=== PATIENT | male | born 1970 | race African-American/Black ===

== ENCOUNTER 2017-04-01 01:19 | Inpatient (IN) | payer OTHER ==
[2017-04-01 01:31] VITALS: BMI 23.0
--- NOTE | 2017-04-01 01:48 | PDOC ---
History of Present Illness - General Chief Complaint: Syncope/Near Syncope Stated Complaint: DIZZNESS Time Seen by Provider: 04/01/17 01:47 History Source: Patient - History of Present Illness Initial Comments: 04/01/17 03:31 46 year old male with nausea/ vomiting and dizziness. Patient report drinking 1 beer today. Patient alert slurred speech. breath smelling of alcohol. pmhx HIV, Hypertension, asthma Past History - Past Medical History Allergies/Adverse Reactions: Allergies Allergy/AdvReac Type Severity Reaction Status Date / Time ibuprofen Allergy Verified 04/01/17 06:14 Sulfa (Sulfonamide Allergy Verified 04/01/17 01:28 Antibiotics) [Sulfa(Sulfonamide Antibiotics)] Home Medications: Ambulatory Orders Ritonavir [Norvir] 100 mg PO DAILY 03/25/16 Darunavir Ethanolate [Prezista -] 800 mg PO DAILY #30 tablet 01/17/17 Dolutegravir Sodium [Tivicay] 50 mg PO DAILY #30 mg 01/17/17 Rilpivirine HCl [Edurant] 25 mg PO DAILY #30 mg 01/17/17 Mirtazapine [Remeron -] 15 mg PO DAILY #30 tablet 02/16/17 Zolpidem Tartrate [Ambien] 10 mg PO PRN #20 tablet MDD 1 02/16/17 Losartan Potassium 50 mg PO DAILY 04/01/17 Metoprolol Succinate [Toprol Xl -] 25 mg PO DAILY 04/01/17 Asthma: Yes Diabetes: No HTN: Yes HIV: Yes Suicide Attempt (Hx): No - Surgical History Abdominal Surgery: Yes Cholecystectomy: Yes - Immunization History Immunization Up to Date: Yes - Psycho/Social/Smoking Cessation Hx Anxiety: No Suicidal Ideation: No Smoking Status: No Smoking History: Never smoked Have you smoked in the past 12 months: No Number of Cigarettes Smoked Daily: 0 Cigars Per Day: 0 Information on smoking cessation initiated: No Hx Alcohol Use: No Drug/Substance Use Hx: No Substance Use Type: None, Alcohol Hx Substance Use Treatment: No Review of Systems - Review of Systems Able to Perform ROS?: Yes Is the patient limited Greek proficient: No Constitutional: No: Symptoms Reported, See HPI, Chills, Diaphoresis, Fever, Loss of Appetite, Malaise, Night Sweats, Weakness, Weight Stable, Unintentional Wgt. Loss, Unexplained wgt Loss, Other ABD/GI: Yes: Nausea, Vomiting Neurological: Yes: Dizziness *Physical Exam - Vital Signs Last Vital Signs Temp Pulse Resp BP Pulse Ox 99 H 16 147/110 98 04/01/17 01:28 04/01/17 01:28 04/01/17 01:28 04/01/17 01:28 - Physical Exam General Appearance: Yes: Appropriately Dressed Respiratory/Chest: positive: Lungs Clear, Normal Breath Sounds Cardiovascular: positive: Regular Rhythm, Regular Rate Extremity: positive: Normal Capillary Refill, Normal Inspection, Normal Range of Motion Integumentary: positive: Normal Color, Dry, Warm Neurologic: positive: Fully Oriented, Alert, Normal Mood/Affect Heart Score/ECG Review - ECG Intrepretation Rhythm: Regular Rhythm Comment:: 04/01/17 03:33 NSR 97, prolonged QT ED Treatment Course - LABORATORY CBC & Chemistry Diagram: 04/01/17 03:25 04/01/17 03:25 Medical Decision Making - Medical Decision Making 04/01/17 07:15 patient signed out Alessio CUEVAS pending ct scan result and disposition *DC/Admit/Observation/Transfer Diagnosis at time of Disposition: Elevated lipase, Alcohol abuse Vomiting Qualifiers: Vomiting type: unspecified Vomiting Intractability: non-intractable Nausea presence: with nausea Qualified Code(s): R11.2 - Nausea with vomiting, unspecified - Referrals Referrals: Shikha Tran [Primary Care Provider] -
[2017-04-01] MEDS ORDERED: SODIUM CHLORIDE 1,000 ML IV STA (01:55)
[2017-04-01] MEDS ORDERED: ONDANSETRON 4 MG/2 ML VIAL IVPB ONE (01:55)
[2017-04-01] MEDS ORDERED: ONDANSETRON 4 MG/2 ML VIAL ONE (03:06)
[2017-04-01 03:39] LABS: BASOPHIL 0.6 % (0-2.0); EOSINOPHIL 2.8 % (0-4.5); MCH 33.6 pg (25.7-33.7); MCHC 33.7 g/dl (32.0-35.9); MEAN CELL VOLUME 99.6 fl (80-96); MEAN PLT VOLUME 7.9 fl (7.5-11.1); NEUTROPHILS 55.7 % (42.8-82.8); PLATELET COUNT 120 K/MM3 (134-434); RDW 13.6 % (11.9-15.9); WHITE BLOOD COUNT 4.3 K/mm3 (4.0-10.0)
[2017-04-01 03:40] LABS: URINE APPEARANCE CLEAR; URINE BILIRUBIN NEGATIVE (NEGATIVE); URINE COLOR COLORLESS; URINE GLUCOSE (UA) NEGATIVE (NEGATIVE); URINE KETONE NEGATIVE (NEGATIVE); URINE LEUK ESTERASE NEGATIVE (NEGATIVE); URINE NITRITE NEGATIVE (NEGATIVE); URINE PROTEIN NEGATIVE (NEGATIVE); URINE UROBILINOGEN NEGATIVE E.U./dl (0.2-1.0)
[2017-04-01 03:46] LABS: URINE BLOOD 2+ (NEGATIVE)
[2017-04-01 04:16] LABS: ALBUMIN 3.6 g/dl (3.4-5.0); ALK PHOS 60 U/L (45-117); ANION GAP 18 (8-16); BILIRUBIN,TOTAL 1.1 mg/dL (0.2-1.0); CALCIUM 8.2 mg/dL (8.5-10.1); CO2 21 mmol/L (21-32); COCKROFT - GAULT 71.77; CREATININE 1.2 mg/dL (0.7-1.3); GLUCOSE,RANDOM 109 mg/dL (74-106); SGOT/AST 69 U/L (15-37); SGPT/ALT 50 U/L (12-78)
[2017-04-01 04:24] LABS: URINE BACTERIA RARE /hpf (NONE SEEN); URINE RBC <1 /hpf (0-3)
[2017-04-01] MEDS ORDERED: SODIUM CHLORIDE 1,000 ML IV SCH ×2 (05:30→12:30)
--- NOTE | 2017-04-01 07:35 | PDOC ---
*Physical Exam - Vital Signs Last Vital Signs Temp Pulse Resp BP Pulse Ox 97.5 F L 94 H 17 134/95 98 04/01/17 07:00 04/01/17 07:00 04/01/17 07:00 04/01/17 07:00 04/01/17 07:00 - Physical Exam General Appearance: Yes: Appropriately Dressed. No: Apparent Distress HEENT: positive: Normal Voice Neck: positive: Supple Respiratory/Chest: positive: Lungs Clear, Normal Breath Sounds. negative: Respiratory Distress Cardiovascular: positive: Regular Rate, S1, S2 Gastrointestinal/Abdominal: positive: Soft. negative: Tender, Distended, Guarding, Rebound Musculoskeletal: negative: CVA Tenderness Extremity: positive: Normal Inspection Integumentary: positive: Dry, Warm Neurologic: positive: Fully Oriented, Alert, Normal Mood/Affect ED Treatment Course - LABORATORY CBC & Chemistry Diagram: 04/01/17 03:25 04/01/17 03:25 - ADDITIONAL ORDERS Additional order review: Laboratory Results 04/01/17 04/01/17 04/01/17 03:50 03:25 03:25 Sodium 134 L Potassium 3.3 L D Chloride 95 L Carbon Dioxide 21 Anion Gap 18 H BUN 11 Creatinine 1.2 Creat Clearance w eGFR > 60 Random Glucose 109 H Calcium 8.2 L Total Bilirubin 1.1 H D AST 69 H D ALT 50 D Alkaline Phosphatase 60 Total Protein 8.0 Albumin 3.6 Lipase 903 H Urine Color Colorless Urine Appearance Clear Urine pH 6.0 Urine Protein Negative Urine Glucose (UA) Negative Urine Ketones Negative Urine Blood 2+ H Urine Nitrite Negative Urine Bilirubin Negative Urine Urobilinogen Negative Ur Leukocyte Esterase Negative Urine RBC <1 Urine WBC None Urine Bacteria Rare Alcohol, Quantitative 241.9 H* 04/01/17 03:25 RBC 4.05 MCV 99.6 H MCHC 33.7 RDW 13.6 MPV 7.9 D Neutrophils % 55.7 D Lymphocytes % 22.6 D Monocytes % 18.3 H Eosinophils % 2.8 Basophils % 0.6 - Medications Given in the ED: ED Medications Discontinued Medications Generic Name Dose Route Start Last Admin Trade Name Freq PRN Reason Stop Dose Admin Sodium Chloride 1,000 mls @ 1,000 mls/hr 04/01/17 01:55 04/01/17 02:45 Normal Saline - IV 04/01/17 02:54 1,000 mls/hr ASDIR STA Administration Ondansetron HCl 4 mg 04/01/17 01:55 04/01/17 02:45 Zofran Injection IVPB 04/01/17 01:56 4 mg ONCE ONE Administration Medical Decision Making - Medical Decision Making 04/01/17 07:33 Received S.O at 7am 46 yo M, h/o HIV on meds, does not know numbers, ETOH abuse, her w/ abd pain w/ n/v. Lipase of >900 on labs. Pt NPO w/ IVF going. Feels better. F/u with Dr Jimenes of ID. Will call MD and admit to OBs 04/01/17 09:19 Case d/w hospitalist who wants pt admitted to in-pt for work up *DC/Admit/Observation/Transfer Diagnosis at time of Disposition: Elevated lipase, Alcohol abuse Vomiting Qualifiers: Vomiting type: unspecified Vomiting Intractability: non-intractable Nausea presence: with nausea Qualified Code(s): R11.2 - Nausea with vomiting, unspecified - Discharge Dispostion Condition at time of disposition: Stable Admit: Yes - Referrals Referrals: Shikha Tran [Primary Care Provider] - - Patient Instructions - Post Discharge Activity
--- NOTE | 2017-04-01 09:18 | EKG ---
Test Reason : Blood Pressure : / mmHG Vent. Rate : 097 BPM Atrial Rate : 097 BPM P-R Int : 166 ms QRS Dur : 088 ms QT Int : 398 ms P-R-T Axes : 058 058 070 degrees QTc Int : 505 ms NORMAL SINUS RHYTHM MINIMAL VOLTAGE CRITERIA FOR LVH, MAY BE NORMAL VARIANT NONSPECIFIC ST ABNORMALITY PROLONGED QT ABNORMAL ECG WHEN COMPARED WITH ECG OF 18-FEB-2016 04:51, NONSPECIFIC T WAVE ABNORMALITY NO LONGER EVIDENT IN LATERAL LEADS QT HAS LENGTHENED Confirmed by SHALONDA VENTURA MD ([id number]) on 04/01/2017 9:17:57 AM Referred By: Confirmed By:SHALONDA VENTURA MD
[2017-04-01] MEDS ORDERED: FOLIC ACID INJECTION - 1 MG, THIAMINE HCL 100 MG, MULTIVIT INJECTION ADULT 10 ML in SOD... IVPB ONE (09:19)
[2017-04-01] MEDS ORDERED: ONDANSETRON 4 MG/2 ML VIAL IVPUSH PRN (09:19)
--- NOTE | 2017-04-01 10:47 | CONSULT ---
Consultation: REQUESTING PROVIDER: CONSULT REQUEST: We have been asked to medically evaluate this patient for (ID). HISTORY OF PRESENT ILLNESS: 46 y/o male with past medical h/o HIV, alcoholism, HTN, CKD, pancreatitis came to hospital with a cc of pain abdomen. States that he has pain since 2 days, on and off, 7/ 10 in intensity, present around umblicus and hypogasrtrium, non radiating, didnt try an pain meds in home, goes itself, gets better when stands straight. Also reports nausea and vomiting from 2 days, states that he was retching but has no actual vomit. Patient denies heart burn, regurgitaion. States that when he drinks some thing hot it dixon in epigastric area. Patient states that he has two beer yesterday and than he passed out, his mom found him and called ems and brought him to hospital , in hospital he complained of pain abdomen. Denies hitting his head, abnormal body movements, urine and fecal incontinence, tongue bite. Denies fever, chills, abdominal distension Denies sob, chest pain, palpitations , diarrhoea, constipation, blood in stool. Denies burning micturation, increase frequency. In hospital Lipase is elevated, CT shows dilated PD, afebrile, wbc normal. got 1 L of IV fluid bolus on 125 ml/hr dont remember his counts PSH : cholecystectomy social: drinks alcohol on weekend, states not a binge drinker. states he is compliant to his meds. nonischemic cardiomyopathy- followed by Dr Carpenter HIV- followed by Dr Jimenes cd4 is 185, viral load undetectable 12/10/16 REVIEW OF SYSTEMS: CONSTITUTIONAL: Absent: fever, chills, diaphoresis, Absent: rhinorrhea, nasal congestion, CARDIOVASCULAR: Absent: chest pain, syncope, palpitations, lightheadedness, RESPIRATORY: Absent: cough, shortness of breath, GASTROINTESTINAL: Absent: abdominal pain, abdominal distension, nausea, vomiting, diarrhea, constipation, hematochezia GENITOURINARY: Absent: dysuria, frequency, urgency, SKIN: Absent: rash, itching, pallor PHYSICAL EXAMINATION GENERAL: Awake, alert, and fully oriented, in no acute distress. alcohol smell in breath HEAD: Normal with no signs of trauma. EYES: Pupils equal, round and reactive to light, EARS, NOSE, THROAT: , oropharynx clear without exudates. dry mucous membranes. LUNGS: Breath sounds equal, clear to auscultation bilaterally. No wheezes, and no crackles. No accessory muscle use. HEART:s1s2 normal ABDOMEN: Soft, nontender, not distended, normoactive bowel sounds, no guarding, no rebound, no masses. UPPER EXTREMITIES: 2+ pulses, warm, well-perfused. LOWER EXTREMITIES:warm, well-perfused. No calf tenderness. No peripheral edema. Active Medications Generic Name Dose Route Start Last Admin Trade Name Freq PRN Reason Stop Dose Admin Sodium Chloride 1,000 mls @ 125 mls/hr 04/01/17 05:30 04/01/17 05:42 Normal Saline - IV 125 mls/hr ASDIR ANJALI Administration Folic Acid 1 mg/ Thiamine HCl 1,000 mls @ 125 mls/hr 04/01/17 09:19 100 mg/ Multivitamins/Minerals IVPB 04/01/17 17:18 10 ml/ Sodium Chloride ONCE ONE Insulin Aspart 1 vial 04/01/17 11:00 Novolog Vial Sliding Scale - SQ ACHS [facility] Protocol Ondansetron HCl 4 mg 04/01/17 09:19 Zofran Injection IVPUSH Q6H PRN NAUSEA AND/OR VOMITING ASSESSMENT/PLAN: Pain abdomen: could be from pancreatits ( although lipase is not three time elevated, pain is intermittent, non tender, duct was dilated in last admission also, calcification present, patient could have chronic pancreatits). HIV dilated cardiomyopathy Plan patient is afebrile, wbc is normal, will monitor him off antibiotics continue with HIV meds. consider cardiology consult Dispo: We will continue to follow the patient. Thank you for this consultative opportunity. Visit type - Emergency Visit Emergency Visit: Yes ED Registration Date: 04/01/17 Care time: The patient presented to the Emergency Department on the above date and was hospitalized for further evaluation of their emergent condition. - New Patient This patient is new to me today: Yes Date on this admission: 04/01/17 - Critical Care Critical Care patient: No
[2017-04-01] MEDS ORDERED: PATIENT'S OWN MEDICATION (NON-FORMULARY) (Dolutegravir Sodium 50 MG) PO SCH (11:30)
[2017-04-01] MEDS: INSULIN SLIDING SCALE (NOVOLOG) 1 VIAL SQ SCH ×3 (12:00→21:40)
--- NOTE | 2017-04-01 12:10 | HP ---
CHIEF COMPLAINT: abdominal pain and n/v PCP: Dr. Jimenes, primarily HISTORY OF PRESENT ILLNESS: This 46 year old male with a significant hx of HIV, ETOH abuse, HTN, CKD, pancreatitis now presents with c/o abd pain, n, v, for the past 2 days. He has had beer but denies daily use. He states last use is yesterday. He states he is compliant with his meds. He follows Dr. Jimenes's service for HIV/ID and does not know his CD4 count. Denies fever, chest pain, shortness of breath, signs of infection, or dehydration. While in the ER, pt is noted to have an EKG with a prolonged QTc at 505 which is longer then prior EKG He also underwent a CT of abd and pelvic with findings of pancreatitc head dilation of 5mm and elevated lipase Recent Travel: denies PAST MEDICAL HISTORY: HIV, ETOH abuse, HTN, CKD, pancreatitis PAST SURGICAL HISTORY: Social History: Smoking:none Alcohol:abuse Drugs: none Family History: Allergies ibuprofen Allergy (Verified 04/01/17 06:14) Sulfa (Sulfonamide Antibiotics) [Sulfa(Sulfonamide Antibiotics)] Allergy ( Verified 04/01/17 01:28) HOME MEDICATIONS: Home Medications Medication Instructions Recorded Ritonavir [Norvir] 100 mg PO DAILY 03/25/16 Darunavir Ethanolate [Prezista -] 800 mg PO DAILY #30 tablet 01/17/17 Dolutegravir Sodium [Tivicay] 50 mg PO DAILY #30 mg 01/17/17 Rilpivirine HCl [Edurant] 25 mg PO DAILY #30 mg 01/17/17 Mirtazapine [Remeron -] 15 mg PO DAILY #30 tablet 02/16/17 Zolpidem Tartrate [Ambien] 10 mg PO PRN #20 tablet MDD 1 02/16/17 Losartan Potassium 50 mg PO DAILY 04/01/17 Metoprolol Succinate [Toprol Xl -] 25 mg PO DAILY 04/01/17 REVIEW OF SYSTEMS CONSTITUTIONAL: Absent: fever, chills, diaphoresis, generalized weakness, malaise, loss of appetite, weight change HEENT: Absent: rhinorrhea, nasal congestion, throat pain, throat swelling, difficulty swallowing, mouth swelling, ear pain, eye pain, visual changes CARDIOVASCULAR: Absent: chest pain, syncope, palpitations, irregular heart rate, lightheadedness , peripheral edema RESPIRATORY: Absent: cough, shortness of breath, dyspnea with exertion, orthopnea, wheezing, stridor, hemoptysis GASTROINTESTINAL: Absent: (+)abdominal pain, abdominal distension,(+) nausea, (+)vomiting, diarrhea, constipation, melena, hematochezia GENITOURINARY: Absent: dysuria, frequency, urgency, hesitancy, hematuria, flank pain, genital pain MUSCULOSKELETAL: Absent: myalgia, arthralgia, joint swelling, back pain, neck pain SKIN: Absent: rash, itching, pallor HEMATOLOGIC/IMMUNOLOGIC: Absent: easy bleeding, easy bruising, lymphadenopathy, frequent infections ENDOCRINE: Absent: unexplained weight gain, unexplained weight loss, heat intolerance, cold intolerance NEUROLOGIC: Absent: headache, focal weakness or paresthesias, dizziness, unsteady gait, seizure, mental status changes, bladder or bowel incontinence PSYCHIATRIC: Absent: anxiety, depression, suicidal or homicidal ideation, hallucinations. PHYSICAL EXAMINATION GENERAL: Awake, alert, and fully oriented, in no acute distress. HEAD: Normal with no signs of trauma. EYES: Pupils equal, round and reactive to light, extraocular movements intact, sclera anicteric, conjunctiva clear. No lid lag. EARS, NOSE, THROAT: Ears normal, nares patent, oropharynx clear without exudates. Moist mucous membranes. NECK: Normal range of motion, supple without lymphadenopathy, JVD, or masses. LUNGS: Breath sounds equal, clear to auscultation bilaterally. No wheezes, and no crackles. No accessory muscle use. HEART: Regular rate and rhythm, normal S1 and S2 without murmur, rub or gallop. ABDOMEN: Soft, (+) generalized abd tender, not distended, normoactive bowel sounds, no guarding, no rebound, no masses. No hepatomegaly or splenomegaly. MUSCULOSKELETAL: Normal range of motion at all joints. No bony deformities or tenderness. No CVA tenderness. UPPER EXTREMITIES: 2+ pulses, warm, well-perfused. No cyanosis. No clubbing. No peripheral edema. LOWER EXTREMITIES: 2+ pulses, warm, well-perfused. No calf tenderness. No peripheral edema. NEUROLOGICAL: Cranial nerves II-XII intact. Normal speech. Normal gait. PSYCHIATRIC: Cooperative. Good eye contact. Appropriate mood and affect. SKIN: Warm, dry, normal turgor, no rashes or lesions noted, normal capillary refill. ASSESSMENT/PLAN: This 46 yr old male with c/o abd pain and n, v with findings of pancreatitis with elevated lipase 1. Pancreatitis chronic vs acute -NPO with IVF -repeat labs and monitor -appreciate ROCK Jimenes consult, will restart meds po -GI consult with Dr. Jia fiore 2. Prolonged QTc -cardiology consult with Dr. Castaneda 3. Admission med surg inpatient for pancreatitis and EKG changes. Visit type - Emergency Visit Emergency Visit: Yes ED Registration Date: 04/01/17 Care time: The patient presented to the Emergency Department on the above date and was hospitalized for further evaluation of their emergent condition. - New Patient This patient is new to me today: Yes Date on this admission: 04/01/17 - Critical Care Critical Care patient: No
--- NOTE | 2017-04-01 12:27 | PN ---
Teaching Attending Note Name of Resident: Raudelleena Sosa ATTENDING PHYSICIAN STATEMENT I saw and evaluated the patient. I reviewed the resident's note and discussed the case with the resident. I agree with the resident's findings and plan as documented. SUBJECTIVE: syncope etoh use abdominal pain with nausea and vomiting nonischemic cardiomyopathy- followed by Dr Carpenter HIV- followed by Dr Jimenes cd4 is 185, viral load undetectable 12/10/16 abd pain improved no diarrhea OBJECTIVE: Vital Signs Period Temp Pulse Resp BP Sys/Goodson Pulse Ox Last 24 Hr 97.5 F 73-99 16-18 131-147/95-110 98-100 no thrush cor-rrr 'lungs clear abd soft,nt ext no edema CBC, BMP 04/01/17 03:25 04/01/17 03:25 ct scan noted ASSESSMENT AND PLAN: syncope- ?etoh, ?cardiac, d/w hospitalist pancreatitis- probably chronic- gi to see, ?esophagitis- consider endoscopoy, no evidence of thrush dilated cardiomyopathy HIV - continue ART - f/u Dr Jimenes [facility] d/w hospitalist Problem List - Problems (1) Syncope Code(s): R55 - SYNCOPE AND COLLAPSE (2) Pancreatitis Code(s): K85.90 - ACUTE PANCREATITIS WITHOUT NECROSIS OR INFECTION, UNSP (3) Alcohol abuse Code(s): F10.10 - ALCOHOL ABUSE, UNCOMPLICATED (4) HIV disease Code(s): B20 - HUMAN IMMUNODEFICIENCY VIRUS [HIV] DISEASE
--- NOTE | 2017-04-01 12:38 | PN ---
Progress Note (short form) - Note Progress Note: Received a phone call from Dr. Alexander who was seeing pt for consult. Pt and mother present and both states now that pt fell and hit head this morning prior to coming in to ER. His initial complaint is abdominal pain and n/v however he just stated his fall. This has arose concern for cardiac vs ETOH use -ordered head CT -now changing order to telemetry -also noted that Dr. 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 Alexander, consult for cards changed as well. -will monitor for AMS Visit type - Emergency Visit Emergency Visit: Yes ED Registration Date: 04/01/17 Care time: The patient presented to the Emergency Department on the above date and was hospitalized for further evaluation of their emergent condition. - New Patient This patient is new to me today: Yes Date on this admission: 04/01/17 - Critical Care Critical Care patient: No - Discharge Referral Referred to [facility] Med P.C.: No
--- NOTE | 2017-04-01 13:50 | CON.CARD ---
Cardiology Consult (text) - Consultation Consultation Note: IMP: Acute pancreatitis, likely ETOH induced HIV with non-ischemic CM Prolonged QT Fall REC: GI evaluation for pancreatitis. CT pending. Tele as QT prolonged, likely du to low K+ Replete lytes. Fall likely due to intoxication, will observe on tele to rachel out arrhythmia Full consult dictated
--- NOTE | 2017-04-01 16:12 | CON.GI ---
Consult - History of Present Illness Chief Complaint: abdominal pain and syncope History of Present Illness: 46 year old alcohol abuser who is HIV positive, viral load neg on Norvir drinking yesterday (he says 2 beers but alcohol level is over 200) admitted after he got up from bed (no abdominal pain , no vomiting) and passed out. He is now on telemetry. He is pain free. He states that this is his second bout of pancreatitis. He takes his HIV meds everyday. He had some nausea and vomiting yesterdy but feels better today. Lipase about [address] scan with enlarged head of pancreas. - History Source History Provided By: Patient Limitations to Obtaining History: No Limitations - Past Medical History Cardio/Vascular: Yes: HTN Gastrointestinal: Yes: Other (alcohol abuse/ hx of pancreatitis) Renal/: Yes: Renal Inusuff (see HPI, last epiosode of [place] 03/2014 with creatinine up to 8.1, recovered) Infectious Disease: Yes: HIV, AIDS - Past Surgical History Past Surgical History: Yes: Cholecystectomy - Alcohol/Substance Use Hx Alcohol Use: No History of Substance Use: reports: None - Smoking History Smoking history: Never smoked Have you smoked in the past 12 months: No Aproximately how many cigarettes per day: 0 - Social History Usual Living Arrangement: Alone ADL: Independent History of Recent Travel: No Home Medications - Allergies Allergies/Adverse Reactions: Allergies Allergy/AdvReac Type Severity Reaction Status Date / Time ibuprofen Allergy Verified 04/01/17 06:14 Sulfa (Sulfonamide Allergy Verified 04/01/17 01:28 Antibiotics) [Sulfa(Sulfonamide Antibiotics)] - Home Medications Home Medications: Ambulatory Orders Ritonavir [Norvir] 100 mg PO DAILY 03/25/16 Darunavir Ethanolate [Prezista -] 800 mg PO DAILY #30 tablet 01/17/17 Dolutegravir Sodium [Tivicay] 50 mg PO DAILY #30 mg 01/17/17 Rilpivirine HCl [Edurant] 25 mg PO DAILY #30 mg 01/17/17 Mirtazapine [Remeron -] 15 mg PO DAILY #30 tablet 02/16/17 Zolpidem Tartrate [Ambien] 10 mg PO PRN #20 tablet MDD 1 02/16/17 Losartan Potassium 50 mg PO DAILY 04/01/17 Metoprolol Succinate [Toprol Xl -] 25 mg PO DAILY 04/01/17 Family Disease History - Family Disease History Family Disease History: Other: Mother (HTN) Review of Systems - Review of Systems Constitutional: reports: Loss of Appetite, Malaise Eyes: reports: No Symptoms HENT: reports: No Symptoms Neck: reports: No Symptoms Cardiovascular: reports: No Symptoms Respiratory: reports: No Symptoms Gastrointestinal: reports: Abdominal Pain, Nausea, Vomiting, Other (no rectal bleeding, no melena, no hematemesis) Musculoskeletal: reports: No Symptoms Integumentary: reports: No Symptoms Neurological: reports: Change in LOC Psychiatric: reports: No Symptoms Physical Exam-GI Vital Signs: Vital Signs Temperature 97.7 F 04/01/17 14:00 Pulse Rate 72 04/01/17 14:00 Respiratory Rate 20 04/01/17 14:00 Blood Pressure 139/103 04/01/17 14:00 O2 Sat by Pulse Oximetry (%) 99 04/01/17 13:53 Constitutional: Yes: Well Nourished Eyes: Yes: Conjunctiva Clear HENT: Yes: Atraumatic Neck: Yes: Supple Cardiovascular: Yes: Regular Rate and Rhythm Respiratory: Yes: Regular Gastrointestinal Inspection: Yes: WNL, Distention ...Auscultate: Yes: Normoactive Bowel Sounds ...Palpate: Yes: Soft Extremities: Yes: WNL Neurological: Yes: Alert, Oriented Psychiatric: Yes: WNL Labs: Laboratory Tests 04/01/17 04/01/17 04/01/17 03:25 03:25 03:25 WBC 4.3 RBC 4.05 Hgb 13.6 Hct 40.4 MCV 99.6 H MCHC 33.7 RDW 13.6 Plt Count 120 L D MPV 7.9 D Neutrophils % 55.7 D Lymphocytes % 22.6 D Monocytes % 18.3 H Eosinophils % 2.8 Basophils % 0.6 Sodium 134 L Potassium 3.3 L D Chloride 95 L Carbon Dioxide 21 Anion Gap 18 H BUN 11 Creatinine 1.2 Creat Clearance w eGFR > 60 Random Glucose 109 H Calcium 8.2 L Total Bilirubin 1.1 H D AST 69 H D ALT 50 D Alkaline Phosphatase 60 Total Protein 8.0 Albumin 3.6 Lipase 903 H Urine Color Colorless Urine Appearance Clear Urine pH 6.0 Ur Specific Sparkman <= 1.005 Urine Protein Negative Urine Glucose (UA) Negative Urine Ketones Negative Urine Blood 2+ H Urine Nitrite Negative Urine Bilirubin Negative Urine Urobilinogen Negative Ur Leukocyte Esterase Negative Urine RBC <1 Urine WBC None Urine Bacteria Rare Alcohol, Quantitative 04/01/17 03:50 WBC RBC Hgb Hct MCV MCHC RDW Plt Count MPV Neutrophils % Lymphocytes % Monocytes % Eosinophils % Basophils % Sodium Potassium Chloride Carbon Dioxide Anion Gap BUN Creatinine Creat Clearance w eGFR Random Glucose Calcium Total Bilirubin AST ALT Alkaline Phosphatase Total Protein Albumin Lipase Urine Color Urine Appearance Urine pH Ur Specific Sparkman Urine Protein Urine Glucose (UA) Urine Ketones Urine Blood Urine Nitrite Urine Bilirubin Urine Urobilinogen Ur Leukocyte Esterase Urine RBC Urine WBC Urine Bacteria Alcohol, Quantitative 241.9 H* Imaging - Results Cat Scan: Image Reviewed Problem List - Problems (1) Pancreatitis Assessment/Plan: The combination of alcohol abuse and norvir is not a good combintion. He has recurrent pancreatitis and I am sure the norvir at what ever dose contributes to his pancreatitis. Patient has not been given adequate hydration since in hospital. I have started lr at 200 cc/hour for 10 hours the decrease to 150 cc/hr. He states he is hungry and pain free. Start clear liquids and follow labs. Speak with ID about the Norvir. Code(s): K85.90 - ACUTE PANCREATITIS WITHOUT NECROSIS OR INFECTION, UNSP (2) Alcohol abuse Code(s): F10.10 - ALCOHOL ABUSE, UNCOMPLICATED (3) Elevated lipase Code(s): R74.8 - ABNORMAL LEVELS OF OTHER SERUM ENZYMES (4) Syncope Code(s): R55 - SYNCOPE AND COLLAPSE
[2017-04-01] MEDS: LOSARTAN POTASSIUM 50 MG TABLET (FP) PO SCH (16:22)
[2017-04-01] MEDS: METOPROLOL SUCCINATE 25 MG TAB.SR.24H (FP) PO SCH (16:22)
[2017-04-01] MEDS: RITONAVIR 100 MG TABLET PO SCH ×2 (16:25→18:24)
[2017-04-01] MEDS: RILPIVIRINE HCL 25 MG TABLET PO SCH ×2 (16:25→18:24)
[2017-04-01] MEDS: DARUNAVIR ETHANOLATE 800 MG TAB PO SCH ×2 (16:26→18:24)
[2017-04-01] MEDS ORDERED: POTASSIUM CHLORIDE TABS 20 MEQ TABLET.ER (FP) PO ONE (16:35)
--- NOTE | 2017-04-01 18:04 | CONS ---
DATE OF CONSULTATION: 04/01/2017 CARDIOLOGY CONSULTATION REQUESTING PHYSICIAN: for abnormal EKG. HISTORY OF PRESENT ILLNESS: The patient is a 46-year-old male with HIV, nonischemic cardiomyopathy with moderate LV dysfunction who I have seen in the office for optimization of LV dysfunction. Over the last 6 months, he has been tapered off Norvasc and started on Toprol XL and losartan. Nuclear stress test showed no ischemia. He is now admitted with abdominal pain, elevated lipase at 903, intoxication with alcohol all consistent with acute pancreatitis. I was consulted because his QT was found to be mildly prolonged on EKG and he also suffered a fall last evening in the setting of being intoxicated. He denies chest pain, palpitations, shortness of breath. PAST MEDICAL HISTORY: As above and also includes Vuong's palsy, prior pancreatitis. ALLERGIES: IBUPROFEN and SULFA. HOME MEDICATIONS: Include Prezista, Edurant, Tivicay, Norvir, losartan 50 mg daily, Remeron 50 mg daily, Toprol XL 25 mg daily, and Ambien. FAMILY HISTORY: Noncontributory. SOCIAL HISTORY: Patient drinks alcohol occasionally very heavily. Denies smoking or other illegal drugs. PHYSICAL EXAMINATION: Vital signs: Temperature 97.5, pulse 73, blood pressure 137/95, and O2 100 on room air. HEENT: Anicteric. Neck: No bruits. Heart: S1, 2. Regular. No murmurs. Chest: Clear. Abdomen: Soft. Nontender. Mild epigastric tenderness. Extremities: No edema. LABORATORY: White count 4.3, hematocrit 40, platelets 120, sodium 134, potassium 3.3, creatinine 1.2. AST 69, ALT 50, lipase 903, urinalysis showed 2+ blood, toxicology showed alcohol level of 250. EKG showed normal sinus rhythm at 97 beats per minute with LVH, prolonged QT, QTC 505 ms. IMPRESSION: 1. Acute pancreatitis, probably alcohol induced, although human immunodeficiency virus medications may be responsible as well, cannot rule out possible cholelithiasis. 2. Nonischemic cardiomyopathy, presumed due to hypertension and human immunodeficiency virus. 3. Alcohol intoxication. 4. Fall in the setting of intoxication. PLAN: 1. GI consultation for management of pancreatitis. CT scan is pending. 2. Telemetry monitoring, as patient has mildly prolonged QT in the setting of hypokalemia. Replete potassium and electrolytes. Monitor on telemetry for 24 hours to rule out arrhythmias. However, do not suspect fall is due to arrhythmia but rather due to intoxication with alcohol. Thank you for the consultation. SHALONDA VENTURA M.D. [id number]
[2017-04-01] MEDS: LACTATED RINGERS SOLUTION 1,000 ML IV SCH ×2 (18:16→18:24)
[2017-04-01] MEDS: MIRTAZAPINE 15 MG TABLET (FP) PO SCH (21:44)
[2017-04-01 21:50] LABS: ALBUMIN 3.7 g/dl (3.4-5.0); BILIRUBIN,TOTAL 1.3 mg/dL (0.2-1.0); CALCIUM 8.2 mg/dL (8.5-10.1); COCKROFT - GAULT 66.25; CREATININE 1.3 mg/dL (0.7-1.3); TOT PROT 7.9 g/dl (6.4-8.2)
[2017-04-02] MEDS: ZOLPIDEM TARTRATE 5 MG TABLET PO PRN (00:37)
[2017-04-02] MEDS: LACTATED RINGERS SOLUTION 1,000 ML IV SCH ×2 (01:38→17:20)
[2017-04-02] MEDS: INSULIN SLIDING SCALE (NOVOLOG) 1 VIAL SQ SCH ×4 (06:15→22:27)
[2017-04-02 08:17] LABS: BASOPHIL 0.7 % (0-2.0); EOSINOPHIL 3.8 % (0-4.5); MCH 34.1 pg (25.7-33.7); MCHC 33.8 g/dl (32.0-35.9); MEAN CELL VOLUME 100.9 fl (80-96); MEAN PLT VOLUME 8.5 fl (7.5-11.1); PLATELET COUNT 110 K/MM3 (134-434)
[2017-04-02 08:29] LABS: INR 1.01 (0.82-1.09); PROTHROMBIN TIME (PATIENT) 11.1 SEC (9.98-11.88)
[2017-04-02 08:32] LABS: ACTIVATED PTT 28.8 SECONDS (26.9-34.4)
[2017-04-02 08:56] LABS: ALBUMIN 3.2 g/dl (3.4-5.0); ALK PHOS 45 U/L (45-117); AMYLASE 162 U/L (25-115); ANION GAP 8 (8-16); BILIRUBIN,TOTAL 1.2 mg/dL (0.2-1.0); CALCIUM 8.4 mg/dL (8.5-10.1); CO2 28 mmol/L (21-32); COCKROFT - GAULT 78.29; CREATININE 1.1 mg/dL (0.7-1.3); GLUCOSE,RANDOM 85 mg/dL (74-106); MAGNESIUM 1.6 mg/dL (1.8-2.4); PHOSPHOROUS 3.1 mg/dL (2.5-4.9); SGOT/AST 52 U/L (15-37); SGPT/ALT 37 U/L (12-78)
--- NOTE | 2017-04-02 09:21 | PN ---
Progress Note, Physician - Current Medication List Current Medications: Active Medications Darunavir (Prezista -) 800 mg PO DAILY [facility] Last Admin: 04/01/17 18:24 Dose: 800 mg Lactated Ringer's (Lactated Ringers Solution) 1,000 mls @ 200 mls/hr IV ASDIR [facility] Last Admin: 04/02/17 01:38 Dose: 200 mls/hr Insulin Aspart (Novolog Vial Sliding Scale -) 1 vial SQ ACHS [facility] PRN Reason: Protocol Last Admin: 04/02/17 06:15 Dose: Not Given Losartan Potassium (Cozaar -) 50 mg PO DAILY [facility] Last Admin: 04/01/17 16:22 Dose: 50 mg Metoprolol Succinate (Toprol Xl -) 25 mg PO DAILY [facility] Last Admin: 04/01/17 16:22 Dose: 25 mg Mirtazapine (Remeron -) 15 mg PO HS [facility] Last Admin: 04/01/17 21:44 Dose: 15 mg Non-Formulary Medication (Dolutegravir Sodium) 50 mg PO DAILY [facility] Ondansetron HCl (Zofran Injection) 4 mg IVPUSH Q6H PRN PRN Reason: NAUSEA AND/OR VOMITING Ritonavir (Norvir -) 100 mg PO DAILY [facility] Last Admin: 04/01/17 18:24 Dose: 100 mg Zolpidem Tartrate (Ambien -) 10 mg PO HS PRN PRN Reason: INSOMNIA Last Admin: 04/02/17 00:37 Dose: 10 mg - Objective Vital Signs: Vital Signs Temperature 97.8 F 04/02/17 06:00 Pulse Rate 76 04/02/17 06:00 Respiratory Rate 20 04/02/17 06:00 Blood Pressure 143/96 04/02/17 06:00 O2 Sat by Pulse Oximetry (%) 99 04/01/17 21:00 Eyes: Yes: WNL, Conjunctiva Clear, EOM Intact HENT: Yes: WNL, Atraumatic, Normocephalic Neck: Yes: WNL, Supple, Trachea Midline Cardiovascular: Yes: WNL, Regular Rate and Rhythm Respiratory: Yes: WNL, Regular, CTA Bilaterally Gastrointestinal: Yes: WNL, Normal Bowel Sounds Genitourinary: Yes: WNL Musculoskeletal: Yes: WNL Extremities: Yes: WNL Edema: No Integumentary: Yes: WNL Neurological: Yes: WNL, Alert, Oriented ...Motor Strength: WNL Psychiatric: Yes: WNL Labs: CBC, BMP 04/02/17 05:43 04/02/17 05:43 INR, PTT INR 1.01 (0.82-1.09) 04/02/17 05:43 Assessment/Plan IMP: Acute pancreatitis, likely ETOH induced HIV with non-ischemic CM Prolonged QT Fall REC: GI evaluation for pancreatitis. CT pending. Tele as QT prolonged, likely du to low K+ Replete lytes. Fall likely due to intoxication, will observe on tele to rachel out arrhythmia Full consult dictated
[2017-04-02] MEDS: RILPIVIRINE HCL 25 MG TABLET PO SCH (09:46)
[2017-04-02] MEDS: METOPROLOL SUCCINATE 25 MG TAB.SR.24H (FP) PO SCH (10:46)
[2017-04-02] MEDS: LOSARTAN POTASSIUM 50 MG TABLET (FP) PO SCH (10:46)
--- NOTE | 2017-04-02 10:48 | PN ---
Progress Note, Physician Chief Complaint: ID Feeling much better now Admits to excessive drinking of alcohol - Current Medication List Current Medications: Active Medications Darunavir (Prezista -) 800 mg PO DAILY [facility] Last Admin: 04/01/17 18:24 Dose: 800 mg Lactated Ringer's (Lactated Ringers Solution) 1,000 mls @ 200 mls/hr IV ASDIR [facility] Last Admin: 04/02/17 01:38 Dose: 200 mls/hr Insulin Aspart (Novolog Vial Sliding Scale -) 1 vial SQ ACHS [facility] PRN Reason: Protocol Last Admin: 04/02/17 06:15 Dose: Not Given Losartan Potassium (Cozaar -) 50 mg PO DAILY [facility] Last Admin: 04/01/17 16:22 Dose: 50 mg Metoprolol Succinate (Toprol Xl -) 25 mg PO DAILY [facility] Last Admin: 04/01/17 16:22 Dose: 25 mg Mirtazapine (Remeron -) 15 mg PO HS [facility] Last Admin: 04/01/17 21:44 Dose: 15 mg Non-Formulary Medication (Dolutegravir Sodium) 50 mg PO DAILY [facility] Ondansetron HCl (Zofran Injection) 4 mg IVPUSH Q6H PRN PRN Reason: NAUSEA AND/OR VOMITING Ritonavir (Norvir -) 100 mg PO DAILY [facility] Last Admin: 04/01/17 18:24 Dose: 100 mg Zolpidem Tartrate (Ambien -) 10 mg PO HS PRN PRN Reason: INSOMNIA Last Admin: 04/02/17 00:37 Dose: 10 mg - Objective Vital Signs: Vital Signs Temperature 97.8 F 04/02/17 06:00 Pulse Rate 76 04/02/17 06:00 Respiratory Rate 20 04/02/17 06:00 Blood Pressure 143/96 04/02/17 06:00 O2 Sat by Pulse Oximetry (%) 99 04/01/17 21:00 Constitutional: Yes: Well Nourished, No Distress HENT: Yes: WNL, Atraumatic Neck: Yes: WNL, Supple Cardiovascular: Yes: Regular Rate and Rhythm, S1, S2 Respiratory: Yes: WNL, Regular, CTA Bilaterally Gastrointestinal: Yes: WNL, Normal Bowel Sounds, Soft. No: Tenderness Edema: No Labs: CBC, BMP 04/02/17 05:43 04/02/17 05:43 INR, PTT INR 1.01 (0.82-1.09) 04/02/17 05:43 Assessment/Plan Laboratory Tests 04/02/17 04/02/17 05:43 05:43 WBC 4.0 Hgb 13.4 Plt Count 110 L AST 52 H D ALT 37 Alkaline Phosphatase 45 Total Amylase 162 H Lipase 948 H Assessment Alcoholic pancreatitis improving Plan Discharge planning Resume HIV meds as before as this doubtful as a contributing factor Jalil DARDEN
[2017-04-02] MEDS ORDERED: MAGNESIUM SULF 50% (8.12 MEQ/2 ML-1 GM VIAL) IVPB ONE (10:51)
[2017-04-02] MEDS ORDERED: PT OWN MED DRAWER 7, Y5N ONE (10:59)
[2017-04-02] MEDS: DARUNAVIR ETHANOLATE 800 MG TAB PO SCH (11:09)
[2017-04-02] MEDS: RITONAVIR 100 MG TABLET PO SCH (11:09)
--- NOTE | 2017-04-02 11:14 | PN ---
Physical Exam: SUBJECTIVE: Patient seen and examined. He denies abdominal pain, nausea, vomiting, hematochezia. He is tolerating clears well. Tele: NSR, pacs OBJECTIVE: Vital Signs Period Temp Pulse Resp BP Sys/Goodson Pulse Ox Last 24 Hr 97 F-98.7 F 72-90 18-20 134-151/70-108 99-100 PE Neuro: alert, awake, cn 2-12intact HEENT: L eye mild ptosis, slight droop to L smile (hx of bells palsy) Pulm: L base mild wheeze, right clear CV: s1 s2 rrr no mrg Abd: s nt nd +bs Ext: warm, no le edema Laboratory Results - last 24 hr 04/01/17 04/01/17 04/01/17 11:43 20:45 21:17 WBC RBC Hgb Hct MCV MCHC RDW Plt Count MPV Neutrophils % Lymphocytes % Monocytes % Eosinophils % Basophils % INR PTT (Actin FS) Sodium 141 Potassium 4.0 D Chloride 105 D Carbon Dioxide 23 Anion Gap 13 BUN 9 Creatinine 1.3 Creat Clearance w eGFR 59.17 POC Glucometer 103.84265 107 Random Glucose 116 H Calcium 8.2 L Phosphorus Magnesium Total Bilirubin 1.3 H AST 73 H ALT 45 Alkaline Phosphatase 51 B-Natriuretic Peptide Total Protein 7.9 Albumin 3.7 Total Amylase Lipase 04/02/17 04/02/17 04/02/17 05:43 05:43 05:43 WBC 4.0 RBC 3.92 L Hgb 13.4 Hct 39.5 MCV 100.9 H MCHC 33.8 RDW 14.0 Plt Count 110 L MPV 8.5 Neutrophils % 56.0 Lymphocytes % 25.2 Monocytes % 14.3 H Eosinophils % 3.8 Basophils % 0.7 INR 1.01 PTT (Actin FS) 28.8 Sodium 139 Potassium 4.2 Chloride 103 Carbon Dioxide 28 D Anion Gap 8 BUN 8 Creatinine 1.1 Creat Clearance w eGFR > 60 POC Glucometer Random Glucose 85 D Calcium 8.4 L Phosphorus 3.1 Magnesium 1.6 L Total Bilirubin 1.2 H AST 52 H D ALT 37 Alkaline Phosphatase 45 B-Natriuretic Peptide 198.62 H Total Protein 7.0 Albumin 3.2 L Total Amylase 162 H Lipase 948 H Active Medications Generic Name Dose Route Start Last Admin Trade Name Freq PRN Reason Stop Dose Admin Darunavir 800 mg 04/01/17 15:00 04/01/17 18:24 Prezista - PO 800 mg DAILY ANJALI Administration Lactated Ringer's 1,000 mls @ 200 mls/hr 04/01/17 16:00 04/02/17 01:38 Lactated Ringers Solution IV 200 mls/hr ASDIR ANJALI Administration Insulin Aspart 1 vial 04/01/17 11:00 04/02/17 06:15 Novolog Vial Sliding Scale - SQ Not Given ACHS [facility] Protocol Losartan Potassium 50 mg 04/01/17 13:00 04/01/17 16:22 Cozaar - PO 50 mg DAILY ANJALI Administration Magnesium Sulfate 2 gm 04/02/17 10:51 Magnesium Sulfate IVPB 04/02/17 10:52 ONCE ONE Metoprolol Succinate 25 mg 04/01/17 12:45 04/01/17 16:22 Toprol Xl - PO 25 mg DAILY ANJALI Administration Mirtazapine 15 mg 04/01/17 22:00 04/01/17 21:44 Remeron - PO 15 mg HS ANJALI Administration Non-Formulary Medication 50 mg 04/01/17 11:30 Dolutegravir Sodium PO DAILY [facility] Ondansetron HCl 4 mg 04/01/17 09:19 Zofran Injection IVPUSH Q6H PRN NAUSEA AND/OR VOMITING Ritonavir 100 mg 04/01/17 15:00 04/01/17 18:24 Norvir - PO 100 mg DAILY ANJ[facility] Administration Zolpidem Tartrate 10 mg 04/02/17 00:14 04/02/17 00:37 Ambien - PO 10 mg HS PRN Administration INSOMNIA Assessment: 46 year old male with HIV (on HAART), bells palsy, ETOH abuse, HTN, CKD, pancreatitis admitted with abd pain, nausea, vomiting, for 2 days and fall Plan: 1. Alcoholic pancreatitis - Continue LR - Clear liquids - Trend lipase - To maintain current HIV meds, no change, d/w ID 2. HIV - Continue Norvir, Prezista 3. HTN - Elevated, however receiving aggressive fluids, will trend - Toprol xl 25mg daily - Cozaar 50mg daily 4. Hypomagnesemia - Replete 2gm mg IV 5. Alcohol abuse 6. Fall d/t ETOH intoxication - Head CT negative 7. Prolonged QT - Potassium wnl - Mg repletion - Tele monitoring r/o arrhythmia, NSR so far Visit type - Emergency Visit Emergency Visit: Yes ED Registration Date: 04/01/17 Care time: The patient presented to the Emergency Department on the above date and was hospitalized for further evaluation of their emergent condition. - New Patient This patient is new to me today: Yes Date on this admission: 04/02/17 - Critical Care Critical Care patient: No
[2017-04-02] MEDS ORDERED: LABETALOL HCL 5 MG/1 ML (100MG/20 ML VIAL) IVPUSH ONE (14:27)
[2017-04-02] MEDS ORDERED: hydrALAZINE HCL 20 MG/ML VIAL IVPUSH ONE (17:12)
[2017-04-02] MEDS: MIRTAZAPINE 15 MG TABLET (FP) PO SCH (22:13)
[2017-04-03] MEDS: LACTATED RINGERS SOLUTION 1,000 ML IV SCH ×2 (01:00→07:02)
[2017-04-03] MEDS: ZOLPIDEM TARTRATE 5 MG TABLET PO PRN (01:04)
[2017-04-03] MEDS: INSULIN SLIDING SCALE (NOVOLOG) 1 VIAL SQ SCH ×2 (06:26→11:29)
[2017-04-03 08:08] VITALS: TEMP 98.2
[2017-04-03 08:23] LABS: CALCIUM 8.9 mg/dL (8.5-10.1); COCKROFT - GAULT 71.77; CREATININE 1.2 mg/dL (0.7-1.3)
[2017-04-03 08:50] VITALS: BP 124/82; PULSE 82
--- NOTE | 2017-04-03 09:16 | PN ---
Progress Note, Physician - Current Medication List Current Medications: Active Medications Darunavir (Prezista -) 800 mg PO DAILY [facility] Last Admin: 04/02/17 11:09 Dose: 800 mg Lactated Ringer's (Lactated Ringers Solution) 1,000 mls @ 200 mls/hr IV ASDIR [facility] Last Admin: 04/03/17 07:02 Dose: 200 mls/hr Insulin Aspart (Novolog Vial Sliding Scale -) 1 vial SQ ACHS [facility] PRN Reason: Protocol Last Admin: 04/03/17 06:26 Dose: Not Given Losartan Potassium (Cozaar -) 50 mg PO DAILY [facility] Last Admin: 04/02/17 10:46 Dose: 50 mg Metoprolol Succinate (Toprol Xl -) 25 mg PO DAILY [facility] Last Admin: 04/02/17 10:46 Dose: 25 mg Mirtazapine (Remeron -) 15 mg PO HS [facility] Last Admin: 04/02/17 22:13 Dose: 15 mg Non-Formulary Medication (Dolutegravir Sodium) 50 mg PO DAILY [facility] Ondansetron HCl (Zofran Injection) 4 mg IVPUSH Q6H PRN PRN Reason: NAUSEA AND/OR VOMITING Ritonavir (Norvir -) 100 mg PO DAILY [facility] Last Admin: 04/02/17 11:09 Dose: 100 mg Zolpidem Tartrate (Ambien -) 10 mg PO HS PRN PRN Reason: INSOMNIA Last Admin: 04/03/17 01:04 Dose: 10 mg - Objective Vital Signs: Vital Signs Temperature 98.2 F 04/03/17 08:48 Pulse Rate 82 04/03/17 08:48 Respiratory Rate 18 04/03/17 08:50 Blood Pressure 124/82 04/03/17 08:48 O2 Sat by Pulse Oximetry (%) 99 04/03/17 08:50 Eyes: Yes: WNL, Conjunctiva Clear, EOM Intact HENT: Yes: WNL, Atraumatic, Normocephalic Neck: Yes: WNL, Supple, Trachea Midline Cardiovascular: Yes: WNL, Regular Rate and Rhythm Respiratory: Yes: WNL, Regular, CTA Bilaterally Gastrointestinal: Yes: WNL, Normal Bowel Sounds Genitourinary: Yes: WNL Musculoskeletal: Yes: WNL Extremities: Yes: WNL Edema: No Integumentary: Yes: WNL Neurological: Yes: WNL, Alert, Oriented ...Motor Strength: WNL Psychiatric: Yes: WNL Labs: CBC, BMP 04/02/17 05:43 04/03/17 05:40 INR, PTT INR 1.01 (0.82-1.09) 04/02/17 05:43 Assessment/Plan IMP: Acute pancreatitis, likely ETOH induced HIV with non-ischemic CM Prolonged QT Fall REC: GI evaluation for pancreatitis. CT pending. QTC improving f/u electrolytes etoh abuse counseling can be f/u as outp.
[2017-04-03] MEDS: RILPIVIRINE HCL 25 MG TABLET PO SCH (09:39)
[2017-04-03] MEDS: RITONAVIR 100 MG TABLET PO SCH (09:39)
[2017-04-03] MEDS: LOSARTAN POTASSIUM 50 MG TABLET (FP) PO SCH (09:39)
[2017-04-03] MEDS: METOPROLOL SUCCINATE 25 MG TAB.SR.24H (FP) PO SCH (09:39)
[2017-04-03] MEDS: DARUNAVIR ETHANOLATE 800 MG TAB PO SCH (09:40)
--- NOTE | 2017-04-03 16:03 | DS ---
Physical Exam: SUBJECTIVE: Patient seen and examined. He feels well. He denies abd pain, no vomiting. Tolerating PO diet. OBJECTIVE: Vital Signs Period Temp Pulse Resp BP Sys/Goodson Pulse Ox Last 24 Hr 98.0 F-98.6 F 73-99 18-18 120-138/82-101 99-99 PE Neuro: alert, awake, cn 2-12intact HEENT: L eye mild ptosis, slight droop to L smile (hx of bells palsy) Pulm: clear anteriorly CV: s1 s2 rrr no mrg Abd: s nt nd +bs Ext: warm, no le edema Laboratory Results - last 24 hr 04/03/17 04/03/17 04/03/17 05:40 11:06 11:26 Sodium 138 Potassium 3.9 Chloride 100 Carbon Dioxide 31 Anion Gap 7 L BUN 5 L D Creatinine 1.2 POC Glucometer 54 64 Random Glucose 91 Calcium 8.9 Magnesium 2.0 D Lipase 911 H Carcinoembryonic Ag CA 19-9 Antigen 04/02/17 05:43 Carcinoembryonic Ag 3.9 CA 19-9 Antigen 15 HOSPITAL COURSE: Date of Admission:04/01/17 Date of Discharge: 04/03/17 Minutes to complete discharge: 35 Discharge Summary Reason For Visit: ALCOHOL ABUSE,PANCREATITIS,SYNCOPE Hospital Course: Initial Hospital Course: Briefly, this 46 year old male with a significant hx of HIV, ETOH abuse, HTN, CKD, pancreatitis presented with c/o abd pain, nausea, vomiting for the past 2 days. He states he is compliant with his meds. He follows Dr. Jimenes's service for HIV/ID and does not know his CD4 count. He drinks beer daily While in the ER, pt is noted to have an EKG with a prolonged QTc at 505 which is longer then prior EKG He also underwent a CT of abd and pelvic with findings of pancreatitc head dilation of 5mm and elevated lipase Subsequent Hospital Course/Progress Note/Discharge Summary by a/p: Assessment: 46 year old male with HIV (on HAART), bells palsy, ETOH abuse, HTN, CKD, pancreatitis admitted with abd pain, nausea, vomiting, for 2 days and fall Plan: 1. Alcoholic pancreatitis - Improved, tolerating PO w/ no pain on discharge - To maintain current HIV meds, no change, d/w ID - Will refer to Dr. Benjie Christian with [facility] for EUS to eval pancreatic head dilation 2. HIV - Continue Norvir, Prezista - Follow up with Dr. Jimenes as outpt 3. HTN - Episode of elevated BP, given labetalol 10mg IVP, hydralazine 10mg IV x1 - BP improved this AM - Toprol xl 25mg daily - Cozaar 50mg daily 4. Electrolytes - Hypomagnesemia/hypokalemia; resolved post repletion 5. Alcohol abuse - Counselled on abstaining 6. Fall d/t ETOH intoxication - Head CT negative 7. Prolonged QT - Electrolytes repleted - EKG with decreased QTc - Follow up in office w/ Dr. Pal Dispo: - Home with above meds and follow up - I called David and gave information regarding follow up with Dr. Christian for EUS he understands and will follow up Dr. Benjie Christian [address] [facility] [phone] Condition: Stable - Instructions Diet, Activity, Other Instructions: Please return to the ED for any new, persistent, or worsening symptoms. Follow up with your PCP in 1 week. Resume home medications as directed You will need to follow up with Dr. Benjie Christian at [facility] for EUS to evaluate pancreatic head dilation [address] [place], [place] [phone] Referrals: Carlos Jimenes MD [Staff Physician] - Roberto Pal MD [Staff Physician] - 1 Week (follow up repeat EKG for QTC times) Shikha Tran [Primary Care Provider] - Disposition: HOME - Home Medications Comprehensive Discharge Medication List: Ambulatory Orders Ritonavir [Norvir] 100 mg PO DAILY 03/25/16 Darunavir Ethanolate [Prezista -] 800 mg PO DAILY #30 tablet 01/17/17 Dolutegravir Sodium [Tivicay] 50 mg PO DAILY #30 mg 01/17/17 Rilpivirine HCl [Edurant] 25 mg PO DAILY #30 mg 01/17/17 Mirtazapine [Remeron -] 15 mg PO DAILY #30 tablet 02/16/17 Zolpidem Tartrate [Ambien] 10 mg PO PRN #20 tablet MDD 1 02/16/17 Losartan Potassium 50 mg PO DAILY 04/01/17 Metoprolol Succinate [Toprol XL -] 25 mg PO DAILY 04/01/17 This patient is new to me today: No Emergency Visit: Yes ED Registration Date: 04/01/17 Care time: The patient presented to the Emergency Department on the above date and was hospitalized for further evaluation of their emergent condition. Critical Care patient: No - Discharge Referral Referred to [facility] No
--- NOTE | 2017-04-03 21:20 | EKG ---
Test Reason : Blood Pressure : / mmHG Vent. Rate : 073 BPM Atrial Rate : 073 BPM P-R Int : 142 ms QRS Dur : 090 ms QT Int : 442 ms P-R-T Axes : 035 048 066 degrees QTc Int : 486 ms NORMAL SINUS RHYTHM PROLONGED QT ABNORMAL ECG WHEN COMPARED WITH ECG OF 01-APR-2017 02:26, NO SIGNIFICANT CHANGE WAS FOUND Confirmed by NIXON GEORGE MD ([id number]) on 04/03/2017 9:19:31 PM Referred By: Confirmed By:NIXON GEORGE MD
--- NOTE | 2017-04-04 09:22 | EKG ---
Test Reason : Blood Pressure : / mmHG Vent. Rate : 072 BPM Atrial Rate : 072 BPM P-R Int : 166 ms QRS Dur : 094 ms QT Int : 408 ms P-R-T Axes : 044 031 074 degrees QTc Int : 446 ms NORMAL SINUS RHYTHM MINIMAL VOLTAGE CRITERIA FOR LVH, MAY BE NORMAL VARIANT BORDERLINE ECG WHEN COMPARED WITH ECG OF 01-APR-2017 10:16, NO SIGNIFICANT CHANGE WAS FOUND Confirmed by DORIS DARDEN, NIXON ([id number]) on 04/04/2017 9:21:36 AM Referred By: Adrián CEJA Confirmed By:NIXON GEORGE MD
--- NOTE | 2017-04-12 10:23 | PN ---
Progress Note, Physician Chief Complaint: ROCK Hernandez recently admitted to [facility] for diagnosis of pancreatitis after blacking out at home while drinking alcohol. Diagnosis was recurrent pancreatitis. Seen by Dr Hill Ct showed enlarged panceatic head/duct calcified 9x6mm density dilated pancreatic duct. Surgical evaluation with Larry Christian suggested. Currently feels fine no alcohol drugs now. Nonsmoker - Objective Vital Signs: Vital Signs Temperature 98.2 F 04/03/17 08:48 Pulse Rate 82 04/03/17 08:48 Respiratory Rate 18 04/03/17 08:50 Blood Pressure 124/82 04/03/17 08:48 O2 Sat by Pulse Oximetry (%) 99 04/03/17 08:50 Constitutional: Yes: Well Nourished, No Distress HENT: Yes: WNL, Atraumatic Neck: Yes: WNL, Supple Cardiovascular: Yes: Regular Rate and Rhythm, S1, S2. No: Murmur Respiratory: Yes: WNL, Regular, CTA Bilaterally Gastrointestinal: Yes: WNL, Normal Bowel Sounds, Soft. No: Tenderness, Tenderness, Epigastrium Edema: No Labs: CBC, BMP 04/02/17 05:43 04/03/17 05:40 INR, PTT INR 1.01 (0.82-1.09) 04/02/17 05:43 Problem List - Problems (1) AIDS Code(s): B20 - HUMAN IMMUNODEFICIENCY VIRUS [HIV] DISEASE (2) Alcohol abuse Code(s): F10.10 - ALCOHOL ABUSE, UNCOMPLICATED (3) Alcoholic pancreatitis Code(s): K85.20 - ALCOHOL INDUCED ACUTE PANCREATITIS WITHOUT NECROSIS OR INFCT (4) Hypertension goal BP (blood pressure) < 130/80 Code(s): I10 - ESSENTIAL (PRIMARY) HYPERTENSION Assessment/Plan Laboratory Tests 04/02/17 04/03/17 05:43 05:40 WBC 4.0 Hgb 13.4 Plt Count 110 L BUN 5 L D Creatinine 1.2 Lipase 911 H Assessment AIDS Alcoholic pancreatitis Hypertension off his med BP 156/108 Alcohol abuse Smoking screening Enlarged pancreas head dilated duct with density calcified Chronic kidney disease Plan Resume same HIV meds Lisinopril Labs MRI MRCP F/U Dr Gino Juarez for evaluation of dilated duct and density Alcohol counseling Jalil DARDEN
== END 2017-04-03 13:42 | disposition home or self-care (01) | DRG 282 ==
LOC: JER 01:19 → JERBED 09:26 → J4W 14:40
PROVIDERS: ADMIT Internal Medicine; ATTEND Nurse Practitioner Acute Care
DX: K85.20 Alcohol induced acute pancreatitis without necrosis or infection (principal); I42.8 Other cardiomyopathies; R55 Syncope and collapse; E83.42 Hypomagnesemia; E87.6 Hypokalemia; F10.220 Alcohol dependence with intoxication, uncomplicated; Z21 Asymptomatic human immunodeficiency virus [HIV] infection status; I12.9 Hypertensive chronic kidney disease with stage 1 through stage 4 chronic kidney disease, or unspecified chronic kidney disease; N18.9 Chronic kidney disease, unspecified; I45.81 Long QT syndrome
CPT/HCPCS: 36415; 70450-TC; 71010-TC; 74177-TC; 80048; 80053; 80307; 81003; 81015; 82150; 82378; 83690; 83735; 83880; 84100; 85025; 85610; 85730; 86301; 93005; 93010; 93306-TC; 93880-TC; 99284-25

== ENCOUNTER 2017-06-17 11:40 | Emergency (ER) | payer OTHER ==
[2017-06-17 12:04] VITALS: BP 140/94; TEMP 98.1; BMI 23.0
--- NOTE | 2017-06-17 12:38 | PDOC ---
History of Present Illness - General Chief Complaint: Back Pain Stated Complaint: BACK PAIN Time Seen by Provider: 06/17/17 12:34 History Source: Patient Exam Limitations: No Limitations - History of Present Illness Initial Comments: CHIEF COMPLAINT: 46 y/o afebrile male with PMH HIV c/o low back pain x 3 days. HISTORY OF PRESENT ILLNESS: The patient states he was helping a friend move some music equipment and afterwards starting having the low back pain, which is worse on the left side. He denies fall onto back, trauma to back, ELWIS, neck pain , middle low back pain, numbness/tingling in extremities, saddle anesthesia, bowel/bladder incontinence, dysuria, hematuria. Vital signs on arrival are notable for pulse of 110. REVIEW OF SYSTEMS: GENERAL/CONSTITUTIONAL: No fever/chills. No weakness. No weight change. HEAD, EYES, EARS, NOSE AND THROAT: No change in vision. No ear pain or discharge. No sore throat. CARDIOVASCULAR: No chest pain or shortness of breath. RESPIRATORY: No cough, wheezing, or hemoptysis. GASTROINTESTINAL: No abd pain, nausea, vomiting, diarrhea. GENITOURINARY: No dysuria, frequency, or change in urination. MUSCULOSKELETAL: No joint or muscle swelling or pain. No neck pain. +low back pain. SKIN: No rash or easy bruising. NEUROLOGIC: No headache, vertigo, loss of consciousness, or loss of sensation. PHYSICAL EXAM: GENERAL: The patient is awake, alert, and fully oriented, in no acute distress. He is well appearing and ambulatory. HEAD: Normal with no signs of trauma. ENT: Pupils equal, round and reactive to light, extraocular movements intact, sclera anicteric, conjunctiva clear. LUNGS: Clear to auscultation bilaterally. Normal excursion. No respiratory distress or use of accessory muscles. CV: RRR, S1/S2, no MRG. Cap refill < 2 sec. ABDOMEN: Soft, non-distended, non-tender even to deep palpation, no hepatomegaly or splenomegaly, no masses. BACK: Pain reproduced with palpation of lumbar paravertebral muscles from L1- L4 b/l, worse on left side. Full flexion and extension of lumbar spine. No midline lumbar spine TTP or step offs. EXTREMITIES: Normal range of motion, no edema. NEUROLOGICAL: Normal speech, normal gait. CN II-XII grossly intact. No saddle anesthesia. Motor and sensory intact in all extremities. SKIN: Warm, dry, normal turgor, no rashes or lesions noted. Past History - Past Medical History Allergies/Adverse Reactions: Allergies Allergy/AdvReac Type Severity Reaction Status Date / Time ibuprofen Allergy Verified 06/17/17 12:01 Sulfa (Sulfonamide Allergy Verified 06/17/17 12:01 Antibiotics) [Sulfa(Sulfonamide Antibiotics)] Home Medications: Ambulatory Orders Ritonavir [Norvir] 100 mg PO DAILY 03/25/16 Losartan Potassium 50 mg PO DAILY #30 tablet 04/12/17 Metoprolol Succinate [Toprol XL -] 25 mg PO DAILY #30 tablet 04/12/17 Darunavir Ethanolate [Prezista -] 800 mg PO DAILY #30 tablet 04/15/17 Dolutegravir Sodium [Tivicay] 50 mg PO DAILY #30 mg 04/15/17 Rilpivirine HCl [Edurant] 25 mg PO DAILY #30 mg 04/15/17 Mirtazapine [Remeron -] 15 mg PO DAILY #30 tablet 06/01/17 Zolpidem Tartrate [Ambien] 10 mg PO PRN #20 tablet MDD 1 06/01/17 Asthma: Yes Diabetes: No GI Disorders: Yes (CHRONIC PANCREATITIS) HTN: Yes HIV: Yes Kidney Stones: Yes Suicide Attempt (Hx): No - Surgical History Abdominal Surgery: Yes (RENAL STONES) Cholecystectomy: Yes - Immunization History Immunization Up to Date: Yes - Psycho/Social/Smoking Cessation Hx Anxiety: No Suicidal Ideation: No Smoking Status: No Smoking History: Never smoked Have you smoked in the past 12 months: No Number of Cigarettes Smoked Daily: 0 Cigars Per Day: 0 Hx Alcohol Use: No Drug/Substance Use Hx: No Substance Use Type: None, Alcohol Hx Substance Use Treatment: No *Physical Exam - Vital Signs Last Vital Signs Temp Pulse Resp BP Pulse Ox 98.1 F 110 H 19 140/94 97 06/17/17 12:01 06/17/17 12:01 06/17/17 12:01 06/17/17 12:01 06/17/17 12:01 Medical Decision Making - Medical Decision Making A/P: 46 y/o afebrile male with musculoskeletal low back pain. Plan is to give motrin in the ER and discharge to home. Instructed him to take 600mg of Motrin every 6 hours with food for pain, apply heating pad and massage to affected area and f/u with his doctor within 1 week. Pt instructed to return to the ER with any worsening or concerning symptoms. The patient verbalizes understanding of all instructions, has no further questions and is awaiting discharge. *DC/Admit/Observation/Transfer Diagnosis at time of Disposition: Musculoskeletal back pain - Discharge Dispostion Disposition: HOME Condition at time of disposition: Good - Referrals Referrals: Carlos Jimenes MD [Primary Care Provider] - - Patient Instructions Printed Discharge Instructions: DI for Musculoskeletal Pain Additional Instructions: Discharge Instructions: -Take 600mg of MOtrin every 6 hours with food for pain -Use heating pad and massage to affected area as often as needed -Follow up with your doctor in 1 week -Return to the ER with any worsening or concerning symptoms.
[2017-06-17] MEDS ORDERED: IBUPROFEN 600 MG TABLET (FP) PO ONE ×2 (12:45→12:54)
[2017-06-17 13:02] VITALS: PULSE 92
== END 2017-06-17 13:00 | disposition home or self-care (01) ==
LOC: JERFT 11:40
DX: M79.1 Myalgia (principal); I10 Essential (primary) hypertension; J45.909 Unspecified asthma, uncomplicated; K86.1 Other chronic pancreatitis; Z87.442 Personal history of urinary calculi; B20 Human immunodeficiency virus [HIV] disease; X58.XXXA Exposure to other specified factors, initial encounter; Y93.89 Activity, other specified; Y92.9 Unspecified place or not applicable
CPT/HCPCS: 99281-25

== ENCOUNTER 2018-03-01 13:54 | Emergency (ER) | payer OTHER ==
[2018-03-01 14:13] VITALS: BP 144/88; PULSE 17; TEMP 98.1; BMI 22.8
[2018-03-01] MEDS ORDERED: SODIUM CHLORIDE 1,000 ML IV STA (15:24)
--- NOTE | 2018-03-01 15:24 | PDOC ---
History of Present Illness - General History Source: Patient Exam Limitations: No Limitations - History of Present Illness Initial Comments: 03/01/18 16:08 The patient is a 47 year old male, with a significant past medical history of kidney stones (surgery in early ) and HIV, who presents to the emergency department with left flank pain for 5 days. He reports the pain comes and goes and fluctuates in intensity. He states the pain stays localized to his left lateral flank. He reports his pain is 5/10 at rest and increases with activity. He He denies chest pain, shortness of breath, headache and dizziness. He denies fever, chills, nausea, vomit, diarrhea and constipation. He denies dysuria, frequency, urgency and hematuria. Allergies: ibuprofen and sulfa Past surgical history: cholecystectomy, renal procedure () Social history: former ETOH abuse. Denies toxic habits now. PCP: Dr. Jimenes <Lay Farias - Last Filed: 03/01/18 16:08> - General History Source: Patient Exam Limitations: No Limitations <Claire Bustillo - Last Filed: 03/03/18 08:10> - General Chief Complaint: Pain, Acute Stated Complaint: BACK PAIN Time Seen by Provider: 03/01/18 14:48 Past History <Lay Farias - Last Filed: 03/01/18 16:08> - Past Medical History Asthma: Yes CVA: No COPD: No Diabetes: No GI Disorders: Yes (CHRONIC PANCREATITIS) HTN: Yes Kidney Stones: Yes - Surgical History Abdominal Surgery: Yes (RENAL STONES) Cholecystectomy: Yes - Immunization History Immunization Up to Date: Yes - Suicide/Smoking/Psychosocial Hx Smoking Status: No Smoking History: Unknown if ever smoked Have you smoked in the past 12 months: No Number of Cigarettes Smoked Daily: 0 Cigars Per Day: 0 Information on smoking cessation initiated: No Hx Alcohol Use: No Drug/Substance Use Hx: No Substance Use Type: None Hx Substance Use Treatment: No <Claire Bustillo - Last Filed: 03/03/18 08:10> - Past Medical History Allergies/Adverse Reactions: Allergies Allergy/AdvReac Type Severity Reaction Status Date / Time ibuprofen Allergy Verified 03/01/18 14:09 Sulfa (Sulfonamide Allergy Verified 03/01/18 14:09 Antibiotics) [Sulfa(Sulfonamide Antibiotics)] Home Medications: Ambulatory Orders Clotrimazole/Betamet Diprop [Lotrisone Cream (Small Tube)] 1 applic TP BID #1 tube 08/23/17 Atorvastatin Ca [Lipitor] 10 mg PO HS #30 tablet 10/21/17 Darunavir Ethanolate [Prezista] 800 mg PO DAILY #30 tablet 10/21/17 Dolutegravir Sodium [Tivicay] 50 mg PO DAILY #30 tablet 10/21/17 Losartan Potassium 50 mg PO DAILY #30 tablet 10/21/17 Metoprolol Succinate [Toprol XL -] 50 mg PO DAILY #30 tablet 10/21/17 Multivitamin [One Daily] 1 each PO DAILY #30 tablet 10/21/17 Rilpivirine HCl [Edurant] 25 mg PO DAILY #30 tablet 10/21/17 Ritonavir [Norvir] 100 mg NR DAILY #30 cap 10/21/17 Mirtazapine [Remeron -] 1 tablet PO HS #30 tablet 02/16/18 Trazodone HCl 100 mg PO HS #60 tablet 02/16/18 Review of Systems - Review of Systems Able to Perform ROS?: Yes Comments:: 03/01/18 16:08 CONSTITUTIONAL: Absent: fever, no chills, no fatigue EYES: Absent: visual changes ENT: Absent: ear pain, no sore throat CARDIOVASCULAR: Absent: chest pain, no palpitations RESPIRATORY: Absent: cough, no SOB GASTROINTESTINAL: Absent: abdominal pain, no nausea, no vomiting, no constipation, no diarrhea GENITOURINARY: Absent: dysuria, no frequency, no hematuria MUSCULOSKELETAL: (+) Left flank pain. Absent: no arthralgia, SKIN: Absent: rash NEURO: Absent: headache <Lay Farias - Last Filed: 03/01/18 16:08> *Physical Exam - Vital Signs Last Vital Signs Temp Pulse Resp BP Pulse Ox 98.1 F 17 L 16 144/88 100 03/01/18 14:10 03/01/18 14:10 03/01/18 14:10 03/01/18 14:10 03/01/18 14:10 - Physical Exam Comments: 03/01/18 16:09 GENERAL: The patient is in no acute distress. HEAD: Normal with no signs of trauma. EYES: PERRLA, EOMI, sclera anicteric, conjunctiva clear. ENT: Ears normal, nares patent, oropharynx clear without exudates. Moist mucous membranes. NECK: Normal range of motion, supple without lymphadenopathy, JVD, or masses. LUNGS: Breath sounds equal, clear to auscultation bilaterally. No wheezes, and no crackles. HEART:Regular rate and rhythm, normal S1 and S2 without murmur, rub or gallop. ABDOMEN: Soft, nontender, normoactive bowel sounds. No guarding, no rebound. No masses palpable. EXTREMITIES: Normal range of motion, no edema. No clubbing or cyanosis. No erythema, or tenderness. NEUROLOGICAL: Cranial nerves II through XII grossly intact. Normal speech. No focal neurological deficits. MUSCULOSKELETAL:(+) Left CVA tenderness. Back non-tender to palpation, SKIN: Warm, Dry, normal turgor, no rashes or lesions noted. <Lay Farias - Last Filed: 03/01/18 16:08> - Vital Signs Last Vital Signs Temp Pulse Resp BP Pulse Ox 98.1 F 17 L 16 144/88 100 03/01/18 14:10 03/01/18 14:10 03/01/18 14:10 03/01/18 14:10 03/01/18 14:10 <Claire Bustillo - Last Filed: 03/03/18 08:10> ED Treatment Course - Medications Given in the ED: ED Medications Discontinued Medications Generic Name Dose Route Start Last Admin Trade Name Freq PRN Reason Stop Dose Admin Morphine Sulfate 4 mg 03/01/18 15:25 03/01/18 15:59 Morphine Injection - IVPUSH 03/01/18 15:26 4 mg ONCE ONE Administration <Lay Farias - Last Filed: 03/01/18 16:08> - LABORATORY CBC & Chemistry Diagram: 03/01/18 16:35 03/01/18 16:35 <Claire Bustillo - Last Filed: 03/03/18 08:10> Medical Decision Making - Medical Decision Making 03/01/18 15:44 Mr Smith is a 47 yo M with a history of HIV, prior h/o ETOH abuse, HTN, CKD, pancreatitis who presents to the ER with a complaint of left flank pain Symptoms began 4 days ago Pain is sharp, worse with movement, at its worse rate 7/10 Currently pain is 4/10 No radiation (+) nausea, no vomiting No diarrhea No fevers or chills No dysuria, no hematuria No direct trauma DD: Ureterolithiasis, pyelonephrisis, musculoskeletal pain Unlikely pancreatitis given location of the pain Will do: Labs IVF Pain medications Zofran CT Re assess 03/03/18 08:05 Laboratory Tests 03/01/18 03/01/18 16:35 16:35 WBC 5.1 Hgb 14.6 Hct 42.5 Plt Count 220 BUN 10 Creatinine 1.5 H Total Amylase 134 H Lipase [address] pending Pt signed out to Dr Pruitt Clinical Impression: flank pain, initial presentation Chronic pancreatitis, initial presentation <Claire Bustillo - Last Filed: 03/03/18 08:10> *DC/Admit/Observation/Transfer - Attestations Scribe Attestion: 03/01/18 16:10 Documentation prepared by Lay Farias, acting as chief medical physicist for Claire Bustillo MD <Lay Farias - Last Filed: 03/01/18 16:08> <Claire Bustillo - Last Filed: 03/03/18 08:10> Diagnosis at time of Disposition: Abdominal pain - Discharge Dispostion Disposition: HOME Condition at time of disposition: Good - Referrals Referrals: Guicho Mulligan MD [Primary Care Provider] - - Patient Instructions Printed Discharge Instructions: DI for Abdominal Pain-Adult Additional Instructions: You were seen in the ER for abdominal pain. Your blood work shows that you have some inflammation of your pancreas, which has happened in the past. You had a CT which showed some chronic changes in your pancreas but nothing new. Please follow up with your primary care doctor within the next 2 days and return to the ER if your symptoms worsen - more vomiting, abdominal pain or fever. - Post Discharge Activity
[2018-03-01] MEDS ORDERED: morphine CARPU-JECT 4 MG/1 ML DISP.SYRIN IVPUSH ONE (15:25)
[2018-03-01] MEDS ORDERED: ONDANSETRON 4 MG/2 ML VIAL ONE (15:34)
[2018-03-01] MEDS ORDERED: morphine SULFATE 4 MG/ML VIAL ONE (15:34)
[2018-03-01] MEDS ORDERED: ONDANSETRON 4 MG/2 ML VIAL IVPUSH ONE (16:08)
[2018-03-01 16:44] LABS: URINE APPEARANCE CLEAR; URINE BILIRUBIN NEGATIVE (<2.0 mg/dL); URINE BLOOD NEGATIVE (NEGATIVE); URINE COLOR DKYELLOW; URINE GLUCOSE (UA) NEGATIVE (NEGATIVE); URINE KETONE TRACE (NEGATIVE); URINE LEUK ESTERASE NEGATIVE (NEGATIVE); URINE NITRITE NEGATIVE (NEGATIVE)
[2018-03-01 16:45] LABS: BASO % 0.6 % (0-2.0); EOS % 2.5 % (0-4.5); HEMATOCRIT 42.5 % (35.4-49); HEMOGLOBIN 14.6 GM/dL (11.7-16.9); LYMPH % 28.1 % (8-40); MCH 35.7 pg (25.7-33.7); MCHC 34.2 g/dl (32.0-35.9); MEAN CELL VOLUME 104.1 fl (80-96); MEAN PLT VOLUME 7.1 fl (7.5-11.1); MONO % 10.7 % (3.8-10.2); NEUT % 58.1 % (42.8-82.8); PLATELET COUNT 220 K/MM3 (134-434); RBC 4.08 M/mm3 (4.00-5.60); RDW 13.7 % (11.9-15.9); WHITE BLOOD COUNT 5.1 K/mm3 (4.0-10.0)
[2018-03-01 16:50] LABS: URINE PROTEIN 2+ (NEGATIVE)
[2018-03-01 16:52] LABS: EPI CELLS RARE /HPF (FEW); GRANULAR CASTS 1 /lpf; URINE HYALINE CAST 1 /lpf; URINE MUCUS RARE
[2018-03-01 17:32] LABS: AMYLASE 134 U/L (25-115); ANION GAP 7 (8-16); BILIRUBIN,TOTAL 0.6 mg/dL (0.2-1.0); BLOOD UREA NITROGEN 10 mg/dL (7-18); CALCIUM 8.8 mg/dL (8.5-10.1); CHLORIDE 106 mmol/L (98-107); CO2 25 mmol/L (21-32); CREATININE 1.5 mg/dL (0.7-1.3); GLUCOSE,RANDOM 105 mg/dL (74-106); POTASSIUM 3.8 mmol/L (3.5-5.1); SGOT/AST 20 U/L (15-37); SGPT/ALT 20 U/L (12-78); SODIUM 138 mmol/L (136-145); TOT PROT 8.5 g/dl (6.4-8.2)
[2018-03-01 17:33] LABS: ALK PHOS 50 U/L (45-117); LIPASE 946 U/L (73-393)
--- NOTE | 2018-03-01 19:42 | PDOC ---
*Physical Exam - Vital Signs Last Vital Signs Temp Pulse Resp BP Pulse Ox 98.1 F 17 L 16 144/88 100 03/01/18 14:10 03/01/18 14:10 03/01/18 14:10 03/01/18 14:10 03/01/18 14:10 - Physical Exam Comments: 03/01/18 21:18 Abd nontender/nondistended. Well appearing, no vomiting. Tolerating PO. General Appearance: Yes: Nourished. No: Apparent Distress ED Treatment Course - LABORATORY CBC & Chemistry Diagram: 03/01/18 16:35 03/01/18 16:35 - ADDITIONAL ORDERS Additional order review: Laboratory Results 03/01/18 03/01/18 16:35 16:00 Sodium 138 Potassium 3.8 Chloride 106 Carbon Dioxide 25 Anion Gap 7 L BUN 10 Creatinine 1.5 H Creat Clearance w eGFR 49.95 Random Glucose 105 Calcium 8.8 Total Bilirubin 0.6 AST 20 ALT 20 D Alkaline Phosphatase 50 D Total Protein 8.5 H Albumin 4.0 Total Amylase 134 H Lipase 946 H Urine Color Dkyellow Urine Appearance Clear Urine pH 5.0 Ur Specific [place] 1.023 Urine Protein 2+ H Urine Glucose (UA) Negative Urine Ketones Trace H Urine Blood Negative Urine Nitrite Negative Urine Bilirubin Negative Urine Urobilinogen 2.0 Ur Leukocyte Esterase Negative Urine WBC (Auto) 1 Urine RBC (Auto) <1 Ur Epithelial Cells Rare Hyaline Casts 1 Granular Casts 1 Urine Mucus Rare 03/01/18 16:35 RBC 4.08 MCV 104.1 H MCHC 34.2 RDW 13.7 MPV 7.1 L D Neutrophils % 58.1 D Lymphocytes % 28.1 Monocytes % 10.7 H Eosinophils % 2.5 Basophils % 0.6 - Medications Given in the ED: ED Medications Discontinued Medications Generic Name Dose Route Start Last Admin Trade Name Freq PRN Reason Stop Dose Admin Morphine Sulfate 4 mg 03/01/18 15:25 03/01/18 15:59 Morphine Injection - IVPUSH 03/01/18 15:26 4 mg ONCE ONE Administration Ondansetron HCl 4 mg 03/01/18 16:08 03/01/18 15:57 Zofran Injection IVPUSH 03/01/18 16:09 4 mg ONCE ONE Administration Medical Decision Making - Medical Decision Making 03/01/18 21:18 CT reviewed, no acute processes which explain pain. Lipase elevated, pt does have hx of chronic pancreatitis and lipase has been elevated in past. Currently feeling much improved, no longer with pain/tenderness. Pt requesting to go home and follow up with his PMD within the next 2 days. No other complaints, well appearing. Will dc home with PMD f/u. Advised to return to the ER if worsening pain, fever, vomiting. *DC/Admit/Observation/Transfer Diagnosis at time of Disposition: Abdominal pain - Discharge Dispostion Disposition: HOME Condition at time of disposition: Good Admit: No - Referrals Referrals: Guicho Mulligan MD [Primary Care Provider] - - Patient Instructions Printed Discharge Instructions: DI for Abdominal Pain-Adult Additional Instructions: You were seen in the ER for abdominal pain. Your blood work shows that you have some inflammation of your pancreas, which has happened in the past. You had a CT which showed some chronic changes in your pancreas but nothing new. Please follow up with your primary care doctor within the next 2 days and return to the ER if your symptoms worsen - more vomiting, abdominal pain or fever. - Post Discharge Activity
== END 2018-03-01 21:49 | disposition home or self-care (01) ==
LOC: JER 13:54
PROC: 3E033GC Introduction of Other Therapeutic Substance into Peripheral Vein, Percutaneous Approach (ICD-10-PCS; principal; 2018-03-01)
PROC: 3E033NZ Introduction of Analgesics, Hypnotics, Sedatives into Peripheral Vein, Percutaneous Approach (ICD-10-PCS; 2018-03-01)
DX: K86.1 Other chronic pancreatitis (principal); I10 Essential (primary) hypertension; Z87.442 Personal history of urinary calculi; Z21 Asymptomatic human immunodeficiency virus [HIV] infection status
CPT/HCPCS: 36415; 74176-TC; 80053; 81003; 81015; 82150; 83690; 85025; 87086; 99283-25; J7030

== ENCOUNTER 2018-05-30 07:30 | Observation (INO) | payer OTHER ==
[2018-05-30 07:38] VITALS: BMI 23.5
--- NOTE | 2018-05-30 07:42 | PDOC ---
History of Present Illness - General Chief Complaint: Chest Pain Stated Complaint: CHEST PAIN Time Seen by Provider: 05/30/18 07:41 History Source: Patient - History of Present Illness Initial Comments: 05/30/18 08:12 47 year old male with PMH of HIV (unknown CD4 count), HTN, asthma, pancreatitis presents today complaining of intermittent chest pain x2 weeks, last episode yesterday. Pt states he had 5 episodes of chest pain in one day x2 weeks ago, 1 episode last week and 1 episode yesterday, he states he came to the ED today because this pain is not resolving. He is unable to describe the way this pain feels, states it is non-radiating, last 1-2 minutes, has occurred at rest and during exertion, self-relieving, no aggravating factors. He states his chest pain is associated with sweating and shortness of breath. He currently has no complaints. He is currently seeing a broadcast news producer, Dr. Pal, and states he had an echo x1 month ago, does not know the results. Per Kae's consultation note 04/01/17 and ECHO x1 year ago, pt has moderate LV wall dysfunction, non-ischemic cardiomyopathy and prolonged QT on last admission for pancreatitis. Pt states that he also has had increasing exertional dyspnea for the last month not associated with chest pain, occurring after his last appointment with his broadcast news producer and after his last ECHO. Telecommunication Lines Repairer - Dr. Roberto Pal PCP - currently between providers Past History - Travel Traveled outside of the country in the last 30 days: No - Past Medical History Allergies/Adverse Reactions: Allergies Allergy/AdvReac Type Severity Reaction Status Date / Time ibuprofen Allergy Verified 05/30/18 07:33 Sulfa (Sulfonamide Allergy Verified 05/30/18 07:33 Antibiotics) [Sulfa(Sulfonamide Antibiotics)] Home Medications: Ambulatory Orders Mirtazapine [Remeron -] 1 tablet PO HS #30 tablet 03/16/18 Trazodone HCl 100 mg PO HS #60 tablet 03/16/18 Darunavir/Cobicistat [Prezcobix 800 mg-150 mg Tablet] 1 each PO DAILY #30 tablet 05/06/18 Dolutegravir Sodium [Tivicay] 50 mg PO DAILY #30 tablet 05/06/18 Losartan Potassium 50 mg PO DAILY #30 tablet 05/06/18 Metoprolol Succinate [Toprol XL -] 50 mg PO DAILY #30 tablet 05/06/18 Atorvastatin Ca [Lipitor] 20 mg PO HS 05/30/18 Asthma: Yes CVA: No COPD: No Diabetes: No GI Disorders: Yes (CHRONIC PANCREATITIS) HTN: Yes Hypercholesterolemia: No Kidney Stones: Yes Seizures: No - Surgical History Abdominal Surgery: Yes (RENAL STONES) Cholecystectomy: Yes - Immunization History Immunization Up to Date: Yes - Suicide/Smoking/Psychosocial Hx Smoking Status: No Smoking History: Former smoker Have you smoked in the past 12 months: No Number of Cigarettes Smoked Daily: 0 Cigars Per Day: 0 Information on smoking cessation initiated: No Hx Alcohol Use: Yes Drug/Substance Use Hx: No (denies) Substance Use Type: None Hx Substance Use Treatment: No Review of Systems - Review of Systems Able to Perform ROS?: Yes Comments:: 05/30/18 08:16 General: admits to sweats. denies fever, chills, generalized weakness. HEENT: denies sore throat, rhinorrhea, ear pain. Heart: admits to chest pain. denies palpitations, syncope, lower extremity swelling. Respiratory: admits to shortness of breath. denies cough, sputum production, hematemesis. Abdomen: denies abdominal pain, nausea, vomiting, diarrhea, constipation, blood in stool. : denies dysuria, urinary frequency, hematuria. Musculoskeletal: denies joint pain, muscle pain, joint swelling. Neurological: denies headache, dizziness, numbness, tingling. Skin: denies rash, laceration, abrasion. *Physical Exam - Vital Signs Last Vital Signs Temp Pulse Resp BP Pulse Ox 98.9 F 89 16 128/91 100 05/30/18 07:33 05/30/18 07:33 05/30/18 07:33 05/30/18 07:33 05/30/18 07:33 - Physical Exam Comments: 05/30/18 08:17 Appearance: comfortable. HEENT: head is normocephalic, atraumatic. EOMI. PERRLA. Neck: supple without lymphadenopathy Heart: no tachycardia or bradycardia. regular rhythm. no murmurs, rubs or gallops. no muffled heart sounds. no pain to palpation of anterior chest. Lungs: clear to auscultation bilaterally. no crackles, rhonchi or wheezing. no stridor. Abdomen: soft, flat, nontender. normal bowel sounds. no rebound, guarding, masses. Extremities: Peripheral pulses intact and equal. No lower extremity edema. Neurological: Alert. Oriented x3. CN 2-12 grossly intact. Moves all four extremities. Skin: no rash to the anterior chest, abdomen, flank or back. Heart Score/ECG Review - ECG Impressions Comment:: 05/30/18 08:23 Rate 84, regular rhythm, normal axis, nonspecific ST changes, LVH, QTc 470. ED Treatment Course - LABORATORY CBC & Chemistry Diagram: 05/30/18 08:04 05/30/18 08:04 Medical Decision Making - Medical Decision Making 05/30/18 08:18 47 year old male with PMH HIV, HTN, asthma with unknown CD4 count, compliant with medication, who is complaining of intermittent chest pain x2 weeks. Pain is associated with sweating and shortness of breath. Pt is currently not in any pain and has no complaints. Initial Vital Signs Temp Pulse Resp BP Pulse Ox 98.9 F 89 16 128/91 100 05/30/18 07:33 05/30/18 07:33 05/30/18 07:33 05/30/18 07:33 05/30/18 07:33 Pt is afebrile, satting well, stable vitals. EKG performed - nonspecific ST changes in V1 and V2. LVH. Pending labs, CXR. Holding aspirin until labs return due to reported baseline kidney disease. 05/30/18 08:51 Cr 1.4 - baseline kidney disease. CXR - reported as no acute cardiopulmonary disease. Pt given 324 mg PO chew ASA. 05/30/18 08:[address] Pal, who states that after medical therapy his recent ECHO revealed improved LV function, almost to baseline, with some pulmonary hypertension. He states he would like the patient to be admitted observation tele, and to order a d-dimer and an echo. Patient will be admitted for chest pain, increasing exertional dyspnea. 05/30/18 09:04 Cardiac enzymes normal. 05/30/18 09:18 I discussed the case with Kaila Lo, who states that Dr. Duran, who will accept the patient. Cardiology consult submitted. Dr. Pal came down an saw the patient in the ED. *DC/Admit/Observation/Transfer Diagnosis at time of Disposition: Chest pain, Exertional dyspnea - Discharge Dispostion Condition at time of disposition: Stable Decision to Admit order: Yes - Referrals Referrals: Guicho Mulligan MD [Primary Care Provider] - - Patient Instructions - Post Discharge Activity
[2018-05-30 08:11] LABS: BASO % 1.1 % (0-2.0); EOS % 3.5 % (0-4.5); HEMATOCRIT 40.8 % (35.4-49); HEMOGLOBIN 13.9 GM/dL (11.7-16.9); LYMPH % 30.6 % (8-40); MCH 34.6 pg (25.7-33.7); MEAN CELL VOLUME 101.8 fl (80-96); MEAN PLT VOLUME 7.7 fl (7.5-11.1); MONO % 15.1 % (3.8-10.2); NEUT % 49.7 % (42.8-82.8); PLATELET COUNT 229 K/MM3 (134-434); RBC 4.01 M/mm3 (4.00-5.60); RDW 12.8 % (11.9-15.9); WHITE BLOOD COUNT 5.4 K/mm3 (4.0-10.0)
[2018-05-30 08:33] LABS: ALBUMIN 4.2 g/dl (3.4-5.0); ANION GAP 12 (8-16); BILIRUBIN,TOTAL 1.5 mg/dL (0.2-1.0); BLOOD UREA NITROGEN 7 mg/dL (7-18); CALCIUM 9.3 mg/dL (8.5-10.1); CHLORIDE 95 mmol/L (98-107); CO2 26 mmol/L (21-32); CREATININE 1.4 mg/dL (0.7-1.3); GLUCOSE,RANDOM 115 mg/dL (74-106); MAGNESIUM 1.8 mg/dL (1.8-2.4); POTASSIUM 3.8 mmol/L (3.5-5.1); SGOT/AST 70 U/L (15-37); SGPT/ALT 69 U/L (12-78); SODIUM 133 mmol/L (136-145); TOT PROT 8.3 g/dl (6.4-8.2)
[2018-05-30 08:36] LABS: ALK PHOS 63 U/L (45-117)
[2018-05-30] MEDS ORDERED: ASPIRIN 81 MG CHEWABLE TABLETS PO ONE (08:47)
[2018-05-30] MEDS ORDERED: ASPIRIN 81 MG CHEWABLE TABLETS ONE (08:52)
--- NOTE | 2018-05-30 09:15 | CON.CARD ---
Cardiology Consult (text) - Consultation Consultation Note: Cardiology Consult Dictated IMP: Mild non-ischemic CM, with normalized EF on medical Rx Suspected Hypertensive CM vs HIV Atypical CP x 2 weeks Elevated CK: ? statin REC: 1. Hold statin 2. Serial cardiac enzymes 3. Echo today to r/o pericardial disease, PHTN and assess EF 4. Plan for stress MPI once cardiac enzymes trended 5. Telemetry for 24 hours
--- NOTE | 2018-05-30 09:32 | HP ---
CHIEF COMPLAINT: chest pain PCP: none HISTORY OF PRESENT ILLNESS: This is a 47 year old with PMHx of HIV, HTN, asthma who presented to the ED with 2 weeks of intermittent chest pain. The patient reports that two weeks ago he had 5 episodes of left sided intermittent, non-radiating chest pain lasting about 2 minutes each time. He states last week he had one episode of the chest pain and then yesterday he had it again once, only lasting 2 minutes. He reports it feels like a "knot" in his chest. He denies any other associating symptoms including arm pain, numbness, tingling, palpitations, headache, dizziness, syncope, nausea, vomiting. ER course was notable for: (1) Temp 98.9, pulse 89, BP 128/91, resp 16, O2 100% on RA (2) Cr 1.4, Trop 0.03 (3) Chest X-ray with no evidence of active pulmonary disease Recent Travel: denies PAST MEDICAL HISTORY: as above PAST SURGICAL HISTORY: kidney obstruction 1980s Social History: Smoking: denies Alcohol: 2 beers on weekends only Drugs: denies Family History: Allergies ibuprofen Allergy (Verified 05/30/18 07:33) Sulfa (Sulfonamide Antibiotics) [Sulfa(Sulfonamide Antibiotics)] Allergy ( Verified 05/30/18 07:33) HOME MEDICATIONS: Home Medications Medication Instructions Recorded Mirtazapine [Remeron -] 1 tablet PO HS #30 tablet 03/16/18 Trazodone HCl 100 mg PO HS #60 tablet 03/16/18 Darunavir/Cobicistat [Prezcobix 1 each PO DAILY #30 tablet 05/06/18 800 mg-150 mg Tablet] Dolutegravir Sodium [Tivicay] 50 mg PO DAILY #30 tablet 05/06/18 Losartan Potassium 50 mg PO DAILY #30 tablet 05/06/18 Metoprolol Succinate [Toprol XL -] 50 mg PO DAILY #30 tablet 05/06/18 Atorvastatin Ca [Lipitor] 20 mg PO HS 05/30/18 REVIEW OF SYSTEMS CONSTITUTIONAL: Absent: fever, chills, diaphoresis, generalized weakness, malaise, loss of appetite, weight change HEENT: Absent: rhinorrhea, nasal congestion, throat pain, throat swelling, difficulty swallowing, mouth swelling, ear pain, eye pain, visual changes CARDIOVASCULAR: Left sided intermittent chest pain x2 weeks Absent: syncope, palpitations, irregular heart rate, lightheadedness, peripheral edema RESPIRATORY: Absent: cough, shortness of breath, dyspnea with exertion, orthopnea, wheezing, stridor, hemoptysis GASTROINTESTINAL: Absent: abdominal pain, abdominal distension, nausea, vomiting, diarrhea, constipation, melena, hematochezia GENITOURINARY: Absent: dysuria, frequency, urgency, hesitancy, hematuria, flank pain, genital pain MUSCULOSKELETAL: Absent: myalgia, arthralgia, joint swelling, back pain, neck pain SKIN: Absent: rash, itching, pallor HEMATOLOGIC/IMMUNOLOGIC: Absent: easy bleeding, easy bruising, lymphadenopathy, frequent infections ENDOCRINE: Absent: unexplained weight gain, unexplained weight loss, heat intolerance, cold intolerance NEUROLOGIC: Absent: headache, focal weakness or paresthesias, dizziness, unsteady gait, seizure, mental status changes, bladder or bowel incontinence PSYCHIATRIC: Absent: anxiety, depression, suicidal or homicidal ideation, hallucinations. PHYSICAL EXAMINATION Vital Signs - 24 hr 05/30/ 07:33 Temperature 98.9 F Pulse Rate 89 Respiratory 16 Rate Blood Pressure 128/91 O2 Sat by Pulse 100 Oximetry (%) GENERAL: Awake, alert, and fully oriented, in no acute distress. HEAD: Normal with no signs of trauma. EYES: Pupils equal, round and reactive to light, extraocular movements intact, sclera anicteric, conjunctiva clear. No lid lag. EARS, NOSE, THROAT: Ears normal, nares patent, oropharynx clear without exudates. Moist mucous membranes. NECK: Normal range of motion, supple without lymphadenopathy, JVD, or masses. LUNGS: Breath sounds equal, clear to auscultation bilaterally. No wheezes, and no crackles. No accessory muscle use. HEART: Regular rate and rhythm, normal S1 and S2 without murmur, rub or gallop. ABDOMEN: Soft, nontender, not distended, normoactive bowel sounds, no guarding, no rebound, no masses. No hepatomegaly or splenomegaly. MUSCULOSKELETAL: Normal range of motion at all joints. No bony deformities or tenderness. No CVA tenderness. UPPER EXTREMITIES: 2+ pulses, warm, well-perfused. No cyanosis. No clubbing. No peripheral edema. LOWER EXTREMITIES: 2+ pulses, warm, well-perfused. No calf tenderness. No peripheral edema. NEUROLOGICAL: Cranial nerves II-XII intact. Normal speech. Normal gait. PSYCHIATRIC: Cooperative. Good eye contact. Appropriate mood and affect. SKIN: Warm, dry, normal turgor, no rashes or lesions noted, normal capillary refill. Laboratory Results - last 24 hr 05/30/18 05/30/18 08:04 08:04 WBC 5.4 RBC 4.01 Hgb 13.9 Hct 40.8 MCV 101.8 H MCH 34.6 H MCHC 34.0 RDW 12.8 Plt Count 229 MPV 7.7 D Absolute Neuts (auto) 2.7 Neutrophils % 49.7 Lymphocytes % 30.6 D Monocytes % 15.1 H Eosinophils % 3.5 D Basophils % 1.1 Nucleated RBC % 0 Sodium 133 L Potassium 3.8 Chloride 95 L Carbon Dioxide 26 Anion Gap 12 BUN 7 Creatinine 1.4 H Creat Clearance w eGFR 54.09 Random Glucose 115 H Calcium 9.3 Magnesium 1.8 Total Bilirubin 1.5 H AST 70 H ALT 69 D Alkaline Phosphatase 63 Creatine Kinase 441 H Creatine Kinase Index 0.3 CK-MB (CK-2) 1.55 Troponin I 0.03 Total Protein 8.3 H Albumin 4.2 Assessment: This is a 47 year old with PMHx of HIV, HTN, asthma who presented to the ED with 2 weeks of intermittent chest pain. Plan: 1) Chest pain - D-dimer negative - R/o ACS, trop x1 negative - ECHO with mildly reduced LV systolic function. Moderate anteroseptal hypokinesis. Trace MR, mild TR - Plan for stress test once cardiac enzymes trend - Cardiac monitoring - ASA 81mg po daily - Appreciate cardiology consult 2) Mild systolic heart failure - Likely chronic - No evidence of acute exacerbation at this time 3) Hyperlipidemia - Hold statin as total bilirubin is elevated 4) HTN - Continue Toprol XL - Continue Losartan, caution with Cr 5) CKD - Continue to monitor Cr, currently around baseline 6) HIV - Continue home medications - Follow-up with [facility] upon discharge 7) F/E/N: - Sodium controlled diet - Monitor electrolytes 8) Prophylaxis: - OOB ambulating 9) Dispo: - Once condition improves CODE STATUS: FULL CODE Visit type - Emergency Visit Emergency Visit: Yes ED Registration Date: 05/30/18 Care time: The patient presented to the Emergency Department on the above date and was hospitalized for further evaluation of their emergent condition. - New Patient This patient is new to md today: Yes Date on this admission: 05/30/18 - Critical Care Critical Care patient: No Hospitalist Screening - Colonoscopy Questionnaire Colonoscopy Questionnaire: Colonoscopy Questionnaire - Patient: 50 - 75 years old and never had a screening colonoscopy: No History of colon or rectal polyps, or CA: Unknown History of IBD, Crohn's disease or UC: Unknown History of abdominal radiation therapy as a child: Unknown - Relative: 1 with colon or rectal CA, or polyps at age 60 or younger: Unknown Colon or rectal CA diagnosed at age 45 or younger: Unknown Multiple relatives with colon or rectal CA: Unknown - Outcome: Screening Result: Negative Screen
--- NOTE | 2018-05-30 09:38 | PDOC ---
Attending Attestation - Resident Resident Name: Bella Medrano - ED Attending Attestation I have performed the following: I have examined & evaluated the patient, The case was reviewed & discussed with the resident, I agree w/resident's findings & plan - HPI HPI: 05/30/18 08:55 47-year-old male with history of well-controlled HIV, cardiac hypokinesis on echo 1y ago of unclear etiology but improved with medical management now presents with 1month of progressive dyspnea on exertion and 1 week of intermittent, very localized, sharp and positional pain under L breast. no f/c/ cough. - Physicial Exam PE: 05/30/18 09:38 Vital signs normal Lungs are clear, heart is regular No calf tenderness or edema - Medical Decision Making 05/30/18 09:39 47-year-old male with well-controlled HIV, ? cardiomyopathy in the past now with 1month of progressive MELÉNDEZ concerning for recurrence v. ACS, less consistent with infectious etiology. The chest pain itslef is atypical, occurring randomly and positional, possibly musculoskeletal. labs wnl ekg, cxr are wnl discussed with Dr. Pal, agrees with tele obs for further cardiac workup. Will add ddimer. Heart Score/ECG Review #1 General ECG Interpretation: Sinus Rhythm, Normal Rate, Normal Intervals, No acute ischemic changes
--- NOTE | 2018-05-30 10:47 | CONS ---
DATE OF CONSULTATION: 05/30/2018 REQUESTING PHYSICIAN: Dr. Medrano in the emergency department. REASON FOR CONSULTATION: Chest pain. HISTORY OF PRESENT ILLNESS: The patient is a 47-year-old male with past medical history of HIV, prior alcohol abuse, and mild nonischemic cardiomyopathy thought to be due to chronic hypertension versus HIV, now presents to the emergency department for evaluation of 2 weeks of left pectoral chest discomfort. He describes his chest pain as a knot. It occurs randomly, not associated with exertion. No associated palpitations. It is not related to eating. He does not experience the sensation when walking upstairs or hills or when exercising. He denies any trauma or recent unusual movements. He does have some very mild chronic dyspnea on exertion, which is unchanged. He denies fevers, chills, or new cough. PAST MEDICAL HISTORY: Is as outlined above. ALLERGIES: IBUPROFIN and SULFA. HOME MEDICATIONS: Include Toprol XL 50 mg daily, losartan 50 mg daily, Tivicay 50 mg daily, Prezcobix 800 mg/150 daily, Lipitor 20 mg bedtime, trazadone 100 at bedtime, and Remeron 1 tablet at bedtime. FAMILY HISTORY: Noncontributory. SOCIAL HISTORY: He is a former smoker. He currently drinks one beer per day, but has had a history of alcohol abuse in the past. He denies illegal substance abuse. PHYSICAL EXAMINATION: General: Alert and oriented, in no acute distress. Mother at the bedside. Vital signs: Temperature 98.9, pulse 89, blood pressure 128/91, O2 saturation 100 on room air. She is anicteric. Neck: No bruits. 2+ carotid pulses. Heart: S1, S2, regular. No murmurs, rubs, or gallops. Chest: Clear. No wheezing. Abdomen: Soft, nontender.. Extremities: No edema. EKG: Showed normal sinus rhythm with borderline LVH and no acute ST-T changes. LABORATORIES: White count 5.4, hemoglobin 13.9, platelets 229. Sodium 133, potassium 3.8, BUN 7, creatinine 1.4, total bilirubin 1.5, 70, ALT 69, CK 441, index 0.3, CK MB 1.55. Troponin 0.03. Total protein 8.3, albumin 4.2. CHEST X-RAY: No active disease. IMPRESSION: 1. Mild nonischemic cardiomyopathy with normalized ejection fraction on medical therapy. 2. Suspected hypertensive cardiomyopathy versus human immunodeficiency virus cardiomyopathy. 3. Atypical chest pain x2 weeks. 4. Elevated creatine phosphokinase test ? due to statin. RECOMMENDATIONS: 1. Hold statin. 2. Serial cardiac enzymes. 3. Echocardiogram today to rule out pericardial disease, pulmonary hypertension, and reassess EF. 4. Plan for nuclear stress test once cardiac enzymes have trended. 5. Telemetry x24 hours. Thank you for the consultation. SHALONDA VENTURA M.D. [id number]
--- NOTE | 2018-05-30 12:36 | ECHO ---
Name: ELSI KIM Exam:Adult Echocardiogram Study Date: 05/30/2018 09:24 AM Age: 47 yrs Reason For Study: Chest pain Height: 67 in Weight: 150 lb BSA: 1.8 m2 MMode/2D Measurements & Calculations IVSd: 1.1 cm Ao root diam: 2.9 cm LVIDd: 4.5 cm LA dimension: 2.7 cm LVIDs: 3.8 cm LVPWd: 1.0 cm EDV(Teich): 94.4 ml ESV(Teich): 63.0 ml Doppler Measurements & Calculations MV E max joe: 62.1 cm/sec TR max joe: 175.1 cm/sec MV A max joe: 77.1 cm/sec TR max P.4 mmHg MV E/A: 0.81 MV dec time: 0.32 sec Med Peak E' Joe: 7.1 cm/sec Med E/e': 8.8 Lat Peak E' Joe: 8.7 cm/sec Lat E/e': 7.1 Procedure A two-dimensional transthoracic echocardiogram with color flow and Doppler was performed. The patient was in normal sinus rhythm during the exam. Left Ventricle Left ventricular systolic function is mildly reduced. E/A reversal consistent with but not diagnostic of poor LV compliance. Moderate anteroseptal hypokinesis. Right Ventricle The right ventricle is grossly normal size. The right ventricular systolic function is grossly normal . Atria The left atrial size is normal. Right atrial size is normal. Mitral Valve The mitral valve is normal. There is trace mitral regurgitation. Tricuspid Valve The tricuspid valve is normal. There is mild tricuspid regurgitation. Right ventricular systolic pres sure is normal. Aortic Valve The aortic valve is normal in structure and function. The aortic valve is trileaflet. No aortic regur gitation is present. Pulmonic Valve The pulmonic valve is not well seen, but is grossly normal. There is no pulmonic valvular regurgitati on. Great Vessels The aortic root is normal size. Pericardium/Pleura There is no pericardial effusion. Interpretation Summary Left ventricular systolic function is mildly reduced. Moderate anteroseptal hypokinesis. E/A reversal consistent with but not diagnostic of poor LV compliance The right ventricular systolic function is grossly normal. There is trace mitral regurgitation. There is mild tricuspid regurgitation. There is no pericardial effusion. MD Adeel Miguel 05/30/2018 12:35 PM
[2018-05-31] MEDS ORDERED: traZODone HCL 50 MG TABLET (FP) PO ONE (00:18)
[2018-05-31 06:33] LABS: BASO % 0.7 % (0-2.0); EOS % 3.4 % (0-4.5); HEMATOCRIT 40.3 % (35.4-49); HEMOGLOBIN 13.9 GM/dL (11.7-16.9); LYMPH % 29.2 % (8-40); MCH 35.5 pg (25.7-33.7); MCHC 34.5 g/dl (32.0-35.9); MEAN CELL VOLUME 102.9 fl (80-96); MEAN PLT VOLUME 8.1 fl (7.5-11.1); MONO % 14.9 % (3.8-10.2); NEUT % 51.8 % (42.8-82.8); PLATELET COUNT 171 K/MM3 (134-434); RBC 3.91 M/mm3 (4.00-5.60); RDW 13.2 % (11.9-15.9); WHITE BLOOD COUNT 4.3 K/mm3 (4.0-10.0)
[2018-05-31 07:04] LABS: ALBUMIN 3.6 g/dl (3.4-5.0); ANION GAP 9 (8-16); BILIRUBIN,TOTAL 1.4 mg/dL (0.2-1.0); BLOOD UREA NITROGEN 11 mg/dL (7-18); CHLORIDE 100 mmol/L (98-107); CO2 28 mmol/L (21-32); CREATININE 1.4 mg/dL (0.7-1.3); GLUCOSE,RANDOM 100 mg/dL (74-106); SGOT/AST 44 U/L (15-37); SGPT/ALT 54 U/L (12-78); SODIUM 137 mmol/L (136-145)
[2018-05-31 07:05] LABS: ALK PHOS 45 U/L (45-117); TOT PROT 7.5 g/dl (6.4-8.2)
--- NOTE | 2018-05-31 08:06 | PN ---
Progress Note, Physician Chief Complaint: NSR on tele No CP TnI flat Echo personally reviewed, as noted yest. I do not see any discrete WMA. - Current Medication List Current Medications: Active Medications Aspirin (Asa -) 81 mg PO DAILY ANJALI Losartan Potassium (Cozaar -) 50 mg PO DAILY ANJALI Metoprolol Succinate (Toprol Xl -) 25 mg PO DAILY ANJALI - Objective Vital Signs: Vital Signs Temperature 98.1 F 05/31/18 06:00 Pulse Rate 88 05/31/18 06:00 Respiratory Rate 20 05/31/18 06:00 Blood Pressure 125/92 05/31/18 06:00 O2 Sat by Pulse Oximetry (%) 97 05/30/18 20:29 Constitutional: Yes: No Distress Cardiovascular: Yes: Regular Rate and Rhythm Respiratory: Yes: CTA Bilaterally Gastrointestinal: Yes: Soft Edema: No Neurological: Yes: Alert, Oriented ...Motor Strength: WNL Labs: CBC, BMP 05/31/18 05:30 05/31/18 05:30 Laboratory Tests 04/01/17 05/30/18 05/30/18 03:25 08:04 09:10 WBC 4.3 Hgb Plt Count D-Dimer < 200 Potassium Creatinine Troponin I 0.03 05/30/18 05/30/18 05/31/18 14:04 20:45 05:30 WBC Hgb Plt Count D-Dimer Potassium 4.0 Creatinine 1.4 H Troponin I 0.03 0.02 D 05/31/18 05:30 WBC 4.3 Hgb 13.9 Plt Count 171 D D-Dimer Potassium Creatinine Troponin I - ....Imaging EKG: Image Reviewed Assessment/Plan IMP: Mild non-ischemic CM, with normalized EF on medical Rx Suspected Hypertensive CM vs HIV Atypical CP x 2 weeks Elevated CK: ? statin REC: 1. Hold statin. Follow CK 2. Serial cardiac enzymes flat. 3. Echo noted, as per previous notes 4. Stress MPI today
--- NOTE | 2018-05-31 11:40 | EKG ---
Test Reason : Blood Pressure : / mmHG Vent. Rate : 084 BPM Atrial Rate : 084 BPM P-R Int : 154 ms QRS Dur : 084 ms QT Int : 398 ms P-R-T Axes : 065 058 066 degrees QTc Int : 470 ms NORMAL SINUS RHYTHM MINIMAL VOLTAGE CRITERIA FOR LVH, MAY BE NORMAL VARIANT BORDERLINE ECG WHEN COMPARED WITH ECG OF 06-MAY-2018 09:55, NO SIGNIFICANT CHANGE WAS FOUND Confirmed by JUAN DARDEN, RODRIGUEZ ([id number]) on 05/31/2018 11:39:54 AM Referred By: Confirmed By:RODRIGUEZ MARTINEZ MD
--- NOTE | 2018-05-31 16:02 | PN ---
Physical Exam: SUBJECTIVE: Patient seen and examined. Discussed stress test findings. Denies cp , sob, palpitations. Notes during stress test had sob. OBJECTIVE: Vital Signs Period Temp Pulse Resp BP Sys/Goodson Pulse Ox Last 24 Hr 98.0 F-98.4 F 60-89 17-20 125-133/83-93 97 PE Neuro: alert, awake, cn 2-12intact Pulm: CTAB CV: s1 s2 rrr Abd: s nd nd + bs Ext: warm no le edema Laboratory Results - last 24 hr 05/30/18 05/31/18 05/31/18 20:45 05:30 05:30 WBC 4.3 RBC 3.91 L Hgb 13.9 Hct 40.3 MCV 102.9 H MCH 35.5 H MCHC 34.5 RDW 13.2 Plt Count 171 D MPV 8.1 Absolute Neuts (auto) 2.3 Neutrophils % 51.8 Lymphocytes % 29.2 Monocytes % 14.9 H Eosinophils % 3.4 Basophils % 0.7 Nucleated RBC % 0 Sodium 137 Potassium 4.0 Chloride 100 Carbon Dioxide 28 Anion Gap 9 BUN 11 Creatinine 1.4 H Creat Clearance w eGFR 54.09 Random Glucose 100 Calcium 9.0 Total Bilirubin 1.4 H AST 44 H D ALT 54 D Alkaline Phosphatase 45 D Creatine Kinase 345 H Creatine Kinase Index 0.2 CK-MB (CK-2) 0.89 Troponin I 0.02 D Total Protein 7.5 Albumin 3.6 Active Medications Generic Name Dose Route Start Last Admin Trade Name Freq PRN Reason Stop Dose Admin Aspirin 81 mg 05/31/18 10:00 Asa - PO DAILY ANJALI Losartan Potassium 50 mg 05/31/18 10:00 Cozaar - PO DAILY ANJALI Metoprolol Succinate 25 mg 05/31/18 10:00 Toprol Xl - PO DAILY ANJALI Assessment: 47 year old male with PMHx of HIV, HTN, asthma who presented to the ED with 2 weeks of intermittent chest pain. Plan: 1. Chest pain - Positive stress showing mod sized inferior wall reversible perfusion c/w ischemia. EF 46% - ECHO with mildly reduced LV systolic function. Moderate anteroseptal hypokinesis. Trace MR, mild TR - Cardiac monitoring - ASA 81mg po daily - Cardiology aware, will need cardiac cath, can hold off on hydration, encourage po intake 2. Mild systolic heart failure, cardiomyopathy - Likely chronic - No evidence of acute exacerbation at this time - Cont BB, ARB 3. Hyperlipidemia - Improving - Hold statin as total bilirubin is elevated 4. HTN - Continue Toprol XL - Continue Losartan, caution with Cr 5. CKD - Continue to monitor Cr, currently around baseline - Cont ARB 6. HIV - Continue home medications - Follow-up with [facility] upon discharge 7. DVT ppx - Heparin sq tid Visit type - Emergency Visit Emergency Visit: Yes ED Registration Date: 05/30/18 Care time: The patient presented to the Emergency Department on the above date and was hospitalized for further evaluation of their emergent condition. - New Patient This patient is new to me today: Yes Date on this admission: 05/31/18 - Critical Care Critical Care patient: No
[2018-05-31] MEDS ORDERED: CLOPIDOGREL BISULFATE 300 MG TABLET PO ONE ×2 (16:30→17:30)
[2018-05-31] MEDS ORDERED: ASPIRIN 81 MG CHEWABLE TABLETS PO ONE (17:30)
[2018-05-31] MEDS: LOSARTAN POTASSIUM 50 MG TABLET (FP) PO SCH (18:19)
[2018-05-31] MEDS: metoPROLOL SUCCINATE 25 MG TAB.SR.24H (FP) PO SCH (18:20)
[2018-05-31] MEDS: ASPIRIN 81 MG CHEWABLE TABLETS PO SCH (18:20)
[2018-05-31] MEDS ORDERED: DARUNAVIR ETHANOLATE 800 MG TAB PO SCH (21:30)
[2018-05-31] MEDS ORDERED: traZODone HCL 50 MG TABLET (FP) PO SCH (22:00)
[2018-05-31] MEDS ORDERED: PATIENT'S OWN MEDICATION (NON-FORMULARY) (Darunavir/Cobicistat [Prezcobix 800 Mg-150 Mg Ta PO SCH (23:03)
[2018-05-31] MEDS: HEPARIN NA (PORCINE) 5,000 UNITS/ML 1ML VIAL SQ SCH (23:26)
[2018-05-31] MEDS: DOLUTEGRAVIR SODIUM 50 MG TABLET PO SCH (23:26)
[2018-06-01 03:45] VITALS: TEMP 98.4
[2018-06-01] MEDS: HEPARIN NA (PORCINE) 5,000 UNITS/ML 1ML VIAL SQ SCH (06:20)
[2018-06-01 06:58] LABS: ALBUMIN 3.5 g/dl (3.4-5.0); ANION GAP 4 (8-16); BLOOD UREA NITROGEN 16 mg/dL (7-18); CALCIUM 9.4 mg/dL (8.5-10.1); CHLORIDE 101 mmol/L (98-107); CO2 31 mmol/L (21-32); GLUCOSE,RANDOM 105 mg/dL (74-106); POTASSIUM 4.3 mmol/L (3.5-5.1); SGPT/ALT 44 U/L (12-78); SODIUM 136 mmol/L (136-145)
[2018-06-01 07:01] LABS: ALK PHOS 51 U/L (45-117); CREATININE 1.4 mg/dL (0.7-1.3); SGOT/AST 27 U/L (15-37); TOT PROT 7.2 g/dl (6.4-8.2)
--- NOTE | 2018-06-01 08:03 | PN ---
Progress Note, Physician Chief Complaint: Nuclear stress with moderate sized zone of mild inferior ischemia with depressed LVEF TELE: NSR, sinus tach D- dimer negative - Current Medication List Current Medications: Active Medications Aspirin (Asa -) 81 mg PO DAILY [facility] Last Admin: 05/31/18 18:20 Dose: 81 mg Heparin Sodium (Porcine) (Heparin -) 5,000 unit SQ TID [facility] Last Admin: 06/01/18 06:20 Dose: 5,000 unit Losartan Potassium (Cozaar -) 50 mg PO DAILY [facility] Last Admin: 05/31/18 18:19 Dose: 50 mg Metoprolol Succinate (Toprol Xl -) 25 mg PO DAILY [facility] Last Admin: 05/31/18 18:20 Dose: 25 mg Non-Formulary Medication (Darunavir/Cobicistat [Prezcobix 800 Mg-150 Mg Tablet] ) 1 each PO DAILY [facility] Last Admin: 05/31/18 23:04 Dose: Not Given Trazodone HCl (Desyrel -) 100 mg PO HS [facility] Last Admin: 05/31/18 23:26 Dose: 100 mg - Objective Vital Signs: Vital Signs Temperature 98.4 F 06/01/18 02:00 Pulse Rate 79 06/01/18 06:00 Respiratory Rate 20 06/01/18 06:00 Blood Pressure 112/76 06/01/18 06:00 O2 Sat by Pulse Oximetry (%) 97 05/31/18 20:00 Constitutional: Yes: No Distress, Calm Cardiovascular: Yes: Regular Rate and Rhythm Respiratory: Yes: CTA Bilaterally Gastrointestinal: Yes: Soft Edema: No Neurological: Yes: Alert, Oriented ...Motor Strength: WNL Labs: CBC, BMP 05/31/18 05:30 06/01/18 05:30 - ....Imaging EKG: Image Reviewed Assessment/Plan IMP: HIV+ Chronic HTN Chronic mild cardiomyopathy, previously thought to be non-ischemic (HTN/HIV) Now presented with 1 week of MELÉNDEZ and atypical CP found to have inferior ischemia (new) on stress MPI with decreased LVEF REC: In light of risk factors (HTN/ HIV), new symptoms (MELÉNDEZ), cardiomyopathy and new ischemia on MPI have recommended [facility] for definitive assessment of coronary anatomy. Risks/benefits/alternatives discussed with patient. He agrees to cath. Will make arrangements for tx to tertiary center.
[2018-06-01 09:10] VITALS: BP 124/87; PULSE 85
[2018-06-01] MEDS: LOSARTAN POTASSIUM 50 MG TABLET (FP) PO SCH (11:18)
[2018-06-01] MEDS: ASPIRIN 81 MG CHEWABLE TABLETS PO SCH (11:18)
[2018-06-01] MEDS: metoPROLOL SUCCINATE 25 MG TAB.SR.24H (FP) PO SCH (11:19)
[2018-06-01] MEDS: DOLUTEGRAVIR SODIUM 50 MG TABLET PO SCH (11:19)
--- NOTE | 2018-06-02 16:06 | DS ---
Physical Exam: SUBJECTIVE: Patient seen and examined. Feels well, no cp, sob, chest tightness. aware of transfer and cardiac cath OBJECTIVE: PE Neuro: alert, awake, cn 2-12intact Pulm: CTAB CV: s1 s2 rrr Abd: s nd nd + bs Ext: warm no le edema HOSPITAL COURSE: Date of Admission:05/30/18 Date of Discharge: 06/02/18 Minutes to complete discharge: 37 Discharge Summary Reason For Visit: DYSPNEA ON EXERTION,CHEST PAIN,HIV Hospital Course: Initial Hospital Course: Briefly, this 47 year old with PMHx of HIV, HTN, asthma presented to the ED with 2 weeks of intermittent chest pain. The patient reported two weeks ago he had 5 episodes of left sided intermittent, non-radiating chest pain lasting about 2 minutes each time. Last week he had one episode of the chest pain and then yesterday he had it again once, only lasting 2 minutes. He reported it felt like a "knot" in his chest. Subsequent Hospital Course/Transfer Summary: Assessment: 47 year old male with PMHx of HIV, HTN, asthma who presented to the ED with 2 weeks of intermittent chest pain. Plan: 1. Chest pain - For cardiac cath transfer - Positive stress showing mod sized inferior wall reversible perfusion c/w ischemia. EF 46% - ECHO with mildly reduced LV systolic function. Moderate anteroseptal hypokinesis. Trace MR, mild TR - Cardiac monitoring - ASA 81mg po daily 2. Mild systolic heart failure, cardiomyopathy - Likely chronic - No evidence of acute exacerbation at this time - Cont BB, ARB 3. Hyperlipidemia - Improving - Hold statin as total bilirubin is elevated 4. HTN - Continue Toprol XL - Continue Losartan, caution with Cr 5. CKD - Continue to monitor Cr, currently around baseline - Cont ARB 6. HIV - Continue home medications - Follow-up with [facility] upon discharge Dispo: - Transfer to [facility] for cardiac cath Condition: Stable - Instructions Referrals: Guicho Mulligan MD [Primary Care Provider] - Disposition: TRANSFER ACUTE CARE/OTHER HOSP - Home Medications Comprehensive Discharge Medication List: Ambulatory Orders Mirtazapine [Remeron -] 1 tablet PO HS #30 tablet 03/16/18 Trazodone HCl 100 mg PO HS #60 tablet 03/16/18 Darunavir/Cobicistat [Prezcobix 800 mg-150 mg Tablet] 1 each PO DAILY #30 tablet 05/06/18 Dolutegravir Sodium [Tivicay] 50 mg PO DAILY #30 tablet 05/06/18 Losartan Potassium 50 mg PO DAILY #30 tablet 05/06/18 Metoprolol Succinate [Toprol XL -] 50 mg PO DAILY #30 tablet 05/06/18 Atorvastatin Ca [Lipitor] 20 mg PO HS 05/30/18 This patient is new to me today: No Emergency Visit: Yes ED Registration Date: 05/30/18 Care time: The patient presented to the Emergency Department on the above date and was hospitalized for further evaluation of their emergent condition. Critical Care patient: No - Discharge Referral Referred to [facility] Med P.C.: No
== END 2018-06-01 13:14 | disposition short-term general hospital (02) ==
LOC: JER 07:30 → JERBED 09:13 → J4W 12:09
PROVIDERS: ADMIT Internal Medicine; ATTEND Nurse Practitioner Acute Care
PROC: 3E013GC Introduction of Other Therapeutic Substance into Subcutaneous Tissue, Percutaneous Approach (ICD-10-PCS; principal; 2018-05-30)
DX: R07.9 Chest pain, unspecified (principal); R06.00 Dyspnea, unspecified; I50.20 Unspecified systolic (congestive) heart failure; I11.0 Hypertensive heart disease with heart failure; E78.5 Hyperlipidemia, unspecified; I12.9 Hypertensive chronic kidney disease with stage 1 through stage 4 chronic kidney disease, or unspecified chronic kidney disease; N18.9 Chronic kidney disease, unspecified; Z21 Asymptomatic human immunodeficiency virus [HIV] infection status; J45.909 Unspecified asthma, uncomplicated; K86.1 Other chronic pancreatitis; Z87.891 Personal history of nicotine dependence; Z88.2 Allergy status to sulfonamides; I42.8 Other cardiomyopathies; R74.8 Abnormal levels of other serum enzymes
CPT/HCPCS: 36415; 71046-TC-FY; 78452-TC; 80053; 82550; 82553; 83735; 84484; 85025; 85379; 93005; 93010; 93017; 93306-TC; 96372; 99283-25; A9502; G0378; J1644

== ENCOUNTER 2018-09-26 07:56 | Day surgery (SDC) | payer OTHER ==
[2018-09-25 15:25] VITALS: BMI 25.3
[2018-09-26 09:41] VITALS: TEMP 97.8
[2018-09-26 10:04] VITALS: PULSE 71
[2018-09-26 10:27] VITALS: BP 134/81
== END 2018-09-26 10:28 | disposition home or self-care (01) ==
LOC: JASU-SURG 07:56 → JASU-ENDO 07:56 → JASU-SURG 10:28
PROVIDERS: ATTEND Internal Medicine Gastroenterology
PROC: 0DJD8ZZ Inspection of Lower Intestinal Tract, Via Natural or Artificial Opening Endoscopic (ICD-10-PCS; principal; 2018-09-26 09:00)
DX: Z12.11 Encounter for screening for malignant neoplasm of colon (principal); R63.4 Abnormal weight loss; K64.8 Other hemorrhoids; Z21 Asymptomatic human immunodeficiency virus [HIV] infection status; I10 Essential (primary) hypertension; J44.9 Chronic obstructive pulmonary disease, unspecified

== ENCOUNTER 2018-12-04 11:33 | Inpatient (IN) | payer OTHER ==
[2018-12-04 11:43] VITALS: BMI 21.4
[2018-12-04] MEDS ORDERED: FAMOTIDINE 20 MG/50 ML IVPB 20 MG/50 ML MG IVPB ONE ×2 (12:08→12:26)
[2018-12-04] MEDS ORDERED: SODIUM CHLORIDE 0.9% 1000 ML INFUS.BAG IV ONE (12:08)
[2018-12-04] MEDS ORDERED: ONDANSETRON 4 MG/2 ML VIAL IVPUSH ONE (12:08)
[2018-12-04] MEDS ORDERED: ONDANSETRON 4 MG/2 ML VIAL ONE (12:25)
--- NOTE | 2018-12-04 12:31 | PDOC ---
History of Present Illness - General Chief Complaint: Pain, Acute Stated Complaint: SENT BY PCP Time Seen by Provider: 12/04/18 11:57 History Source: Patient Exam Limitations: No Limitations - History of Present Illness Initial Comments: 12/04/18 12:31 The patient is a 48M with a PMH of HIV (unknown CD4 count), HTN, asthma, pancreatitis who presents to the ER with 3 days of flank pain w/ nausea and vomiting. The patient describes "uncomfortable" L flank pain without radiation, that is constant, and not associated with hematuria, dysuria, or penile discharge. He does describe nausea and vomiting "anytime he tries to eat or drink anything". He denies abdominal pain, bloody or bilious vomiting, and diarrea/constipation. He denies ever having pain like this in the past. Past History - Past Medical History Allergies/Adverse Reactions: Allergies Allergy/AdvReac Type Severity Reaction Status Date / Time ibuprofen Allergy Verified 05/30/18 07:33 Sulfa (Sulfonamide Allergy Verified 05/30/18 07:33 Antibiotics) [Sulfa(Sulfonamide Antibiotics)] Home Medications: Ambulatory Orders Cholecalciferol (Vitamin D3) [Vitamin D3] 1,000 unit PO DAILY 10/02/18 Triamcinolone 0.1% Cream [Aristocort] 1 applic TP BID #1 tube 10/26/18 Albuterol Sulfate Inhaler - [Ventolin HFA Inhaler -] 2 inh PO Q6H PRN #1 inhaler 11/08/18 Aspirin [Aspirin EC] 81 mg PO DAILY #30 tablet. 11/08/18 Atorvastatin Ca [Lipitor] 20 mg PO HS #30 tablet 11/08/18 Darunavir/Cobicistat [Prezcobix 800 mg-150 mg Tablet] 1 each PO DAILY #30 tablet 11/08/18 Dolutegravir Sodium [Tivicay] 50 mg PO DAILY #30 tablet 11/08/18 Losartan Potassium [Cozaar -] 25 mg PO DAILY #30 tablet 11/08/18 Metoprolol Succinate [Toprol XL -] 50 mg PO DAILY #30 tablet 11/08/18 Multivitamin,Therapeutic [Thera] 1 each PO DAILY #30 tablet 11/08/18 Tiotropium [place] [Spiriva] 1 inh PO DAILY #30 cap.w.dev 11/08/18 Clonazepam [Klonopin] 1 mg PO HS PRN #15 tablet MDD 1mg 11/22/18 Mirtazapine [Remeron -] 1 tablet PO HS #30 tablet 11/22/18 traZODone HCL [Trazodone HCl] 100 mg PO HS 30 Days #60 tablet MDD 2 11/22/18 Dapsone - mg PO DAILY 12/04/18 Asthma: Yes CVA: No COPD: Yes Diabetes: No GI Disorders: Yes (CHRONIC PANCREATITIS) HTN: Yes Hypercholesterolemia: No Kidney Stones: Yes Seizures: No - Surgical History Abdominal Surgery: Yes (RENAL STONES (LITHOTRIPSY)) Cholecystectomy: Yes (LAPAROSCOPIC) - Immunization History Immunization Up to Date: Yes - Suicide/Smoking/Psychosocial Hx Smoking Status: No Smoking History: Never smoked Have you smoked in the past 12 months: No Number of Cigarettes Smoked Daily: 0 Cigars Per Day: 0 Hx Alcohol Use: Yes (BEER OCCASIONAL-PREVIOUS HX.ALCOHOL ABUSE) Drug/Substance Use Hx: No (denies) Substance Use Type: None Hx Substance Use Treatment: No Review of Systems - Review of Systems Able to Perform ROS?: Yes Comments:: 12/04/18 12:31 GENERAL/CONSTITUTIONAL: No fever or chills. No weakness. HEAD, EYES, EARS, NOSE AND THROAT: No change in vision. No ear pain or discharge. No sore throat. CARDIOVASCULAR: No chest pain, palpitations, or lightheadedness. RESPIRATORY: No cough, wheezing, shortness of breath, or hemoptysis. GASTROINTESTINAL: Positive for nausea and vomiting. No diarrhea, constipation, or abdominal pain. GENITOURINARY: Positive for L flank pain. No dysuria, frequency, hematuria, or change in urination. MUSCULOSKELETAL: No joint or muscle swelling or pain. No neck or back pain. SKIN: No rash or lesions. NEUROLOGIC: No headache, numbness, tingling, focal weakness, loss of consciousness, or change in strength/sensation. Is the patient limited Spanish proficient: No *Physical Exam - Vital Signs Last Vital Signs Temp Pulse Resp BP Pulse Ox 98.1 F 70 16 148/105 H 98 12/04/18 11:42 12/04/18 11:42 12/04/18 11:42 12/04/18 11:42 12/04/18 11:42 - Physical Exam Comments: 12/04/18 13:21 GENERAL: Well developed, well nourished. Awake and alert. No acute distress. HEENT: Normocephalic, atraumatic. Hearing grossly normal. Moist mucous membranes. PERRLA, EOMI. No conjunctival pallor. Sclera are non-icteric. NECK: Supple. Full ROM. No JVD. CARDIOVASCULAR: Regular rate and rhythm. No murmurs, rubs, or gallops. PULMONARY: No evidence of respiratory distress. Lungs clear to auscultation bilaterally. No wheezing, rales or rhonchi. ABDOMINAL: Soft. Non-tender. Non-distended. No rebound or guarding. GENITOURINARY: L CVA tenderness. MUSCULOSKELETAL: Normal range of motion at all joints. No bony deformities or tenderness. EXTREMITIES: No cyanosis. No clubbing. No edema. No calf tenderness or swelling. SKIN: Warm and dry. Normal capillary refill. No rashes. No jaundice. NEUROLOGICAL: Alert, awake, appropriate. Cranial nerves 2-12 grossly intact. Normal speech. Gait is normal without ataxia. PSYCHIATRIC: Cooperative. Good eye contact. Appropriate mood and affect. Moderate Sedation - Procedure Monitoring Vital Signs: Procedure Monitoring Vital Signs Temperature 98.1 F 12/04/18 11:42 Pulse Rate 70 12/04/18 11:42 Respiratory Rate 16 12/04/18 11:42 Blood Pressure 148/105 H 12/04/18 11:42 O2 Sat by Pulse Oximetry (%) 98 12/04/18 11:42 ED Treatment Course - LABORATORY CBC & Chemistry Diagram: 12/04/18 12:40 12/04/18 12:40 Medical Decision Making - Medical Decision Making 12/04/18 13:21 The patient is a 48M with a PMH of HIV, HTN, pancreatitis, who presents to the ER with complaints of L flank pain, nausea, and vomiting, concerning for UTI, pyelo, septic stone, and recurrent pancreatitis. Pending labs and will CT flank to evaluate for stone. Giving fluids and zofran for symptomatic treatment. 12/04/18 16:04 UA negative. Lipase 690 concerning for mild pancreatitis. CT negative for acute pathology but did not fullness in L urinary tract. Will give tylenol for pain. Paging for admission. 12/04/18 18:16 I have endorsed the patient to [facility] for admission under Dr. Rosario. *DC/Admit/Observation/Transfer Diagnosis at time of Disposition: Pancreatitis Qualifiers: Chronicity: acute Pancreatitis type: unspecified pancreatitis type Acute pancreatitis complication: unspecified Qualified Code(s): K85.90 - Acute pancreatitis without necrosis or infection, unspecified - Discharge Dispostion Condition at time of disposition: Guarded Decision to Admit order: Yes - Referrals Referrals: Shikha Tran [Non Staff, Medical] - - Patient Instructions - Post Discharge Activity
[2018-12-04 13:11] LABS: URINE APPEARANCE CLEAR; URINE BILIRUBIN NEGATIVE (<2.0 mg/dL); URINE GLUCOSE (UA) NEGATIVE (NEGATIVE); URINE KETONE TRACE (NEGATIVE); URINE LEUK ESTERASE NEGATIVE (NEGATIVE); URINE NITRITE NEGATIVE (NEGATIVE); URINE PROTEIN 2+ (NEGATIVE); URINE UROBILINOGEN 4.0 E.U/dl mg/dL (0.2-1.0)
--- NOTE | 2018-12-04 13:13 | PDOC ---
Attending Attestation - HPI HPI: 12/04/18 13:13 The patient is a 48 year old male with a past medical history of HIV, HTN, asthma, kidney stones, and pancreatitis here today for evaluation of flank pain. The patient reports his flank pain began 3 days ago, is localized to the left flank, and is constant. He notes associated nausea and pancreatitis but only when he tries to eat. Patient denies headache, lightheadedness. Denies fever, chills. Denies chest pain, shortness of breath. Denies diarrhea, abdominal pain. Allergies: ibuprofen, sulfonamide antibiotics PCP: Shikha Tran - Medical Decision Making 12/04/18 13:13 Documentation prepared by DWIGHT Zepeda, acting as registered medical assistant for Ana Herrera MD. <Fareed Rodríguez - Last Filed: 12/04/18 13:13> - Resident Resident Name: Haroon Westbrook - ED Attending Attestation I have performed the following: I have examined & evaluated the patient, The case was reviewed & discussed with the resident, I agree w/resident's findings & plan, Exceptions are as noted - Physicial Exam PE: GENERAL: Awake, alert, and fully oriented. Appears ill but nontoxic. HEAD: No signs of trauma EYES: PERRLA, EOMI, sclera anicteric, conjunctiva clear ENT: Auricles normal inspection, hearing grossly normal, nares patent, oropharynx clear without exudates. Dry mucosa NECK: Normal ROM, supple, no lymphadenopathy, JVD, or masses LUNGS: Breath sounds equal, clear to auscultation bilaterally. No wheezes, and no crackles HEART: Regular rate and rhythm, normal S1 and S2, no murmurs, rubs or gallops ABDOMEN: Soft, nontender, normoactive bowel sounds. No guarding, no rebound. No masses. +L flank tenderness. EXTREMITIES: Normal range of motion, no edema. No clubbing or cyanosis. No cords, erythema, or tenderness NEUROLOGICAL: Cranial nerves II through XII grossly intact. Normal speech, normal gait. Motor and sensation intact SKIN: Warm, Dry, normal turgor, no rashes or lesions noted. - Medical Decision Making Pt with elevated lipase, vomiting, dehydration. Will place on obs in light of prior history pancreatitis and dehydration with vomiting at present. <Ana Herrera - Last Filed: 12/04/18 16:39>
[2018-12-04 13:21] LABS: BASO % 1.4 % (0-2.0); EOS % 1.1 % (0-4.5); HEMATOCRIT 44.6 % (35.4-49); HEMOGLOBIN 15.4 GM/dL (11.7-16.9); LYMPH % 23.3 % (8-40); MCH 36.8 pg (25.7-33.7); MCHC 34.5 g/dl (32.0-35.9); MEAN CELL VOLUME 106.8 fl (80-96); MEAN PLT VOLUME 7.5 fl (7.5-11.1); MONO % 10.3 % (3.8-10.2); NEUT % 63.9 % (42.8-82.8); PLATELET COUNT 233 K/MM3 (134-434); RBC 4.17 M/mm3 (4.00-5.60); RDW 13.3 % (11.9-15.9); WHITE BLOOD COUNT 6.2 K/mm3 (4.0-10.0)
[2018-12-04 13:26] LABS: URINE COLOR DK YELLOW
[2018-12-04 13:28] LABS: URINE HYALINE CAST 1 /lpf; URINE MUCUS MODERATE
--- NOTE | 2018-12-04 13:41 | EKG ---
Test Reason : Blood Pressure : / mmHG Vent. Rate : 064 BPM Atrial Rate : 064 BPM P-R Int : 158 ms QRS Dur : 088 ms QT Int : 434 ms P-R-T Axes : 063 050 062 degrees QTc Int : 447 ms NORMAL SINUS RHYTHM VOLTAGE CRITERIA FOR LEFT VENTRICULAR HYPERTROPHY ABNORMAL ECG WHEN COMPARED WITH ECG OF 30-MAY-2018 07:41, NO SIGNIFICANT CHANGE WAS FOUND Confirmed by JOHS ELLIOTT MD ([id number]) on 12/04/2018 1:40:49 PM Referred By: Confirmed By:JOSH ELLIOTT MD
[2018-12-04 13:44] LABS: ALBUMIN 4.4 g/dl (3.4-5.0); ALK PHOS 65 U/L (45-117); ANION GAP 7 MMOL/L (8-16); BILIRUBIN,TOTAL 1.4 mg/dL (0.2-1); BLOOD UREA NITROGEN 14 mg/dL (7-18); CALCIUM 9.4 mg/dL (8.5-10.1); CHLORIDE 101 mmol/L (98-107); CO2 29 mmol/L (21-32); CREATININE 1.6 mg/dL (0.55-1.3); GLUCOSE,RANDOM 102 mg/dL (74-106); LIPASE 690 U/L (73-393); SGOT/AST 27 U/L (15-37); SGPT/ALT 28 U/L (13-61); SODIUM 137 mmol/L (136-145); TOT PROT 9.3 g/dl (6.4-8.2)
[2018-12-04 15:46] LABS: ANISOCYTOSIS 1+; MACROCYTOSIS 1+; PLATELET ESTIMATE NORMAL
[2018-12-04] MEDS ORDERED: ACETAMINOPHEN 1000 MG/100 ML VIAL (NON FORMULARY) IVPB ONE (16:04)
[2018-12-04] MEDS ORDERED: ACETAMINOPHEN INJECTION 100 ML IVPB ONE (17:13)
[2018-12-04] MEDS: SODIUM CHLORIDE 1,000 ML IV SCH (17:15)
[2018-12-04] MEDS ORDERED: clonazePAM 0.5 MG TABLET PO PRN (19:37)
[2018-12-04] MEDS ORDERED: ALBUTEROL SO4 8 GM HFA INHALER IH PRN (19:37)
--- NOTE | 2018-12-04 19:55 | HP ---
CHIEF COMPLAINT: left flank pain for three days with nausea and vomiting PCP: Infectious Diseases- Dr. Sanchez at [place] [facility] HISTORY OF PRESENT ILLNESS: This is a 48 year old male with history of HIV (CD4 count unknown,viral load undetected, follows with ID- Dr. Sanchez at [place] [facility]), hypertension, asthma, kidney stones and pancreatitis who presents with symptoms of left flank pain for 3 days with nausea and vomiting with eating. He denied abdominal pain, chest pain, dizziness, shortness of breath, cough, chills, diarrhea or fever. He reports he has not been taking his medications for the past one day and a half day due to his symptoms as above. Upon evaluation in the ER CT scan of abdomen demonstrated no acute pathology or obstruction, no renal calculi and stable pancreatic head calcification since 2017.Urinalysis is negative. Labs notable for normal WBC and liver enzymes, total bilirubin 1.4,creatinine 1.6, and lipase 690. He is hemodynamically stable and afebrile. Recent Travel:Denies PAST MEDICAL HISTORY: HIV Hypertension Asthma Kidney Stone Removal Pancreatitis PAST SURGICAL HISTORY: Laparscopic kidney stone removal for obstruction in the Social History: Smoking:denies Alcohol:reports drinking beer occasionally, reports drank 1 beer yesterday Drugs: denies Family History:noncontributory Allergies ibuprofen Allergy (Verified 05/30/18 07:33) Sulfa (Sulfonamide Antibiotics) [Sulfa(Sulfonamide Antibiotics)] Allergy ( Verified 05/30/18 07:33) HOME MEDICATIONS: Home Medications Medication Instructions Recorded Cholecalciferol (Vitamin D3) 1,000 unit PO DAILY 10/02/18 [Vitamin D3] Triamcinolone 0.1% Cream 1 applic TP BID #1 tube 10/26/18 [Aristocort] Albuterol Sulfate Inhaler - 2 inh PO Q6H PRN #1 inhaler 11/08/18 [Ventolin HFA Inhaler -] Aspirin [Aspirin EC] 81 mg PO DAILY #30 tablet. 11/08/18 Atorvastatin Ca [Lipitor] 20 mg PO HS #30 tablet 11/08/18 Darunavir/Cobicistat [Prezcobix 1 each PO DAILY #30 tablet 11/08/18 800 mg-150 mg Tablet] Dolutegravir Sodium [Tivicay] 50 mg PO DAILY #30 tablet 11/08/18 Losartan Potassium [Cozaar -] 25 mg PO DAILY #30 tablet 11/08/18 Metoprolol Succinate [Toprol XL -] 50 mg PO DAILY #30 tablet 11/08/18 Multivitamin,Therapeutic [Thera] 1 each PO DAILY #30 tablet 11/08/18 Tiotropium [place] [Spiriva] 1 inh PO DAILY #30 cap.w.dev 11/08/18 Clonazepam [Klonopin] 1 mg PO HS PRN #15 tablet MDD 1mg 11/22/18 Mirtazapine [Remeron -] 1 tablet PO HS #30 tablet 11/22/18 traZODone HCL [Trazodone HCl] 100 mg PO HS 30 Days #60 tablet 11/22/18 MDD 2 Dapsone - mg PO DAILY 12/04/18 REVIEW OF SYSTEMS CONSTITUTIONAL: Absent: fever, chills, diaphoresis, generalized weakness, malaise, loss of appetite, weight change HEENT: Absent: rhinorrhea, nasal congestion, throat pain, throat swelling, difficulty swallowing, mouth swelling, ear pain, eye pain, visual changes CARDIOVASCULAR: Absent: chest pain, syncope, palpitations, irregular heart rate, lightheadedness , peripheral edema RESPIRATORY: Absent: cough, shortness of breath, dyspnea with exertion, orthopnea, wheezing, stridor, hemoptysis GASTROINTESTINAL: Absent: abdominal pain, abdominal distension, nausea, vomiting, diarrhea, constipation, melena, hematochezia GENITOURINARY: Absent: dysuria, frequency, urgency, hesitancy, hematuria, + left flank pain, genital pain MUSCULOSKELETAL: Absent: myalgia, arthralgia, joint swelling, back pain, neck pain SKIN: Absent: rash, itching, pallor HEMATOLOGIC/IMMUNOLOGIC: Absent: easy bleeding, easy bruising, lymphadenopathy, frequent infections ENDOCRINE: Absent: unexplained weight gain, unexplained weight loss, heat intolerance, cold intolerance NEUROLOGIC: Absent: headache, focal weakness or paresthesias, dizziness, unsteady gait, seizure, mental status changes, bladder or bowel incontinence PSYCHIATRIC: Absent: anxiety, depression, suicidal or homicidal ideation, hallucinations. PHYSICAL EXAMINATION Vital Signs - 24 hr 12/04/18 11:42 Temperature 98.1 F Pulse Rate 70 Respiratory 16 Rate Blood Pressure 148/105 H O2 Sat by Pulse 98 Oximetry (%) GENERAL: awake, alert, and fully oriented, in no acute distress HEAD: normal with no signs of trauma EYES: pupils equal, round and reactive to light, sclera anicteric, conjunctiva clear EARS, NOSE, THROAT: ears normal, nares patent, oropharynx clear without exudates. Moist mucous membranes. NECK: normal range of motion, supple without lymphadenopathy, JVD, or masses. LUNGS: breath sounds equal, clear to auscultation bilaterally. No wheezes, and no crackles. No accessory muscle use. HEART: regular rate and rhythm, normal S1 and S2 without murmur, rub or gallop. ABDOMEN: soft, tender on palpation to left flank region, no hepatomegaly or splenomegaly. MUSCULOSKELETAL: normal range of motion at all joints. no bony deformities or tenderness. no CVA tenderness. UPPER EXTREMITIES: 2+ pulses, warm, well-perfused. No cyanosis. No clubbing. No peripheral edema. LOWER EXTREMITIES: 2+ pulses, warm, well-perfused. No calf tenderness. No peripheral edema. NEUROLOGICAL: normal speech PSYCHIATRIC: cooperative appropriate mood and affect. SKIN: warm, dry, normal turgor, no rashes or lesions noted, normal capillary refill. Laboratory Results - last 24 hr 12/04/18 12/04/18 12/04/18 12:40 12:40 12:40 WBC 6.2 RBC 4.17 Hgb 15.4 Hct 44.6 D MCV 106.8 H MCH 36.8 H MCHC 34.5 RDW 13.3 Plt Count 233 MPV 7.5 Absolute Neuts (auto) 4.0 Neutrophils % 63.9 D Lymphocytes % 23.3 D Monocytes % 10.3 H Eosinophils % 1.1 Basophils % 1.4 Nucleated RBC % 0 Hypochromia 0 Platelet Estimate Normal Polychromasia 0 Poikilocytosis 0 Anisocytosis 1+ Microcytosis 0 Macrocytosis 1+ Sodium 137 Potassium 4.0 Chloride 101 Carbon Dioxide 29 Anion Gap 7 L BUN 14 Creatinine 1.6 H Creat Clearance w eGFR 46.17 Random Glucose 102 Calcium 9.4 Total Bilirubin 1.4 H AST 27 ALT 28 Alkaline Phosphatase 65 Total Protein 9.3 H Albumin 4.4 Lipase 690 H Urine Color Dk yellow Urine Appearance Clear Urine pH 5.0 Ur Specific [place] 1.027 Urine Protein 2+ H Urine Glucose (UA) Negative Urine Ketones Trace H Urine Blood Negative Urine Nitrite Negative Urine Bilirubin Negative Urine Urobilinogen 4.0 e.u/dl Ur Leukocyte Esterase Negative Urine WBC (Auto) 1 Urine RBC (Auto) 1 Hyaline Casts 1 Urine Mucus Moderate ASSESSMENT/PLAN: 48 year old male with history of HIV (last CD4 count unknown, VL undetected, follows with ID- Dr. Sanchez at [place]), hypertension, asthma, kidney stones and pancreatitis who presents with symptoms of left flank pain for 3 days associated with nausea and vomiting. Upon evaluation in the ER CT scan of abdomen with no acute pathology, no renal calculi and stable pancreatic head calcification since 02/2018, no obstruction noted. He has a normal Urinalysis . Lab findings nwith a normal WBC and LFT's. Total bilirubin is 1.4 and lipase is 690. He is not tachycardic, afebrile and with a mildly elevated blood pressure. Possible Mild Pancreatitis He has no leukocytosis and remains afebrile. CT scan of abdomen with no acute pathology. No indication for IV antibiotocs. - Continue with fluids-NS at 150 cc/hr - NPO - Continue to monitor and repeat lipase/check amylase level ordered in the am. - Continue with pain control as needed. - Consider consulting GI in am. Hypertension Mildly elevated blood pressure due to not taking antihypertensive medications for the past 1-1 1/2 day. UA with 2+ proteinuria. Continue with metoprolol succinate and losartan. Acute Renal Insufficiency Creatinine 1.6. (last creatinine on 11/22/2018 was 1.2). Continue with IV fluids. Continue to monitor closely with repeat BMP ordered for the am. Hyperlipidemia Continue with statin therapy. LFT's are normal. Asthma No acute exacerbation. Continue with albuterol and spireva inhaler. HIV Asymptomatic Continue with antiviral medications. Visit type - Emergency Visit Emergency Visit: Yes ED Registration Date: 12/04/18 Care time: The patient presented to the Emergency Department on the above date and was hospitalized for further evaluation of their emergent condition. - New Patient This patient is new to me today: Yes Date on this admission: 12/04/18 - Critical Care Critical Care patient: No
[2018-12-04] MEDS ORDERED: MIRTAZAPINE 30 MG TABLET (FP) PO SCH (22:00)
[2018-12-04] MEDS: TRIAMCINOLONE ACET 0.1% CREAM 15 GM TUBE TP SCH (23:21)
[2018-12-04] MEDS: MIRTAZAPINE 15 MG TABLET (FP) PO SCH (23:21)
[2018-12-04] MEDS: ATORVASTATIN CA 20 MG TABLET (FP) PO SCH (23:21)
[2018-12-04] MEDS ORDERED: MORPHINE SULFATE 2 MG/ML VIAL IVPUSH ONE (23:45)
[2018-12-05] MEDS: ATORVASTATIN CA 20 MG TABLET (FP) PO SCH (00:08)
[2018-12-05] MEDS: MIRTAZAPINE 15 MG TABLET (FP) PO SCH ×2 (00:08→22:22)
[2018-12-05] MEDS ORDERED: MORPHINE SULFATE 2 MG/ML VIAL IM ONE (02:46)
[2018-12-05] MEDS ORDERED: MORPHINE SULFATE 2 MG/ML VIAL IVPUSH ONE (03:10)
[2018-12-05] MEDS ORDERED: hydrALAZINE HCL 20 MG/ML VIAL IVPUSH ONE (05:19)
--- NOTE | 2018-12-05 08:34 | PN ---
Physical Exam: SUBJECTIVE: Patient seen and examined. He complains of back pain and stomach pain when he vomits. No vomiting overnight. denies alcohol/drug use. OBJECTIVE: Vital Signs Period Temp Pulse Resp BP Sys/[place] Pulse Ox Last 24 Hr 98.0 F-98.5 F 66-86 16-22 126-181/96-114 98-99 PE Neuro: alert,awake, cn 2-12intact Pulm: diminished, clear CV: s1 s2 rrr no mrg Abd: s nt nd +bs Msk: L back tenderness to palpation Ext: no le edema AM labs pending Active Medications Generic Name Dose Route Start Last Admin Trade Name Freq PRN Reason Stop Dose Admin Albuterol Sulfate 2 puff 12/04/18 19:37 Ventolin Hfa Inhaler - IH Q6H PRN ASTHMA Atorvastatin Calcium 20 mg 12/04/18 22:00 12/05/18 00:08 Lipitor - PO Not Given HS ANJALI Cholecalciferol 1,000 unit 12/05/18 10:00 Vitamin D3 - PO DAILY [facility] Clonazepam 1 mg 12/04/18 19:37 Klonopin - PO HS PRN ANXIETY Dapsone 25 mg 12/05/18 10:00 Dapsone - PO DAILY ANJALI Sodium Chloride 1,000 mls @ 150 mls/hr 12/04/18 16:15 12/04/18 17:15 Normal Saline - IV 150 mls/hr ASDIR ANJALI Administration Losartan Potassium 25 mg 12/05/18 10:00 Cozaar - PO DAILY ANJALI Metoprolol Succinate 50 mg 12/05/18 10:00 Toprol Xl - PO DAILY ANJALI Mirtazapine 30 mg 12/04/18 23:00 12/05/18 00:08 Remeron - PO Not Given HS ANJALI Multivitamins/Minerals/Vitamin C 1 tab 12/05/18 10:00 Tab-A-Vit - PO DAILY ANJALI Tiotropium [place] 2 puff 12/05/18 10:00 Spiriva Respimat IH DAILY ANJALI Triamcinolone Acetonide 1 applic 12/04/18 22:00 12/04/18 23:21 Aristocort 0.1% Cream - TP 1 applic BID ANJALI Administration Imaging CTAP: no acute pathology, no renal calculi and stable pancreatic head calcification since 02/2018, no obstruction noted. He has a normal Urinalysis 48 year old male with pmhx of HIV (last CD4 count unknown, VL undetected, follows with ID- Dr. Sanchez at [place]), HTN, asthma, kidney stones and pancreatitis presented with left flank pain for 3 days associated with nausea and vomiting. Plan: 1. Mild Pancreatitis - Possibly Gastroenteritis initially? - Continue IVF 150cc/hr - NPO - AM labs pending - Trial clear liquids for lunch - Pain control 2. HTN urgency - Stable this AM - Elevated d/t not taking meds 2/2 vomiting - Resume home toprol 50mg daily and losartan 25mg daily 3. MILDRED - Likely pre renal d/t volume loss - AM BMP pending - Cont IVF 4. Hyperlipidemia - Hold statin d/t pancreatitis 5. Asthma - Not in exacerbation - Cont home meds 6. HIV Continue with antiviral medications 7. Back pain - UA pending Visit type - Emergency Visit Emergency Visit: Yes ED Registration Date: 12/04/18 Care time: The patient presented to the Emergency Department on the above date and was hospitalized for further evaluation of their emergent condition. - New Patient This patient is new to me today: Yes Date on this admission: 12/05/18 - Critical Care Critical Care patient: No
[2018-12-05] MEDS ORDERED: ACETAMINOPHEN 1000 MG/100 ML VIAL (NON FORMULARY) IVPB ONE (08:39)
[2018-12-05] MEDS: MORPHINE SULFATE 2 MG/ML VIAL IVPUSH PRN ×3 (08:53→22:21)
[2018-12-05] MEDS ORDERED: PT OWN MED DRAWER 7, Y5N ONE ×2 (10:31→18:27)
[2018-12-05] MEDS: LOSARTAN POTASSIUM 25 MG TABLET PO SCH (10:32)
[2018-12-05] MEDS: MULTIVITAMINS (DAILY MVI) TABLET (FP) PO SCH (10:33)
[2018-12-05] MEDS: CHOLECALCIFEROL (VITAMIN D3) 1,000 UNIT TABLET (FP) PO SCH (10:33)
[2018-12-05 11:02] LABS: HEMATOCRIT 39.1 % (35.4-49); HEMOGLOBIN 13.5 GM/dL (11.7-16.9); MCH 36.6 pg (25.7-33.7); MCHC 34.6 g/dl (32.0-35.9); MEAN CELL VOLUME 105.9 fl (80-96); MEAN PLT VOLUME 7.6 fl (7.5-11.1); PLATELET COUNT 199 K/MM3 (134-434); RBC 3.69 M/mm3 (4.00-5.60); RDW 13.1 % (11.9-15.9); WHITE BLOOD COUNT 7.4 K/mm3 (4.0-10.0)
[2018-12-05] MEDS: DAPSONE 25 MG TABLET PO SCH (11:26)
[2018-12-05] MEDS: TRIAMCINOLONE ACET 0.1% CREAM 15 GM TUBE TP SCH ×2 (11:26→22:20)
[2018-12-05] MEDS: DARUNAVIR 800 MG/COBICISTAT 150MG TABLET PO SCH (11:26)
[2018-12-05] MEDS: TIOTROPIUM BROMIDE 2.5 MCG (SPIRIVA) RESPIMAT INHALER IH SCH (11:26)
[2018-12-05 11:34] LABS: AMYLASE 120 U/L (25-115); ANION GAP 11 MMOL/L (8-16); BLOOD UREA NITROGEN 13 mg/dL (7-18); CALCIUM 8.8 mg/dL (8.5-10.1); CHLORIDE 106 mmol/L (98-107); CO2 22 mmol/L (21-32); CREATININE 1.1 mg/dL (0.55-1.3); GLUCOSE,RANDOM 80 mg/dL (74-106); LIPASE 575 U/L (73-393); POTASSIUM 4.1 mmol/L (3.5-5.1); SODIUM 139 mmol/L (136-145)
[2018-12-05] MEDS: SODIUM CHLORIDE 1,000 ML IV SCH (18:16)
[2018-12-05] MEDS: DOLUTEGRAVIR SODIUM 50 MG TABLET (NON-FORMULARY) PO SCH (18:16)
[2018-12-06] MEDS: MORPHINE SULFATE 2 MG/ML VIAL IVPUSH PRN ×4 (02:28→22:15)
[2018-12-06 08:05] LABS: ALBUMIN 4.2 g/dl (3.4-5.0); ALK PHOS 66 U/L (45-117); ANION GAP 8 MMOL/L (8-16); BILIRUBIN,TOTAL 1.5 mg/dL (0.2-1); BLOOD UREA NITROGEN 9 mg/dL (7-18); CALCIUM 9.3 mg/dL (8.5-10.1); CHLORIDE 102 mmol/L (98-107); CO2 27 mmol/L (21-32); CREATININE 1.2 mg/dL (0.55-1.3); GLUCOSE,RANDOM 83 mg/dL (74-106); POTASSIUM 3.7 mmol/L (3.5-5.1); SGOT/AST 42 U/L (15-37); SGPT/ALT 27 U/L (13-61); SODIUM 137 mmol/L (136-145)
[2018-12-06] MEDS ORDERED: PT OWN MED DRAWER 7, Y5N ONE ×2 (09:30→16:58)
[2018-12-06] MEDS: LOSARTAN POTASSIUM 25 MG TABLET PO SCH (09:36)
[2018-12-06] MEDS: MULTIVITAMINS (DAILY MVI) TABLET (FP) PO SCH (09:37)
[2018-12-06] MEDS: CHOLECALCIFEROL (VITAMIN D3) 1,000 UNIT TABLET (FP) PO SCH (09:37)
[2018-12-06] MEDS: DAPSONE 25 MG TABLET PO SCH (09:37)
[2018-12-06] MEDS: DARUNAVIR 800 MG/COBICISTAT 150MG TABLET PO SCH (09:39)
[2018-12-06] MEDS: TIOTROPIUM BROMIDE 2.5 MCG (SPIRIVA) RESPIMAT INHALER IH SCH (09:39)
[2018-12-06] MEDS: DOLUTEGRAVIR SODIUM 50 MG TABLET (NON-FORMULARY) PO SCH (09:40)
[2018-12-06] MEDS: TRIAMCINOLONE ACET 0.1% CREAM 15 GM TUBE TP SCH ×2 (09:45→22:13)
--- NOTE | 2018-12-06 10:16 | PN ---
Progress Note (short form) - Note Progress Note: Subjective: The patient was seen and examined at the bedside, he has complaints of back pain which he reports is chronic. He denies any abdominal pain. He is tolerating a clear liquid diet well and denies any nausea or vomiting. Awaiting lipase level today Current Medications Generic Name Dose Route Start Last Admin Trade Name Freq PRN Reason Stop Dose Admin Albuterol Sulfate 2 puff 12/04/18 19:37 Ventolin Hfa Inhaler - IH Q6H PRN ASTHMA Cholecalciferol 1,000 unit 12/05/18 10:00 12/06/18 09:37 Vitamin D3 - PO 1,000 unit DAILY ANJALI Administration Clonazepam 1 mg 12/04/18 19:37 Klonopin - PO HS PRN ANXIETY Dapsone 25 mg 12/05/18 10:00 12/06/18 09:37 Dapsone - PO 25 mg DAILY ANJALI Administration Sodium Chloride 1,000 mls @ 150 mls/hr 12/04/18 16:15 12/05/18 18:16 Normal Saline - IV 150 mls/hr ASDIR ANJALI Administration Losartan Potassium 25 mg 12/05/18 10:00 12/06/18 09:36 Cozaar - PO 25 mg DAILY ANJALI Administration Metoprolol Succinate 50 mg 12/05/18 10:00 12/06/18 09:37 Toprol Xl - PO 50 mg DAILY ANJALI Administration Mirtazapine 30 mg 12/04/18 23:00 12/05/18 22:22 Remeron - PO 30 mg HS ANJALI Administration Morphine Sulfate 1 mg 12/05/18 08:39 12/06/18 09:37 Morphine Sulfate IVPUSH 1 mg Q4H PRN Administration PAIN LEVEL 4 - 6 Multivitamins/Minerals/Vitamin C 1 tab 12/05/18 10:00 12/06/18 09:37 Tab-A-Vit - PO 1 tab DAILY ANJALI Administration Tiotropium [place] 2 puff 12/05/18 10:00 12/06/18 09:39 Spiriva Respimat IH 2 puff DAILY ANJALI Administration Triamcinolone Acetonide 1 applic 12/04/18 22:00 12/06/18 09:45 Aristocort 0.1% Cream - TP 1 applic BID ANJALI Administration Objective: Vital Signs Period Temp Pulse Resp BP Sys/Goodson Pulse Ox Last 24 Hr 97.8 F-98.4 F 66-84 18-20 140-165/98-112 99 Physical Exam: General: NAD, A&Ox3 Lungs: CTA bilaterally Heart: RRR, S1S2 Abd: Soft, non-tender, non-distended. Normoactive bowel sounds Ext: Warm, well-perfused CBCD WBC 7.4 K/mm3 (4.0-10.0) 12/05/18 10:08 RBC 3.69 M/mm3 (4.00-5.60) L 12/05/18 10:08 Hgb 13.5 GM/dL (11.7-16.9) 12/05/18 10:08 Hct 39.1 % (35.4-49) 12/05/18 10:08 MCV 105.9 fl (80-96) H 12/05/18 10:08 MCHC 34.6 g/dl (32.0-35.9) 12/05/18 10:08 RDW 13.1 % (11.9-15.9) 12/05/18 10:08 Plt Count 199 K/MM3 (134-434) 12/05/18 10:08 MPV 7.6 fl (7.5-11.1) 12/05/18 10:08 CMP Sodium 137 mmol/L (136-145) 12/06/18 06:30 Potassium 3.7 mmol/L (3.5-5.1) 12/06/18 06:30 Chloride 102 mmol/L (98-107) 12/06/18 06:30 Carbon Dioxide 27 mmol/L (21-32) 12/06/18 06:30 Anion Gap 8 MMOL/L (8-16) 12/06/18 06:30 BUN 9 mg/dL (7-18) 12/06/18 06:30 Creatinine 1.2 mg/dL (0.55-1.3) 12/06/18 06:30 Creat Clearance w eGFR > 60 (>60) 12/06/18 06:30 Random Glucose 83 mg/dL (74-106) 12/06/18 06:30 Calcium 9.3 mg/dL (8.5-10.1) 12/06/18 06:30 Total Bilirubin 1.5 mg/dL (0.2-1) H 12/06/18 06:30 AST 42 U/L (15-37) H 12/06/18 06:30 ALT 27 U/L (13-61) 12/06/18 06:30 Alkaline Phosphatase 66 U/L (45-117) 12/06/18 06:30 Total Protein 9.0 g/dl (6.4-8.2) H 12/06/18 06:30 Albumin 4.2 g/dl (3.4-5.0) 12/06/18 06:30 Microbiology 12/04/18 12:40 Urine - Urine Clean Catch Urine Culture - Final NO GROWTH OBTAINED Imaging CTAP: no acute pathology, no renal calculi and stable pancreatic head calcification since 02/2018, no obstruction noted. He has a normal Urinalysis Assessment: This is a 48 year old male with PMHx of HIV (last CD4 count unknown , VL undetected, follows with ID- Dr. Sanchez at [facility]), HTN, asthma, kidney stones and pancreatitis presented with left flank pain for 3 days associated with nausea and vomiting. Plan: 1. Acute on Chronic mild Pancreatitis - Likely 2/2 chronic alcohol use - Continue IVF 150cc/hr - F/u AM lipase level 2. HTN urgency - Remains elevated - Continue home toprol 50mg daily and losartan 25mg daily 3. MILDRED - Resolved 4. Elevated total bili - Likely 2/2 chronic alcohol use - Hx of fluctuating bili level, continue to trend 5. Hyperlipidemia - Hold statin d/t pancreatitis 6. Asthma - No evidence of acute asthma exacerbation at this time - Cont home meds 7. HIV Continue with antiviral medications 8. Chronic Back pain Visit type - Emergency Visit Emergency Visit: Yes ED Registration Date: 12/04/18 Care time: The patient presented to the Emergency Department on the above date and was hospitalized for further evaluation of their emergent condition. - New Patient This patient is new to me today: Yes Date on this admission: 12/06/18 - Critical Care Critical Care patient: No
[2018-12-06 12:41] LABS: LIPASE 553 U/L (73-393)
[2018-12-06] MEDS ORDERED: amLODIPine BESYLATE 5 MG TABLET (FP) PO ONE (17:21)
[2018-12-06] MEDS: MIRTAZAPINE 15 MG TABLET (FP) PO SCH (22:13)
[2018-12-07] MEDS: MORPHINE SULFATE 2 MG/ML VIAL IVPUSH PRN (06:58)
[2018-12-07 07:46] LABS: BASO % 0.4 % (0-2.0); EOS % 3.4 % (0-4.5); HEMATOCRIT 43.2 % (35.4-49); HEMOGLOBIN 14.9 GM/dL (11.7-16.9); LYMPH % 23.7 % (8-40); MCH 36.2 pg (25.7-33.7); MCHC 34.5 g/dl (32.0-35.9); MEAN CELL VOLUME 105.1 fl (80-96); MEAN PLT VOLUME 7.6 fl (7.5-11.1); NEUT % 58.5 % (42.8-82.8); PLATELET COUNT 203 K/MM3 (134-434); RBC 4.11 M/mm3 (4.00-5.60); RDW 12.9 % (11.9-15.9); WHITE BLOOD COUNT 5.2 K/mm3 (4.0-10.0)
[2018-12-07 08:10] LABS: ALBUMIN 3.6 g/dl (3.4-5.0); ALK PHOS 61 U/L (45-117); ANION GAP 10 MMOL/L (8-16); BILIRUBIN,TOTAL 1.1 mg/dL (0.2-1); BLOOD UREA NITROGEN 10 mg/dL (7-18); CALCIUM 9.1 mg/dL (8.5-10.1); CHLORIDE 103 mmol/L (98-107); CO2 25 mmol/L (21-32); CREATININE 1.2 mg/dL (0.55-1.3); GLUCOSE,RANDOM 105 mg/dL (74-106); LIPASE 365 U/L (73-393); POTASSIUM 3.6 mmol/L (3.5-5.1); SGOT/AST 43 U/L (15-37); SGPT/ALT 38 U/L (13-61); SODIUM 139 mmol/L (136-145)
[2018-12-07] MEDS ORDERED: PT OWN MED DRAWER 7, Y5N ONE (10:34)
[2018-12-07] MEDS: TIOTROPIUM BROMIDE 2.5 MCG (SPIRIVA) RESPIMAT INHALER IH SCH (10:35)
[2018-12-07] MEDS: LOSARTAN POTASSIUM 25 MG TABLET PO SCH (10:35)
[2018-12-07] MEDS: DAPSONE 25 MG TABLET PO SCH (10:36)
[2018-12-07] MEDS: MULTIVITAMINS (DAILY MVI) TABLET (FP) PO SCH (10:36)
[2018-12-07] MEDS: DARUNAVIR 800 MG/COBICISTAT 150MG TABLET PO SCH (10:36)
[2018-12-07] MEDS: CHOLECALCIFEROL (VITAMIN D3) 1,000 UNIT TABLET (FP) PO SCH (10:36)
[2018-12-07] MEDS: DOLUTEGRAVIR SODIUM 50 MG TABLET (NON-FORMULARY) PO SCH (10:37)
[2018-12-07] MEDS: TRIAMCINOLONE ACET 0.1% CREAM 15 GM TUBE TP SCH (10:40)
[2018-12-07] MEDS ORDERED: oxyCODONE HCL 5 MG TABLET PO ONE (13:18)
--- NOTE | 2018-12-07 13:22 | DS ---
Physical Exam: SUBJECTIVE: Patient seen and examined OBJECTIVE: Vital Signs Period Temp Pulse Resp BP Sys/Goodson Pulse Ox Last 24 Hr 98.0 F-98.7 F 77-85 18-20 139-161/98-111 PE Neuro: alert,awake, cn 2-12intact Pulm: diminished, clear CV: s1 s2 rrr no mrg Abd: s nt nd +bs Msk: L back tenderness to palpation Ext: no le edema Laboratory Results - last 24 hr 12/07/18 12/07/18 06:40 06:40 WBC 5.2 RBC 4.11 Hgb 14.9 Hct 43.2 MCV 105.1 H MCH 36.2 H MCHC 34.5 RDW 12.9 Plt Count 203 MPV 7.6 Absolute Neuts (auto) 3.1 Neutrophils % 58.5 Lymphocytes % 23.7 Monocytes % 14.0 H Eosinophils % 3.4 D Basophils % 0.4 Nucleated RBC % 0 Sodium 139 Potassium 3.6 Chloride 103 Carbon Dioxide 25 Anion Gap 10 BUN 10 Creatinine 1.2 Creat Clearance w eGFR > 60 Random Glucose 105 Calcium 9.1 Total Bilirubin 1.1 H AST 43 H ALT 38 Alkaline Phosphatase 61 Total Protein 8.0 Albumin 3.6 Lipase 365 HOSPITAL COURSE: Date of Admission:12/07/18 Date of Discharge: 12/07/18 Minutes to complete discharge: 36 Discharge Summary Reason For Visit: PANCREATITIS Current Active Problems Pancreatitis (Acute) Hospital Course: Initial Hospital Course: 48 year old male with history of HIV (CD4 count unknown,viral load undetected, follows with ID- Dr. Sanchez at [facility]), hypertension, asthma, kidney stones and pancreatitis who presented with symptoms of left flank pain for 3 days with nausea and vomiting with eating. He denied abdominal pain, chest pain, dizziness , shortness of breath, cough, chills, diarrhea or fever. He reports he has not been taking his medications for the past one day and a half day due to his symptoms as above. Upon evaluation in the ER CT scan of abdomen demonstrated no acute pathology or obstruction, no renal calculi and stable pancreatic head calcification since 2017.Urinalysis is negative. Hospital Course: Assessment: This is a 48 year old male with PMHx of HIV (last CD4 count unknown , VL undetected, follows with ID- Dr. Sanchez at [place]), HTN, asthma, kidney stones and pancreatitis presented with left flank pain for 3 days associated with nausea and vomiting. Plan: 1. Acute on Chronic mild Pancreatitis - Likely 2/2 chronic alcohol use - Resolved s/p IV hydration, bowel rest - Lipase WNL on dc 2. HTN urgency - Now controled - Continue home toprol 50mg daily and losartan 25mg daily 3. MILDRED - Resolved 4. Elevated total bili - Likely 2/2 chronic alcohol use - Improved on dc 5. Hyperlipidemia - Resumed on dc 6. Asthma - No evidence of acute asthma exacerbation at this time - Cont home meds 7. HIV Continue with antiviral medications 8. Chronic Back pain - follow up with pcp for pain medications Dispo - DC home Condition: Stable - Instructions Diet, Activity, Other Instructions: Please return to the ED for any new, persistent, or worsening symptoms. Follow up with your primary care doctor Resume home medications as directed Refrain from drinking Referrals: Shikha Tran [Non Staff, Medical] - Laura Reyes FNP [Nurse Practitioner] - Disposition: HOME - Home Medications Comprehensive Discharge Medication List: Ambulatory Orders Cholecalciferol (Vitamin D3) [Vitamin D3] 1,000 unit PO DAILY 10/02/18 Triamcinolone 0.1% Cream [Aristocort 0.1% Cream -] 1 applic TP BID #1 tube 10/26 Albuterol Sulfate Inhaler - [Ventolin HFA Inhaler -] 2 inh PO Q6H PRN #1 inhaler 11/08/18 Aspirin [Aspirin EC] 81 mg PO DAILY #30 tablet. 11/08/18 Atorvastatin Ca [Lipitor] 20 mg PO HS #30 tablet 11/08/18 Darunavir/Cobicistat [Prezcobix 800 mg-150 mg Tablet] 1 each PO DAILY #30 tablet 11/08/18 Dolutegravir Sodium [Tivicay] 50 mg PO DAILY #30 tablet 11/08/18 Losartan Potassium [Cozaar -] 25 mg PO DAILY #30 tablet 11/08/18 Metoprolol Succinate [Toprol XL -] 50 mg PO DAILY #30 tablet 11/08/18 Multivitamin,Therapeutic [Thera] 1 each PO DAILY #30 tablet 11/08/18 Tiotropium [place] [Spiriva] 1 inh PO DAILY #30 cap.w.dev 11/08/18 Clonazepam [Klonopin] 1 mg PO HS PRN #15 tablet MDD 1mg 11/22/18 Mirtazapine [Remeron -] 1 tablet PO HS #30 tablet 11/22/18 traZODone HCL [Trazodone HCl] 100 mg PO HS 30 Days #60 tablet MDD 2 11/22/18 Dapsone - 100 mg PO DAILY 12/04/18 This patient is new to me today: No Emergency Visit: Yes ED Registration Date: 12/07/18 Care time: The patient presented to the Emergency Department on the above date and was hospitalized for further evaluation of their emergent condition. Critical Care patient: No - Discharge Referral Referred to [facility] Med P.C.: No
[2018-12-07 13:31] VITALS: BP 107/75; PULSE 108; TEMP 97.9
== END 2018-12-07 14:02 | disposition home or self-care (01) | DRG 282 ==
LOC: JER 11:33 → JERBED 16:02 → J5S 22:41 → OBSVTOIN 12-07 09:53
PROVIDERS: ADMIT Internal Medicine; ATTEND Nurse Practitioner Acute Care
DX: K85.90 Acute pancreatitis without necrosis or infection, unspecified (principal); N17.9 Acute kidney failure, unspecified; Z21 Asymptomatic human immunodeficiency virus [HIV] infection status; K86.1 Other chronic pancreatitis; I10 Essential (primary) hypertension; I16.0 Hypertensive urgency; E80.7 Disorder of bilirubin metabolism, unspecified; F10.10 Alcohol abuse, uncomplicated; E78.5 Hyperlipidemia, unspecified; J45.909 Unspecified asthma, uncomplicated; J44.9 Chronic obstructive pulmonary disease, unspecified; Z87.442 Personal history of urinary calculi
CPT/HCPCS: 36415; 74176; 80048; 80053; 81003; 81015; 82150; 83690; 85025; 85027; 87086; 93005; 93010; 99284-25; G0378; J0131; J7030

== ENCOUNTER 2019-01-22 08:18 | Inpatient (IN) | payer OTHER ==
[2019-01-22] MEDS ORDERED: KETOROLAC TROMETHAMINE 30 MG/1 ML VIAL IVPUSH STA (08:46)
[2019-01-22] MEDS ORDERED: SODIUM CHLORIDE 1,000 ML IV STA ×2 (08:46→10:15)
[2019-01-22] MEDS ORDERED: ONDANSETRON 4 MG/2 ML VIAL IVPUSH ONE (08:46)
[2019-01-22] MEDS ORDERED: ONDANSETRON 4 MG/2 ML VIAL ONE (08:52)
[2019-01-22] MEDS ORDERED: KETOROLAC TROMETHAMINE 30 MG/1 ML VIAL ONE (08:52)
--- NOTE | 2019-01-22 09:09 | PDOC ---
History of Present Illness - General Chief Complaint: Back Pain Stated Complaint: BACK PAIN Time Seen by Provider: 01/22/19 08:40 History Source: Patient Exam Limitations: No Limitations - History of Present Illness Travel History: No Initial Comments: 01/22/19 09:08 48-year-old male with history of pancreatitis and chronic low back pain presents to ED with low to mid back pain radiating to his left flank and left lower quadrant now which he describes as a pressure cramping sensation with intermittent sharp pain to his left back. Patient states has history of renal colic and states since this morning has had difficulty continuing urination flow. Patient also describes nausea with one episode of vomiting yesterday and a few times the day prior. Patient states took a few Tylenol with no relief and so decided come to the ER today. Timing/Duration: reports: changing over time Quality: reports: moderate Abdominal Pain Onset Location: reports: flank Pain Radiation: reports: LLQ, back Activities at Onset: reports: none Aggravating Factors: improves with: Movement Alleviating Factors: improves with: None Past History - Travel Traveled outside of the country in the last 30 days: No Close contact w/someone who was outside of country & ill: No - Past Medical History Allergies/Adverse Reactions: Allergies Allergy/AdvReac Type Severity Reaction Status Date / Time ibuprofen Allergy Verified 01/22/19 08:20 Sulfa (Sulfonamide Allergy Verified 01/22/19 08:20 Antibiotics) [Sulfa(Sulfonamide Antibiotics)] Home Medications: Ambulatory Orders Cholecalciferol (Vitamin D3) [Vitamin D3] 1,000 unit PO DAILY 10/02/18 Triamcinolone 0.1% Cream [Aristocort 0.1% Cream -] 1 applic TP BID #1 tube 10/26 Albuterol Sulfate Inhaler - [Ventolin HFA Inhaler -] 2 inh PO Q6H PRN #1 inhaler 11/08/18 Aspirin [Aspirin EC] 81 mg PO DAILY #30 tablet. 11/08/18 Atorvastatin Ca [Lipitor] 20 mg PO HS #30 tablet 11/08/18 Darunavir/Cobicistat [Prezcobix 800 mg-150 mg Tablet] 1 each PO DAILY #30 tablet 11/08/18 Dolutegravir Sodium [Tivicay] 50 mg PO DAILY #30 tablet 11/08/18 Losartan Potassium [Cozaar -] 25 mg PO DAILY #30 tablet 11/08/18 Metoprolol Succinate [Toprol XL -] 50 mg PO DAILY #30 tablet 11/08/18 Multivitamin,Therapeutic [Thera] 1 each PO DAILY #30 tablet 11/08/18 Tiotropium [place] [Spiriva] 1 inh PO DAILY #30 cap.w.dev 11/08/18 Dapsone - 100 mg PO DAILY 12/04/18 Cyclobenzaprine HCl [Flexeril -] 10 mg PO HS PRN #30 tablet MDD 3 12/20/18 Ranitidine [Zantac -] 1 tab PO BID PRN #20 tablet MDD 2 12/20/18 Clonazepam [Klonopin] 1 mg PO HS PRN #15 tablet MDD 1mg 12/28/18 Cyproheptadine [Periactin -] 4 mg PO HS #30 tablet 12/28/18 Mirtazapine [Remeron -] 1 tablet PO HS #30 tablet 12/28/18 traZODone HCL [Trazodone HCl] 100 mg PO HS 30 Days #60 tablet MDD 2 12/28/18 Asthma: Yes CVA: No COPD: No Diabetes: No GI Disorders: Yes (CHRONIC PANCREATITIS) HTN: Yes Hypercholesterolemia: No Kidney Stones: Yes Seizures: No - Surgical History Abdominal Surgery: Yes (RENAL STONES (LITHOTRIPSY)) Cholecystectomy: Yes (LAPAROSCOPIC) - Immunization History Immunization Up to Date: Yes - Suicide/Smoking/Psychosocial Hx Smoking Status: No Smoking History: Never smoked Have you smoked in the past 12 months: No Number of Cigarettes Smoked Daily: 0 Cigars Per Day: 0 Hx Alcohol Use: No Drug/Substance Use Hx: No Substance Use Type: None Hx Substance Use Treatment: No Patient Lives Alone: No Abd/GI Specific PMHX - Complaint Specific PMHX Pancreatitis: Yes Review of Systems - Review of Systems Able to Perform ROS?: No Is the patient limited Grenadian proficient: No Constitutional: No: Symptoms Reported HEENTM: No: Symptoms Reported Respiratory: No: Symptoms reported Cardiac (ROS): No: Symptoms Reported ABD/GI: Yes: Nausea, Vomiting, Abdominal cramping : Yes: Dysuria, Flank Pain Musculoskeletal: Yes: Back Pain (mid and low) Integumentary: No: Symptoms Reported Neurological: No: Symptoms reported Hematologic/Lymphatic: No: Symptoms Reported *Physical Exam - Vital Signs Last Vital Signs Temp Pulse Resp BP Pulse Ox 97.4 F L 104 H 17 113/86 100 01/22/19 08:20 01/22/19 08:20 01/22/19 08:20 01/22/19 08:20 01/22/19 08:20 - Physical Exam General Appearance: Yes: Nourished, Appropriately Dressed. No: Apparent Distress HEENT: positive: EOMI, RITU, TMs Normal, Pharynx Normal. negative: Pale Conjunctivae Neck: positive: Supple Respiratory/Chest: positive: Lungs Clear, Normal Breath Sounds. negative: Respiratory Distress, Accessory Muscle Use Cardiovascular: positive: Regular Rhythm, Tachycardia. negative: Murmur Gastrointestinal/Abdominal: positive: Normal Bowel Sounds, Soft, Tenderness ( left flank left lower quadrant, mild epigastric). negative: Guarding, Rebound Musculoskeletal: positive: CVA Tenderness (L), Vertebral Tenderness (T11-T12 L1- 3) Extremity: positive: Normal Capillary Refill, Normal Range of Motion. negative : Tender Integumentary: positive: Normal Color, Warm, Moist Neurologic: positive: Motor Strength 5/5 (ambulatory) Moderate Sedation - Procedure Monitoring Vital Signs: Procedure Monitoring Vital Signs Temperature 97.4 F L 01/22/19 08:20 Pulse Rate 104 H 01/22/19 08:20 Respiratory Rate 17 01/22/19 08:20 Blood Pressure 113/86 01/22/19 08:20 O2 Sat by Pulse Oximetry (%) 100 01/22/19 08:20 ED Treatment Course - LABORATORY CBC & Chemistry Diagram: 01/22/19 09:02 01/22/19 09:02 - RADIOLOGY Radiology Studies Ordered: Category Date Time Status SPIRAL- RENAL-STONE CT [CT] Stat CT Scan 01/22/19 08:47 Ordered SPINE-LUMBAR ONLY [RAD] Stat Radiology 01/22/19 08:47 Ordered SPINE-THORACIC [RAD] Stat Radiology 01/22/19 08:47 Ordered Medical Decision Making - Medical Decision Making 01/22/19 09:21 Chief complaint: Patient with lower back mid back radiating to his left flank and left lower quadrant associated nausea vomiting and difficulty continuing urination flow. + history of renal colic, pancreatitis and herniated disks. Exam. Patient with mild left CVA tenderness associated with left flank and left lower quadrant pain. Patient was with epigastric tenderness. Plan. Patient ordered for labs, fluids, Toradol, Zofran lumbar and thoracic x-rays along with spiral CT. 01/22/19 10:18 Laboratory Tests 01/22/19 01/22/19 09:02 09:02 WBC 6.6 Hgb 14.8 Hct 41.9 MCV 104.9 H MCH 37.0 H Neutrophils % 63.0 Lymphocytes % 22.4 Monocytes % 11.3 H Sodium 135 L Potassium 4.0 Chloride 100 Carbon Dioxide 28 Anion Gap 8 BUN 15 Creatinine 1.7 H Creat Clearance w eGFR 43.05 Random Glucose 114 H Calcium 8.9 Total Bilirubin 1.5 H AST 38 H ALT 31 Alkaline Phosphatase 68 Total Protein 9.0 H Albumin 4.3 Lipase 1348 H 01/22/19 10:19 2nd liter of IVF ordered. NPO status. awating ct report (non contrast secondary elevated bun/cr) 01/22/19 11:53 CT report -Patient with history of cholecystectomy. No significant abnormalities of the liver spleen pancreas and adrenal glands are identified. There is no evidence of intra-abdominal or retroperitoneal pelvic mass lesions fluid collections or lymphadenopathy. There is no evidence of acute appendicitis or diverticulitis. There is no evidence of hydronephrosis or urinary tract calculi. message sent to hospitalist *DC/Admit/Observation/Transfer Diagnosis at time of Disposition: Elevated lipase, HIV (human immunodeficiency virus infection), Pancreatitis, acute - Discharge Dispostion Decision to Admit order: Yes - Referrals - Patient Instructions - Post Discharge Activity
[2019-01-22 09:26] LABS: BASO % 0.7 % (0-2.0); EOS % 2.6 % (0-4.5); HEMATOCRIT 41.9 % (35.4-49); HEMOGLOBIN 14.8 GM/dL (11.7-16.9); LYMPH % 22.4 % (8-40); MCHC 35.3 g/dl (32.0-35.9); MEAN CELL VOLUME 104.9 fl (80-96); MEAN PLT VOLUME 7.7 fl (7.5-11.1); MONO % 11.3 % (3.8-10.2); PLATELET COUNT 221 K/MM3 (134-434); RDW 13.3 % (11.9-15.9); WHITE BLOOD COUNT 6.6 K/mm3 (4.0-10.0)
[2019-01-22 09:58] LABS: ALBUMIN 4.3 g/dl (3.4-5.0); ALK PHOS 68 U/L (45-117); ANION GAP 8 MMOL/L (8-16); BILIRUBIN,TOTAL 1.5 mg/dL (0.2-1); BLOOD UREA NITROGEN 15 mg/dL (7-18); CALCIUM 8.9 mg/dL (8.5-10.1); CHLORIDE 100 mmol/L (98-107); CO2 28 mmol/L (21-32); CREATININE 1.7 mg/dL (0.55-1.3); GLUCOSE,RANDOM 114 mg/dL (74-106); LIPASE 1348 U/L (73-393); SGOT/AST 38 U/L (15-37); SGPT/ALT 31 U/L (13-61); SODIUM 135 mmol/L (136-145)
[2019-01-22 11:22] LABS: URINE APPEARANCE SLCLOUDY; URINE COLOR AMBER; URINE GLUCOSE (UA) NEGATIVE (NEGATIVE); URINE KETONE NEGATIVE (NEGATIVE); URINE LEUK ESTERASE NEGATIVE (NEGATIVE); URINE NITRITE NEGATIVE (NEGATIVE); URINE PROTEIN 2+ (NEGATIVE); URINE UROBILINOGEN 4.0 E.U/dl mg/dL (0.2-1.0)
[2019-01-22 11:31] LABS: URINE HYALINE CAST 7 /lpf; URINE MUCUS RARE
[2019-01-22] MEDS ORDERED: ONDANSETRON 4 MG/2 ML VIAL IVPUSH PRN (13:21)
[2019-01-22] MEDS ORDERED: ALBUTEROL SO4 8 GM HFA INHALER IH PRN (13:22)
[2019-01-22] MEDS ORDERED: RANITIDINE HCL 150 MG TABLET (FP) PO PRN (13:22)
--- NOTE | 2019-01-22 13:32 | HP ---
CHIEF COMPLAINT: PCP: HISTORY OF PRESENT ILLNESS: 48 yo M with PMhx of chronic pancreatitis and HIV presents with 3 day history of worsening nausea and back pain. He describes 8/10 sharp pressure pain located on lower back that radiates to mid back. Pain is associated with nausea and NBNB vomiting. Pain aggrevated by movement and no alleviating factors. Denies Cp,LEWIS SOB, palpitations, fever or chills. ER course was notable for: (1)Lipase 1348 (2)CT abdomen did not show acute pathology. (3) Recent Travel: Denies. PAST MEDICAL HISTORY: PAST SURGICAL HISTORY: Social History: Smoking:denies Alcohol:former abuse Drugs:denies Family History:mother HTN Allergies ibuprofen Allergy (Verified 01/22/19 08:20) Sulfa (Sulfonamide Antibiotics) [Sulfa(Sulfonamide Antibiotics)] Allergy ( Verified 01/22/19 08:20) HOME MEDICATIONS: Home Medications Medication Instructions Recorded Cholecalciferol (Vitamin D3) 1,000 unit PO DAILY 10/02/18 [Vitamin D3] Triamcinolone 0.1% Cream 1 applic TP BID #1 tube 10/26/18 [Aristocort 0.1% Cream -] Albuterol Sulfate Inhaler - 2 inh PO Q6H PRN #1 inhaler 11/08/18 [Ventolin HFA Inhaler -] Aspirin [Aspirin EC] 81 mg PO DAILY #30 tablet. 11/08/18 Atorvastatin Ca [Lipitor] 20 mg PO HS #30 tablet 11/08/18 Darunavir/Cobicistat [Prezcobix 1 each PO DAILY #30 tablet 11/08/18 800 mg-150 mg Tablet] Dolutegravir Sodium [Tivicay] 50 mg PO DAILY #30 tablet 11/08/18 Losartan Potassium [Cozaar -] 25 mg PO DAILY #30 tablet 11/08/18 Metoprolol Succinate [Toprol XL -] 50 mg PO DAILY #30 tablet 11/08/18 Multivitamin,Therapeutic [Thera] 1 each PO DAILY #30 tablet 11/08/18 Tiotropium [place] [Spiriva] 1 inh PO DAILY #30 cap.w.dev 11/08/18 Dapsone - 100 mg PO DAILY 12/04/18 Cyclobenzaprine HCl [Flexeril -] 10 mg PO HS PRN #30 tablet MDD 3 12/20/18 Ranitidine [Zantac -] 1 tab PO BID PRN #20 tablet MDD 2 12/20/18 Clonazepam [Klonopin] 1 mg PO HS PRN #15 tablet MDD 1mg 12/28/18 Cyproheptadine [Periactin -] 4 mg PO HS #30 tablet 12/28/18 Mirtazapine [Remeron -] 1 tablet PO HS #30 tablet 12/28/18 traZODone HCL [Trazodone HCl] 100 mg PO HS 30 Days #60 tablet 12/28/18 MDD 2 REVIEW OF SYSTEMS CONSTITUTIONAL: Absent: fever, chills, diaphoresis, generalized weakness, malaise, loss of appetite, weight change HEENT: Absent: rhinorrhea, nasal congestion, throat pain, throat swelling, difficulty swallowing, mouth swelling, ear pain, eye pain, visual changes CARDIOVASCULAR: Absent: chest pain, syncope, palpitations, irregular heart rate, lightheadedness , peripheral edema RESPIRATORY: Absent: cough, shortness of breath, dyspnea with exertion, orthopnea, wheezing, stridor, hemoptysis GASTROINTESTINAL:nausea, vomiting Absent: abdominal pain, abdominal distension, , diarrhea, constipation, melena, hematochezia GENITOURINARY: Absent: dysuria, frequency, urgency, hesitancy, hematuria, flank pain, genital pain MUSCULOSKELETAL: back pain Absent: myalgia, arthralgia, joint swelling,, neck pain SKIN: Absent: rash, itching, pallor HEMATOLOGIC/IMMUNOLOGIC: Absent: easy bleeding, easy bruising, lymphadenopathy, frequent infections ENDOCRINE: Absent: unexplained weight gain, unexplained weight loss, heat intolerance, cold intolerance NEUROLOGIC: Absent: headache, focal weakness or paresthesias, dizziness, unsteady gait, seizure, mental status changes, bladder or bowel incontinence PSYCHIATRIC: Absent: anxiety, depression, suicidal or homicidal ideation, hallucinations. PHYSICAL EXAMINATION Vital Signs - 24 hr 01/22/19 08:20 Temperature 97.4 F L Pulse Rate 104 H Respiratory 17 Rate Blood Pressure 113/86 O2 Sat by Pulse 100 Oximetry (%) GENERAL: AAOx3, NAD HEAD: NCAT EYES: PERRLA, EOMI, sclera anicteric, conjunctiva clear. No lid lag. EARS, NOSE, THROAT:dry mucous membranes. NECK:supple without lymphadenopathy, JVD, or masses. LUNGS: CTAB. No wheezes, and no crackles. No accessory muscle use. HEART: RRR, normal S1 and S2 without murmur, rub or gallop. ABDOMEN: Soft, mild epigastric tenderness, not distended, normoactive bowel sounds, no guarding, no rebound, no masses. No hepatomegaly or splenomegaly. MUSCULOSKELETAL: Normal range of motion at all joints. No bony deformities or tenderness. No CVA tenderness. UPPER EXTREMITIES: 2+ pulses, warm, well-perfused. No cyanosis. No clubbing. No peripheral edema. LOWER EXTREMITIES: 2+ pulses, warm, well-perfused. No calf tenderness. No peripheral edema. NEUROLOGICAL: Cranial nerves II-XII intact. Normal speech. Normal gait. PSYCHIATRIC: Cooperative. Good eye contact. Appropriate mood and affect. SKIN: Warm, dry, normal turgor, no rashes or lesions noted, normal capillary refill. Laboratory Results - last 24 hr 01/22/19 01/22/19 01/22/19 09:02 09:02 10:17 WBC 6.6 RBC 4.00 Hgb 14.8 Hct 41.9 MCV 104.9 H MCH 37.0 H MCHC 35.3 RDW 13.3 Plt Count 221 MPV 7.7 Absolute Neuts (auto) 4.2 Neutrophils % 63.0 Lymphocytes % 22.4 Monocytes % 11.3 H Eosinophils % 2.6 D Basophils % 0.7 Nucleated RBC % 0 Sodium 135 L Potassium 4.0 Chloride 100 Carbon Dioxide 28 Anion Gap 8 BUN 15 Creatinine 1.7 H Creat Clearance w eGFR 43.05 Random Glucose 114 H Calcium 8.9 Total Bilirubin 1.5 H AST 38 H ALT 31 Alkaline Phosphatase 68 Total Protein 9.0 H Albumin 4.3 Lipase 1348 H Urine Color Cara Urine Appearance Slcloudy Urine pH 5.0 Ur Specific Jones 1.030 Urine Protein 2+ H Urine Glucose (UA) Negative Urine Ketones Negative Urine Blood Negative Urine Nitrite Negative Urine Bilirubin 2.0 Urine Urobilinogen 4.0 e.u/dl Ur Leukocyte Esterase Negative Urine WBC (Auto) 12 Urine RBC (Auto) 1 Hyaline Casts 7 Urine Mucus Rare ASSESSMENT/PLAN: Problem List - Problem (1) Pancreatitis, acute Assessment/Plan: known history of chronic pancreatits from ETOH abuse. * NPO * IVF with D5 1/2NS @200ml/hr * Zofran for nausea * Lipid panel to r/o hypertriglyceridemia as cause. * Morphine 2mg IV Q4H (2) HIV (human immunodeficiency virus infection) Assessment/Plan: * Continue home ART meds. * follows at [facility]- ID consult * continue Dapsone for PCP prophylaxis. (3) Hypertension Assessment/Plan: * Continue Losartan 25mg daily * continue Metoprolol 25mg dialy (4) Asthma Assessment/Plan: * Albuterol PRN * Spiriva * supplemental O2 PRN (5) CKD (chronic kidney disease) Assessment/Plan: Kidney function at baseline. * Monitor kidney function with BMP in AM (6) Hyperlipidemia Assessment/Plan: continue statin * Lipid panel sent for triglyceride measurement. (7) DVT prophylaxis Assessment/Plan: Heparin 5000 SQ Q8H Visit type - Emergency Visit Emergency Visit: Yes ED Registration Date: 01/22/19 Care time: The patient presented to the Emergency Department on the above date and was hospitalized for further evaluation of their emergent condition. - New Patient This patient is new to me today: Yes Date on this admission: 01/23/19 - Critical Care Critical Care patient: No
[2019-01-22] MEDS: DEXTROSE 5%-NORMAL SALINE 1,000 ML IV SCH ×3 (13:57→20:30)
[2019-01-22 13:59] LABS: CHOLESTEROL 171 mg/dL (50-200)
[2019-01-22 14:00] LABS: HDL CHOLESTEROL 69 mg/dL (40-60); TRIGLYCERIDES 160 mg/dL (0-150)
[2019-01-22] MEDS ORDERED: LABETALOL HCL 5 MG/1 ML (100MG/20 ML VIAL) IVPUSH ONE (14:00)
[2019-01-22] MEDS ORDERED: hydrALAZINE HCL 20 MG/ML VIAL IVPUSH ONE (14:02)
[2019-01-22] MEDS ORDERED: LOSARTAN POTASSIUM 25 MG TABLET PO ONE (14:14)
[2019-01-22] MEDS ORDERED: METOPROLOL TARTRATE 50 MG TABLET (FP) PO ONE (14:14)
[2019-01-22] MEDS ORDERED: LOSARTAN POTASSIUM 50 MG TABLET (FP) ONE (14:32)
[2019-01-22] MEDS ORDERED: METOPROLOL TARTRATE 50 MG TABLET (FP) ONE (14:32)
[2019-01-22] MEDS: MORPHINE SULFATE 2 MG/ML VIAL IVPUSH PRN ×2 (15:23→21:16)
--- NOTE | 2019-01-22 15:53 | PN ---
Progress Note (short form) - Note Progress Note: ID CONSULT DICTATED FLANK PAIN/ NAUSEA/ VOMITING/ ELEVATED LIPASE ? ETIO ? PANCREATITIS DOUBT RELATION TO ART BUT WILL HOLD FOR NOW
[2019-01-22 16:01] VITALS: BMI 21.5
--- NOTE | 2019-01-22 19:15 | CONS ---
DATE OF CONSULTATION: DATE OF DICTATION: 01/22/2019 HISTORY: The patient is a 48-year-old male who was evaluated for possible drug-induced pancreatitis. The patient was admitted to the hospital with complaints of left flank and bilateral back pain. He became symptomatic on January. He developed worsening left flank pain and bilateral mid back pain associated with 2 episodes of nausea and vomiting and an episode of loose bowel movement. He was evaluated in the emergency room where he was noted to have a serum lipase of 1348. CAT scan of the abdomen and pelvis was negative for acute pathology. He reports some improvement in the pain. He reports that the pain is in his flanks bilaterally. He denied any recurrent nausea, vomiting, or diarrhea. No associated fever or chills. He did have some urinary retention, however, denies any dysuria or hematuria. The patient had a history of pancreatitis in November 2018 secondary to alcohol use. He denies any current alcohol use. Concern was raised over the possibility of a drug-induced pancreatitis secondary to his antiretroviral therapy. The patient has been maintained on Tivicay and Prezcobix since the summer. He also has been on Dapsone, which again was started about that time or later. He denies any history of gallbladder stones. PAST MEDICAL HISTORY: Positive for acquired immunodeficiency syndrome. Most recent viral markers showed an undetectable viral load and a T cell count of 205. History of pancreatitis alcohol induced, hypertension, asthma. PAST SURGICAL HISTORY: Status post cholecystectomy. ALLERGIES: IBUPROFEN and SULFA. MEDICATIONS: Include Tivicay, Prezcobix, and Dapsone. SOCIAL HISTORY: Denies active alcohol use. He is a nonsmoker. Lives at home in the community. He denies any ill family members. LABORATORY DATA: White count 6.6, hematocrit 41.9, platelet count 221, lipase 1348, total bilirubin 1.5, alkaline phosphatase 68, AST 38. Urinalysis 12 white cells. CAT scan of the abdomen and pelvis as described. SYSTEMS REVIEW: Neurologic: No loss of consciousness, seizure activity, focal weakness. Cardiac: Negative chest pain or palpitations. Respiratory: Negative cough or sputum production. Gastrointestinal: As per HPI. Genitourinary: Negative for urinary tract infection. PHYSICAL EXAMINATION: General: The patient is awake and responsive. Vital Signs: Temperature 97.4, blood pressure 163/105, pulse 71 and regular, respirations 20 per minute. HEENT: Sclerae anicteric. Oropharynx negative. Neck: Supple. No palpable nodes. Heart: S1, S2. Lungs: Clear. Abdomen: There is mild CVA tenderness to palpation bilaterally. Abdomen positive bowel sounds. No tenderness elicited. No mass, rebound, or rigidity. Extremities: Negative for edema. IMPRESSION: Flank pain, nausea, vomiting, or diarrhea, elevated lipase, unclear etiology. Rule out pancreatitis. Doubt relation to antiretroviral therapy or Dapsone, although it has been reported incidents of Tivicay-associated pancreatitis less than 10%. There have been reported cases of pancreatitis secondary to Dapsone. PLAN: We will hold antiretroviral therapy and Dapsone. Repeat serum lipase. Would obtain GI evaluation. IV fluid hydration. Thank you for the kind referral. SHALONDA BRASWELL M.D. [facility]/[id number]
--- NOTE | 2019-01-22 19:49 | PN ---
Teaching Attending Note Name of Resident: Devonte Vides ATTENDING PHYSICIAN STATEMENT I saw and evaluated the patient. I reviewed the resident's note and discussed the case with the resident. I agree with the resident's findings and plan as documented. SUBJECTIVE: L flank discomfort. No abdominal pain. Nausea/vomiting x 2. No diarrhea. No fever/chills. No dysuria/hematuria but does complain of hesitancy. OBJECTIVE: Afebrile, Hemodynamically Stable Last Vital Signs Temp Pulse Resp BP Pulse Ox 98.2 F 69 20 139/88 96 01/22/19 16:42 01/22/19 16:42 01/22/19 16:42 01/22/19 16:42 01/22/19 15:00 HEENT - Atraumatic, Normocephalic Heart - S1, S2, RRR Lungs - Clear to auscultation Abdomen - Soft, non-tender. Bowel Sounds normal. BIlateral CVA tenderness. Neuro - AAO x 3. Tone/Power normal all 4 extremities. Extremities - No edema, no calf tenderness. Laboratory Results - last 24 hr 01/22/19 01/22/19 01/22/19 09:02 09:02 10:17 WBC 6.6 RBC 4.00 Hgb 14.8 Hct 41.9 MCV 104.9 H MCH 37.0 H MCHC 35.3 RDW 13.3 Plt Count 221 MPV 7.7 Absolute Neuts (auto) 4.2 Neutrophils % 63.0 Lymphocytes % 22.4 Monocytes % 11.3 H Eosinophils % 2.6 D Basophils % 0.7 Nucleated RBC % 0 Sodium 135 L Potassium 4.0 Chloride 100 Carbon Dioxide 28 Anion Gap 8 BUN 15 Creatinine 1.7 H Creat Clearance w eGFR 43.05 Random Glucose 114 H Calcium 8.9 Total Bilirubin 1.5 H AST 38 H ALT 31 Alkaline Phosphatase 68 Total Protein 9.0 H Albumin 4.3 Triglycerides 160 H Cholesterol 171 Total LDL Cholesterol 83 HDL Cholesterol 69 H Lipase 1348 H Urine Color Cara Urine Appearance Slcloudy Urine pH 5.0 Ur Specific [place] 1.030 Urine Protein 2+ H Urine Glucose (UA) Negative Urine Ketones Negative Urine Blood Negative Urine Nitrite Negative Urine Bilirubin 2.0 Urine Urobilinogen 4.0 e.u/dl Ur Leukocyte Esterase Negative Urine WBC (Auto) 12 Urine RBC (Auto) 1 Hyaline Casts 7 Urine Mucus Rare Current Medications Generic Name Dose Route Start Last Admin Trade Name Freq PRN Reason Stop Dose Admin Albuterol Sulfate 2 puff 01/22/19 13:22 Ventolin Hfa Inhaler - IH Q6H PRN ASTHMA Aspirin 81 mg 01/23/19 10:00 Ecotrin - PO DAILY [facility] Atorvastatin Calcium 20 mg 01/22/19 22:00 Lipitor - PO HS [facility] Cholecalciferol 1,000 unit 01/23/19 10:00 Vitamin D3 - PO DAILY [facility] Clonazepam 1 mg 01/22/19 13:22 Klonopin - PO HS PRN ANXIETY Heparin Sodium (Porcine) 5,000 unit 01/22/19 22:00 Heparin - SQ TID [facility] Dextrose/Sodium Chloride 1,000 mls @ 200 mls/hr 01/22/19 13:30 01/22/19 15:24 D5-Ns - IV 200 mls/hr ASDIR ANJALI Administration Losartan Potassium 25 mg 01/23/19 10:00 Cozaar - PO DAILY [facility] Metoprolol Succinate 50 mg 01/23/19 10:00 Toprol Xl - PO DAILY [facility] Mirtazapine 30 mg 01/22/19 22:00 Remeron - PO HS [facility] Morphine Sulfate 2 mg 01/22/19 13:17 01/22/19 15:23 Morphine Sulfate IVPUSH 2 mg Q4H PRN Administration PAIN LEVEL 6-10 Multivitamins/Minerals 1 each 01/23/19 10:00 Theragran-M PO DAILY [facility] Ondansetron HCl 4 mg 01/22/19 13:21 Zofran Injection IVPUSH Q6H PRN NAUSEA Ranitidine HCl 150 mg 01/22/19 13:22 Zantac - PO BID PRN DYSPEPSIA Tiotropium [place] 2 puff 01/23/19 10:00 Spiriva Respimat IH DAILY [facility] Trazodone HCl 100 mg 01/22/19 22:00 Desyrel - PO [facility] Home Medications Medication Instructions Recorded Cholecalciferol (Vitamin D3) 1,000 unit PO DAILY 10/02/18 [Vitamin D3] Aspirin [Aspirin EC] 81 mg PO DAILY #30 tablet. 11/08/18 Atorvastatin Ca [Lipitor] 20 mg PO HS #30 tablet 11/08/18 Darunavir/Cobicistat [Prezcobix 1 each PO DAILY #30 tablet 11/08/18 800 mg-150 mg Tablet] Dolutegravir Sodium [Tivicay] 50 mg PO DAILY #30 tablet 11/08/18 Losartan Potassium [Cozaar -] 25 mg PO DAILY #30 tablet 11/08/18 Metoprolol Succinate [Toprol XL -] 50 mg PO DAILY #30 tablet 11/08/18 Mirtazapine [Remeron -] 1 tablet PO HS #30 tablet 12/28/18 traZODone HCL [Trazodone HCl] 100 mg PO HS 30 Days #60 tablet 12/28/18 MDD 2 Naproxen 100 mg PO PRN 01/22/19 ASSESSMENT AND PLAN: 48 year old male with history of Chronic/Recurrent Pancreatitis, history of alcohol excess, HTN, HIV on HAART, HLD, CKD 3, Nephrolithiasis, presents with 4 day history of lower back and left flank pain, urinary hesitancy, with associated nausea/vomiting. No hematuria. No fever/chills. Lipase level 1348 in ED. 1. Back/Flank pain likely secondary to Colic due to passed renal stone CT A/P - normal. Urine Cx negative Followed in past with Urologist Dr. Fields. Morphine/Zofran prn 2. Chronic/Recurrent Pancreatitis - possible flare given elevated Lipase No abdominal tenderness and no findings on CT A/P Repeat Lipase in AM and Consult GI. Counselled re: Alcohol cessation NPO/IV Hydration 3. MILDRED on CKD 3. Will hydrate and monitor renal response. No obstruction on CT A/P 4. HIV on HAART - HAART currently held due to possible contributing factor to acute pancreatitis flare. Should be restarted by time of discharge. 5. HTN - Continue Losartan, Metoprolol. 6. HLD - Continue Statin. 7. Asthma - Stable. Continue Spiriva/Albuterol prn. DVT Px - Heparin SQ
[2019-01-22] MEDS ORDERED: traZODone HCL 50 MG TABLET (FP) ONE (21:10)
[2019-01-22] MEDS: MIRTAZAPINE 30 MG TABLET (FP) PO SCH (21:16)
[2019-01-22] MEDS: HEPARIN NA (PORCINE) 5,000 UNITS/ML 1ML VIAL SQ SCH (21:16)
[2019-01-22] MEDS: traZODone HCL 100 MG TABLET (FP) PO SCH (21:16)
[2019-01-22] MEDS: ATORVASTATIN CA 20 MG TABLET (FP) PO SCH (21:16)
[2019-01-22] MEDS: clonazePAM 0.5 MG TABLET PO PRN (23:06)
[2019-01-23] MEDS: HEPARIN NA (PORCINE) 5,000 UNITS/ML 1ML VIAL SQ SCH ×3 (06:19→21:31)
[2019-01-23] MEDS: MORPHINE SULFATE 2 MG/ML VIAL IVPUSH PRN ×3 (06:19→21:29)
[2019-01-23] MEDS ORDERED: LACTATED RINGERS SOLUTION 1,000 ML/1,000 ML INFUS.BAG IV SCH (07:45)
[2019-01-23 07:50] LABS: BASO % 0.5 % (0-2.0); HEMATOCRIT 39.7 % (35.4-49); HEMOGLOBIN 13.7 GM/dL (11.7-16.9); LYMPH % 30.3 % (8-40); MCHC 34.6 g/dl (32.0-35.9); MEAN CELL VOLUME 106.9 fl (80-96); MEAN PLT VOLUME 7.6 fl (7.5-11.1); MONO % 12.5 % (3.8-10.2); NEUT % 51.7 % (42.8-82.8); PLATELET COUNT 169 K/MM3 (134-434); RBC 3.71 M/mm3 (4.00-5.60); RDW 13.4 % (11.9-15.9); WHITE BLOOD COUNT 4.2 K/mm3 (4.0-10.0)
[2019-01-23 08:28] LABS: ALBUMIN 3.4 g/dl (3.4-5.0); ALK PHOS 50 U/L (45-117); ANION GAP 4 MMOL/L (8-16); BILIRUBIN,TOTAL 1.2 mg/dL (0.2-1); BLOOD UREA NITROGEN 8 mg/dL (7-18); CALCIUM 8.2 mg/dL (8.5-10.1); CHLORIDE 110 mmol/L (98-107); CO2 26 mmol/L (21-32); CREATININE 1.1 mg/dL (0.55-1.3); GLUCOSE,RANDOM 104 mg/dL (74-106); MAGNESIUM 2.1 mg/dL (1.8-2.4); PHOSPHOROUS 2.8 mg/dL (2.5-4.9); POTASSIUM 3.7 mmol/L (3.5-5.1); SGOT/AST 24 U/L (15-37); SGPT/ALT 24 U/L (13-61); SODIUM 139 mmol/L (136-145); TOT PROT 7.3 g/dl (6.4-8.2)
[2019-01-23] MEDS: LOSARTAN POTASSIUM 25 MG TABLET PO SCH (09:43)
[2019-01-23] MEDS: ASPIRIN COATED 81 MG TABLET.EC PO SCH (09:43)
[2019-01-23] MEDS: CHOLECALCIFEROL (VITAMIN D3) 1,000 UNIT TABLET (FP) PO SCH (09:43)
[2019-01-23] MEDS: MULTIVITAMINS THER W-MINERALS COMBO TABLET (FP) PO SCH (09:43)
[2019-01-23] MEDS ORDERED: DARUNAVIR 800 MG/COBICISTAT 150MG TABLET PO SCH (10:00)
[2019-01-23] MEDS ORDERED: DAPSONE 100 MG TABLET PO SCH (10:00)
[2019-01-23] MEDS ORDERED: DOLUTEGRAVIR SODIUM 50 MG TABLET (NON-FORMULARY) PO SCH (10:00)
[2019-01-23 10:20] LABS: LIPASE 743 U/L (73-393)
[2019-01-23] MEDS: LACTATED RINGERS SOLUTION 1,000 ML/1,000 ML INFUS.BAG IV SCH (11:01)
[2019-01-23] MEDS: TIOTROPIUM BROMIDE 2.5 MCG (SPIRIVA) RESPIMAT INHALER IH SCH (11:02)
--- NOTE | 2019-01-23 11:23 | CON.GI ---
Consult Consult Specialty:: GI Referred by:: Hospitalist Service Reason for Consultation:: Back pain - History of Present Illness Chief Complaint: Bilateral lower back pain History of Present Illness: 48M admitted through [facility] for evaluation of lower back painx 2 days. This was acompanied by episode of vomiting yesterday. he denies fevers/chills. he denied abdominal pain. Called because lipase was elevated and he has a history of chronic calcific pancreatitis. The back pain did not seem to be related to meals. There was no associated abdominal pain. He thinks this was remniscient of pain he experienced when he has had renal colic in the past. He is hungry. He had an unrevealing Colonoscopy 09/24 and a 10 year follow-up was advised. - History Source History Provided By: Patient - Past Medical History Cardio/Vascular: Yes: HTN Gastrointestinal: Yes: Other (Chronic calcific pancreatitis with episodes of acute pancreatitis) Renal/: Yes: Renal Inusuff (see HPI, last epiosode of MILDRED 03/2014 with creatinine up to 8.1, recovered), Renal Calculi Infectious Disease: Yes: HIV, AIDS - Past Surgical History Past Surgical History: Yes: Cholecystectomy Additional Surgical History: Laser lithotripsy secondary to nephrolithiasis, surgery secondary to left ureteral obstruction - Alcohol/Substance Use Hx Alcohol Use: No History of Substance Use: reports: None - Smoking History Smoking history: Never smoked Have you smoked in the past 12 months: No Aproximately how many cigarettes per day: 0 - Social History Usual Living Arrangement: Alone (single) ADL: Independent 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 11/08/18 Atorvastatin Ca [Lipitor] 20 mg PO HS #30 tablet 11/08/18 Darunavir/Cobicistat [Prezcobix 800 mg-150 mg Tablet] 1 each PO DAILY #30 tablet 11/08/18 Dolutegravir Sodium [Tivicay] 50 mg PO DAILY #30 tablet 11/08/18 Losartan Potassium [Cozaar -] 25 mg PO DAILY #30 tablet 11/08/18 Metoprolol Succinate [Toprol XL -] 50 mg PO DAILY #30 tablet 11/08/18 Mirtazapine [Remeron -] 1 tablet PO HS #30 tablet 12/28/18 traZODone HCL [Trazodone HCl] 100 mg PO HS 30 Days #60 tablet MDD 2 12/28/18 Naproxen 100 mg PO PRN 01/22/19 Family Disease History - Family Disease History Family Disease History: Other: Father (Alive: uncertain of medical conditions), Mother (Alive: HTN), Brother (1, healthy), Sister (1, healthy) Other Family History: No children. No family history of colorectal cancer or other GI malignancy Review of Systems - Review of Systems Cardiovascular: denies: Chest Pain Gastrointestinal: reports: Nausea, Vomiting (resolved). denies: Abdominal Pain , Diarrhea, Dysphagia, Indigestion, Melena, Rectal Bleeding Physical Exam-GI Vital Signs: Vital Signs Temperature 98.3 F 01/23/19 05:45 Pulse Rate 70 01/23/19 05:45 Respiratory Rate 20 01/23/19 05:45 Blood Pressure 129/89 01/23/19 05:45 O2 Sat by Pulse Oximetry (%) 96 01/22/19 21:26 Constitutional: Yes: Calm Eyes: No: Sclera Icterus Cardiovascular: Yes: Regular Rate and Rhythm. No: Murmur Respiratory: Yes: CTA Bilaterally Gastrointestinal Inspection: Yes: Scars (healed trochar scars). No: Distention ...Auscultate: Yes: Normoactive Bowel Sounds ...Palpate: No: Hepatomegaly, Splenomegaly, Tenderness ...Percussion: No: Tympanitic Musculoskeletal: Yes: Other (Tenderness upon palpation of lumbar paravertebrals bilaterally. No CVA tenderness) Edema: No (No LE edema) Neurological: Yes: Alert Labs: CBC, BMP 01/23/19 07:00 01/23/19 07:00 Hepatic Panel Total Bilirubin 1.2 mg/dL (0.2-1) H 01/23/19 07:00 AST 24 U/L (15-37) 01/23/19 07:00 ALT 24 U/L (13-61) 01/23/19 07:00 Alkaline Phosphatase 50 U/L (45-117) 01/23/19 07:00 Albumin 3.4 g/dl (3.4-5.0) 01/23/19 07:00 Imaging - Results Cat Scan: Report Reviewed, Image Reviewed Problem List - Problems (1) Back pain Assessment/Plan: Despite elevated lipase (seems chronic to some extent), Location and reproducibility of pain upon palpation of lower back along with lack of abdominal symptomatolgy not suggestive of acute pancreratitis Advance diet Evaluation of continued reproducible lower back pain per primary team Patient has Naproxen on his home med list. Would advise him to avoid frequent NSAID use along with daily ASA 81mg once daily. NSAIDs can precipitate acute pancreatitis Advance to low fat diet and observe. has not been on pancreatic supplementation Will need imaging of pancreas. he stated that he had EUS about a year ago however I have not recerived those records from [facility] as of yet. Ordered MRCP. Ideally should have contrast imaging. This can be pursued as an outpatient and coordinated with nephrology given h/o renal insfficiency. Advised Mr. Smith to arrange follow-up in office. He alluded to still drinking "some beers" during office visit with me. I reenforced the need for complste alcohol cessation Code(s): M54.9 - DORSALGIA, UNSPECIFIED
[2019-01-23 11:47] LABS: ANISOCYTOSIS 1+; MACROCYTOSIS 1+; PLATELET ESTIMATE NORMAL
--- NOTE | 2019-01-23 14:16 | PN ---
Physical Exam: SUBJECTIVE: Patient seen and examined at bedside. Feeling better, pain largely resolved. OBJECTIVE: Vital Signs Period Temp Pulse Resp BP Sys/[place] Pulse Ox Last 24 Hr 97.5 F-98.5 F 67-76 17-20 129-163/88-107 96-96 GENERAL: A&Ox3, NAD HEENT: NC/AT, PERRLA, EOMI, MMM NECK: Trachea midline, full range of motion, supple. LUNGS: CTA b/l HEART: RRR no m/r/g ABDOMEN: +bs, soft, NT, ND MSK: flank tenderness b/l and thoracic/lumbar tenderness EXTREMITIES: 2+ pulses, warm, well-perfused, no edema. 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 SKIN: Warm, dry, normal turgor, no rashes or lesions noted Laboratory Results - last 24 hr 01/23/19 01/23/19 01/23/19 07:00 07:00 07:00 WBC 4.2 RBC 3.71 L Hgb 13.7 Hct 39.7 MCV 106.9 H MCH 37.0 H MCHC 34.6 RDW 13.4 Plt Count 169 D MPV 7.6 Absolute Neuts (auto) 2.2 Neutrophils % 51.7 Lymphocytes % 30.3 D Monocytes % 12.5 H Eosinophils % 5.0 H D Basophils % 0.5 Nucleated RBC % 0 Hypochromia 0 Platelet Estimate Normal Polychromasia 1+ Poikilocytosis 1+ Anisocytosis 1+ Microcytosis 0 Macrocytosis 1+ Sodium 139 Potassium 3.7 Chloride 110 H Carbon Dioxide 26 Anion Gap 4 L BUN 8 Creatinine 1.1 Creat Clearance w eGFR 71.15 Random Glucose 104 Calcium 8.2 L Phosphorus 2.8 Magnesium 2.1 Total Bilirubin 1.2 H AST 24 ALT 24 Alkaline Phosphatase 50 Total Protein 7.3 Albumin 3.4 Lipase 743 H Active Medications Generic Name Dose Route Start Last Admin Trade Name Freq PRN Reason Stop Dose Admin Albuterol Sulfate 2 puff 01/22/19 13:22 Ventolin Hfa Inhaler - IH Q6H PRN ASTHMA Aspirin 81 mg 01/23/19 10:00 01/23/19 09:43 Ecotrin - PO 81 mg DAILY ANJALI Administration Atorvastatin Calcium 20 mg 01/22/19 22:00 01/22/19 21:16 Lipitor - PO 20 mg HS ANJALI Administration Cholecalciferol 1,000 unit 01/23/19 10:00 01/23/19 09:43 Vitamin D3 - PO 1,000 unit DAILY ANJALI Administration Clonazepam 1 mg 01/22/19 13:22 01/22/19 23:06 Klonopin - PO 1 mg HS PRN Administration ANXIETY Heparin Sodium (Porcine) 5,000 unit 01/22/19 22:00 01/23/19 06:19 Heparin - SQ 5,000 unit TID ANJALI Administration Lactated Ringer's 1,000 ml in 1,000 mls @ 100 mls/hr 01/23/19 10:05 01/23/19 11:01 Lactated Ringers Solution IV 100 mls/hr ASDIR ANJALI Administration Losartan Potassium 25 mg 01/23/19 10:00 01/23/19 09:43 Cozaar - PO 25 mg DAILY ANJALI Administration Metoprolol Succinate 50 mg 01/23/19 10:00 01/23/19 09:43 Toprol Xl - PO 50 mg DAILY ANJALI Administration Mirtazapine 30 mg 01/22/19 22:00 01/22/19 21:16 Remeron - PO 30 mg HS ANJALI Administration Morphine Sulfate 2 mg 01/22/19 13:17 01/23/19 06:19 Morphine Sulfate IVPUSH 2 mg Q4H PRN Administration PAIN LEVEL 6-10 Multivitamins/Minerals 1 each 01/23/19 10:00 01/23/19 09:43 Theragran-M PO 1 each DAILY ANJALI Administration Ondansetron HCl 4 mg 01/22/19 13:21 Zofran Injection IVPUSH Q6H PRN NAUSEA Ranitidine HCl 150 mg 01/22/19 13:22 Zantac - PO BID PRN DYSPEPSIA Tiotropium [place] 2 puff 01/23/19 10:00 01/23/19 11:02 Spiriva Respimat IH Not Given DAILY ANJALI Trazodone HCl 100 mg 01/22/19 22:00 01/22/19 21:16 Desyrel - PO 100 mg HS ANJALI Administration ASSESSMENT/PLAN: Patient is a 48 y/o M w/ PMHx chronic pancreatitis 2/2 EtOH use w/ multiple acute exacerbations, renal colic, HIV on ART follows at [facility], asthma, CKD , HLD, p/w sharp back and flank pain, urinary hesitancy, nausea and NBNB vomiting. #renal colic -episode is similar to prior episodes of renal colic -Cr and urinary hesitancy corrected with IVF -follows outpt urology w/ Dr. Fields, will provide referral upon discharge -cont IVF -morphine/Zofran PRN #acute on chronic pancreatitis -Lipase 1348 on presentation --> 743, likely chronic component involved -CT a/p negative for acute pancreatic pathology -GI consulted -recommends MRCP and outpt contrast study -chol/fat/Na-controlled diet -cont IVF #HIV -ID consulted -ART held given possible pancreatic exacerbation, expected to be restarted #MILDRED vs CKD -Cr normalized w/ IVF -cont IVF #HTN -cont home meds #HLD -cont home meds #asthma -stable -cont home meds #FEN -LR @ 100 -monitor and correct electrolytes -chol/fat/Na-controlled diet as per GI #PPx -DVT: heparin subq -GI: not indicated #code -full #dispo -cont to monitor on med/surg Visit type - Emergency Visit Emergency Visit: Yes ED Registration Date: 01/22/19 Care time: The patient presented to the Emergency Department on the above date and was hospitalized for further evaluation of their emergent condition. - New Patient This patient is new to me today: Yes Date on this admission: 01/23/19 - Critical Care Critical Care patient: No
--- NOTE | 2019-01-23 17:59 | PN ---
Teaching Attending Note Name of Resident: Fareed Osorio ATTENDING PHYSICIAN STATEMENT I saw and evaluated the patient. I reviewed the resident's note and discussed the case with the resident. I agree with the resident's findings and plan as documented. SUBJECTIVE: L flank discomfort resolved, some residual lower back pain now. No abdominal pain. No further nausea/vomiting. No diarrhea. No fever/chills. No dysuria/hematuria. Hesitancy resolved. OBJECTIVE: Afebrile, Hemodynamically Stable Last Vital Signs Temp Pulse Resp BP Pulse Ox 98.9 F 90 22 H 134/80 96 01/23/19 16:00 01/23/19 16:00 01/23/19 16:00 01/23/19 16:00 01/23/19 09:00 Heart - S1, S2, RRR Lungs - Clear to auscultation Abdomen - Soft, non-tender. Bowel Sounds normal. BIlateral CVA tenderness. Neuro - AAO x 3. Tone/Power normal all 4 extremities. Extremities - No edema, no calf tenderness. Laboratory Results - last 24 hr 01/23/19 01/23/19 01/23/19 07:00 07:00 07:00 WBC 4.2 RBC 3.71 L Hgb 13.7 Hct 39.7 MCV 106.9 H MCH 37.0 H MCHC 34.6 RDW 13.4 Plt Count 169 D MPV 7.6 Absolute Neuts (auto) 2.2 Neutrophils % 51.7 Lymphocytes % 30.3 D Monocytes % 12.5 H Eosinophils % 5.0 H D Basophils % 0.5 Nucleated RBC % 0 Hypochromia 0 Platelet Estimate Normal Polychromasia 1+ Poikilocytosis 1+ Anisocytosis 1+ Microcytosis 0 Macrocytosis 1+ Sodium 139 Potassium 3.7 Chloride 110 H Carbon Dioxide 26 Anion Gap 4 L BUN 8 Creatinine 1.1 Creat Clearance w eGFR 71.15 Random Glucose 104 Calcium 8.2 L Phosphorus 2.8 Magnesium 2.1 Total Bilirubin 1.2 H AST 24 ALT 24 Alkaline Phosphatase 50 Total Protein 7.3 Albumin 3.4 Lipase 743 H Current Medications Generic Name Dose Route Start Last Admin Trade Name Freq PRN Reason Stop Dose Admin Albuterol Sulfate 2 puff 01/22/19 13:22 Ventolin Hfa Inhaler - IH Q6H PRN ASTHMA Aspirin 81 mg 01/23/19 10:00 01/23/19 09:43 Ecotrin - PO 81 mg DAILY ANJALI Administration Atorvastatin Calcium 20 mg 01/22/19 22:00 01/22/19 21:16 Lipitor - PO 20 mg HS ANJALI Administration Cholecalciferol 1,000 unit 01/23/19 10:00 01/23/19 09:43 Vitamin D3 - PO 1,000 unit DAILY ANJALI Administration Clonazepam 1 mg 01/22/19 13:22 01/22/19 23:06 Klonopin - PO 1 mg HS PRN Administration ANXIETY Heparin Sodium (Porcine) 5,000 unit 01/22/19 22:00 01/23/19 14:28 Heparin - SQ 5,000 unit TID ANJALI Administration Lactated Ringer's 1,000 ml in 1,000 mls @ 100 mls/hr 01/23/19 10:05 01/23/19 11:01 Lactated Ringers Solution IV 100 mls/hr ASDIR ANJALI Administration Losartan Potassium 25 mg 01/23/19 10:00 01/23/19 09:43 Cozaar - PO 25 mg DAILY ANJALI Administration Metoprolol Succinate 50 mg 01/23/19 10:00 01/23/19 09:43 Toprol Xl - PO 50 mg DAILY ANJALI Administration Mirtazapine 30 mg 01/22/19 22:00 01/22/19 21:16 Remeron - PO 30 mg HS ANJALI Administration Morphine Sulfate 2 mg 01/22/19 13:17 01/23/19 14:32 Morphine Sulfate IVPUSH 2 mg Q4H PRN Administration PAIN LEVEL 6-10 Multivitamins/Minerals 1 each 01/23/19 10:00 01/23/19 09:43 Theragran-M PO 1 each DAILY ANJALI Administration Ondansetron HCl 4 mg 01/22/19 13:21 Zofran Injection IVPUSH Q6H PRN NAUSEA Ranitidine HCl 150 mg 01/22/19 13:22 Zantac - PO BID PRN DYSPEPSIA Tiotropium [place] 2 puff 01/23/19 10:00 01/23/19 11:02 Spiriva Respimat IH Not Given DAILY ANJALI Trazodone HCl 100 mg 01/22/19 22:00 01/22/19 21:16 Desyrel - PO 100 mg HS ANJALI Administration ASSESSMENT AND PLAN: 48 year old male with history of Chronic/Recurrent Pancreatitis, history of alcohol excess, HTN, HIV on HAART, HLD, CKD 3, Nephrolithiasis, presents with 4 day history of lower back and left flank pain, urinary hesitancy, with associated nausea/vomiting. No hematuria. No fever/chills. Lipase level 1348 in ED. 1. Back/Flank pain likely secondary to Colic due to now passed renal stone CT A/P - no acute intra-abdominal findings. Urine Cx negative Followed in past with Urologist Dr. Fields. Morphine/Zofran prn 2. Chronic/Recurrent Pancreatitis - possible flare despite non-tender abdomen given elevated Lipase, now trending down Lipase 1348 ---> 743 No abdominal tenderness and no acute findings on CT A/P GI evaluated - recommend MRCP as in-patient and contrast study as out-patient. Counselled re: Alcohol cessation Trial of oral intake/diet advancement as tolerated. Awaiting MRCP. 3. MILDRED on CKD 3 - resolved with IV hydration. No obstruction on CT A/P 4. HIV on HAART - HAART currently held due to possible contributing factor of meds to possibleacute pancreatitis flare. Likely be restarted by time of discharge. 5. HTN - Continue Losartan, Metoprolol. 6. HLD - Continue Statin. 7. Asthma - Stable. Continue Spiriva/Albuterol prn. 8.. Macrocytosis, MCV 109 - likely sec to Alcohol excess. Will send B12/Folate levels. DVT Px - Heparin SQ
[2019-01-23] MEDS ORDERED: traZODone HCL 50 MG TABLET (FP) ONE (21:13)
[2019-01-23] MEDS: clonazePAM 0.5 MG TABLET PO PRN (21:31)
[2019-01-23] MEDS: MIRTAZAPINE 30 MG TABLET (FP) PO SCH (21:32)
[2019-01-23] MEDS: ATORVASTATIN CA 20 MG TABLET (FP) PO SCH (21:32)
[2019-01-23] MEDS: traZODone HCL 100 MG TABLET (FP) PO SCH (21:32)
[2019-01-24] MEDS: LACTATED RINGERS SOLUTION 1,000 ML/1,000 ML INFUS.BAG IV SCH ×2 (03:44→11:54)
[2019-01-24 06:29] LABS: HEMATOCRIT 33.4 % (35.4-49); HEMOGLOBIN 11.7 GM/dL (11.7-16.9); LYMPH % 33.3 % (8-40); MCH 36.7 pg (25.7-33.7); MCHC 35.1 g/dl (32.0-35.9); MEAN CELL VOLUME 104.4 fl (80-96); MEAN PLT VOLUME 7.6 fl (7.5-11.1); NEUT % 48.7 % (42.8-82.8); PLATELET COUNT 146 K/MM3 (134-434); WHITE BLOOD COUNT 4.5 K/mm3 (4.0-10.0)
[2019-01-24] MEDS: MORPHINE SULFATE 2 MG/ML VIAL IVPUSH PRN (06:31)
[2019-01-24] MEDS: HEPARIN NA (PORCINE) 5,000 UNITS/ML 1ML VIAL SQ SCH ×2 (06:32→14:39)
[2019-01-24 07:15] LABS: ALBUMIN 2.8 g/dl (3.4-5.0); ALK PHOS 48 U/L (45-117); ANION GAP 6 MMOL/L (8-16); BILIRUBIN,TOTAL 0.6 mg/dL (0.2-1); BLOOD UREA NITROGEN 11 mg/dL (7-18); CALCIUM 8.3 mg/dL (8.5-10.1); CHLORIDE 111 mmol/L (98-107); CO2 24 mmol/L (21-32); CREATININE 1.1 mg/dL (0.55-1.3); GLUCOSE,RANDOM 93 mg/dL (74-106); MAGNESIUM 1.7 mg/dL (1.8-2.4); PHOSPHOROUS 3.5 mg/dL (2.5-4.9); POTASSIUM 3.8 mmol/L (3.5-5.1); SGOT/AST 18 U/L (15-37); SGPT/ALT 22 U/L (13-61); SODIUM 140 mmol/L (136-145); TOT PROT 6.3 g/dl (6.4-8.2)
[2019-01-24] MEDS ORDERED: MAGNESIUM SULF 50% (8.12 MEQ/2 ML-1 GM VIAL) IVPB ONE (07:47)
[2019-01-24] MEDS ORDERED: oxyCODONE HCL 5 MG TABLET PO PRN (08:24)
[2019-01-24] MEDS ORDERED: ACETAMINOPHEN 325 MG TABLET (FP) PO PRN (08:24)
[2019-01-24] MEDS: MULTIVITAMINS THER W-MINERALS COMBO TABLET (FP) PO SCH (10:20)
[2019-01-24] MEDS: CHOLECALCIFEROL (VITAMIN D3) 1,000 UNIT TABLET (FP) PO SCH (10:20)
[2019-01-24] MEDS: LOSARTAN POTASSIUM 25 MG TABLET PO SCH (10:20)
[2019-01-24] MEDS: ASPIRIN COATED 81 MG TABLET.EC PO SCH (10:20)
--- NOTE | 2019-01-24 11:40 | PN.GI ---
GI Progress Note Subjective: Pt seen/examined at bedside, going for MRCP this am. Feeling better, back pain has improved. Denies abdominal pain, n/v or fever/chills. No new complaints. Tolerated regular diet yesterday. - Objective Vital Signs: Vital Signs Temperature 98.3 F 01/24/19 06:00 Pulse Rate 71 01/24/19 06:00 Respiratory Rate 20 01/24/19 06:00 Blood Pressure 145/100 01/24/19 06:00 O2 Sat by Pulse Oximetry (%) 98 01/23/19 21:00 Constitutional: Well Nourished, No Distress, Calm Cardiovascular: Yes: WNL, Regular Rate and Rhythm Respiratory: Yes: WNL, Regular, CTA Bilaterally Gastrointestinal Inspection: Yes: WNL ...Auscultate: Yes: Normoactive Bowel Sounds ...Palpate: Yes: Soft, Other (Abd soft, nt, nd) Labs: CBC, BMP 01/24/19 06:00 01/24/19 06:00 Problem List - Problems (1) Back pain Assessment/Plan: 48 yo male h/o ETOH use, HIV, reported chronic pancreatitis s/p ?prior EUS presents with lower back pain x 2 days. Elevated lipase noted however CT abd/ pelvis without obvious abnormalities and presentation overall does not appear consistent with acute pancreatitis. No abdominal pain and back pain has improved. Tolerating diet. MRCP pending this am. -Follow up results of MRCP -Will need to obtain/review records from prior GI workup to confirm findings of possible chronic pancreatitis -Avoid NSAIDs -ETOH cessation advised Code(s): M54.9 - DORSALGIA, UNSPECIFIED
--- NOTE | 2019-01-24 12:20 | PN ---
Progress Note, Physician History of Present Illness: AWAKE, ALERT REPORTS IMPROVEMENT IN FLANK PAIN NO N/V/D NO C/O F/C - Current Medication List Current Medications: Active Medications Acetaminophen (Tylenol -) 325 mg PO Q6H PRN PRN Reason: PAIN 6-10 Last Admin: 01/24/19 10:24 Dose: 325 mg Albuterol Sulfate (Ventolin Hfa Inhaler -) 2 puff IH Q6H PRN PRN Reason: ASTHMA Aspirin (Ecotrin -) 81 mg PO DAILY [facility] Last Admin: 01/24/19 10:20 Dose: 81 mg Atorvastatin Calcium (Lipitor -) 20 mg PO HS [facility] Last Admin: 01/23/19 21:32 Dose: 20 mg Cholecalciferol (Vitamin D3 -) 1,000 unit PO DAILY [facility] Last Admin: 01/24/19 10:20 Dose: 1,000 unit Clonazepam (Klonopin -) 1 mg PO HS PRN PRN Reason: ANXIETY Last Admin: 01/23/19 21:31 Dose: 1 mg Heparin Sodium (Porcine) (Heparin -) 5,000 unit SQ TID [facility] Last Admin: 01/24/19 06:32 Dose: 5,000 unit Lactated Ringer's (Lactated Ringers Solution) 1,000 ml in 1,000 mls @ 100 mls/ hr IV ASDIR [facility] Last Admin: 01/24/19 11:54 Dose: Not Given Losartan Potassium (Cozaar -) 25 mg PO DAILY [facility] Last Admin: 01/24/19 10:20 Dose: 25 mg Metoprolol Succinate (Toprol Xl -) 50 mg PO DAILY [facility] Last Admin: 01/24/19 10:20 Dose: 50 mg Mirtazapine (Remeron -) 30 mg PO HS [facility] Last Admin: 01/23/19 21:32 Dose: 30 mg Multivitamins/Minerals (Theragran-M) 1 each PO DAILY [facility] Last Admin: 01/24/19 10:20 Dose: 1 each Ondansetron HCl (Zofran Injection) 4 mg IVPUSH Q6H PRN PRN Reason: NAUSEA Oxycodone HCl (Roxicodone -) 5 mg PO Q6H PRN PRN Reason: PAIN 6-10 Last Admin: 01/24/19 10:24 Dose: 5 mg Ranitidine HCl (Zantac -) 150 mg PO BID PRN PRN Reason: DYSPEPSIA Tiotropium [place] (Spiriva Respimat) 2 puff IH DAILY [facility] Last Admin: 01/23/19 11:02 Dose: Not Given Trazodone HCl (Desyrel -) 100 mg PO HS [facility] Last Admin: 01/23/19 21:32 Dose: 100 mg - Objective Vital Signs: Vital Signs Temperature 98.4 F 01/24/19 10:00 Pulse Rate 77 01/24/19 10:00 Respiratory Rate 20 01/24/19 10:00 Blood Pressure 146/92 01/24/19 10:00 O2 Sat by Pulse Oximetry (%) 98 01/23/19 21:00 Constitutional: Yes: No Distress Cardiovascular: Yes: Regular Rate and Rhythm, S1, S2 Respiratory: Yes: CTA Bilaterally Gastrointestinal: Yes: Normal Bowel Sounds, Soft. No: Tenderness Labs: CBC, BMP 01/24/19 06:00 01/24/19 06:00 Assessment/Plan FLANK PAIN/ ELEVATED LIPASE ? ETIO AWAIT MRCP IF NEGATIVE AND LIPASE CONTINUES TO IMPROVE RESUME ART D/ C DAPSONE
[2019-01-24] MEDS: TIOTROPIUM BROMIDE 2.5 MCG (SPIRIVA) RESPIMAT INHALER IH SCH (13:27)
--- NOTE | 2019-01-24 14:24 | PN ---
Teaching Attending Note Name of Resident: Fareed Osorio ATTENDING PHYSICIAN STATEMENT I saw and evaluated the patient. I reviewed the resident's note and discussed the case with the resident. I agree with the resident's findings and plan as documented. SUBJECTIVE:asymptomatic. tolerated diet. denies CP, SOB, fever, chills, N/V/C/D OBJECTIVE: Last Vital Signs Temp Pulse Resp BP Pulse Ox 98.4 F 77 20 146/92 98 01/24/19 10:00 01/24/19 10:00 01/24/19 10:00 01/24/19 10:00 01/23/19 21:00 General NAD ABdomen soft NT/ND no epigastric pain ASSESSMENT AND PLAN: 48 year old male with history of Chronic/Recurrent Pancreatitis, history of alcohol excess, HTN, HIV on HAART, HLD, CKD 3, Nephrolithiasis, presents with 4 day history of lower back and left flank pain, urinary hesitancy, with associated nausea/vomiting. No hematuria. No fever/chills. Lipase level 1348 in ED. 1. Back/Flank pain likely secondary to Colic due to now passed renal stone- now resolved. can f/u with urology as outpatient 2. Elevated lipase- isolated lab finding, with no clinical signs or imaging to support acute pancreatitis. likely due to HARRT therapy which has known side effect of causing hyperlipasemia. now resolved with holding medication supports this. as per ID to resume HARRT on discharge. can have this monitored as outpatient. MRCP done will f/u results 3. Chronic pancreatitis 4. Acute oN CKD stage III- dehydration. now resolved 5. Continuos ETOH dependence- no signs of withdrawal. counselled on abstinence going forward. verbalized understanding. not interested in inpatient rehab 6. HTN- controlled. cont home medications 7. HIV on HARRT- HARRT to be resumed on discharge. f/u with ID as outpatient 8. dyslipidemia- stable 9. DVT ppx- Hep sq 10. d/c home today pending results of MRCP
[2019-01-24 14:34] VITALS: BP 142/96; PULSE 71; TEMP 98.8
--- NOTE | 2019-01-24 16:39 | PN ---
Physical Exam: SUBJECTIVE: Patient seen and examined at bedside. Tolerating full diet, all symptoms resolved. OBJECTIVE: Vital Signs Period Temp Pulse Resp BP Sys/Goodson Pulse Ox Last 24 Hr 97.7 F-98.8 F 70-80 20-20 142-149/92-100 98 GENERAL: A&Ox3, NAD HEENT: NC/AT, PERRLA, EOMI, MMM NECK: Trachea midline, full range of motion, supple. LUNGS: CTA b/l HEART: RRR no m/r/g ABDOMEN: +bs, soft, NT, ND MSK: non-tender, full ROM EXTREMITIES: 2+ pulses, warm, well-perfused, no edema. 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 SKIN: Warm, dry, normal turgor, no rashes or lesions noted Laboratory Results - last 24 hr 01/23/19 01/24/19 01/24/19 07:00 06:00 06:00 WBC 4.5 RBC 3.20 L Hgb 11.7 Hct 33.4 L D MCV 104.4 H MCH 36.7 H MCHC 35.1 RDW 13.0 Plt Count 146 MPV 7.6 Absolute Neuts (auto) 2.2 Neutrophils % 48.7 Lymphocytes % 33.3 Monocytes % 12.0 H Eosinophils % 5.0 H Basophils % 1.0 Nucleated RBC % 0 Sodium 140 Potassium 3.8 Chloride 111 H Carbon Dioxide 24 Anion Gap 6 L BUN 11 Creatinine 1.1 Creat Clearance w eGFR 71.15 Random Glucose 93 Calcium 8.3 L Phosphorus 3.5 Magnesium 1.7 L Total Bilirubin 0.6 AST 18 ALT 22 Alkaline Phosphatase 48 Total Protein 6.3 L Albumin 2.8 L Lipase 743 H Vitamin B12 298 Serum Folate 11 Active Medications Generic Name Dose Route Start Last Admin Trade Name Freq PRN Reason Stop Dose Admin Acetaminophen 325 mg 01/24/19 08:24 01/24/19 10:24 Tylenol - PO 325 mg Q6H PRN Administration PAIN 6-10 Albuterol Sulfate 2 puff 01/22/19 13:22 Ventolin Hfa Inhaler - IH Q6H PRN ASTHMA Aspirin 81 mg 01/23/19 10:00 01/24/19 10:20 Ecotrin - PO 81 mg DAILY ANJALI Administration Atorvastatin Calcium 20 mg 01/22/19 22:00 01/23/19 21:32 Lipitor - PO 20 mg HS ANJALI Administration Cholecalciferol 1,000 unit 01/23/19 10:00 01/24/19 10:20 Vitamin D3 - PO 1,000 unit DAILY ANJALI Administration Clonazepam 1 mg 01/22/19 13:22 01/23/19 21:31 Klonopin - PO 1 mg HS PRN Administration ANXIETY Heparin Sodium (Porcine) 5,000 unit 01/22/19 22:00 01/24/19 14:39 Heparin - SQ 5,000 unit TID ANJALI Administration Lactated Ringer's 1,000 ml in 1,000 mls @ 100 mls/hr 01/23/19 10:05 01/24/19 11:54 Lactated Ringers Solution IV Not Given ASDIR ANJALI Losartan Potassium 25 mg 01/23/19 10:00 01/24/19 10:20 Cozaar - PO 25 mg DAILY ANJALI Administration Metoprolol Succinate 50 mg 01/23/19 10:00 01/24/19 10:20 Toprol Xl - PO 50 mg DAILY ANJALI Administration Mirtazapine 30 mg 01/22/19 22:00 01/23/19 21:32 Remeron - PO 30 mg HS ANJALI Administration Multivitamins/Minerals 1 each 01/23/19 10:00 01/24/19 10:20 Theragran-M PO 1 each DAILY ANJALI Administration Ondansetron HCl 4 mg 01/22/19 13:21 Zofran Injection IVPUSH Q6H PRN NAUSEA Oxycodone HCl 5 mg 01/24/19 08:24 01/24/19 10:24 Roxicodone - PO 5 mg Q6H PRN Administration PAIN 6-10 Ranitidine HCl 150 mg 01/22/19 13:22 Zantac - PO BID PRN DYSPEPSIA Tiotropium [place] 2 puff 01/23/19 10:00 01/24/19 13:27 Spiriva Respimat IH Not Given DAILY ANJALI Trazodone HCl 100 mg 01/22/19 22:00 01/23/19 21:32 Desyrel - PO 100 mg HS ANJALI Administration ASSESSMENT/PLAN: Patient is a 48 y/o M w/ PMHx chronic pancreatitis 2/2 EtOH use w/ multiple acute exacerbations, renal colic, HIV on ART follows at [facility], asthma, CKD , HLD, p/w sharp back and flank pain, urinary hesitancy, nausea and NBNB vomiting. #renal colic -episode is similar to prior episodes of renal colic -Cr and urinary hesitancy corrected with IVF -follows outpt urology w/ Dr. Fields, will provide referral upon discharge -cont IVF -morphine/Zofran PRN #acute on chronic pancreatitis -Lipase 1348 on presentation --> 743, likely chronic component involved, ART also associated with lipase elevation -CT a/p negative for acute pancreatic pathology -GI consulted -MRCP performed, awaiting read -chol/fat/Na-controlled diet -outpt GI f/u -cont IVF #HIV -ID consulted -ART held given possible pancreatic exacerbation -will restart with nl MRCP #MILDRED vs CKD -Cr normalized w/ IVF -cont IVF #HTN -cont home meds #HLD -cont home meds #asthma -stable -cont home meds #FEN -LR @ 100 -monitor and correct electrolytes -chol/fat/Na-controlled diet as per GI #PPx -DVT: heparin subq -GI: not indicated #code -full #dispo -cont to monitor on med/surg -will dc with reassuring MRCP Visit type - Emergency Visit Emergency Visit: No - New Patient This patient is new to me today: No - Critical Care Critical Care patient: No
--- NOTE | 2019-01-24 17:23 | DS ---
Physical Exam: SUBJECTIVE: Patient seen and examined at bedside. Tolerating full diet, all symptoms resolved. OBJECTIVE: Vital Signs Period Temp Pulse Resp BP Sys/Goodson Pulse Ox Last 24 Hr 97.7 F-98.8 F 70-80 20-20 142-149/92-100 98 PHYSICAL EXAM GENERAL: A&Ox3, NAD HEENT: NC/AT, PERRLA, EOMI, MMM NECK: Trachea midline, full range of motion, supple. LUNGS: CTA b/l HEART: RRR no m/r/g ABDOMEN: +bs, soft, NT, ND MSK: non-tender, full ROM EXTREMITIES: 2+ pulses, warm, well-perfused, no edema. 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 SKIN: Warm, dry, normal turgor, no rashes or lesions noted LABS Laboratory Results - last 24 hr 01/23/19 01/24/19 01/24/19 07:00 06:00 06:00 WBC 4.5 RBC 3.20 L Hgb 11.7 Hct 33.4 L D MCV 104.4 H MCH 36.7 H MCHC 35.1 RDW 13.0 Plt Count 146 MPV 7.6 Absolute Neuts (auto) 2.2 Neutrophils % 48.7 Lymphocytes % 33.3 Monocytes % 12.0 H Eosinophils % 5.0 H Basophils % 1.0 Nucleated RBC % 0 Sodium 140 Potassium 3.8 Chloride 111 H Carbon Dioxide 24 Anion Gap 6 L BUN 11 Creatinine 1.1 Creat Clearance w eGFR 71.15 Random Glucose 93 Calcium 8.3 L Phosphorus 3.5 Magnesium 1.7 L Total Bilirubin 0.6 AST 18 ALT 22 Alkaline Phosphatase 48 Total Protein 6.3 L Albumin 2.8 L Lipase 743 H Vitamin B12 298 Serum Folate 11 HOSPITAL COURSE: Date of Admission:01/22/19 Patient is a 48 y/o M w/ PMHx chronic pancreatitis 2/2 EtOH use w/ multiple acute exacerbations, renal colic, HIV on ART follows at [facility], asthma, CKD , HLD, p/w sharp back and flank pain, urinary hesitancy, nausea and NBNB vomiting, lipase 1348 on admission. Patient affirmed symptoms resembled past episodes of renal colic. Afebrile, WBC wnl, stable vitals throughout hospitalization. CT a/p found no acute pancreatic abnormality. Patient denied epigastric/abdominal pain throughout. Creatinine 1.7 on admission resolved to 1.1 with hydration. Patient did not meet diagnostic criteria for acute pancreatitis but was conservatively treated empirically with bowel rest, hydration, pain control, and slow reintroduction of diet. Gastroenterology was consulted and MRCP ordered. ART was held and lipase fell to 743. All symptoms quickly resolved. Patient was discharged with follow up referrals to gastroenterology, urology, nephrology, and [facility] primary care. Patient was instructed to resume home medications and informed that he would be contacted with any significant findings on MRCP. Date of Discharge: 01/24/19 Minutes to complete discharge: 40 Discharge Summary Reason For Visit: ACUTE PANCREATITIS Current Active Problems Back pain (Acute) DVT prophylaxis (Acute) Elevated lipase (Acute) HIV (human immunodeficiency virus infection) (Acute) Pancreatitis, acute (Acute) Condition: Stable - Instructions Diet, Activity, Other Instructions: You were hospitalized for back pain and laboratory findings concerning for acute pancreatitis, as well as acute kidney injury. CT scan of your abdomen did not find any acute pancreatitis. You were treated with IV fluids and slow introduction of food. You were evaluated by gastroenterology, and had an MRI performed on your abdomen. We will call you with any significant results. You will require outpatient followup with gastroenterology, and will likely have further imaging studies performed. However, your symptoms were most likely the result of a small kidney stone which passed with the IV fluids you were given. You will also need outpatient follow up with urology for possible kidney stones. Please follow up with a rn palliative care (kidney doctor) for management of your chronic kidney disease. Referrals have been made on your behalf to Dr. Yepez (gastroenterology) Dr. Vasquez (nephrology) and Dr. Fields (urology). Please see these providers as well as EXHIBIT DESIGNER Kristi Reyes within 1 week of your discharge. You may require adjustment of your anti-retroviral therapy due to its effects on your lab results, but at this time please resume taking all of your home medications. Please refrain from drinking any alcohol. If you experience any new or concerning back pain, abdominal pain, nausea/vomiting, fever, chills, blood in your urine or stool, or any other new or concerning symptoms, please return to the Emergency Department. Referrals: Madi Yepez DO [Staff Physician] - Charlie Fields MD [Staff Physician] - Maik Vasquez MD [Staff Physician] - Laura Reyes FNP [Nurse Practitioner] - Disposition: HOME - Home Medications Comprehensive Discharge Medication List: Ambulatory Orders Cholecalciferol (Vitamin D3) [Vitamin D3] 1,000 unit PO DAILY 10/02/18 Aspirin [Aspirin EC] 81 mg PO DAILY #30 tablet. 11/08/18 Atorvastatin Ca [Lipitor] 20 mg PO HS #30 tablet 11/08/18 Darunavir/Cobicistat [Prezcobix 800 mg-150 mg Tablet] 1 each PO DAILY #30 tablet 11/08/18 Dolutegravir Sodium [Tivicay] 50 mg PO DAILY #30 tablet 11/08/18 Losartan Potassium [Cozaar -] 25 mg PO DAILY #30 tablet 11/08/18 Metoprolol Succinate [Toprol XL -] 50 mg PO DAILY #30 tablet 11/08/18 Mirtazapine [Remeron -] 1 tablet PO HS #30 tablet 12/28/18 traZODone HCL [Trazodone HCl] 100 mg PO HS 30 Days #60 tablet MDD 2 12/28/18 Naproxen 100 mg PO PRN 01/22/19 Albuterol Sulfate Inhaler - [Ventolin HFA Inhaler -] 1 puff IH DAILY 01/23/19 Clonazepam 1 mg PO DAILY 01/23/19 Cyclobenzaprine HCl 10 mg PO DAILY 01/23/19 Cyproheptadine HCl 4 mg PO DAILY 01/23/19 Fluticasone Propionate [Flovent Diskus] 110 mcg IH DAILY 01/23/19 Multivitamin with Iron [Daily Nely with Iron] 1 each PO DAILY 01/23/19 Ranitidine HCl 150 mg PO DAILY 01/23/19 Umeclidinium [place] [Incruse Ellipta] 62.5 mcg IH DAILY 01/23/19 This patient is new to me today: No Emergency Visit: No Critical Care patient: No - Discharge Referral Referred to [facility] Yes Physician Referral: Cas Yepez DO (GI)
== END 2019-01-24 18:00 | disposition home or self-care (01) | DRG 469 ==
LOC: JER 08:18 → JERBED 12:32 → J6S 15:15
PROVIDERS: ATTEND Internal Medicine
DX: N17.9 Acute kidney failure, unspecified (principal); M54.5 Low back pain; Z21 Asymptomatic human immunodeficiency virus [HIV] infection status; I10 Essential (primary) hypertension; K86.1 Other chronic pancreatitis; J45.909 Unspecified asthma, uncomplicated; E78.5 Hyperlipidemia, unspecified; I12.9 Hypertensive chronic kidney disease with stage 1 through stage 4 chronic kidney disease, or unspecified chronic kidney disease; N18.3 Chronic kidney disease, stage 3 (moderate); M54.9 Dorsalgia, unspecified; N20.0 Calculus of kidney; F10.20 Alcohol dependence, uncomplicated
CPT/HCPCS: 36415; 72070-TC-FY; 72100-TC-FY; 74176-TC; 74181-TC; 80053; 80061; 81003; 81015; 82607; 82746; 83690; 83721; 83735; 84100; 85025; 87086; 99283-25; J1644; J7030

== ENCOUNTER 2019-03-06 09:25 | Day surgery (SDC) | payer OTHER ==
[2019-03-06 10:10] VITALS: BMI 23.5
[2019-03-06 13:47] VITALS: BP 153/106; PULSE 79; TEMP 97.8
--- NOTE | 2019-03-07 16:55 | PATH ---
Surgical Pathology Report Patient Name: ELSI KIM [facility]. Rec. #: [id number] /Age/Gender: 1970 (Age: 48) / M Account: [id number] Location: U-ENDOSCOPY Taken: 03/06/2019 Received: 03/06/2019 Reported: 03/07/2019 Physicians: Cas Yepez D.O. Specimen(s) Received A: FUNDUS B: STOMACH C: SCHATSKI RING Clinical History Abdominal pain Postoperative diagnosis: Gastritis, sliding hiatal hernia Final Diagnosis A. FUNDUS, BIOPSY: SC MUCOSA WITH MILD CHRONIC GASTRITIS. IMMUNOSTAIN FOR H. PYLORI IS NEGATIVE. NEGATIVE FOR INTESTINAL METAPLASIA. B. BODY OF STOMACH, BIOPSY: GASTRIC MUCOSA WITH MILD CHRONIC GASTRITIS. IMMUNOSTAIN FOR H. PYLORI IS NEGATIVE. NEGATIVE FOR INTESTINAL METAPLASIA. C. SCHATZKI'S RING BIOPSY: GASTROESOPHAGEAL JUNCTIONAL MUCOSA WITH EROSION, MILD ACUTE AND CHRONIC INFLAMMATION, LYMPHOID AGGREGATES, AND REFLUX ESOPHAGITIS. Electronically Signed Ismael Mogran M.D. Gross Description A. Received in formalin, labeled "fundus biopsy" are 2 cristina, irregular portions of soft tissue measuring 0.2 and 0.7 cm. in greatest dimension. The specimens are submitted in toto in one cassette. B. Received in formalin, labeled "body of stomach biopsy" are 2 cristina, irregular portions of soft tissue measuring 0.3 and 0.5 cm. in greatest dimension. The specimens are submitted in toto in one cassette. C. Received in formalin, labeled "Schatzki's ring biopsy" are 2 cristina, irregular portions of soft tissue measuring 0.1 and 0.2 cm. in greatest dimension. The specimens are submitted in toto in one cassette. 03/06/2019 saudi03/06/2019
== END 2019-03-06 12:50 | disposition home or self-care (01) ==
LOC: JASU-ENDO 09:25
PROVIDERS: ATTEND Internal Medicine Gastroenterology
PROC: 0DB68ZX Excision of Stomach, Via Natural or Artificial Opening Endoscopic, Diagnostic (ICD-10-PCS; 2019-03-06)
PROC: 0DB58ZX Excision of Esophagus, Via Natural or Artificial Opening Endoscopic, Diagnostic (ICD-10-PCS; principal; 2019-03-06 09:30)
DX: K29.70 Gastritis, unspecified, without bleeding (principal); K44.9 Diaphragmatic hernia without obstruction or gangrene; K22.2 Esophageal obstruction; I10 Essential (primary) hypertension; J44.9 Chronic obstructive pulmonary disease, unspecified
CPT/HCPCS: 88305-TC; 88342-TC

== ENCOUNTER 2019-04-11 20:10 | Inpatient (IN) | payer OTHER ==
[2019-04-11 21:43] LABS: HEMATOCRIT 36.8 % (35.4-49); HEMOGLOBIN 12.7 GM/dL (11.7-16.9); MCH 34.7 pg (25.7-33.7); MCHC 34.4 g/dl (32.0-35.9); MEAN PLT VOLUME 7.2 fl (7.5-11.1); PLATELET COUNT 246 K/MM3 (134-434); RBC 3.65 M/mm3 (4.00-5.60); RDW 13.2 % (11.9-15.9); WHITE BLOOD COUNT 6.6 K/mm3 (4.0-10.0)
[2019-04-11 21:58] LABS: INR 0.97 (0.83-1.09); PROTHROMBIN TIME (PATIENT) 11.4 SEC (9.7-13.0)
--- NOTE | 2019-04-11 22:08 | PDOC ---
Documentation entered by Sherrie Jeffers SCRIBE, acting as scribe for Hanna Marrero DO. Hanna Marrero DO: This documentation has been prepared by the cortneyibmabel, Sherrie Jeffers SCRIBE, under my direction and personally reviewed by me in its entirety. I confirm that the documentation accurately reflects all work , treatment, procedures, and medical decision making performed by me. History of Present Illness - General Chief Complaint: Seizure Stated Complaint: Seizure Time Seen by Provider: 04/11/19 20:24 History Source: Patient Exam Limitations: No Limitations - History of Present Illness Initial Comments: 04/11/19 20:59 The patient is a 48-year-old male with a past medical history significant for [place] palsy (chronic right facial weakness) presents to the emergency department via EMS s/p a witnessed seizure episode. Per family member at the bedside, she found the patient on the floor shaking. EMS was called, reports the patient regained conscious after EMS arrived. The patient reports hes unable to recall the incident. The patient reports currently, he feels lightheaded, denies any other complaint. Denies prior history of seizures. No medication was given en route to the ER. Denies head injury. Allergies: ibuprofen and sulfa. Social history: last alcohol intake was 2 days ago. Denies the use of recreational drugs. Past History - Past Medical History Allergies/Adverse Reactions: Allergies Allergy/AdvReac Type Severity Reaction Status Date / Time ibuprofen Allergy Verified 04/11/19 20:22 Sulfa (Sulfonamide Allergy Verified 04/11/19 20:22 Antibiotics) [Sulfa(Sulfonamide Antibiotics)] Home Medications: Ambulatory Orders Cholecalciferol (Vitamin D3) [Vitamin D3] 1,000 unit PO DAILY 10/02/18 Aspirin [Aspirin EC] 81 mg PO DAILY #30 tablet. 11/08/18 Darunavir/Cobicistat [Prezcobix 800 mg-150 mg Tablet] 1 each PO DAILY #30 tablet 11/08/18 Dolutegravir Sodium [Tivicay] 50 mg PO DAILY #30 tablet 11/08/18 Metoprolol Succinate [Toprol XL -] 50 mg PO DAILY #30 tablet 11/08/18 Fluticasone Propionate [Flovent Diskus] 110 mcg IH DAILY 01/23/19 Multivitamin with Iron [Daily Nely with Iron] 1 each PO DAILY 01/23/19 Umeclidinium [place] [Incruse Ellipta] 62.5 mcg IH DAILY 01/23/19 Atorvastatin Ca [Lipitor] 1 tab PO HS #30 tablet 02/28/19 Hydrocortisone 1% Cream [Hytone 1% Cream -] 1 applic TP BID #1 tube 02/28/19 Mirtazapine [Remeron -] 1 tablet PO HS #30 tablet 02/28/19 traZODone HCL [Trazodone HCl] 100 mg PO HS PRN MDD 2 03/06/19 Losartan Potassium [Cozaar -] 50 mg PO DAILY 04/11/19 Asthma: Yes CVA: No COPD: No Diabetes: No GI Disorders: Yes (CHRONIC PANCREATITIS) Disorders: Yes (KIDNEY STONES) HTN: Yes Hypercholesterolemia: Yes Kidney Stones: Yes Seizures: No - Surgical History Abdominal Surgery: Yes (RENAL STONES (LITHOTRIPSY)) Cholecystectomy: Yes (LAPAROSCOPIC) - Immunization History Immunization Up to Date: Yes - Suicide/Smoking/Psychosocial Hx Smoking Status: No Smoking History: Never smoked Have you smoked in the past 12 months: No Number of Cigarettes Smoked Daily: 0 Cigars Per Day: 0 Information on smoking cessation initiated: No Hx Alcohol Use: Yes Drug/Substance Use Hx: No (Denies) Substance Use Type: None Hx Substance Use Treatment: No Review of Systems - Review of Systems Able to Perform ROS?: Yes Comments:: 04/11/19 20:25 Constitutional - Pt denies Fever, Chills, weakness, HEENT: denies vision changes, sore throat Respiratory: Denies cough, sob, hemoptysis Cardiac: denies chest pain, palpitations, lightheadedness, leg swelling Abd/GI: denies abd pain, nausea, vomiting, blood per rectum, melena, diarrhea : denies dysuria, frequency, discharge Musculoskeletal - denies back pain, joint swelling skin - denies bruising, erythema, rash neurological: +dizziness. denies headache, numbness, focal weakness, tingling, ataxia, weakness hematologic: denies anemia, easy bruising, easy bleeding *Physical Exam - Vital Signs Last Vital Signs Temp Pulse Resp BP Pulse Ox 98.8 F 110 H 20 130/87 98 04/11/19 20:10 04/11/19 20:10 04/11/19 20:10 04/11/19 20:10 04/11/19 20:10 - Physical Exam Comments: 04/11/19 20:25 GENERAL: The patient is in no acute distress. HEAD: Normal with no signs of trauma. EYES: PERRLA, EOMI, sclera anicteric, conjunctiva clear. ENT: Ears normal, nares patent, oropharynx clear without exudates. Moist mucous membranes. NECK: Normal range of motion, supple without lymphadenopathy, JVD, or masses. LUNGS: Breath sounds equal, clear to auscultation bilaterally. No wheezes, and no crackles. HEART:Regular rate and rhythm, normal S1 and S2 without murmur, rub or gallop. ABDOMEN: Soft, nontender, normoactive bowel sounds. No guarding, no rebound. No masses palpable. EXTREMITIES: Normal range of motion, no edema. No clubbing or cyanosis. No erythema, or tenderness. NEUROLOGICAL: Alert and oriented 4, left facial droop noted DTR's 2/4 bilaterally in both upper and lower extremities Motor and sensory otherwise intact MUSCULOSKELETAL: Back nontender to palpation, no CVA tenderness SKIN: Warm, Dry, normal turgor, no rashes or lesions noted. 04/11/19 22:52 ED Treatment Course - LABORATORY CBC & Chemistry Diagram: 04/11/19 21:30 04/11/19 21:30 Medical Decision Making - Medical Decision Making 04/11/19 22:48 48-year-old male with seizure-like activity witnessed by his mother EKG shows NSR at 90 bpm , no acute S-T seg elevations CT scan of the brain shows no acute abnormality, there is microvascular disease greener than expected for patient's age as well as and a chronic-appearing right basal ganglia infarcts Patient has been at baseline since in the emergency department, case was reviewed with neurology on-call, Dr. PRUITT who recommends admission due to patient's complicated medical history Placed to hospitalist service for admission *DC/Admit/Observation/Transfer Diagnosis at time of Disposition: New onset seizure, HIV (human immunodeficiency virus infection), CVA, old, facial weakness - Discharge Dispostion Condition at time of disposition: Fair Decision to Admit order: Yes - Referrals - Patient Instructions - Post Discharge Activity - Attestations Physician Attestion: 04/11/19 22:54 IDr Hannas, attest that this document has been prepared under my direction and personally reviewed by me in its entirety. I further attest, that it accurately reflects all work, procedures and medical decision making performed by me.
--- NOTE | 2019-04-11 23:13 | PN ---
Teaching Attending Note Name of Resident: Comfort Aburto ATTENDING PHYSICIAN STATEMENT I saw and evaluated the patient. I reviewed the resident's note and discussed the case with the resident. I agree with the resident's findings and plan as documented. SUBJECTIVE: Patient is a 48 year old man with a PMH of HTN, kidney stone disease (s/p lithotripsy), depression, alcohol abuse, macrocytosis, HLD, chronic pancreatitis , asthma, HIV disease (on HAART), ?CVA and [place] palsy (chronic right facial weakness) presents to the ER via EMS after a witnessed seizure episode. Per family member at the bedside, she found the patient on the floor shaking. EMS was called, reports the patient regained conscious after EMS arrived. The patient reports hes unable to recall the incident. The patient reports currently, he feels lightheaded, denies any other complaint. Denies prior history of seizures. No medication was given en route to the ER. Denies head injury. Last alcohol intake was 2 days ago. Denies the use of recreational drugs. OBJECTIVE: Alert Vital Signs Period Temp Pulse Resp BP Sys/[place] Pulse Ox Last 24 Hr 98.8 F 110 20 130/87 98 HEENT: No Jaundice, eye redness or discharge, PERRLA, EOMI. Normocephalic, atraumatic. External ears are normal and hearing is grossly intact. No nasal discharge. Neck: Supple, nontender. No palpable adenopathy or thyromegaly. No JVD Chest: Good effort. Clear to auscultation and percussion. Heart: Regular. No S3, rub or murmur Abdomen: Not distended, soft, nontender and no HSM. No rebound or guarding. Normal bowel sounds. Ext: Peripheral pulses intact. No leg edema. Skin: Warm and dry. No petechiae or ecchymosis. Generalized hyperpimented macular rash. Neuro: Alert. Oriented x3. CN 2-12 grossly intact. Sensation grossly intact in all four extremities and DTR are symmetric. Psych: Appropriate mood and affect. Good insight. Home Medications Medication Instructions Recorded Cholecalciferol (Vitamin D3) 1,000 unit PO DAILY 10/02/18 [Vitamin D3] Aspirin [Aspirin EC] 81 mg PO DAILY #30 tablet. 11/08/18 Darunavir/Cobicistat [Prezcobix 1 each PO DAILY #30 tablet 11/08/18 800 mg-150 mg Tablet] Dolutegravir Sodium [Tivicay] 50 mg PO DAILY #30 tablet 11/08/18 Metoprolol Succinate [Toprol XL -] 50 mg PO DAILY #30 tablet 11/08/18 Fluticasone Propionate [Flovent 110 mcg IH DAILY 01/23/19 Diskus] Multivitamin with Iron [Daily Nely 1 each PO DAILY 01/23/19 with Iron] Umeclidinium [place] [Incruse 62.5 mcg IH DAILY 01/23/19 Ellipta] Atorvastatin Ca [Lipitor] 1 tab PO HS #30 tablet 02/28/19 Hydrocortisone 1% Cream [Hytone 1% 1 applic TP BID #1 tube 02/28/19 Cream -] Mirtazapine [Remeron -] 1 tablet PO HS #30 tablet 02/28/19 traZODone HCL [Trazodone HCl] 100 mg PO HS PRN MDD 2 03/06/19 Losartan Potassium [Cozaar -] 50 mg PO DAILY 04/11/19 Abnormal Lab Results 04/11/19 04/11/19 04/12/19 21:30 21:30 00:05 RBC 3.65 L MCV 101.0 H MCH 34.7 H MPV 7.2 L Sodium 124 L Chloride 88 L Creatinine 1.7 H Random Glucose 114 H Total Bilirubin 1.3 H AST 58 H Total Protein 8.6 H Ur Specific [place] 1.006 L Urine Blood 1+ H ASSESSMENT AND PLAN: 1. Alcohol withdrawal seizure/?Epilepsy - Unclear whether he has alcohol withdrawal seizure or new onset epilepsy. Also the hyponatremia is concerning but the acuity is unclear. Hyponatremia likely due to alcohol - poor solute intake. Will repeat serum sodium and then continue IV NS to gradually correct hyponatremia. EKG shows NSR at 90 bpm , no acute S-T segment elevations. CT scan of the brain shows no acute abnormality, there is microvascular disease greener than expected for patient's age as well as and a chronic-appearing right basal ganglia infarcts. Will treat like an alcohol withdrawal seizure pending EEG. Implement [facility] librium alcohol withdrawal protocol and do neurochecks. Implement seizure, fall and aspiration precautions. Treat with thiamine and folic acid and monitor electrolytes (Ca,Mg,K,P). Counseled patient about abstaining from alcohol. Will consult imcu specialist and refer to alcohol detox upon discharge. Obtain EEG and consult neurology. Macrocytosis may signal effects of alcohol. Will continue comprehensive care of all his comorbid conditions including HAART and obtain CD4 count and viral load. 2. MILDRED? - Cause unclear. Will check CPK, get kidney sonogram, hydrate gently and avoid nephrotoxic agents. 3. Hypertension - Restart outpatient antihypertensive drugs and revise regimen to ensure smooth ecxme-kfy-[id number] good BP control. Nonpharmacologic measures to control hypertension like weight loss, salt restriction and exercise discussed. 4. DVT prophylaxis - Lovenox 40 mg SQ q 24 hours. 5. Advance directives - Full code
[2019-04-11 23:23] LABS: ALBUMIN 4.2 g/dl (3.4-5.0); ALK PHOS 54 U/L (45-117); ANION GAP 13 MMOL/L (8-16); BILIRUBIN,TOTAL 1.3 mg/dL (0.2-1); BLOOD UREA NITROGEN 12 mg/dL (7-18); CALCIUM 9.5 mg/dL (8.5-10.1); CHLORIDE 88 mmol/L (98-107); CO2 24 mmol/L (21-32); CREATININE 1.7 mg/dL (0.55-1.3); GLUCOSE,RANDOM 114 mg/dL (74-106); POTASSIUM 4.1 mmol/L (3.5-5.1); SGOT/AST 58 U/L (15-37); SGPT/ALT 30 U/L (13-61); SODIUM 124 mmol/L (136-145); TOT PROT 8.6 g/dl (6.4-8.2)
[2019-04-11] MEDS ORDERED: SODIUM CHLORIDE 1,000 ML IV SCH (23:30)
--- NOTE | 2019-04-11 23:44 | HP ---
Admitting History and Physical - Primary Care Physician PCP: [facility] - Admission Chief Complaint: New onset seizure History of Present Illness: Pt is a 48 yo M with PMHX of HIV, asthma, Vuong's palsy, pancreatitis, renal colic, CKD, alcohol abuse, HLD, HTN presenting from home after collapsing and having one episode of generalized seizures. Pt was home with mother who noted him to have fallen down with new jerky movements per ED. Patient was unaware of event and unaware of duration. Denies tongue biting, urinary/ fecal incontinence. Pt reports chronic blurring of vision as he uses corrective lenses , but reports no headaches or prior episodes, fevers or neck stiffness. Pt reports poor appetite over the past days and did not have any food or drink today. He reports 2 episodes of loose stool yesterday, but no passage of stool today. Pt follows the [facility] for HIV and reports not taking his medication today. He reports intermittent shortness of breath due to asthma, but denies chest pain or leg swelling. Pt noticed generalized skin lesions for which he has been using topical lotion, denies bug bites or sick contacts. Not currently sexually active. The ED got in touch with Dr Garcia who recommended patient be monitored for repeat seizure NA-124, Cl-88, BUN-12/1.7 (Cr-1.1 baseline), H/H 12.7/36.8 (MCV-101.0), Guillermo-1.3 , INR-0.97, PT/INR-11.40 Prolactin level- pending Utox- negative ETOH <3.[address]:NO evidence of intracranial pathology. No interval change since . Small chronic R inferiior basal ganglia infarct. Mild to moderate periventricular chronic microvascular ischemic changes. EKG: QTC-447 - Past Medical History Cardiovascular: Yes: HTN Gastrointestinal: Yes: Other (Chronic calcific pancreatitis with episodes of acute pancreatitis) Renal/: Yes: Renal Inusuff (see HPI, last epiosode of MILDRED 03/2014 with creatinine up to 8.1, recovered), Renal Calculi Heme/Onc: Yes: Anemia (lt sided renal surgery (for stones)) Infectious Disease: Yes: HIV, AIDS - Past Surgical History Past Surgical History: Yes: Cholecystectomy - Smoking History Smoking history: Never smoked Have you smoked in the past 12 months: No Aproximately how many cigarettes per day: 0 - Alcohol/Substance Use Hx Alcohol Use: Yes History of Substance Use: reports: None - Social History ADL: Independent 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 11/08/18 Darunavir/Cobicistat [Prezcobix 800 mg-150 mg Tablet] 1 each PO DAILY #30 tablet 11/08/18 Dolutegravir Sodium [Tivicay] 50 mg PO DAILY #30 tablet 11/08/18 Metoprolol Succinate [Toprol XL -] 50 mg PO DAILY #30 tablet 11/08/18 Fluticasone Propionate [Flovent Diskus] 110 mcg IH DAILY 01/23/19 Multivitamin with Iron [Daily Nely with Iron] 1 each PO DAILY 01/23/19 Umeclidinium [place] [Incruse Ellipta] 62.5 mcg IH DAILY 01/23/19 Atorvastatin Ca [Lipitor] 1 tab PO HS #30 tablet 02/28/19 Hydrocortisone 1% Cream [Hytone 1% Cream -] 1 applic TP BID #1 tube 02/28/19 Mirtazapine [Remeron -] 1 tablet PO HS #30 tablet 02/28/19 traZODone HCL [Trazodone HCl] 100 mg PO HS PRN MDD 2 03/06/19 Losartan Potassium [Cozaar -] 50 mg PO DAILY 04/11/19 Family Disease History - Family Disease History Family Disease History: Other: Father (Alive: uncertain of medical conditions), Mother (Alive: HTN), Brother (1, healthy), Sister (1, healthy) Review of Systems - Review of Systems Constitutional: reports: Lethargy, Loss of Appetite. denies: Chills, Diaphoresis, Fever Eyes: reports: Blurred Vision HENT: denies: Difficult Swallowing, Ear Discharge, Ear Pain, Nasal Congestion, Throat Pain Neck: denies: Stiffness Cardiovascular: reports: Shortness of Breath (intermittent due to asthma). denies: Chest Pain, Edema, Palpitations Respiratory: reports: SOB. 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 No: Nasal Congestion Neck: Yes: Supple Cardiovascular: Yes: Regular Rate and Rhythm, S1, S2 Respiratory: Yes: CTA Bilaterally. No: Rales, Rhonchi, Wheezes Gastrointestinal: Yes: Normal Bowel Sounds, Soft. 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 No: Confusion ...Motor Strength: WNL Psychiatric: Yes: Alert, Oriented Labs: CBC, BMP 04/11/19 21:30 04/11/19 21:30 Imaging - Results Cat Scan: Report Reviewed Assessment/Plan Ambulatory Orders Cholecalciferol (Vitamin D3) [Vitamin D3] 1,000 unit PO DAILY 10/02/18 Aspirin [Aspirin EC] 81 mg PO DAILY #30 tablet. 11/08/18 Darunavir/Cobicistat [Prezcobix 800 mg-150 mg Tablet] 1 each PO DAILY #30 tablet 11/08/18 Dolutegravir Sodium [Tivicay] 50 mg PO DAILY #30 tablet 11/08/18 Metoprolol Succinate [Toprol XL -] 50 mg PO DAILY #30 tablet 11/08/18 Fluticasone Propionate [Flovent Diskus] 110 mcg IH DAILY 01/23/19 Multivitamin with Iron [Daily Nely with Iron] 1 each PO DAILY 01/23/19 Umeclidinium [place] [Incruse Ellipta] 62.5 mcg IH DAILY 01/23/19 Atorvastatin Ca [Lipitor] 1 tab PO HS #30 tablet 02/28/19 Hydrocortisone 1% Cream [Hytone 1% Cream -] 1 applic TP BID #1 tube 02/28/19 Mirtazapine [Remeron -] 1 tablet PO HS #30 tablet 02/28/19 traZODone HCL [Trazodone HCl] 100 mg PO HS PRN MDD 2 03/06/19 Losartan Potassium [Cozaar -] 50 mg PO DAILY 04/11/19 Current Medications Heparin Sodium (Porcine) (Heparin -) 5,000 unit SQ TID ANJALI Sodium Chloride (Normal Saline -) 1,000 mls @ 125 mls/hr IV ASDIR ANJALI Last Admin: 04/11/19 23:46 Dose: 125 mls/hr Assessment/Plan: Pt is a 48 yo M with PMHX of HIV, asthma, Vuong's palsy, pancreatitis, renal colic, CKD, alcohol abuse, HLD, HTN presenting from home after collapsing and having one episode of generalized seizures. Assessment: New onset generalized seizures. Hyponatremia HIV, asthma, Vuong's palsy, pancreatitis, renal colic, MILDRED on CKD, alcohol abuse, HLD, HTN Rash Elevated CPK Plan: New onset generalized seizures- Could be in setting of alcohol withdrawal (ETOH <3.0), hx of abuse in past, CIWA-1 vs epilepsy, neurology on board, Head Ct without obvious mass lesion Monitor for withdrawal- Alcohol abuse: May need detox protocol if in withdrawal, serial asessments for withdrawal Hyponatremia -124, could have contributed to seizure, could be due to beer potomania or secondary to poor intake with dehydration, hydration with NS-1L in ED, repeat BMP stat- Na 124>>130, NS stopped at 4am to avoid rapid correction. Follow 6am BMP to determine resuming fluids goal not more than 8meq/ 24hrs HIV-Unsure if patient is compliant. Missed meds today. Will check CD4, Viral load (OPTION UNAVAILABLE), ID consult, resume HAART, CT head did not show any space enhancing lesions which could manifest as seizure asthma- Not in exacerbation, resume meds Vuong's palsy- UMN/LMN residual weakness, no limb weakness pancreatitis hx; No abdominal pain, cont to monitor renal colic s/p lithotrypsy- asymptomatic MILDRED on CKD: Likely in setting of dehydration, NS hydration alcohol abuse, Elevated CPK: S/p seizure-1904- pt will need gentle hydration but weigh against risk of over correction of Na HLD: Continue statins HTN: May hold CARINA in setting of acute kidney injury Mood disorder: Patient denies mood disorders. Confirm meds in am Rash: cont hydrocort cream FEN NS - currently on hold to avoid rapid correction of sodium pending 6am labs Monitor lytes- KCl PO, 80meq stat Regular diet in am PPx Heparin sq- MILDRED Dispo Medsurg Visit type - Emergency Visit Emergency Visit: Yes ED Registration Date: 04/11/19 Care time: The patient presented to the Emergency Department on the above date and was hospitalized for further evaluation of their emergent condition. - New Patient This patient is new to me today: Yes Date on this admission: 04/12/19 - Critical Care Critical Care patient: No
[2019-04-12 00:02] LABS: COCAINE, UR NEGATIVE ng/ml (CUTOFF=300); METHADONE, UR NEGATIVE ng/ml (CUTOFF=300); OPIATES, URI NEGATIVE ng/ml (CUTOFF=300); PHENCYCLIDINE,URINE NEGATIVE ng/ml (CUTOFF=25); URINE AMPHETAMINES NEGATIVE ng/ml (CUTOFF=500); URINE BARBITURATES NEGATIVE ng/ml (CUTOFF=200); URINE BENZODIAZEPINES NEGATIVE ng/ml (CUTOFF=200)
[2019-04-12 00:58] LABS: URINE APPEARANCE CLEAR; URINE BILIRUBIN NEGATIVE (NEGATIVE); URINE COLOR YELLOW; URINE GLUCOSE (UA) NEGATIVE (NEGATIVE); URINE KETONE NEGATIVE (NEGATIVE); URINE LEUK ESTERASE NEGATIVE (NEGATIVE); URINE NITRITE NEGATIVE (NEGATIVE); URINE PROTEIN NEGATIVE (NEGATIVE); URINE UROBILINOGEN 0.2 mg/dL (0.2-1.0)
[2019-04-12 02:32] LABS: CALCIUM 8.7 mg/dL (8.5-10.1); CREATININE 1.5 mg/dL (0.55-1.3); MAGNESIUM 2.5 mg/dL (1.8-2.4); POTASSIUM 3.1 mmol/L (3.5-5.1)
[2019-04-12 02:35] LABS: EPI CELLS 0.2 /HPF (0-5/HPF); URINE RBC 0.2 /hpf (0-4); URINE WBC 0.4 /hpf (0-5)
[2019-04-12 02:36] LABS: URINE BACTERIA 0.5 /hpf (NEGATIVE)
[2019-04-12 03:26] VITALS: BMI 21.3
[2019-04-12] MEDS ORDERED: POTASSIUM CHLORIDE ORAL LIQUID 20 MEQ/15 ML PO ONE ×2 (03:43→04:17)
[2019-04-12] MEDS ORDERED: THIAMINE HCL 200 MG/2 ML VIAL IVPB ONE (03:47)
[2019-04-12] MEDS ORDERED: PT OWN MED DRAWER 7, Y5N ONE ×2 (04:00→21:33)
[2019-04-12 06:29] LABS: PHOSPHOROUS 2.2 mg/dL (2.5-4.9)
[2019-04-12] MEDS ORDERED: NAPH,MB-DB/K PH,MBDB POWDER PACKET PO ONE (06:51)
[2019-04-12] MEDS: HEPARIN NA (PORCINE) 5,000 UNITS/ML 1ML VIAL SQ SCH ×3 (07:11→21:40)
[2019-04-12 08:09] LABS: BASO % 0.5 % (0-2.0); EOS % 1.3 % (0-4.5); HEMATOCRIT 32.9 % (35.4-49); HEMOGLOBIN 11.4 GM/dL (11.7-16.9); LYMPH % 16.4 % (8-40); MCH 35.2 pg (25.7-33.7); MCHC 34.6 g/dl (32.0-35.9); MEAN CELL VOLUME 101.7 fl (80-96); MEAN PLT VOLUME 7.1 fl (7.5-11.1); MONO % 12.1 % (3.8-10.2); NEUT % 69.7 % (42.8-82.8); PLATELET COUNT 215 K/MM3 (134-434); RBC 3.24 M/mm3 (4.00-5.60); RDW 13.1 % (11.9-15.9); WHITE BLOOD COUNT 6.5 K/mm3 (4.0-10.0)
[2019-04-12 08:11] LABS: INR 1.01 (0.83-1.09); PROTHROMBIN TIME (PATIENT) 11.9 SEC (9.7-13.0)
[2019-04-12 08:14] LABS: ACTIVATED PTT 29.5 SECONDS (25.2-36.5)
[2019-04-12 08:33] LABS: ALBUMIN 3.6 g/dl (3.4-5.0); BILIRUBIN,TOTAL 1.3 mg/dL (0.2-1); CALCIUM 9.5 mg/dL (8.5-10.1); CREATININE 1.4 mg/dL (0.55-1.3); MAGNESIUM 2.4 mg/dL (1.8-2.4); PHOSPHOROUS 2.1 mg/dL (2.5-4.9); POTASSIUM 3.8 mmol/L (3.5-5.1); TOT PROT 7.3 g/dl (6.4-8.2)
--- NOTE | 2019-04-12 08:37 | CON.NEURO ---
Consult Consult Specialty:: Jose Referred by:: ER - History of Present Illness History of Present Illness: 48 years old man with hx of HIV CVA presented with seizure first onset GTC positive LOC No reecent travel - History Source History Provided By: Patient Limitations to Obtaining History: No Limitations - Past Medical History Cardio/Vascular: Yes: HTN Gastrointestinal: Yes: Other (Chronic calcific pancreatitis with episodes of acute pancreatitis) Renal/: Yes: Renal Inusuff (see HPI, last epiosode of MILDRED 03/2014 with creatinine up to 8.1, recovered), Renal Calculi Infectious Disease: Yes: HIV, AIDS - Past Surgical History Past Surgical History: Yes: Cholecystectomy - Alcohol/Substance Use Hx Alcohol Use: Yes History of Substance Use: reports: None - Smoking History Smoking history: Never smoked Have you smoked in the past 12 months: No Aproximately how many cigarettes per day: 0 - Social History Usual Living Arrangement: Alone (single) ADL: Independent 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 11/08/18 Darunavir/Cobicistat [Prezcobix 800 mg-150 mg Tablet] 1 each PO DAILY #30 tablet 11/08/18 Dolutegravir Sodium [Tivicay] 50 mg PO DAILY #30 tablet 11/08/18 Metoprolol Succinate [Toprol XL -] 50 mg PO DAILY #30 tablet 11/08/18 Fluticasone Propionate [Flovent Diskus] 110 mcg IH DAILY 01/23/19 Multivitamin with Iron [Daily Nely with Iron] 1 each PO DAILY 01/23/19 Umeclidinium [place] [Incruse Ellipta] 62.5 mcg IH DAILY 01/23/19 Atorvastatin Ca [Lipitor] 1 tab PO HS #30 tablet 02/28/19 Hydrocortisone 1% Cream [Hytone 1% Cream -] 1 applic TP BID #1 tube 02/28/19 Mirtazapine [Remeron -] 1 tablet PO HS #30 tablet 02/28/19 traZODone HCL [Trazodone HCl] 100 mg PO HS PRN MDD 2 03/06/19 Losartan Potassium [Cozaar -] 25 mg PO DAILY 04/11/19 Cyproheptadine [Periactin -] 4 mg PO PRN 04/12/19 Fluoxetine HCl [Prozac] 10 mg PO DAILY 04/12/19 Family Disease History - Family Disease History Family History: Denies (Epilspy) Family Disease History: Other: Father (Alive: uncertain of medical conditions), Mother (Alive: HTN), Brother (1, healthy), Sister (1, healthy) Review of Systems - Review of Systems Constitutional: reports: No Symptoms Eyes: reports: No Symptoms Neurological: reports: Headache, Incoordination, Numbness Physical Exam-Neuro Vital Signs: Vital Signs Temperature 98.2 F 04/12/19 02:15 Pulse Rate 92 H 04/12/19 02:15 Respiratory Rate 18 04/12/19 02:15 Blood Pressure 140/91 04/12/19 02:15 O2 Sat by Pulse Oximetry (%) 98 04/12/19 01:30 Constitutional: Yes: Well Nourished Neck: Yes: WNL Cardiovascular: Yes: WNL Labs: CBC, BMP 04/12/19 06:40 04/12/19 06:40 INR, PTT INR 1.01 (0.83-1.09) 04/12/19 06:40 - Neuro Exam Level Of Consciousness: Yes: Oriented to Person, Oriented to Place, Oriented to Time Eyes: Yes: PERRLA Speech: WNL Dominant Hand: Right Cranial Nerves II-XII Intact: Yes Gag: Present DTR's: 1+ Left Bicep, 1+ Left Tricep, 1+ Right Tricep, 1+ Left Brachioradialis Response to light touch: Normal Response to pain prick: Normal Response to temperature: Normal Motor Strength: 3/5: Left Arm, Right Arm, Left Leg, Right Leg Gait: Deferred Imaging - Results Cat Scan: Image Reviewed Assessment/Plan New onset seziure HIV poistive Not immune compromised 1. Neuro check s 2. Sz precautions 3. MRI brain with no Simón 4. EEG Thank you for the kind referral
[2019-04-12] MEDS: THIAMINE HCL 100 MG TABLET (FP) PO SCH (09:45)
[2019-04-12] MEDS: ASPIRIN COATED 81 MG TABLET.EC PO SCH (09:45)
[2019-04-12] MEDS: TIOTROPIUM BROMIDE 2.5 MCG (SPIRIVA) RESPIMAT INHALER IH SCH (09:45)
[2019-04-12] MEDS: CYANOCOBALAMIN (VITAMIN B-12) 100 MCG TABLET PO SCH (09:45)
[2019-04-12] MEDS: DOLUTEGRAVIR SODIUM 50 MG TABLET (NON-FORMULARY) PO SCH (09:45)
[2019-04-12] MEDS: DARUNAVIR 800 MG/COBICISTAT 150MG TABLET PO SCH (09:46)
[2019-04-12] MEDS: HYDROCORTISONE 1% TOPICAL CREAM 30 GM TUBE TP SCH ×2 (09:46→21:42)
--- NOTE | 2019-04-12 12:52 | EKG ---
Test Reason : Blood Pressure : / mmHG Vent. Rate : 090 BPM Atrial Rate : 090 BPM P-R Int : 164 ms QRS Dur : 094 ms QT Int : 362 ms P-R-T Axes : 073 062 073 degrees QTc Int : 442 ms NORMAL SINUS RHYTHM POSSIBLE LEFT ATRIAL ENLARGEMENT LEFT VENTRICULAR HYPERTROPHY ABNORMAL ECG WHEN COMPARED WITH ECG OF 04-DEC-2018 12:22, NO SIGNIFICANT CHANGE WAS FOUND Confirmed by BROOKLYN DARDEN, LISA ([id number]) on 04/12/2019 12:52:09 PM Referred By: Confirmed By:LISA BARAHONA MD
[2019-04-12] MEDS: SODIUM CHLORIDE 500 ML IV SCH (14:20)
--- NOTE | 2019-04-12 15:49 | CON.ID ---
Consult Consult Specialty:: infectious disease Referred by:: hospitalist Reason for Consultation:: HIV, seizure -new - History of Present Illness Chief Complaint: seizure History of Present Illness: 48 yo man with stable HIV, history of pancreatitis admitted with new onset seizure. He remembers watching TV and thinking of getting up to eat. His mother recalls hearing a thump and she found him on the phone seizing he denies fevers, headaches last drank beer (the big cans) 2 days ago states he has cut down on his drinking considerably- last hospitalized 01/2019 for pancreatitis - History Source History Provided By: Patient, Family Member Limitations to Obtaining History: No Limitations - Past Medical History Cardio/Vascular: Yes: HTN Gastrointestinal: Yes: Other (Chronic calcific pancreatitis with episodes of acute pancreatitis) Renal/: Yes: Renal Inusuff (see HPI, last epiosode of MILDRED 03/2014 with creatinine up to 8.1, recovered), Renal Calculi Infectious Disease: Yes: HIV, AIDS - Past Surgical History Past Surgical History: Yes: Cholecystectomy - Alcohol/Substance Use Hx Alcohol Use: Yes History of Substance Use: reports: None - Smoking History Smoking history: Never smoked Have you smoked in the past 12 months: No Aproximately how many cigarettes per day: 0 - Social History Usual Living Arrangement: Alone (single) ADL: Independent 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 11/08/18 Darunavir/Cobicistat [Prezcobix 800 mg-150 mg Tablet] 1 each PO DAILY #30 tablet 11/08/18 Dolutegravir Sodium [Tivicay] 50 mg PO DAILY #30 tablet 11/08/18 Metoprolol Succinate [Toprol XL -] 50 mg PO DAILY #30 tablet 11/08/18 Fluticasone Propionate [Flovent Diskus] 110 mcg IH DAILY 01/23/19 Multivitamin with Iron [Daily Nely with Iron] 1 each PO DAILY 01/23/19 Umeclidinium [place] [Incruse Ellipta] 62.5 mcg IH DAILY 01/23/19 Atorvastatin Ca [Lipitor] 1 tab PO HS #30 tablet 02/28/19 Hydrocortisone 1% Cream [Hytone 1% Cream -] 1 applic TP BID #1 tube 02/28/19 Mirtazapine [Remeron -] 1 tablet PO HS #30 tablet 02/28/19 traZODone HCL [Trazodone HCl] 100 mg PO HS PRN MDD 2 03/06/19 Losartan Potassium [Cozaar -] 25 mg PO DAILY 04/11/19 Cyproheptadine [Periactin -] 4 mg PO PRN 04/12/19 Fluoxetine HCl [Prozac] 10 mg PO DAILY 04/12/19 Family Disease History - Family Disease History Family Disease History: Other: Father (Alive: uncertain of medical conditions), Mother (Alive: HTN), Brother (1, healthy), Sister (1, healthy) Review of Systems - Review of Systems Constitutional: reports: No Symptoms Eyes: reports: No Symptoms HENT: reports: No Symptoms Neck: reports: No Symptoms Cardiovascular: reports: No Symptoms Respiratory: reports: No Symptoms Gastrointestinal: reports: No Symptoms Genitourinary: reports: No Symptoms Endocrine: reports: No Symptoms Hematology/Lymphatic: reports: No Symptoms Physical Exam Vital Signs: Vital Signs Temperature 98.4 F 04/12/19 15:31 Pulse Rate 85 04/12/19 15:31 Respiratory Rate 18 04/12/19 15:31 Blood Pressure 129/94 04/12/19 15:31 O2 Sat by Pulse Oximetry (%) 98 04/12/19 01:30 Constitutional: Yes: Well Nourished, No Distress, Calm Eyes: Yes: Conjunctiva Clear, EOM Intact HENT: Yes: Atraumatic, Normocephalic Neck: Yes: Supple, Trachea Midline Cardiovascular: Yes: Regular Rate and Rhythm Respiratory: Yes: Regular, CTA Bilaterally Gastrointestinal: Yes: Normal Bowel Sounds, Soft ...Rectal Exam: Yes: Deferred Musculoskeletal: Yes: WNL Extremities: Yes: WNL Edema: No Neurological: Yes: Alert, Oriented Labs: CBC,CMP WBC 6.5 K/mm3 (4.0-10.0) 04/12/19 06:40 RBC 3.24 M/mm3 (4.00-5.60) L 04/12/19 06:40 Hgb 11.4 GM/dL (11.7-16.9) L 04/12/19 06:40 Hct 32.9 % (35.4-49) L 04/12/19 06:40 MCV 101.7 fl (80-96) H 04/12/19 06:40 MCH 35.2 pg (25.7-33.7) H 04/12/19 06:40 MCHC 34.6 g/dl (32.0-35.9) 04/12/19 06:40 RDW 13.1 % (11.9-15.9) 04/12/19 06:40 Plt Count 215 K/MM3 (134-434) 04/12/19 06:40 MPV 7.1 fl (7.5-11.1) L 04/12/19 06:40 Absolute Neuts (auto) 4.5 K/mm3 (1.5-8.0) 04/12/19 06:40 Neutrophils % 69.7 % (42.8-82.8) 04/12/19 06:40 Lymphocytes % 16.4 % (8-40) D 04/12/19 06:40 Monocytes % 12.1 % (3.8-10.2) H 04/12/19 06:40 Eosinophils % 1.3 % (0-4.5) 04/12/19 06:40 Basophils % 0.5 % (0-2.0) 04/12/19 06:40 Nucleated RBC % 0 % (0-0) 04/12/19 06:40 Sodium 131 mmol/L (136-145) L 04/12/19 06:40 Potassium 3.8 mmol/L (3.5-5.1) 04/12/19 06:40 Chloride 97 mmol/L (98-107) L 04/12/19 06:40 Carbon Dioxide 25 mmol/L (21-32) 04/12/19 06:40 Anion Gap 9 MMOL/L (8-16) 04/12/19 06:40 BUN 10 mg/dL (7-18) 04/12/19 06:40 Creatinine 1.4 mg/dL (0.55-1.3) H 04/12/19 06:40 Est GFR (CKD-EPI)AfAm 67.89 04/12/19 06:40 Est GFR (CKD-EPI)NonAf 58.58 04/12/19 06:40 Random Glucose 106 mg/dL (74-106) 04/12/19 06:40 Calcium 9.5 mg/dL (8.5-10.1) 04/12/19 06:40 Phosphorus 2.1 mg/dL (2.5-4.9) L 04/12/19 06:40 Magnesium 2.4 mg/dL (1.8-2.4) 04/12/19 06:40 Total Bilirubin 1.3 mg/dL (0.2-1) H 04/12/19 06:40 AST 57 U/L (15-37) H 04/12/19 06:40 ALT 24 U/L (13-61) 04/12/19 06:40 Alkaline Phosphatase 49 U/L (45-117) 04/12/19 06:40 Creatine Kinase 1906 U/L (26-308) H 04/12/19 03:00 Creatine Kinase Index 0.4 % (0.0-5.0) 04/12/19 03:00 CK-MB (CK-2) 7.8 ng/mL (0.5-3.6) H 04/12/19 03:00 Troponin I 0.04 ng/ml (0.00-0.05) 04/12/19 03:00 Total Protein 7.3 g/dl (6.4-8.2) 04/12/19 06:40 Albumin 3.6 g/dl (3.4-5.0) 04/12/19 06:40 Vitamin B12 324 pg/ml (193-986) 04/12/19 04:53 Imaging - Results Cat Scan: Report Reviewed Ultrasound: Report Reviewed (mild left hydronephrosis) Problem List - Problems (1) New onset seizure Code(s): R56.9 - UNSPECIFIED CONVULSIONS (2) HIV (human immunodeficiency virus infection) Code(s): Z21 - ASYMPTOMATIC HUMAN IMMUNODEFICIENCY VIRUS INFECTION STATUS Qualifiers: (3) Hypertension Code(s): I10 - ESSENTIAL (PRIMARY) HYPERTENSION Qualifiers: Hypertension type: essential hypertension Qualified Code(s): I10 - Essential (primary) hypertension (4) Hyponatremia Code(s): E87.1 - HYPO-OSMOLALITY AND HYPONATREMIA Assessment/Plan continue prezcobix/tivicay- cd4 from fevruary 205 with undectable viral load new onset seizure- agree with MRI and EEg mild left hydronephrosis- consider urology evaluation hyponatremia resolving d/w patient and mother (she is aware of his HIV status)
--- NOTE | 2019-04-12 15:54 | PN ---
Physical Exam: SUBJECTIVE: Patient seen and examined at bedside. No acute events overnight. OBJECTIVE: Vital Signs Period Temp Pulse Resp BP Sys/[place] Pulse Ox Last 24 Hr 98.2 F-98.8 F 85-110 18-20 129-143/87-98 98-98 GENERAL: NAD AAOx3 HEAD: AT/NC EYES: EOMI, Sclera Clear ENT: MMM NECK: Trachea midline, full range of motion, supple. LUNGS: CTAB. HEART: RRR S1S2 ABDOMEN: Soft NDNT EXTREMITIES: No CCE PSYCH: Normal mood, normal affect. NEURO: Strength 5/5 throughout. SILT throughout. SKIN: Warm, dry, normal turgor, no rashes or lesions noted Laboratory Results - last 24 hr 04/11/19 04/11/19 04/11/19 21:30 21:30 21:30 WBC 6.6 RBC 3.65 L Hgb 12.7 Hct 36.8 MCV 101.0 H MCH 34.7 H MCHC 34.4 RDW 13.2 Plt Count 246 D MPV 7.2 L Absolute Neuts (auto) Neutrophils % Lymphocytes % Monocytes % Eosinophils % Basophils % Nucleated RBC % PT with INR 11.40 INR 0.97 PTT (Actin FS) Sodium 124 L Potassium 4.1 Chloride 88 L Carbon Dioxide 24 Anion Gap 13 BUN 12 Creatinine 1.7 H Est GFR (CKD-EPI)AfAm 53.69 Est GFR (CKD-EPI)NonAf 46.32 Random Glucose 114 H Calcium 9.5 Phosphorus Magnesium Total Bilirubin 1.3 H AST 58 H ALT 30 Alkaline Phosphatase 54 Creatine Kinase Creatine Kinase Index CK-MB (CK-2) Troponin I 0.02 Total Protein 8.6 H Albumin 4.2 Vitamin B12 Urine Color Urine Appearance Urine pH Ur Specific [place] Urine Protein Urine Glucose (UA) Urine Ketones Urine Blood Urine Nitrite Urine Bilirubin Urine Urobilinogen Ur Leukocyte Esterase Urine WBC (Auto) Urine RBC (Auto) Urine Casts (Auto) U Epithel Cells (Auto) Urine Bacteria (Auto) Ur Random Creatinine Ur Random Sodium Ur Random Potassium Ur Random Chloride Opiates Screen Methadone Screen Barbiturate Screen Phencyclidine Screen Ur Amphetamines Screen MDMA (Ecstasy) Screen Benzodiazepines Screen Cocaine Screen U Marijuana (THC) Screen Alcohol, Quantitative < 3.0 04/11/19 04/12/19 04/12/19 21:40 00:05 00:05 WBC RBC Hgb Hct MCV MCH MCHC RDW Plt Count MPV Absolute Neuts (auto) Neutrophils % Lymphocytes % Monocytes % Eosinophils % Basophils % Nucleated RBC % PT with INR INR PTT (Actin FS) Sodium Potassium Chloride Carbon Dioxide Anion Gap BUN Creatinine Est GFR (CKD-EPI)AfAm Est GFR (CKD-EPI)NonAf Random Glucose Calcium Phosphorus Magnesium Total Bilirubin AST ALT Alkaline Phosphatase Creatine Kinase Creatine Kinase Index CK-MB (CK-2) Troponin I Total Protein Albumin Vitamin B12 Urine Color Yellow Urine Appearance Clear Urine pH 6.0 Ur Specific [place] 1.006 L Urine Protein Negative Urine Glucose (UA) Negative Urine Ketones Negative Urine Blood 1+ H Urine Nitrite Negative Urine Bilirubin Negative Urine Urobilinogen 0.2 Ur Leukocyte Esterase Negative Urine WBC (Auto) 0.4 Urine RBC (Auto) 0.2 Urine Casts (Auto) 0.0 U Epithel Cells (Auto) 0.2 Urine Bacteria (Auto) 0.5 Ur Random Creatinine 98.0 Ur Random Sodium Ur Random Potassium Ur Random Chloride Opiates Screen Negative Methadone Screen Negative Barbiturate Screen Negative Phencyclidine Screen Negative Ur Amphetamines Screen Negative MDMA (Ecstasy) Screen Negative Benzodiazepines Screen Negative Cocaine Screen Negative U Marijuana (THC) Screen Negative Alcohol, Quantitative 04/12/19 04/12/19 04/12/19 01:00 01:54 03:00 WBC RBC Hgb Hct MCV MCH MCHC RDW Plt Count MPV Absolute Neuts (auto) Neutrophils % Lymphocytes % Monocytes % Eosinophils % Basophils % Nucleated RBC % PT with INR INR PTT (Actin FS) Sodium 130 L Potassium 3.1 L Chloride 95 L Carbon Dioxide 25 Anion Gap 10 BUN 12 Creatinine 1.5 H Est GFR (CKD-EPI)AfAm 62.46 Est GFR (CKD-EPI)NonAf 53.89 Random Glucose 113 H Calcium 8.7 Phosphorus Magnesium 2.5 H Total Bilirubin AST ALT Alkaline Phosphatase Creatine Kinase 1906 H Creatine Kinase Index 0.4 CK-MB (CK-2) 7.8 H Troponin I 0.04 Total Protein Albumin Vitamin B12 Urine Color Urine Appearance Urine pH Ur Specific [place] Urine Protein Urine Glucose (UA) Urine Ketones Urine Blood Urine Nitrite Urine Bilirubin Urine Urobilinogen Ur Leukocyte Esterase Urine WBC (Auto) Urine RBC (Auto) Urine Casts (Auto) U Epithel Cells (Auto) Urine Bacteria (Auto) Ur Random Creatinine Ur Random Sodium < 18 L Ur Random Potassium 4.4 L Ur Random Chloride < 11 L Opiates Screen Methadone Screen Barbiturate Screen Phencyclidine Screen Ur Amphetamines Screen MDMA (Ecstasy) Screen Benzodiazepines Screen Cocaine Screen U Marijuana (THC) Screen Alcohol, Quantitative 04/12/19 04/12/19 04/12/19 04:53 06:40 06:40 WBC 6.5 RBC 3.24 L Hgb 11.4 L Hct 32.9 L MCV 101.7 H MCH 35.2 H MCHC 34.6 RDW 13.1 Plt Count 215 MPV 7.1 L Absolute Neuts (auto) 4.5 Neutrophils % 69.7 Lymphocytes % 16.4 D Monocytes % 12.1 H Eosinophils % 1.3 Basophils % 0.5 Nucleated RBC % 0 PT with INR 11.90 INR 1.01 PTT (Actin FS) 29.5 Sodium Potassium 4.0 Chloride Carbon Dioxide Anion Gap BUN Creatinine Est GFR (CKD-EPI)AfAm Est GFR (CKD-EPI)NonAf Random Glucose Calcium Phosphorus 2.2 L Magnesium Total Bilirubin AST ALT Alkaline Phosphatase Creatine Kinase Creatine Kinase Index CK-MB (CK-2) Troponin I Total Protein Albumin Vitamin B12 324 Urine Color Urine Appearance Urine pH Ur Specific [place] Urine Protein Urine Glucose (UA) Urine Ketones Urine Blood Urine Nitrite Urine Bilirubin Urine Urobilinogen Ur Leukocyte Esterase Urine WBC (Auto) Urine RBC (Auto) Urine Casts (Auto) U Epithel Cells (Auto) Urine Bacteria (Auto) Ur Random Creatinine Ur Random Sodium Ur Random Potassium Ur Random Chloride Opiates Screen Methadone Screen Barbiturate Screen Phencyclidine Screen Ur Amphetamines Screen MDMA (Ecstasy) Screen Benzodiazepines Screen Cocaine Screen U Marijuana (THC) Screen Alcohol, Quantitative 04/12/19 06:40 WBC RBC Hgb Hct MCV MCH MCHC RDW Plt Count MPV Absolute Neuts (auto) Neutrophils % Lymphocytes % Monocytes % Eosinophils % Basophils % Nucleated RBC % PT with INR INR PTT (Actin FS) Sodium 131 L Potassium 3.8 Chloride 97 L Carbon Dioxide 25 Anion Gap 9 BUN 10 Creatinine 1.4 H Est GFR (CKD-EPI)AfAm 67.89 Est GFR (CKD-EPI)NonAf 58.58 Random Glucose 106 Calcium 9.5 Phosphorus 2.1 L Magnesium 2.4 Total Bilirubin 1.3 H AST 57 H ALT 24 Alkaline Phosphatase 49 Creatine Kinase Creatine Kinase Index CK-MB (CK-2) Troponin I Total Protein 7.3 Albumin 3.6 Vitamin B12 Urine Color Urine Appearance Urine pH Ur Specific [place] Urine Protein Urine Glucose (UA) Urine Ketones Urine Blood Urine Nitrite Urine Bilirubin Urine Urobilinogen Ur Leukocyte Esterase Urine WBC (Auto) Urine RBC (Auto) Urine Casts (Auto) U Epithel Cells (Auto) Urine Bacteria (Auto) Ur Random Creatinine Ur Random Sodium Ur Random Potassium Ur Random Chloride Opiates Screen Methadone Screen Barbiturate Screen Phencyclidine Screen Ur Amphetamines Screen MDMA (Ecstasy) Screen Benzodiazepines Screen Cocaine Screen U Marijuana (THC) Screen Alcohol, Quantitative Active Medications Generic Name Dose Route Start Last Admin Trade Name Freq PRN Reason Stop Dose Admin Aspirin 81 mg 04/12/19 10:00 04/12/19 09:45 Ecotrin - PO 81 mg DAILY ANJALI Administration Atorvastatin Calcium 10 mg 04/12/19 22:00 Lipitor - PO HS ANJALI Cyanocobalamin 100 mcg 04/12/19 10:00 04/12/19 09:45 Vitamin B12 - PO 100 mcg DAILY ANJALI Administration Heparin Sodium (Porcine) 5,000 unit 04/12/19 06:00 04/12/19 14:20 Heparin - SQ 5,000 unit TID ANJALI Administration Hydrocortisone 1 applic 04/12/19 10:00 04/12/19 09:46 Hytone 1% Cream - TP 1 applic BID ANJALI Administration Sodium Chloride 500 mls @ 100 mls/hr 04/12/19 10:30 04/12/19 14:20 Normal Saline - IV 100 mls/hr ASDIR ANJALI Administration Metoprolol Succinate 50 mg 04/12/19 10:00 04/12/19 09:45 Toprol Xl - PO 50 mg DAILY ANJALI Administration Mometasone Furoate 220 puff 04/12/19 22:00 Asmanex 220mcg - IH HS ANJALI Thiamine HCl 100 mg 04/12/19 10:00 04/12/19 09:45 Vitamin B1 - PO 100 mg DAILY ANJALI Administration Tiotropium [place] 2 puff 04/12/19 10:00 04/12/19 09:45 Spiriva Respimat IH 2 puff DAILY ANJALI Administration ASSESSMENT/PLAN: Pt is a 48 yo M with PMHX of HIV, asthma, Vuong's palsy, pancreatitis, renal colic, CKD, alcohol abuse, HLD, HTN presenting from home after collapsing and having one episode of generalized seizures. #New onset generalized seizures -Head CT neg -Neurology on board Dr [place]ona. Not starting any anticonvulsant medication at this juncture as 1st seizure episode. Continue to monitor. #Hyponatremia - Initial sodium level 124, hydration with NS-1L in ED, repeat BMP stat- Na 124>> 130. 3rd Na level 131. Continue to monitor. Pt #HIV- Pt endorses he takes prezcobix/tivicay. States he is compliant with his medications. -CD4 from December with undetectable viral load -MRI and EEG #Asthma- resume meds. #MILDRED on CKD: Cr trending down. Renal sonogram reveals left sided hydro with possible distal obstruction. Consider Urology Eval. #Elevated CPK: S/p seizure-1903- pt will need gentle hydration but weigh against risk of over correction of Na #HLD: Continue statin #HTN: May hold CARINA in setting of acute kidney injury. 1.7 on admission. 1.4 this am. Continue to trend. #Mood disorder: Medications reconciled. Resumed home meds. #FEN No Fluids Monitor Electrolytes Regular diet #PPx Heparin sq- MILDRED #Dispo Medsurg Visit type - Emergency Visit Emergency Visit: Yes ED Registration Date: 04/11/19 Care time: The patient presented to the Emergency Department on the above date and was hospitalized for further evaluation of their emergent condition. - New Patient This patient is new to me today: Yes Date on this admission: 04/12/19 - Critical Care Critical Care patient: No - Discharge Referral Referred to [facility] Med P.C.: No
[2019-04-12] MEDS ORDERED: traZODone HCL 100 MG TABLET (FP) PO PRN (16:02)
[2019-04-12] MEDS ORDERED: CYPROHEPTADINE HCL 4 MG TABLET PO SCH (16:15)
--- NOTE | 2019-04-12 19:37 | PN ---
Teaching Attending Note Name of Resident: James Fields ATTENDING PHYSICIAN STATEMENT I saw and evaluated the patient. I reviewed the resident's note and discussed the case with the resident. I agree with the resident's findings and plan as documented. SUBJECTIVE: Patient has no further seizure, going for MRI since has a hx of HIV. OBJECTIVE: Vital Signs Temperature 98.5 F 04/12/19 17:22 Pulse Rate 86 04/12/19 17:22 Respiratory Rate 18 04/12/19 17:22 Blood Pressure 131/73 04/12/19 17:22 O2 Sat by Pulse Oximetry (%) 100 04/12/19 09:00 GENERAL: The patient is awake, alert, and fully oriented, in no acute distress. HEAD: Normal with no signs of trauma. EYES: PERRL, extraocular movements intact, sclera anicteric, conjunctiva clear. ENT: Ears normal, oropharynx clear without exudates, moist mucous membranes. NECK: Trachea midline, full range of motion, supple. LUNGS: Breath sounds equal, clear to auscultation bilaterally, no wheezes, no crackles, no accessory muscle use. HEART: Regular rate and rhythm, S1, S2 without murmur, rub or gallop. ABDOMEN: Soft, nontender, nondistended, normoactive bowel sounds, no guarding, no rebound, no hepatosplenomegaly, no masses. EXTREMITIES: 2+ pulses, warm, well-perfused, no edema. NEUROLOGICAL: Cranial nerves II through XII grossly intact. Normal speech, gait not observed. PSYCH: Normal mood, normal affect. SKIN: Warm, dry, normal turgor, no rashes or lesions noted CBCD WBC 6.5 K/mm3 (4.0-10.0) 04/12/19 06:40 RBC 3.24 M/mm3 (4.00-5.60) L 04/12/19 06:40 Hgb 11.4 GM/dL (11.7-16.9) L 04/12/19 06:40 Hct 32.9 % (35.4-49) L 04/12/19 06:40 MCV 101.7 fl (80-96) H 04/12/19 06:40 MCHC 34.6 g/dl (32.0-35.9) 04/12/19 06:40 RDW 13.1 % (11.9-15.9) 04/12/19 06:40 Plt Count 215 K/MM3 (134-434) 04/12/19 06:40 MPV 7.1 fl (7.5-11.1) L 04/12/19 06:40 CMP Sodium 131 mmol/L (136-145) L 04/12/19 06:40 Potassium 3.8 mmol/L (3.5-5.1) 04/12/19 06:40 Chloride 97 mmol/L (98-107) L 04/12/19 06:40 Carbon Dioxide 25 mmol/L (21-32) 04/12/19 06:40 Anion Gap 9 MMOL/L (8-16) 04/12/19 06:40 BUN 10 mg/dL (7-18) 04/12/19 06:40 Creatinine 1.4 mg/dL (0.55-1.3) H 04/12/19 06:40 Random Glucose 106 mg/dL (74-106) 04/12/19 06:40 Calcium 9.5 mg/dL (8.5-10.1) 04/12/19 06:40 Total Bilirubin 1.3 mg/dL (0.2-1) H 04/12/19 06:40 AST 57 U/L (15-37) H 04/12/19 06:40 ALT 24 U/L (13-61) 04/12/19 06:40 Alkaline Phosphatase 49 U/L (45-117) 04/12/19 06:40 Total Protein 7.3 g/dl (6.4-8.2) 04/12/19 06:40 Albumin 3.6 g/dl (3.4-5.0) 04/12/19 06:40 CARDIAC ENZYMES Creatine Kinase 1906 U/L (26-308) H 04/12/19 03:00 Troponin I 0.04 ng/ml (0.00-0.05) 04/12/19 03:00 Current Medications Generic Name Dose Route Start Last Admin Trade Name Freq PRN Reason Stop Dose Admin Aspirin 81 mg 04/12/19 10:00 04/12/19 09:45 Ecotrin - PO 81 mg DAILY [facility] Administration Atorvastatin Calcium 10 mg 04/12/19 22:00 Lipitor - PO [facility] Cholecalciferol 1,000 unit 04/13/19 10:00 Vitamin D3 - PO DAILY [facility] Cyanocobalamin 100 mcg 04/12/19 10:00 04/12/19 09:45 Vitamin B12 - PO 100 mcg DAILY ANJALI Administration Fluoxetine HCl 10 mg 04/13/19 10:00 Prozac - PO DAILY [facility] Heparin Sodium (Porcine) 5,000 unit 04/12/19 06:00 04/12/19 14:20 Heparin - SQ 5,000 unit TID ANJALI Administration Hydrocortisone 1 applic 04/12/19 10:00 04/12/19 09:46 Hytone 1% Cream - TP 1 applic BID ANJALI Administration Sodium Chloride 500 mls @ 100 mls/hr 04/12/19 10:30 04/12/19 14:20 Normal Saline - IV 100 mls/hr ASDIR [facility] Administration Metoprolol Succinate 50 mg 04/12/19 10:00 04/12/19 09:45 Toprol Xl - PO 50 mg DAILY [facility] Administration Mirtazapine 30 mg 04/12/19 22:00 Remeron - PO HS [facility] Mometasone Furoate 220 puff 04/12/19 22:00 Asmanex 220mcg - IH HS [facility] Multivitamins/Minerals/Vitamin C 1 tab 04/13/19 10:00 Tab-A-Vit - PO DAILY [facility] Thiamine HCl 100 mg 04/12/19 10:00 04/12/19 09:45 Vitamin B1 - PO 100 mg DAILY [facility] Administration Tiotropium [place] 2 puff 04/12/19 10:00 04/12/19 09:45 Spiriva Respimat IH 2 puff DAILY [facility] Administration Home Medications Medication Instructions Recorded Cholecalciferol (Vitamin D3) 1,000 unit PO DAILY 10/02/18 [Vitamin D3] Aspirin [Aspirin EC] 81 mg PO DAILY #30 tablet. 11/08/18 Darunavir/Cobicistat [Prezcobix 1 each PO DAILY #30 tablet 11/08/18 800 mg-150 mg Tablet] Dolutegravir Sodium [Tivicay] 50 mg PO DAILY #30 tablet 11/08/18 Metoprolol Succinate [Toprol XL -] 50 mg PO DAILY #30 tablet 11/08/18 Fluticasone Propionate [Flovent 110 mcg IH DAILY 01/23/19 Diskus] Multivitamin with Iron [Daily Nely 1 each PO DAILY 01/23/19 with Iron] Umeclidinium [place] [Incruse 62.5 mcg IH DAILY 01/23/19 Ellipta] Atorvastatin Ca [Lipitor] 1 tab PO HS #30 tablet 02/28/19 Hydrocortisone 1% Cream [Hytone 1% 1 applic TP BID #1 tube 02/28/19 Cream -] Mirtazapine [Remeron -] 1 tablet PO HS #30 tablet 02/28/19 traZODone HCL [Trazodone HCl] 100 mg PO HS PRN MDD 2 03/06/19 Losartan Potassium [Cozaar -] 25 mg PO DAILY 04/11/19 Cyproheptadine [Periactin -] 4 mg PO PRN 04/12/19 Fluoxetine HCl [Prozac] 10 mg PO DAILY 04/12/19 ASSESSMENT AND PLAN: Pt is a 48 yo M with PMHX of HIV, asthma, Vuong's palsy, pancreatitis, renal colic, CKD, alcohol abuse, HLD, HTN presenting from home after collapsing and having one episode of generalized seizures. #New onset generalized seizures-possible due to alcohol withdrawel/ hyponatremia , Neuro consult , EEG ordered , MRI ordered since patient has hx of HIV will discontinue Trazodone since can lower the seizure threshold, will ask him to use magnessium oral tabs at night time if needed. #Alcohol abuse: May need detox protocol if in withdrawal, will continue to monitor #Acute Hyponatremia -124-->131 improved s/p IVF # HIV-Unsure if patient is compliant. Missed meds today. Will check CD4, Viral load, resume HAART, CT head did not show any pathology, #asthma- stable resume meds # Vunog's palsy- UMN/LMN residual weakness, no limb weakness # MILDRED on CKD: Likely in setting of dehydration, NS hydration, # Elevated CPK: S/p seizure-CPK--> 1904, continue gentle hydration #HTN: May hold CARINA in setting of acute kidney injury DVt Px: heparin
[2019-04-12] MEDS ORDERED: MOMETASONE FUROATE 220 MCG/IH INHALER IH SCH ×3 (22:00→22:45)
[2019-04-12] MEDS ORDERED: ATORVASTATIN CA 10 MG TABLET (FP) PO SCH (22:00)
[2019-04-12] MEDS ORDERED: MIRTAZAPINE 15 MG TABLET (FP) PO SCH (22:00)
[2019-04-13] MEDS: HEPARIN NA (PORCINE) 5,000 UNITS/ML 1ML VIAL SQ SCH (06:03)
[2019-04-13 06:52] VITALS: PULSE 73; TEMP 98
[2019-04-13 07:20] LABS: HEMATOCRIT 35.5 % (35.4-49); MCH 35.4 pg (25.7-33.7); MCHC 33.8 g/dl (32.0-35.9); MEAN CELL VOLUME 104.7 fl (80-96); MEAN PLT VOLUME 7.1 fl (7.5-11.1); PLATELET COUNT 202 K/MM3 (134-434); RBC 3.39 M/mm3 (4.00-5.60); WHITE BLOOD COUNT 4.7 K/mm3 (4.0-10.0)
[2019-04-13 08:00] LABS: CALCIUM 8.9 mg/dL (8.5-10.1); CREATININE 1.6 mg/dL (0.55-1.3); MAGNESIUM 2.1 mg/dL (1.8-2.4); PHOSPHOROUS 3.3 mg/dL (2.5-4.9); POTASSIUM 3.9 mmol/L (3.5-5.1)
[2019-04-13] MEDS ORDERED: CHOLECALCIFEROL (VIT D3) 1,000 UNIT (25 MCG) TABLET PO SCH (10:00)
[2019-04-13] MEDS ORDERED: MULTIVITAMINS (DAILY MVI) TABLET (FP) PO SCH (10:00)
[2019-04-13] MEDS ORDERED: FLUoxetine HCL 10 MG CAPSULE (FP) PO SCH (10:00)
[2019-04-13] MEDS ORDERED: PT OWN MED DRAWER 7, Y5N ONE (10:32)
[2019-04-13] MEDS: CYANOCOBALAMIN (VITAMIN B-12) 100 MCG TABLET PO SCH (10:44)
[2019-04-13] MEDS: DOLUTEGRAVIR SODIUM 50 MG TABLET (NON-FORMULARY) PO SCH (10:44)
[2019-04-13] MEDS: THIAMINE HCL 100 MG TABLET (FP) PO SCH (10:44)
[2019-04-13] MEDS: DARUNAVIR 800 MG/COBICISTAT 150MG TABLET PO SCH (10:45)
[2019-04-13] MEDS: HYDROCORTISONE 1% TOPICAL CREAM 30 GM TUBE TP SCH (10:46)
[2019-04-13] MEDS: TIOTROPIUM BROMIDE 2.5 MCG (SPIRIVA) RESPIMAT INHALER IH SCH (10:47)
[2019-04-13] MEDS: ASPIRIN COATED 81 MG TABLET.EC PO SCH (10:48)
[2019-04-13] MEDS: SODIUM CHLORIDE 500 ML IV SCH (10:57)
--- NOTE | 2019-04-13 11:00 | PN ---
Progress Note (short form) - Note Progress Note: events noted Chart reviewed No seizure-like activity MRI of the brain reviewed Bilateral gliotic lesions noted No evidence of toxoplasmosis No evidence of demyelinating disease Patient had a history of stroke in the past We will arrange for spinal tap as an outpatient and follow up with neurology as an outpatient Patient stay on the aspirin Follow up with the infectious disease specialist No neurological indication to do a spinal tap on this admission Patient is neurologically safe to be discharged on Keppra 500 mg twice daily EEG would be obtained as an outpatient
--- NOTE | 2019-04-13 13:34 | DS ---
Physical Exam: SUBJECTIVE: Patient seen and examined at bedside. No acute events overnight. No seizure activity appreciated. OBJECTIVE: Vital Signs Period Temp Pulse Resp BP Sys/Goodson Pulse Ox Last 24 Hr 98 F-98.5 F 73-86 18-18 129-131/73-94 100 PHYSICAL EXAM GENERAL: NAD HEAD: Normal with no signs of trauma. EYES: EOMI Sclera Clear ENT: MMM NECK: Trachea midline, full range of motion, supple. LUNGS: CTAB HEART: RRR S1S2 ABDOMEN: Soft NDNT No HSM. EXTREMITIES: No CCE. NEUROLOGICAL: Cranial nerves II through XII grossly intact. Normal speech, gait not observed. PSYCH: Normal mood, normal affect. SKIN: Warm, dry, normal turgor, no rashes or lesions noted. LABS Laboratory Results - last 24 hr 04/12/19 04/13/19 04/13/19 12:23 06:00 06:00 WBC 7.2 4.7 RBC 3.39 L Hgb 12.0 Hct 35.5 MCV 104.7 H MCH 35.4 H MCHC 33.8 RDW 13.0 Plt Count 202 MPV 7.1 L Absolute Lymphs (auto) 1.6 Lymphocytes 22 Nucleated RBCs TNP Sodium 135 L Potassium 3.9 Chloride 102 Carbon Dioxide 25 Anion Gap 8 BUN 14 Creatinine 1.6 H Est GFR (CKD-EPI)AfAm 57.77 Est GFR (CKD-EPI)NonAf 49.85 Random Glucose 103 Calcium 8.9 Phosphorus 3.3 Magnesium 2.1 Absolute CD3 Count 1445 % CD3+ Lymphocytes 90.3 H Absolute CD4 Thomson 198 L % CD4+ Lymphocyte 12.4 L CD4/CD8 Ratio 0.16 L % CD8+ Lymphocyte 77.0 H Absolute CD8 Count 1232 H HOSPITAL COURSE: Date of Admission:04/11/19 Pt is a 48 yo M with PMHX of HIV, asthma, Vuong's palsy, pancreatitis, renal colic, CKD, alcohol abuse, HLD, HTN presenting from home after collapsing and having one episode of generalized seizures. Pt's BMP revealed a Na level of 124 ; pt was hydrated with NS. 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 Neurology was consulted who recommended that pt be placed on Keppra 500 mg BID and undergo a spinal tap as an outpatient. Furthermore, pt was noted to have hydronephrosis of his left kidney which was appreciated on renal ultrasound. Pt discharged with neurology, Urology, and I.D follow-up. Date of Discharge: 04/13/19 Minutes to complete discharge: 35 Discharge Summary Reason For Visit: HUMAN IMMUNODEFICIENCY VIRUS INFECTION, Current Active Problems CVA, old, facial weakness (Acute) HIV (human immunodeficiency virus infection) (Acute) New onset seizure (Acute) Condition: Improved - Instructions Diet, Activity, Other Instructions: You presented to the hospital due to a seizure you experienced. Please follow up with the neurologist, Dr Andrew Chance. A Referral has been provided for you in your discharge papers. Please take Keppra 500 mg TWICE per day. A prescription has been sent to your pharmacy. We are discontinuing your Trazodone since can cause seizure. You can take melatonin or magnesium for sleep to help you sleep. Discontinue Losartan since the kidney function is elevated, follow up with high school history teacher and urologist Please follow up with your Infectious disease specialist, Dr Alexander when you leave the hospital. You were found to have fluid around the left kidney. Please follow up with your urologist when you leave the hospital. If you do not have one, we have provided you with some contact information for one. Please follow up with your primary care doctor. If you do not have a primary care doctor, you may follow up with our medical clinic located at [address] [place] [address] . A referral has been provided for you in your discharge papers. Please return to the hospital if you begin to experience chest pain, shortness of breath, or another seizure. Referrals: Wero Wade MD [Staff Physician] - 1 Week Edward Mckee MD [Staff Physician] - 1 Week Julia Alexander MD [Staff Physician] - 1 Week Wil Darling MD [Staff Physician] - 1 Week Andrew Garcia MD [Staff Physician] - 1 Week Disposition: HOME - Home Medications Comprehensive Discharge Medication List: Ambulatory Orders Cholecalciferol (Vitamin D3) [Vitamin D3] 1,000 unit PO DAILY 10/02/18 Aspirin [Aspirin EC] 81 mg PO DAILY #30 tablet. 11/08/18 Darunavir/Cobicistat [Prezcobix 800 mg-150 mg Tablet] 1 each PO DAILY #30 tablet 11/08/18 Dolutegravir Sodium [Tivicay] 50 mg PO DAILY #30 tablet 11/08/18 Metoprolol Succinate [Toprol XL -] 50 mg PO DAILY #30 tablet 11/08/18 Fluticasone Propionate [Flovent Diskus] 110 mcg IH DAILY 01/23/19 Multivitamin with Iron [Daily Nely with Iron] 1 each PO DAILY 01/23/19 Umeclidinium [place] [Incruse Ellipta] 62.5 mcg IH DAILY 01/23/19 Atorvastatin Ca [Lipitor] 1 tab PO HS #30 tablet 02/28/19 Hydrocortisone 1% Cream [Hytone 1% Cream -] 1 applic TP BID #1 tube 02/28/19 Mirtazapine [Remeron -] 1 tablet PO HS #30 tablet 02/28/19 Fluoxetine HCl [Prozac] 10 mg PO DAILY 04/12/19 levETIRAcetam [Keppra -] 500 mg PO BID #60 tablet 04/13/19 This patient is new to me today: No Emergency Visit: Yes ED Registration Date: 04/11/19 Care time: The patient presented to the Emergency Department on the above date and was hospitalized for further evaluation of their emergent condition. Critical Care patient: No - Discharge Referral Referred to [facility] No
[2019-04-13 13:38] VITALS: BP 126/80
--- NOTE | 2019-04-13 13:40 | PN ---
Teaching Attending Note Name of Resident: Fareed Osorio ATTENDING PHYSICIAN STATEMENT I saw and evaluated the patient. I reviewed the resident's note and discussed the case with the resident. I agree with the resident's findings and plan as documented. SUBJECTIVE: Patient is comfortable with no acute distress. OBJECTIVE: Vital Signs Temperature 98 F 04/13/19 10:00 Pulse Rate 73 04/13/19 10:00 Respiratory Rate 18 04/13/19 10:00 Blood Pressure 126/80 04/13/19 10:00 O2 Sat by Pulse Oximetry (%) 100 04/13/19 09:00 GENERAL: The patient is awake, alert, and fully oriented, in no acute distress. HEAD: Normal with no signs of trauma. EYES: PERRL, extraocular movements intact, sclera anicteric, conjunctiva clear. ENT: Ears normal, oropharynx clear without exudates, moist mucous membranes. NECK: Trachea midline, full range of motion, supple. LUNGS: Breath sounds equal, clear to auscultation bilaterally, no wheezes, no crackles, no accessory muscle use. HEART: Regular rate and rhythm, S1, S2 without murmur, rub or gallop. ABDOMEN: Soft, nontender, nondistended, normoactive bowel sounds, no guarding, no rebound, no hepatosplenomegaly, no masses. EXTREMITIES: 2+ pulses, warm, well-perfused, no edema. NEUROLOGICAL: Cranial nerves II through XII grossly intact. Normal speech, gait not observed. PSYCH: Normal mood, normal affect. SKIN: Warm, dry, normal turgor, no rashes or lesions noted CBCD WBC 4.7 K/mm3 (4.0-10.0) 04/13/19 06:00 RBC 3.39 M/mm3 (4.00-5.60) L 04/13/19 06:00 Hgb 12.0 GM/dL (11.7-16.9) 04/13/19 06:00 Hct 35.5 % (35.4-49) 04/13/19 06:00 MCV 104.7 fl (80-96) H 04/13/19 06:00 MCHC 33.8 g/dl (32.0-35.9) 04/13/19 06:00 RDW 13.0 % (11.9-15.9) 04/13/19 06:00 Plt Count 202 K/MM3 (134-434) 04/13/19 06:00 MPV 7.1 fl (7.5-11.1) L 04/13/19 06:00 CMP Sodium 135 mmol/L (136-145) L 04/13/19 06:00 Potassium 3.9 mmol/L (3.5-5.1) 04/13/19 06:00 Chloride 102 mmol/L (98-107) 04/13/19 06:00 Carbon Dioxide 25 mmol/L (21-32) 04/13/19 06:00 Anion Gap 8 MMOL/L (8-16) 04/13/19 06:00 BUN 14 mg/dL (7-18) 04/13/19 06:00 Creatinine 1.6 mg/dL (0.55-1.3) H 04/13/19 06:00 Random Glucose 103 mg/dL (74-106) 04/13/19 06:00 Calcium 8.9 mg/dL (8.5-10.1) 04/13/19 06:00 Total Bilirubin 1.3 mg/dL (0.2-1) H 04/12/19 06:40 AST 57 U/L (15-37) H 04/12/19 06:40 ALT 24 U/L (13-61) 04/12/19 06:40 Alkaline Phosphatase 49 U/L (45-117) 04/12/19 06:40 Total Protein 7.3 g/dl (6.4-8.2) 04/12/19 06:40 Albumin 3.6 g/dl (3.4-5.0) 04/12/19 06:40 CARDIAC ENZYMES Creatine Kinase 1906 U/L (26-308) H 04/12/19 03:00 Troponin I 0.04 ng/ml (0.00-0.05) 04/12/19 03:00 Current Medications Generic Name Dose Route Start Last Admin Trade Name Jay PRN Reason Stop Dose Admin Aspirin 81 mg 04/12/19 10:00 04/13/19 10:48 Ecotrin - PO Not Given DAILY ANJALI Atorvastatin Calcium 10 mg 04/12/19 22:00 04/12/19 21:45 Lipitor - PO 10 mg HS ANJALI Administration Cholecalciferol 1,000 unit 04/13/19 10:00 04/13/19 10:44 Vitamin D3 - PO 1,000 unit DAILY ANJALI Administration Cyanocobalamin 100 mcg 04/12/19 10:00 04/13/19 10:44 Vitamin B12 - PO 100 mcg DAILY ANJALI Administration Fluoxetine HCl 10 mg 04/13/19 10:00 04/13/19 10:45 Prozac - PO 10 mg DAILY ANJALI Administration Heparin Sodium (Porcine) 5,000 unit 04/12/19 06:00 04/13/19 06:03 Heparin - SQ 5,000 unit TID ANJALI Administration Hydrocortisone 1 applic 04/12/19 10:00 04/13/19 10:46 Hytone 1% Cream - TP 1 applic BID ANJALI Administration Sodium Chloride 500 mls @ 100 mls/hr 04/12/19 10:30 04/13/19 10:57 Normal Saline - IV 100 mls/hr ASDIR ANJALI Administration Metoprolol Succinate 50 mg 04/12/19 10:00 04/13/19 10:44 Toprol Xl - PO 50 mg DAILY ANJALI Administration Mirtazapine 30 mg 04/12/19 22:00 04/12/19 21:45 Remeron - PO 30 mg HS ANJALI Administration Mometasone Furoate 1 puff 04/12/19 22:45 04/12/19 23:04 Asmanex 220mcg - IH 1 puff HS ANJALI Administration Multivitamins/Minerals/Vitamin C 1 tab 04/13/19 10:00 04/13/19 10:44 Tab-A-Vit - PO 1 tab DAILY ANJALI Administration Thiamine HCl 100 mg 04/12/19 10:00 04/13/19 10:44 Vitamin B1 - PO 100 mg DAILY ANJALI Administration Tiotropium [place] 2 puff 04/12/19 10:00 04/13/19 10:47 Spiriva Respimat IH 2 puff DAILY ANJALI Administration Home Medications Medication Instructions Recorded Cholecalciferol (Vitamin D3) 1,000 unit PO DAILY 10/02/18 [Vitamin D3] Aspirin [Aspirin EC] 81 mg PO DAILY #30 tablet. 11/08/18 Darunavir/Cobicistat [Prezcobix 1 each PO DAILY #30 tablet 11/08/18 800 mg-150 mg Tablet] Dolutegravir Sodium [Tivicay] 50 mg PO DAILY #30 tablet 11/08/18 Metoprolol Succinate [Toprol XL -] 50 mg PO DAILY #30 tablet 11/08/18 Fluticasone Propionate [Flovent 110 mcg IH DAILY 01/23/19 Diskus] Multivitamin with Iron [Daily Nely 1 each PO DAILY 01/23/19 with Iron] Umeclidinium [place] [Incruse 62.5 mcg IH DAILY 01/23/19 Ellipta] Atorvastatin Ca [Lipitor] 1 tab PO HS #30 tablet 02/28/19 Hydrocortisone 1% Cream [Hytone 1% 1 applic TP BID #1 tube 02/28/19 Cream -] Mirtazapine [Remeron -] 1 tablet PO HS #30 tablet 02/28/19 Fluoxetine HCl [Prozac] 10 mg PO DAILY 04/12/19 levETIRAcetam [Keppra -] 500 mg PO BID #60 tablet 04/13/19 ASSESSMENT AND PLAN: Pt is a 48 yo M with PMHX of HIV, asthma, Vuong's palsy, pancreatitis, renal colic, CKD, alcohol abuse, HLD, HTN presenting from home after collapsing and having one episode of generalized seizures. #New onset generalized seizures-possible due to alcohol withdrawel/ hyponatremia , improved to 135 today , Neuro consult apreciated , EEG ordered ,follow with Dr. Garcia as an outpatient. will discontinue Trazodone since can lower the seizure threshold, will ask him to use magnessium oral tabs at night time if needed. #Alcohol abuse: abstinense complete #Acute Hyponatremia -124-->131-->135 improved s/p IVF # HIV-Unsure if patient is compliant. Missed meds today. Will check CD4, Viral load, resume HAART, CT head did not show any pathology, #asthma- stable resume meds # Vuong's palsy- UMN/LMN residual weakness, no limb weakness # MILDRED on CKD: Likely in setting of dehydration, NS hydration, # Elevated CPK: S/p seizure-CPK--> 1904, improved post hydration #HTN: May hold CARINA in setting of acute kidney injury dicharge patient home.
== END 2019-04-13 14:42 | disposition home or self-care (01) | DRG 53 ==
LOC: JER 20:10 → JERBED 22:47 → J8W 04-12 02:31
PROVIDERS: ADMIT Internal Medicine; ATTEND Internal Medicine
DX: R56.9 Unspecified convulsions (principal); N17.9 Acute kidney failure, unspecified; K86.0 Alcohol-induced chronic pancreatitis; E87.1 Hypo-osmolality and hyponatremia; N13.30 Unspecified hydronephrosis; I13.10 Hypertensive heart and chronic kidney disease without heart failure, with stage 1 through stage 4 chronic kidney disease, or unspecified chronic kidney disease; N18.9 Chronic kidney disease, unspecified; Z21 Asymptomatic human immunodeficiency virus [HIV] infection status; G51.0 Bell's palsy; J45.909 Unspecified asthma, uncomplicated; E78.5 Hyperlipidemia, unspecified; N20.0 Calculus of kidney; Z86.73 Personal history of transient ischemic attack (TIA), and cerebral infarction without residual deficits; F10.230 Alcohol dependence with withdrawal, uncomplicated; R21 Rash and other nonspecific skin eruption; E86.0 Dehydration
CPT/HCPCS: 36415; 70450-TC; 70553-TC; 71046-TC-FY; 76775-TC; 80048; 80053; 80307; 81003; 82436; 82550; 82553; 82565; 82607; 83735; 84100; 84132; 84133; 84146; 84300; 84484; 85025; 85027; 85610; 85730; 86359; 86360; 93005; 93010; 95816; 99285-25; J1644; J7030

== ENCOUNTER 2019-04-27 04:18 | Emergency (ER) | payer OTHER ==
[2019-04-27] MEDS ORDERED: ACETAMINOPHEN 500 MG TABLET (FP) PO ONE (04:34)
--- NOTE | 2019-04-27 04:39 | PDOC ---
Attending Attestation - Resident Resident Name: Walt Farias - ED Attending Attestation I have performed the following: I have examined & evaluated the patient, The case was reviewed & discussed with the resident, I agree w/resident's findings & plan, Exceptions are as noted - HPI HPI: 04/27/19 04:44 48y M hx of HIV (on HAART) presents with complaint of R rib pain. Pt states he lost his balance at home, fell backwards into an end table and has beenhaving severe pain in the R rib/flank area - pain is worse when he takes a deep breath and when he is moving around. Caroline sany symptoms prior to fall. no head injury , loc, cp, palpitations, lightheadedness prior to or after his fall. No cough, whyte, sob. has not taken any meds prior to arrival for his pain. Exam: Card: rrr, no mrg pulm: clear to ascultation, breath sounds symmetric MSK: ttp to plapation along mid axillary line of R flank/lower ribs Abd: soft nontender, no cva ttp BACK: no focal midline ttp to cervical/thoracic/lumbar spine suspect rib contusion vs fx will obtain rib series analgesia
[2019-04-27 04:41] VITALS: BMI 21.9
[2019-04-27] MEDS ORDERED: ACETAMINOPHEN 325 MG TABLET (FP) ONE (04:51)
--- NOTE | 2019-04-27 05:10 | PDOC ---
History of Present Illness - General Chief Complaint: Injury Stated Complaint: FALL Time Seen by Provider: 04/27/19 04:28 History Source: Patient, Old Records Exam Limitations: No Limitations - History of Present Illness Initial Comments: HPI: 48 y/o male BIBEMS to [facility] ER complaining of pain to lower right lateral anterior chest wall. Pain is worse with deep inspiration and direct palpation. Symptoms started after falling into a table while drinking alcohol earlier today. Denies striking head or neck. Denies LOC. Became concerned when he didn t heal over the interval few hours, so he elected to seek emergent evaluation. Social Hx: - Tobacco: Denies Medical Hx: - HTN - HIV (CD4: Unknown. Viral Load: Undetectable) on HAART - h/o EtOH Abuse - CKD - Cardiomyopathy - H/o alcoholic pancreatitis - [place] Palsy (chronic right facial weakness) - H/o of right ganglia infarcts noted on CT Review of Systems: In addition to that documented in the HPI above, the additional ROS was obtained : Constitutional: Denies fevers or chills Head: Denies vision changes ENMT: Denies sore throat CV: Denies palpitations Resp: Per HPI GI: Denies vomiting or diarrhea : Denies painful urination MSK: Per HPI. No bleeding. Skin: Denies new rashes Neuro: Denies new numbness or tingling or weakness Endocrine: Denies polyuria Heme: Denies bleeding or bruising Physical Examination: Constitutional: Well-developed, well-nourished adult male in no acute distress but obvious discomfort. Found semi-fowlers on hosi. Alert and oriented x4. Answered all questions appropriately and completely. Speech was non-labored, non -pressured. Head: Normocephalic. No obvious external signs of trauma. Neck: Supple, trachea is midline. No c-spine tenderness or deformity. Cardiovascular / Chest: Regular rate and regular rhythm. No murmur, rubs, clicks , or gallops. Peripheral pulses: radial pulses full. Respiratory: Breathing shallow and obviously painful with deep inspiration. Equal chest rise and fall. Breath sounds bilaterally. Clear to auscultation bilaterally. No stridor, no wheezing, no rhonchi. MSK: Point tenderness along posterolateral aspect of lower right anterior chest wall. No overlying skin lesions or breakdown. No bleeding. Possible bony deformity but exam limited by pts tenderness. Gastrointestinal: abdomen is soft, non-tender, non-distended. Neuro: Alert and oriented. Moving all four extremities spontaneously. Skin: Warm and dry. Psych: Affect: appropriate. Mood: normal. MDM: *Reviewed vital signs, nursing notes, and prior visit documentation (if available). 48 y/o male presenting with right-sided rib pain after falling into table while drinking. Afebrile. Vitals remarkable for hypertension, which is consistent with documented history of HTN. Likely further elevated by acute pain. No tachycardia. Normoxic on room air. Physical exam as described above. CXR and right rib series revealed two mildly displaced fractures of ribs 9 and 10 per ED wet read. Radiology report pending. Initially ordered Tylenol for pain relief. Ordered Oxycodone for additional relief. Will provide short term prescription for Oxycodone and Miralax. Encouraged to also use Tylenol for additional pain relief. Given IS and provided bedside teaching. Pt to f/u up PCP next week. Provided return precautions, especially for signs of pneumonia. Walt Farias M.D., PGY1 Emergency Medicine Resident Past History - Past Medical History Allergies/Adverse Reactions: Allergies Allergy/AdvReac Type Severity Reaction Status Date / Time diphenhydramine Allergy Verified 04/27/19 04:54 [From Benadryl] ibuprofen Allergy Verified 04/27/19 04:54 Sulfa (Sulfonamide Allergy Verified 04/27/19 04:54 Antibiotics) [Sulfa(Sulfonamide Antibiotics)] Home Medications: Ambulatory Orders Fluticasone Propionate [Flovent Diskus] 110 mcg IH DAILY 01/23/19 Atorvastatin Ca [Lipitor] 1 tab PO HS #30 tablet 02/28/19 levETIRAcetam [Keppra -] 500 mg PO BID #60 tablet 04/13/19 Aspirin [Aspirin EC] 81 mg PO DAILY #30 tablet. 04/18/19 Cholecalciferol (Vitamin D3) [Vitamin D3] 1,000 unit PO DAILY #30 capsule Darunavir/Cobicistat [Prezcobix 800 mg-150 mg Tablet] 1 each PO DAILY #30 tablet 04/18/19 Dolutegravir Sodium [Tivicay] 50 mg PO DAILY #30 tablet 04/18/19 Fluoxetine HCl [Prozac] 10 mg PO DAILY #30 capsule 04/18/19 Hydrocortisone 1% Cream [Hytone 1% Cream -] 1 applic TP BID #1 tube 04/18/19 Metoprolol Succinate [Toprol XL -] 50 mg PO DAILY #30 tablet 04/18/19 Mirtazapine [Remeron -] 15 mg PO DAILY #30 tablet 04/18/19 Multivitamin with Iron [Daily Nely with Iron] 1 each PO DAILY #30 tablet Umeclidinium [place] [Incruse Ellipta] 62.5 mcg IH DAILY #1 blst.w.dev 04/18/19 Oxycodone HCl 5 mg PO Q6H PRN #15 tablet MDD 4 tablets 04/27/19 Polyethylene Glycol 3350 [Miralax (For Daily Use) -] 17 gm PO DAILY #1 bottle Anemia: No Asthma: Yes Cancer: No Cardiac Disorders: No CVA: No COPD: No CHF: No Dementia: No Diabetes: No GI Disorders: Yes (CHRONIC PANCREATITIS) Disorders: Yes (KIDNEY STONES) HTN: Yes Hypercholesterolemia: Yes Kidney Stones: Yes Seizures: No Thyroid Disease: No Other medical history: HIV+ - Surgical History Abdominal Surgery: Yes (RENAL STONES (LITHOTRIPSY)) Cholecystectomy: Yes (LAPAROSCOPIC) - Immunization History Td Vaccination: Yes TDAP Vaccination: Yes Immunization Up to Date: Yes - Suicide/Smoking/Psychosocial Hx Smoking Status: No Smoking History: Never smoked Have you smoked in the past 12 months: No Number of Cigarettes Smoked Daily: 0 Cigars Per Day: 0 Information on smoking cessation initiated: No Hx Alcohol Use: Yes Drug/Substance Use Hx: No Substance Use Type: None Hx Substance Use Treatment: No *Physical Exam - Vital Signs Last Vital Signs Temp Pulse Resp BP Pulse Ox 98.4 F 84 20 156/113 H 99 04/27/19 04:31 04/27/19 04:31 04/27/19 04:31 04/27/19 04:31 04/27/19 04:31 ED Treatment Course - RADIOLOGY Radiology Studies Ordered: Category Date Time Status CHEST PA & LAT [RAD] Stat Radiology 04/27/19 04:33 Ordered RIBS RIGHT SIDE [RAD] Stat Radiology 04/27/19 04:33 Ordered - Medications Given in the ED: ED Medications Discontinued Medications Generic Name Dose Route Start Last Admin Trade Name Freq PRN Reason Stop Dose Admin Acetaminophen 975 mg 04/27/19 04:34 04/27/19 04:53 Tylenol - PO 04/27/19 04:35 975 mg ONCE ONE Administration *DC/Admit/Observation/Transfer Diagnosis at time of Disposition: Ribs, multiple fractures Qualifiers: Encounter type: initial encounter Fracture type: closed Laterality: right Qualified Code(s): S22.41XA - Multiple fractures of ribs, right side, initial encounter for closed fracture - Discharge Dispostion Disposition: HOME Condition at time of disposition: Fair Decision to Admit order: No - Prescriptions Prescriptions: Oxycodone HCl 5 mg PO Q6H PRN #15 tablet MDD 4 tablets PRN Reason: Pain Polyethylene Glycol 3350 [Miralax (For Daily Use) -] 17 gm PO DAILY #1 bottle - Referrals Referrals: Laura Reyes, ETL DEVELOPER [Primary Care Provider] - - Patient Instructions Printed Discharge Instructions: How to Use an Incentive Spirometer, DI for Rib Fracture, DI for Prescription Opioid Use, SJR DI-Opioid Pain Medication Additional Instructions: You were seen today for right sided chest pain. Your xrays show two fractured ribs without injury to your lungs. These fractures do not require an operation. They will heal on their own over the next several weeks. Unfortunately, you will continue to experience pain/discomfort over this period. I have sent two prescriptions to your pharmacy. The first is for a pain medication called Oxycodone. This is an opiate medication. It may cause sedation. There is an information sheet about taking opiates attached to this packet. Please read it. The second medication is for Miralax, which is a stool softener. Take it daily while you are taking Oxycodone, as this medication can cause constipation. You can take over the counter Tylenol or Advil as needed for pain. Take as directed on the package insert. Do not exceed the recommended dosage. You need to make sure you are taking deep breaths. Taking shallow breaths can lead to pneumonia in people with rib fractures. You were given an incentive spirometer and taught how to use it. An instructional sheet on how to use it is also attached to this packet. Please review it. Use the device at least once an hour for the next several days. Follow up with your primary care doctor within the next 3-4 days to make sure you are healing. You will need to call to make an appointment. The number is included in this packet. Go to the nearest emergency department if your condition worsens or you feel like you need additional emergency evaluation. Print Language: CHADIAN - Post Discharge Activity
[2019-04-27] MEDS ORDERED: oxyCODONE HCL 5 MG TABLET PO ONE (05:38)
[2019-04-27] MEDS ORDERED: oxyCODONE HCL 5 MG TABLET ONE (05:44)
[2019-04-27 06:50] VITALS: BP 156/107; PULSE 79; TEMP 97.7
== END 2019-04-27 06:50 | disposition home or self-care (01) ==
LOC: EDBD 04:18 → JER 04:18
DX: S22.41XA Multiple fractures of ribs, right side, initial encounter for closed fracture (principal); W18.39XA Other fall on same level, initial encounter; Y93.89 Activity, other specified; Y92.89 Other specified places as the place of occurrence of the external cause; I10 Essential (primary) hypertension; E78.00 Pure hypercholesterolemia, unspecified; Z21 Asymptomatic human immunodeficiency virus [HIV] infection status; J45.909 Unspecified asthma, uncomplicated
CPT/HCPCS: 71046-TC-FY; 71101-TC-RT-FY; 99282-25

== ENCOUNTER → 2019-07-12 | Outpatient (CLI) | payer OTHER | LOC: YHH 15:48 ==

== ENCOUNTER 2019-12-28 11:15 | Inpatient (IN) | payer OTHER ==
--- NOTE | 2019-12-28 12:20 | PDOC ---
History of Present Illness - General Chief Complaint: Abnormal Lab Results (Outside) Stated Complaint: SENT BY PCP Time Seen by Provider: 12/28/19 11:40 History Source: Patient, Old Records Exam Limitations: No Limitations - History of Present Illness Initial Comments: 12/28/19 12:13 49y M with PMH of HIV (on HAART, recent CD4 187, 08/2019 viral load undetectable ), Alcohol Abuse, Asthma, CKD, Cardiomyopathy, [place] Palsy presenting to ED from pmd office for hyponatremia found on outpatient labs level 124. Pt says he has a history of seizures, he had one earlier this month and one last summer ( pt is following up with Dr. Garcia, is taking Keppra). [place] and developed a dry cough because he was in the rain. Cough is dry. Denies fever, chills, weight loss, productive cough, sob, chest pain, headache, n/v/d congestion. PMD: [facility] PMH: see hpi Meds: see med rec Allergies: sulfa Past History - Past Medical History Allergies/Adverse Reactions: Allergies Allergy/AdvReac Type Severity Reaction Status Date / Time diphenhydramine Allergy Verified 12/28/19 11:26 [From Benadryl] Sulfa (Sulfonamide Allergy Verified 12/28/19 11:26 Antibiotics) [Sulfa(Sulfonamide Antibiotics)] ibuprofen AdvReac Intermediate Verified 12/28/19 11:26 Home Medications: Ambulatory Orders Cholecalciferol (Vitamin D3) [Vitamin D3] 1,000 unit PO DAILY #30 capsule Diclofenac Sodium [Voltaren] 2 gm TP TID PRN #3 tube 05/02/19 Acetaminophen [Tylenol .Extra-Strength -] 1 - 2 tab PO BID PRN #30 tablet MDD 4 09/27/19 Aspirin [Aspirin EC] 1 tab PO DAILY #30 tablet. 12/26/19 Dapsone - 1 tab PO DAILY #30 tablet 12/26/19 Darunavir/Cobicistat [Prezcobix 800 mg-150 mg Tablet] 1 each PO DAILY #30 tablet 12/26/19 Dolutegravir Sodium [Tivicay] 1 tab PO DAILY #30 tablet 12/26/19 Fluoxetine HCl [Prozac -] 20 mg PO DAILY #30 capsule 12/26/19 Fluticasone Propionate [Flovent Diskus] 1 inh IH DAILY #2 blst.w.dev 12/26/19 Hydrocortisone 1% Cream [Hytone 1% Cream -] 1 applic TP BID #1 tube 12/26/19 Medical Information Id Tag [Medical Id For Bracelet] 1 each MC ASDIR #1 each Metoprolol Succinate [Toprol XL -] 1 tab PO DAILY #30 tablet 12/26/19 Mirtazapine [Remeron -] 15 mg PO DAILY #30 tablet 12/26/19 Multivitamin with Iron [Daily Nely with Iron] 1 each PO DAILY #30 tablet Umeclidinium [place] [Incruse Ellipta] 1 inh IH DAILY #1 blst.w.dev 12/26/19 levETIRAcetam [Keppra -] 1 tab PO BID #60 tablet 12/26/19 Anemia: No Asthma: Yes Cancer: No Cardiac Disorders: No CVA: No COPD: No CHF: No Dementia: No Diabetes: No GI Disorders: Yes (CHRONIC PANCREATITIS) Disorders: Yes (KIDNEY STONES) HTN: Yes Hypercholesterolemia: Yes Kidney Stones: Yes Seizures: Yes Thyroid Disease: No - Surgical History Abdominal Surgery: Yes (RENAL STONES (LITHOTRIPSY)) Cholecystectomy: Yes (LAPAROSCOPIC) - Immunization History Td Vaccination: Yes TDAP Vaccination: Yes Immunization Up to Date: Yes - Psycho Social/Smoking Cessation Hx Smoking Status: No Smoking History: Never smoked Have you smoked in the past 12 months: No Number of Cigarettes Smoked Daily: 0 Cigars Per Day: 0 Information on smoking cessation initiated: No Hx Alcohol Use: Yes Drug/Substance Use Hx: No Substance Use Type: Alcohol Hx Substance Use Treatment: No Review of Systems - Review of Systems Constitutional: No: Symptoms Reported HEENTM: No: Symptoms Reported Respiratory: Yes: Cough Cardiac (ROS): No: Symptoms Reported ABD/GI: No: Symptoms Reported : No: Symptoms Reported Musculoskeletal: No: Symptoms Reported Integumentary: No: Symptoms Reported Neurological: No: Symptoms reported *Physical Exam - Vital Signs Last Vital Signs Temp Pulse Resp BP Pulse Ox 98.1 F 94 H 18 142/102 H 97 12/28/19 11:26 12/28/19 11:26 12/28/19 11:26 12/28/19 11:26 12/28/19 11:26 - Physical Exam General Appearance: Yes: Appropriately Dressed, Thin. No: Apparent Distress HEENT: positive: EOMI, RITU, Normal ENT Inspection Neck: positive: Trachea midline, Supple. negative: Lymphadenopathy (R), Lymphadenopathy (L) Respiratory/Chest: positive: Lungs Clear, Normal Breath Sounds. negative: Crackles, Rales, Rhonchi, Stridor, Wheezing Cardiovascular: positive: Regular Rhythm, Regular Rate, S1, S2. negative: Edema , JVD, Murmur Gastrointestinal/Abdominal: positive: Normal Bowel Sounds, Soft. negative: Tender Extremity: positive: Normal Capillary Refill Integumentary: positive: Normal Color, Dry, Warm Neurologic: positive: golf club weigher II-XII NML intact, Fully Oriented, Alert, Normal Mood/ Affect, Normal Response, Motor Strength 03/11 ED Treatment Course - LABORATORY CBC & Chemistry Diagram: 12/28/19 11:50 12/28/19 18:44 - RADIOLOGY Radiology Studies Ordered: Category Date Time Status CHEST PA & LAT [RAD] Stat Radiology 12/28/19 12:10 Ordered Medical Decision Making - Medical Decision Making 12/28/19 20:06 49y M with pmh of hiv, seizure d/o presenting to ed for hyponatremia. vitals wnl normal phsycial exam given seizures and hyponatremia, will admit. Dr. Darling wanted to be called to ER once patient arrived. given cough, cxr ordered: no signs of pna. labs show na 128. no other abnormalities. will admit for hyponatremia. Discharge - Discharge Information Problems reviewed: Yes Clinical Impression/Diagnosis: Hyponatremia Condition: Good - Admission Yes - Follow up/Referral - Patient Discharge Instructions - Post Discharge Activity
[2019-12-28 12:51] LABS: BASO % 0.9 % (0-2.0); EOS % 0.8 % (0-4.5); HEMATOCRIT 39.8 % (35.4-49); HEMOGLOBIN 13.9 GM/dL (11.7-16.9); LYMPH % 19.6 % (8-40); MCH 35.7 pg (25.7-33.7); MCHC 34.9 g/dl (32.0-35.9); MEAN CELL VOLUME 102.4 fl (80-96); MEAN PLT VOLUME 7.2 fl (7.5-11.1); MONO % 14.8 % (3.8-10.2); NEUT % 63.9 % (42.8-82.8); PLATELET COUNT 384 K/MM3 (134-434); RBC 3.88 M/mm3 (4.00-5.60); RDW 13.1 % (11.9-15.9); WHITE BLOOD COUNT 6.2 K/mm3 (4.0-10.0)
[2019-12-28 13:27] LABS: ALBUMIN 4.2 g/dl (3.4-5.0); BILIRUBIN,TOTAL 0.4 mg/dL (0.2-1); CALCIUM 10.1 mg/dL (8.5-10.1); CREATININE 1.4 mg/dL (0.55-1.3); POTASSIUM 4.4 mmol/L (3.5-5.1); TOT PROT 9.4 g/dl (6.4-8.2)
--- NOTE | 2019-12-28 14:28 | PDOC ---
Documentation entered by Norma Raman SCRIBE, acting as scribe for Lizbeth Whitmore MD. Lizbeth Whitmore MD: This documentation has been prepared by the Lamine mckeon Adrianna, SCRIBE, under my direction and personally reviewed by me in its entirety. I confirm that the documentation accurately reflects all work, treatment, procedures, and medical decision making performed by me. Attending Attestation - Resident Resident Name: June Uribe - ED Attending Attestation I have performed the following: I have examined & evaluated the patient, The case was reviewed & discussed with the resident, I agree w/resident's findings & plan, Exceptions are as noted - HPI HPI: 49 year old male, with PMH of EtOH abuse, alcoholic pancreatitis, HTN, HIV (185 CD4, undetectable viral load, on HAART), CKD, cardiomyopathy, [place] Palsy ( with chronic right sided facial weakness), and right ganglia infarcts, presents with abnormal lab results. Patient was seen at the [facility] by Jannette Reyes, and was found to have low sodium (125). Dr. Darling advised him to come to the ED for further evaluation given his recent seizure activity. Allergies: diphenhydramine, ibuprofen, sulfa Surgical History: laparoscopic cholecystectomy, renal stone lithotripsy Social History: PCP: Jannette Foster ([facility]) Nephro: Dr. Darling - Physicial Exam PE: 12/28/19 14:26 awake alert lungs clear bilat heart rrr no mrg abd sof t nt nd ext wwp. no edema no calf tenderness. mild left facial bells palsy ( old) - Medical Decision Making 12/28/19 14:26 49 yo male h/o asthma, h/o prior seizures ( on keppra) recently found to be hyponatremic at 120. was sent to ED by Dr Darling. denies n/v no weakness. no increased fluid intake. has had chronic cough [place]. pt has had a seizure earlier this month 12/08 no f/c no other complaints. nuerologist dr Pola olivares review meds, admit repeat labs. d/w dr darling who saw in ED. recommend NS @ 75 cc ml / hr urine electrolytes and osm.
--- NOTE | 2019-12-28 15:37 | CONSULT ---
Consult Consult Specialty:: Nephrology Reason for Consultation:: hyponatremia - History of Present Illness Chief Complaint: sent in for hyponatremia History of Present Illness: Pt is a 49 year old male with pmhx of etoh abuse, alcoholic pancreatitis, htn, hiv, ckd, epilepsy and bells palsy and cva who was sent in for hyponatremia. He was found to have a sodium if 124 as outpt. He denies excess water ingestion. He says that he has not been drinking alcohol. He does feel unsteady at times. He denies headache or change in vision. He denies lower ext edema or shortness of breath. - History Source History Provided By: Patient - Past Medical History Cardio/Vascular: Yes: HTN Gastrointestinal: Yes: Other (Chronic calcific pancreatitis with episodes of acute pancreatitis) Renal/: Yes: Renal Inusuff (see HPI, last epiosode of [place] 03/2014 with creatinine up to 8.1, recovered), Renal Calculi Infectious Disease: Yes: HIV, AIDS - Past Surgical History Past Surgical History: Yes: Cholecystectomy - Alcohol/Substance Use Hx Alcohol Use: Yes History of Substance Use: reports: None - Smoking History Smoking history: Never smoked Have you smoked in the past 12 months: No Aproximately how many cigarettes per day: 0 - Social History Usual Living Arrangement: Alone (single) ADL: Independent 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 History of Recent Travel: No Home Medications - Allergies Allergies/Adverse Reactions: Allergies Allergy/AdvReac Type Severity Reaction Status Date / Time diphenhydramine Allergy Verified 12/28/19 11:26 [From Benadryl] Sulfa (Sulfonamide Allergy Verified 12/28/19 11:26 Antibiotics) [Sulfa(Sulfonamide Antibiotics)] ibuprofen AdvReac Intermediate Verified 12/28/19 11:26 - Home Medications Home Medications: Ambulatory Orders Cholecalciferol (Vitamin D3) [Vitamin D3] 1,000 unit PO DAILY #30 capsule Diclofenac Sodium [Voltaren] 2 gm TP TID PRN #3 tube 05/02/19 Acetaminophen [Tylenol .Extra-Strength -] 1 - 2 tab PO BID PRN #30 tablet MDD 4 09/27/19 Aspirin [Aspirin EC] 1 tab PO DAILY #30 tablet. 12/26/19 Dapsone - 1 tab PO DAILY #30 tablet 12/26/19 Darunavir/Cobicistat [Prezcobix 800 mg-150 mg Tablet] 1 each PO DAILY #30 tablet 12/26/19 Dolutegravir Sodium [Tivicay] 1 tab PO DAILY #30 tablet 12/26/19 Fluoxetine HCl [Prozac -] 20 mg PO DAILY #30 capsule 12/26/19 Fluticasone Propionate [Flovent Diskus] 1 inh IH DAILY #2 blst.w.dev 12/26/19 Hydrocortisone 1% Cream [Hytone 1% Cream -] 1 applic TP BID #1 tube 12/26/19 Medical Information Id Tag [Medical Id For Bracelet] 1 each MC ASDIR #1 each Metoprolol Succinate [Toprol XL -] 1 tab PO DAILY #30 tablet 12/26/19 Mirtazapine [Remeron -] 15 mg PO DAILY #30 tablet 12/26/19 Multivitamin with Iron [Daily Nely with Iron] 1 each PO DAILY #30 tablet Umeclidinium [place] [Incruse Ellipta] 1 inh IH DAILY #1 blst.w.dev 12/26/19 levETIRAcetam [Keppra -] 1 tab PO BID #60 tablet 12/26/19 Family Medical History Family History: Denies Review of Systems - Review of Systems Constitutional: reports: No Symptoms Eyes: reports: No Symptoms HENT: reports: No Symptoms Neck: reports: No Symptoms Cardiovascular: reports: No Symptoms Respiratory: reports: No Symptoms Gastrointestinal: reports: No Symptoms Genitourinary: reports: No Symptoms Musculoskeletal: reports: No Symptoms Integumentary: reports: No Symptoms Neurological: reports: No Symptoms Endocrine: reports: No Symptoms Hematology/Lymphatic: reports: No Symptoms Psychiatric: reports: No Symptoms Physical Exam Vital Signs: Vital Signs Temperature 98.1 F 12/28/19 11:26 Pulse Rate 94 H 12/28/19 11:26 Respiratory Rate 18 12/28/19 11:26 Blood Pressure 142/102 H 12/28/19 11:26 O2 Sat by Pulse Oximetry (%) 97 12/28/19 11:26 Constitutional: Yes: Calm Eyes: Yes: Conjunctiva Clear Cardiovascular: Yes: S1, S2 Respiratory: Yes: CTA Bilaterally Gastrointestinal: Yes: Soft Renal/: Yes: WNL Musculoskeletal: Yes: WNL Edema: No Neurological: Yes: Oriented Psychiatric: Yes: Oriented Labs: CBC, BMP 12/28/19 11:50 12/28/19 11:50 Laboratory Tests 12/26/19 12/27/19 12/28/19 10:00 11:05 11:50 Sodium 124 L 125 L 128 L Potassium 4.4 Creatinine 1.4 H Imaging - Results Chest X-ray: Report Reviewed Problem List - Problems (1) Hyponatremia Code(s): E87.1 - HYPO-OSMOLALITY AND HYPONATREMIA (2) Asthma Code(s): J45.909 - UNSPECIFIED ASTHMA, UNCOMPLICATED Qualifiers: Asthma severity: mild Asthma persistence: persistent Asthma complication type: unspecified Qualified Code(s): J45.30 - Mild persistent asthma, uncomplicated (3) CKD (chronic kidney disease) Code(s): N18.9 - CHRONIC KIDNEY DISEASE, UNSPECIFIED Qualifiers: Chronic kidney disease stage: stage 3 (moderate) Qualified Code(s): N18.3 - Chronic kidney disease, stage 3 (moderate) (4) Hypertension Code(s): I10 - ESSENTIAL (PRIMARY) HYPERTENSION Qualifiers: Hypertension type: essential hypertension Qualified Code(s): I10 - Essential (primary) hypertension Assessment/Plan Current Medications Generic Name Dose Route Start Last Admin Trade Name Freq PRN Reason Stop Dose Admin Sodium Chloride 1,000 mls @ 75 mls/hr 12/28/19 14:15 Normal Saline - IV ASDIR ANJALI Impression 1. hyponatremia 2. HIV 3. hx etoh abuse 4. htn 5. ckd 6. bells palsy 7. epilepsy Plan - start saline - restrict free water - check plasma and urine osm - check urine lytes - check tsh and cortisol - pt remains at risk to fall
[2019-12-28] MEDS: SODIUM CHLORIDE 1,000 ML IV SCH ×3 (15:55→17:48)
[2019-12-28] MEDS ORDERED: ACETAMINOPHEN 500 MG TABLET (FP) PO PRN (16:19)
--- NOTE | 2019-12-28 16:31 | HP ---
Admitting History and Physical - Primary Care Physician PCP: Julia Alexander - Admission Chief Complaint: Feeling weak History of Present Illness: 49year old man with a PMH of HTN, seizures disorder on Keppra 500 mg twice daily since April 2019 kidney stone disease (s/p lithotripsy), depression, alcohol abuse, macrocytosis, HLD, chronic pancreatitis, asthma, HIV disease (on HAART), ?CVA and [place] palsy (chronic right facial weakness) presents, patient visited our clinic, work-up of hyponatremia serum sodium 124 so called back for hospitalization, at the time of examination patient complained of mild cough and chest congestion denies any fever, chills, headache, neurological deficit last seizure was December 14, 2019, last drink was 2 days ago. History Source: Patient - Past Medical History Cardiovascular: Yes: HTN Gastrointestinal: Yes: Other (Chronic calcific pancreatitis with episodes of acute pancreatitis) Renal/: Yes: Renal Inusuff (see HPI, last epiosode of [place] 03/2014 with creatinine up to 8.1, recovered), Renal Calculi Heme/Onc: Yes: Anemia (lt sided renal surgery (for stones)) Infectious Disease: Yes: HIV, AIDS - Past Surgical History Past Surgical History: Yes: None, Cholecystectomy - Smoking History Smoking history: Never smoked Have you smoked in the past 12 months: No Aproximately how many cigarettes per day: 0 - Alcohol/Substance Use Hx Alcohol Use: Yes History of Substance Use: reports: None - Social History Usual Living Arrangement: Yes: With Parent ADL: Independent 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 History of Recent Travel: No Home Medications - Allergies Allergies/Adverse Reactions: Allergies Allergy/AdvReac Type Severity Reaction Status Date / Time diphenhydramine Allergy Verified 12/28/19 11:26 [From Benadryl] Sulfa (Sulfonamide Allergy Verified 12/28/19 11:26 Antibiotics) [Sulfa(Sulfonamide Antibiotics)] ibuprofen AdvReac Intermediate Verified 12/28/19 11:26 - Home Medications Home Medications: Ambulatory Orders Cholecalciferol (Vitamin D3) [Vitamin D3] 1,000 unit PO DAILY #30 capsule Diclofenac Sodium [Voltaren] 2 gm TP TID PRN #3 tube 05/02/19 Acetaminophen [Tylenol .Extra-Strength -] 1 - 2 tab PO BID PRN #30 tablet MDD 4 09/27/19 Aspirin [Aspirin EC] 1 tab PO DAILY #30 tablet. 12/26/19 Dapsone - 1 tab PO DAILY #30 tablet 12/26/19 Darunavir/Cobicistat [Prezcobix 800 mg-150 mg Tablet] 1 each PO DAILY #30 tablet 12/26/19 Dolutegravir Sodium [Tivicay] 1 tab PO DAILY #30 tablet 12/26/19 Fluoxetine HCl [Prozac -] 20 mg PO DAILY #30 capsule 12/26/19 Fluticasone Propionate [Flovent Diskus] 1 inh IH DAILY #2 blst.w.dev 12/26/19 Hydrocortisone 1% Cream [Hytone 1% Cream -] 1 applic TP BID #1 tube 12/26/19 Medical Information Id Tag [Medical Id For Bracelet] 1 each ASDIR #1 each Metoprolol Succinate [Toprol XL -] 1 tab PO DAILY #30 tablet 12/26/19 Mirtazapine [Remeron -] 15 mg PO DAILY #30 tablet 12/26/19 Multivitamin with Iron [Daily Nely with Iron] 1 each PO DAILY #30 tablet Umeclidinium [place] [Incruse Ellipta] 1 inh IH DAILY #1 blst.w.dev 12/26/19 levETIRAcetam [Keppra -] 1 tab PO BID #60 tablet 12/26/19 Family Medical History Family Hx Cardiac Disorders: Mother, Father (Hypertension) Review of Systems - Review of Systems Constitutional: reports: Lethargy, Malaise. denies: Chills, Diaphoresis Eyes: denies: Blind Spots, Blurred Vision, Double Vision, Eye Pain HENT: denies: Difficult Swallowing, Ear Discharge, Ear Pain, Epistaxis Neck: denies: Decreased ROM, Lumps, Pain on Movement Cardiovascular: denies: Chest Pain, Edema, Palpitations, Shortness of Breath Respiratory: denies: Cough, Exercise Intolerance, Hemoptysis, Orthopnea Gastrointestinal: denies: Abdominal Pain, Bloating, Constipation, Diarrhea Genitourinary: denies: Burning, Discharge, Dysuria, Flank Pain, Frequency, Vaginal Bleeding Breasts: denies: Breast Implants Musculoskeletal: denies: Back Pain, Crepitus, Decreased ROM, Extremity Pain Integumentary: denies: Blister, Bruising, Change in Color Neurological: denies: Change in LOC, Change in Speech, Confusion, Dizziness, Headache, Incoordination, Numbness, Parasthesia Hematology/Lymphatic: denies: Easily Bruised, Excessive Bleeding Physical Examination Vital Signs: Vital Signs Temperature 98.1 F 12/28/19 11:26 Pulse Rate 94 H 12/28/19 11:26 Respiratory Rate 18 12/28/19 11:26 Blood Pressure 142/102 H 12/28/19 11:26 O2 Sat by Pulse Oximetry (%) 97 12/28/19 11:26 General: Middle-aged, comfortable, not in distress HEENT; mucous membranes moist, no anemia, no jaundice, PERRLA, no nystagmus Neck: No JVD, supple, no bruit, thyroid palpably normal, normal carotid pulsations. Chest: Nontender, clear to auscultation bilaterally CVS: S1-S2 regularno murmur/gallop/rub Abdomen: Nondistended, soft, bowel sounds present. 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 Problems reviewed: Yes Code(s): E87.1 - HYPO-OSMOLALITY AND HYPONATREMIA (2) Hypertension Assessment/Plan: Continue all home medications at present well-controlled Problems reviewed: Yes Code(s): I10 - ESSENTIAL (PRIMARY) HYPERTENSION Qualifiers: Hypertension type: essential hypertension Qualified Code(s): I10 - Essential (primary) hypertension (3) Seizure Assessment/Plan: observe closely for seizures, Keppra 5 mg twice daily, lorazepam 2 mg IV as needed for seizures Problems reviewed: Yes Code(s): R56.9 - UNSPECIFIED CONVULSIONS (4) AIDS Assessment/Plan: Resume all home medication Problems reviewed: Yes Code(s): B20 - HUMAN IMMUNODEFICIENCY VIRUS [HIV] DISEASE (5) COPD (chronic obstructive pulmonary disease) Assessment/Plan: Continue Ellipta, DuoNeb every 6 hourly as needed. Problems reviewed: Yes Code(s): J44.9 - CHRONIC OBSTRUCTIVE PULMONARY DISEASE, UNSPECIFIED (6) Alcoholism Assessment/Plan: Patient claims that he is occasional drinker last drink was 2 days ago, continue thiamine, observe closely for DTs Problems reviewed: Yes Code(s): F10.20 - ALCOHOL DEPENDENCE, UNCOMPLICATED (7) Anxiety Assessment/Plan: Continue SSRI Problems reviewed: Yes Code(s): F41.9 - ANXIETY DISORDER, UNSPECIFIED
[2019-12-28] MEDS ORDERED: ALBUTEROL SO4 2.5/IPRATROPIUM 0.5 INH SOL 3 ML VIAL.NEB. NEB PRN (16:34)
[2019-12-28] MEDS ORDERED: THIAMINE HCL 100 MG TABLET (FP) ONE (17:14)
[2019-12-28] MEDS: THIAMINE HCL 100 MG TABLET (FP) PO SCH (17:45)
[2019-12-28 19:50] LABS: BLOOD UREA NITROGEN 7.8 mg/dL (7-18); CALCIUM 9.7 mg/dL (8.5-10.1); CREATININE 1.5 mg/dL (0.55-1.3); POTASSIUM 4.3 mmol/L (3.5-5.1)
[2019-12-28 19:54] VITALS: BMI 22.4
[2019-12-28] MEDS: levETIRAcetam 500 MG TABLET (FP) PO SCH (21:01)
[2019-12-28 23:32] LABS: URINE APPEARANCE CLEAR; URINE BILIRUBIN NEGATIVE (NEGATIVE); URINE COLOR YELLOW; URINE GLUCOSE (UA) NEGATIVE (NEGATIVE); URINE KETONE NEGATIVE (NEGATIVE); URINE LEUK ESTERASE NEGATIVE (NEGATIVE); URINE NITRITE NEGATIVE (NEGATIVE); URINE PROTEIN NEGATIVE (NEGATIVE); URINE UROBILINOGEN 0.2 mg/dL (0.2-1.0)
[2019-12-29] MEDS: SODIUM CHLORIDE 1,000 ML IV SCH ×2 (00:35→14:09)
[2019-12-29 08:38] LABS: BASO % 0.7 % (0-2.0); EOS % 4.4 % (0-4.5); HEMATOCRIT 35.8 % (35.4-49); HEMOGLOBIN 12.1 GM/dL (11.7-16.9); LYMPH % 19.2 % (8-40); MCH 34.7 pg (25.7-33.7); MCHC 33.7 g/dl (32.0-35.9); MEAN PLT VOLUME 6.8 fl (7.5-11.1); MONO % 17.5 % (3.8-10.2); NEUT % 58.2 % (42.8-82.8); PLATELET COUNT 321 K/MM3 (134-434); RBC 3.47 M/mm3 (4.00-5.60); WHITE BLOOD COUNT 6.4 K/mm3 (4.0-10.0)
[2019-12-29 09:27] LABS: BLOOD UREA NITROGEN 6.8 mg/dL (7-18); CALCIUM 9.5 mg/dL (8.5-10.1); CREATININE 1.3 mg/dL (0.55-1.3); POTASSIUM 4.5 mmol/L (3.5-5.1)
[2019-12-29] MEDS: levETIRAcetam 500 MG TABLET (FP) PO SCH ×2 (10:31→20:59)
[2019-12-29] MEDS: CHOLECALCIFEROL (VIT D3) 1,000 UNIT (25 MCG) TABLET PO SCH (10:31)
[2019-12-29] MEDS: THIAMINE HCL 100 MG TABLET (FP) PO SCH (10:31)
[2019-12-29] MEDS: MULTIVITAMINS (DAILY MVI) TABLET (FP) PO SCH (10:31)
[2019-12-29] MEDS: ASPIRIN COATED 81 MG TABLET.EC PO SCH (10:34)
[2019-12-29] MEDS: DAPSONE 100 MG TABLET PO SCH (13:22)
[2019-12-29] MEDS: FLUoxetine HCL 20 MG CAPSULE PO SCH (13:22)
[2019-12-29] MEDS: DOLUTEGRAVIR SODIUM 50 MG TABLET (NON-FORMULARY) PO SCH (13:23)
[2019-12-29] MEDS: TIOTROPIUM BROMIDE 2.5 MCG (SPIRIVA) RESPIMAT INHALER IH SCH (13:34)
[2019-12-29] MEDS: DARUNAVIR 800 MG/COBICISTAT 150MG TABLET PO SCH (14:08)
--- NOTE | 2019-12-29 16:36 | PN ---
Progress Note, Physician Chief Complaint: Asymptomatic complaint of cough - Current Medication List Current Medications: Active Medications Acetaminophen (Tylenol -) 500 mg PO Q12H PRN PRN Reason: PAIN Albuterol/Ipratropium (Duoneb -) 1 amp NEB Q6H PRN PRN Reason: SHORTNESS OF BREATH Aspirin (Ecotrin -) 81 mg PO DAILY [facility] Last Admin: 12/29/19 10:34 Dose: 81 mg Cholecalciferol (Vitamin D3 -) 1,000 unit PO DAILY [facility] Last Admin: 12/29/19 10:31 Dose: 1,000 unit Dapsone (Dapsone -) 100 mg PO DAILY [facility] Last Admin: 12/29/19 13:22 Dose: 100 mg Fluoxetine HCl (Prozac -) 20 mg PO DAILY [facility] Last Admin: 12/29/19 13:22 Dose: 20 mg Levetiracetam (Keppra -) 500 mg PO BID [facility] Last Admin: 12/29/19 10:31 Dose: 500 mg Metoprolol Succinate (Toprol Xl -) 50 mg PO DAILY [facility] Last Admin: 12/29/19 10:31 Dose: 50 mg Multivitamins/Minerals/Vitamin C (Tab-A-Vit -) 1 tab PO DAILY [facility] Last Admin: 12/29/19 10:31 Dose: 1 tab Thiamine HCl (Vitamin B1 -) 100 mg PO DAILY [facility] Last Admin: 12/29/19 10:31 Dose: 100 mg Tiotropium [place] (Spiriva Respimat) 2 puff IH DAILY [facility] Last Admin: 12/29/19 13:34 Dose: 2 puff - Objective Vital Signs: Vital Signs Temperature 99.1 F 12/29/19 14:42 Pulse Rate 81 12/29/19 14:42 Respiratory Rate 18 12/29/19 14:42 Blood Pressure 130/91 12/29/19 14:42 O2 Sat by Pulse Oximetry (%) 98 12/29/19 09:00 General: Middle-aged, comfortable, not in distress HEENT; mucous membranes moist, no anemia, no jaundice, PERRLA, no nystagmus Neck: No JVD, supple, no bruit, thyroid palpably normal, normal carotid pulsations. Chest: Nontender, clear to auscultation bilaterally CVS: S1-S2 regularno murmur/gallop/rub Abdomen: Nondistended, soft, bowel sounds present. 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 present [employer] INSURANCE: AO X3 , no gross motor sensory deficit Labs: CBC, BMP 12/29/19 08:15 12/29/19 08:15 Problem List - Problems (1) Hyponatremia Assessment/Plan: Resolved serum sodium is 135 will DC IV hydration follow-up BMP in the morning if normal will DC the patient Code(s): E87.1 - HYPO-OSMOLALITY AND HYPONATREMIA (2) Hypertension Assessment/Plan: Continue all home medications at present well-controlled Code(s): I10 - ESSENTIAL (PRIMARY) HYPERTENSION Qualifiers: Hypertension type: essential hypertension Qualified Code(s): I10 - Essential (primary) hypertension (3) Seizure Assessment/Plan: observe closely for seizures, Keppra 5 mg twice daily, lorazepam 2 mg IV as needed for seizures Code(s): R56.9 - UNSPECIFIED CONVULSIONS (4) AIDS Assessment/Plan: Resume all home medication Code(s): B20 - HUMAN IMMUNODEFICIENCY VIRUS [HIV] DISEASE (5) COPD (chronic obstructive pulmonary disease) Assessment/Plan: Continue Ellipta, DuoNeb every 6 hourly as needed. Code(s): J44.9 - CHRONIC OBSTRUCTIVE PULMONARY DISEASE, UNSPECIFIED (6) Alcoholism Assessment/Plan: Patient claims that he is occasional drinker last drink was 2 days ago, continue thiamine, observe closely for DTs Code(s): F10.20 - ALCOHOL DEPENDENCE, UNCOMPLICATED (7) Anxiety Assessment/Plan: Continue SSRI Code(s): F41.9 - ANXIETY DISORDER, UNSPECIFIED
[2019-12-29] MEDS ORDERED: guaiFENesin/D-M SUGAR-FREE/ACLHOL-FREE 118 ML BOTTLE PO PRN (16:37)
[2019-12-29] MEDS: guaiFENesin/D-METHORPHAN HB 10 ML UNIT-DOSE CUPS PO PRN (18:35)
--- NOTE | 2019-12-29 23:18 | PN ---
Progress Note (short form) - Note Progress Note: Problems 1. hyponatremia 2. HIV 3. hx etoh abuse 4. htn 5. ckd 6. [place] palsy 7. epilepsy Current Medications Acetaminophen (Tylenol -) 500 mg PO Q12H PRN PRN Reason: PAIN Albuterol/Ipratropium (Duoneb -) 1 amp NEB Q6H PRN PRN Reason: SHORTNESS OF BREATH Aspirin (Ecotrin -) 81 mg PO DAILY [facility] Last Admin: 12/29/19 10:34 Dose: 81 mg Cholecalciferol (Vitamin D3 -) 1,000 unit PO DAILY [facility] Last Admin: 12/29/19 10:31 Dose: 1,000 unit Dapsone (Dapsone -) 100 mg PO DAILY [facility] Last Admin: 12/29/19 13:22 Dose: 100 mg Fluoxetine HCl (Prozac -) 20 mg PO DAILY [facility] Last Admin: 12/29/19 13:22 Dose: 20 mg Guaifenesin (Robitussin Dm -) 10 ml PO Q6H PRN PRN Reason: COUGH Last Admin: 12/29/19 18:35 Dose: 10 ml Levetiracetam (Keppra -) 500 mg PO BID [facility] Last Admin: 12/29/19 20:59 Dose: 500 mg Metoprolol Succinate (Toprol Xl -) 50 mg PO DAILY [facility] Last Admin: 12/29/19 10:31 Dose: 50 mg Multivitamins/Minerals/Vitamin C (Tab-A-Vit -) 1 tab PO DAILY [facility] Last Admin: 12/29/19 10:31 Dose: 1 tab Thiamine HCl (Vitamin B1 -) 100 mg PO DAILY [facility] Last Admin: 12/29/19 10:31 Dose: 100 mg Tiotropium [place] (Spiriva Respimat) 2 puff IH DAILY [facility] Last Admin: 12/29/19 13:34 Dose: 2 puff Last Vital Signs Temp Pulse Resp BP Pulse Ox 98.5 F 82 18 138/92 98 12/29/19 20:58 12/29/19 20:58 12/29/19 20:58 12/29/19 20:58 12/29/19 09:00 CBC, BMP 12/29/19 08:15 12/29/19 08:15 Hyponatremia resolved urine osm appropriately low low serum sodium c/w hypovolemia Plan saline d/c restrict free water - check tsh and cortisol - pt remains at risk to fall
[2019-12-30 06:30] VITALS: TEMP 98.5
[2019-12-30 08:26] LABS: BASO % 0.8 % (0-2.0); HEMATOCRIT 36.7 % (35.4-49); HEMOGLOBIN 12.6 GM/dL (11.7-16.9); MCH 35.2 pg (25.7-33.7); MCHC 34.5 g/dl (32.0-35.9); MEAN CELL VOLUME 102.1 fl (80-96); MEAN PLT VOLUME 6.8 fl (7.5-11.1); MONO % 15.3 % (3.8-10.2); NEUT % 55.9 % (42.8-82.8); PLATELET COUNT 327 K/MM3 (134-434); RBC 3.59 M/mm3 (4.00-5.60); RDW 13.3 % (11.9-15.9); WHITE BLOOD COUNT 8.7 K/mm3 (4.0-10.0)
[2019-12-30] MEDS ORDERED: PT OWN MED DRAWER 7, Y5N ONE (08:36)
[2019-12-30 08:48] LABS: BLOOD UREA NITROGEN 7.8 mg/dL (7-18); CALCIUM 9.6 mg/dL (8.5-10.1); CREATININE 1.4 mg/dL (0.55-1.3); POTASSIUM 4.2 mmol/L (3.5-5.1)
[2019-12-30 08:56] VITALS: BP 145/99; PULSE 72
[2019-12-30] MEDS: guaiFENesin/D-METHORPHAN HB 10 ML UNIT-DOSE CUPS PO PRN (09:00)
[2019-12-30] MEDS: MULTIVITAMINS (DAILY MVI) TABLET (FP) PO SCH (09:00)
[2019-12-30] MEDS: ASPIRIN COATED 81 MG TABLET.EC PO SCH (09:01)
[2019-12-30] MEDS: DARUNAVIR 800 MG/COBICISTAT 150MG TABLET PO SCH (09:02)
[2019-12-30] MEDS: CHOLECALCIFEROL (VIT D3) 1,000 UNIT (25 MCG) TABLET PO SCH (09:02)
[2019-12-30] MEDS: levETIRAcetam 500 MG TABLET (FP) PO SCH (09:02)
[2019-12-30] MEDS: THIAMINE HCL 100 MG TABLET (FP) PO SCH (09:02)
[2019-12-30] MEDS: TIOTROPIUM BROMIDE 2.5 MCG (SPIRIVA) RESPIMAT INHALER IH SCH (09:03)
[2019-12-30] MEDS: DAPSONE 100 MG TABLET PO SCH (09:03)
[2019-12-30] MEDS: DOLUTEGRAVIR SODIUM 50 MG TABLET (NON-FORMULARY) PO SCH (09:03)
[2019-12-30] MEDS: FLUoxetine HCL 20 MG CAPSULE PO SCH (09:03)
--- NOTE | 2019-12-30 09:23 | DS ---
Physical Examination Vital Signs: Vital Signs Temperature 98.5 F 12/30/19 08:55 Pulse Rate 72 12/30/19 08:55 Respiratory Rate 18 12/30/19 08:55 Blood Pressure 145/99 12/30/19 08:55 O2 Sat by Pulse Oximetry (%) 98 12/29/19 21:00 General: Middle-aged, comfortable, not in distress HEENT; mucous membranes moist, no anemia, no jaundice, PERRLA, no nystagmus Neck: No JVD, supple, no bruit, thyroid palpably normal, normal carotid pulsations. Chest: Nontender, clear to auscultation bilaterally CVS: S1-S2 regularno murmur/gallop/rub Abdomen: Nondistended, soft, bowel sounds present. 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 , no gross motor sensory deficit Labs: CBC, BMP 12/30/19 07:59 12/30/19 07:59 Uosmolaliy 104 U Na 7 Discharge Summary Problems reviewed: Yes Reason For Visit: SEIZURE DISORDER Current Active Problems Anxiety (Acute) COPD (chronic obstructive pulmonary disease) (Acute) Hyponatremia (Acute) Seizure (Acute) CKD stage 3 Hospital Course: 49year old man with a PMH of HTN, seizures disorder on Keppra 500 mg twice daily since April 2019 kidney stone disease (s/p lithotripsy), depression, alcohol abuse, macrocytosis, HLD, chronic pancreatitis, asthma, HIV disease (on HAART), ?CVA and [place] palsy (chronic right facial weakness) presents, patient visited our clinic, work-up of hyponatremia serum sodium 124 so called back for hospitalization, at the time of examination patient complained of mild cough and chest congestion denies any fever, chills, headache, neurological deficit last seizure was December 14, 2019, last drink was 2 days ago., patient remained asymptomatic Sr N improved to 135 , Nifedipine 30 mg Xl is added to optimize BP control Condition: Good - Instructions Diet, Activity, Other Instructions: Salt restricted Diet Avoid excessive free water intake and alcohol abuse. Referrals: Laura Carias MD [Primary Care Provider] - 1 Week Wil Darling MD [Staff Physician] - 1 Week - Home Medications Comprehensive Discharge Medication List: Ambulatory Orders Cholecalciferol (Vitamin D3) [Vitamin D3] 1,000 unit PO DAILY #30 capsule 06/12/ 19 Diclofenac Sodium [Voltaren] 2 gm TP TID PRN #3 tube 05/02/19 Acetaminophen [Tylenol .Extra-Strength -] 1 - 2 tab PO BID PRN #30 tablet MDD 4 09/27/19 Aspirin [Aspirin EC] 1 tab PO DAILY #30 tablet. 12/26/19 Dapsone - 1 tab PO DAILY #30 tablet 12/26/19 Dolutegravir Sodium [Tivicay] 1 tab PO DAILY #30 tablet 12/26/19 Fluoxetine HCl [Prozac -] 20 mg PO DAILY #30 capsule 12/26/19 Fluticasone Propionate [Flovent Diskus] 1 inh IH DAILY #2 blst.w.dev 12/26/19 Hydrocortisone 1% Cream [Hytone 1% Cream -] 1 applic TP BID #1 tube 12/26/19 Medical Information Id Tag [Medical Id For Bracelet] 1 each ASDIR #1 each Metoprolol Succinate [Toprol XL -] 1 tab PO DAILY #30 tablet 12/26/19 Mirtazapine [Remeron -] 15 mg PO DAILY #30 tablet 12/26/19 Multivitamin with Iron [Daily Nely with Iron] 1 each PO DAILY #30 tablet Umeclidinium [place] [Incruse Ellipta] 1 inh IH DAILY #1 blst.w.dev 12/26/19 levETIRAcetam [Keppra -] 1 tab PO BID #60 tablet 12/26/19 Darunavir/Cobicistat [Prezcobix 800 mg-150 mg Tablet] 1 each PO DAILY #30 tablet 12/30/19 Fluoxetine HCl [Prozac -] 20 mg PO DAILY capsule 12/30/19 Guaifenesin Dm [Robitussin Dm -] 10 ml PO Q6H PRN #1 cup 12/30/19 Guaifenesin/D-Methorphan Hb [Diabetic Tussin Dm -] 10 ml PO Q6H PRN #1 ml Nifedipine ER [Procardia XL -] 30 mg PO DAILY #30 tab.er.24 12/30/19 Thiamine HCl [Vitamin B1 -] 100 mg PO DAILY #30 tablet 12/30/19 Prescription Drug Monitoring Program (I-STOP) results: I-STOP reviewed and no issues identified
--- NOTE | 2019-12-30 09:58 | EKG ---
Test Reason : Blood Pressure : / mmHG Vent. Rate : 093 BPM Atrial Rate : 093 BPM P-R Int : 160 ms QRS Dur : 080 ms QT Int : 368 ms P-R-T Axes : 064 031 069 degrees QTc Int : 457 ms POOR DATA QUALITY, INTERPRETATION MAY BE ADVERSELY AFFECTED NORMAL SINUS RHYTHM MINIMAL VOLTAGE CRITERIA FOR LVH, MAY BE NORMAL VARIANT BORDERLINE ECG WHEN COMPARED WITH ECG OF 11-APR-2019 21:41, NO SIGNIFICANT CHANGE WAS FOUND Confirmed by LISA BARAHONA MD ([id number]) on 12/30/2019 9:57:51 AM Referred By: Confirmed By:LISA BARAHONA MD
[2019-12-30] MEDS ORDERED: NIFEdipine E.R. 30 MG TABLET PO SCH (10:00)
== END 2019-12-30 10:47 | disposition home or self-care (01) | DRG 892 ==
LOC: JER 11:15 → SUPCPDRO 11:15 → JERBED 14:05 → J5S 18:57
PROVIDERS: ADMIT Internal Medicine; ATTEND Internal Medicine
DX: E87.1 Hypo-osmolality and hyponatremia (principal); G51.0 Bell's palsy; F10.20 Alcohol dependence, uncomplicated; B20 Human immunodeficiency virus [HIV] disease; G40.909 Epilepsy, unspecified, not intractable, without status epilepticus; I12.9 Hypertensive chronic kidney disease with stage 1 through stage 4 chronic kidney disease, or unspecified chronic kidney disease; N18.3 Chronic kidney disease, stage 3 (moderate); F41.9 Anxiety disorder, unspecified; J45.30 Mild persistent asthma, uncomplicated; J44.9 Chronic obstructive pulmonary disease, unspecified; D64.9 Anemia, unspecified; D75.89 Other specified diseases of blood and blood-forming organs; E78.5 Hyperlipidemia, unspecified; E86.1 Hypovolemia; Z87.442 Personal history of urinary calculi
CPT/HCPCS: 36415; 71046-TC-FY; 80048; 80053; 81003; 82436; 82533; 83930; 83935; 84133; 84300; 84443; 85025; 87804; 93005; 93010; 99285-25; J7030

== ENCOUNTER 2021-11-30 09:28 | Inpatient (IN) | payer OTHER ==
[2021-11-30] MEDS ORDERED: ACETAMINOPHEN 500 MG TABLET (FP) PO ONE (11:10)
[2021-11-30] MEDS ORDERED: ONDANSETRON *ODT* 4 MG TABLET SL ONE (11:49)
[2021-11-30] MEDS ORDERED: ACETAMINOPHEN 325 MG TABLET (FP) ONE (12:30)
[2021-11-30 12:32] LABS: HEMATOCRIT 38.4 % (35.4-49); HEMOGLOBIN 12.5 GM/dL (11.7-16.9); MCH 34.9 pg (25.7-33.7); MCHC 32.6 g/dl (32.0-35.9); MEAN CELL VOLUME 106.8 fl (80-96); MEAN PLT VOLUME 7.4 fl (7.5-11.1); PLATELET COUNT 380 10^3/uL (134-434); RDW 13.1 % (11.9-15.9); WHITE BLOOD COUNT 22.6 K/mm3 (4.0-10.0)
[2021-11-30 12:55] LABS: CHLORIDE 100 mmol/L (98-107); SODIUM 138 mmol/L (136-145)
[2021-11-30 12:58] LABS: ANION GAP 11 MMOL/L (8-16); BLOOD UREA NITROGEN 24.7 mg/dL (7-18); CALCIUM 9.4 mg/dL (8.5-10.1); CO2 27 mmol/L (21-32)
[2021-11-30 12:59] LABS: GLUCOSE,RANDOM 89 mg/dL (74-106)
[2021-11-30 13:01] LABS: CREATININE 1.8 mg/dL (0.55-1.3); SGPT/ALT 10 U/L (13-61)
[2021-11-30 13:02] LABS: SGOT/AST 12 U/L (15-37)
[2021-11-30 13:03] LABS: BILIRUBIN,TOTAL 1.3 mg/dL (0.2-1); TOT PROT 8.3 g/dl (6.4-8.2)
[2021-11-30 13:11] LABS: ANISOCYTOSIS 1+; MACROCYTOSIS 1+; PLATELET ESTIMATE NORMAL
[2021-11-30 13:33] LABS: ALBUMIN 2.9 g/dl (3.4-5.0); ALK PHOS 101 U/L (45-117)
[2021-11-30] MEDS ORDERED: PIPERACILLIN/TAZOB 3.375 GM 3.375 GM in DEXTROSE 5%-WATER - 50 ML IVPB ONE (13:51)
[2021-11-30] MEDS ORDERED: VANCOMYCIN 1 GM in D5W (PRE-DOCKED) 1,000 MG/250 ML IVPB ONE (13:51)
[2021-11-30] MEDS ORDERED: PIPERACILLIN/TAZOB 3.375 GM 3.375 GM/50 ML BAG IVPB ONE (14:07)
[2021-11-30] MEDS ORDERED: VANCOMYCIN 1 GRAM (PRE-DOCKED) 1,000 MG/250 ML BAG IVPB ONE (14:07)
[2021-11-30] MEDS ORDERED: SODIUM CHLORIDE 1,000 ML IV STA (14:23)
[2021-11-30] MEDS ORDERED: SODIUM CHLORIDE 1,000 ML IV SCH (14:30)
[2021-11-30] MEDS ORDERED: PIPERACILLIN/TAZOB 3.375 GM 3.375 GM in DEXTROSE 5%-WATER - 50 ML IVPB SCH (18:00)
[2021-11-30] MEDS: HEPARIN NA (PORCINE) 5,000 UNITS/ML 1ML VIAL SQ SCH (22:14)
[2021-11-30] MEDS: levETIRAcetam 500 MG TABLET (FP) PO SCH (22:15)
[2021-11-30] MEDS: MIRTAZAPINE 30 MG TABLET PO SCH (22:15)
[2021-11-30 22:50] LABS: EPI CELLS 3 /uL (0-25.1); HYALINE CASTS 0 /uL (0-3.1); URINE APPEARANCE Error; URINE BACTERIA 1 /uL (0-1359); URINE BILIRUBIN NEGATIVE (NEGATIVE); URINE COLOR YELLOW; URINE GLUCOSE (UA) NEGATIVE (NEGATIVE); URINE KETONE NEGATIVE (NEGATIVE); URINE LEUK ESTERASE NEGATIVE (NEGATIVE); URINE NITRITE NEGATIVE (NEGATIVE); URINE PROTEIN 1+ (NEGATIVE); URINE RBC 2 /uL (0-23.9); URINE WBC 5 /uL (0-25.8)
[2021-12-01] MEDS: ACETAMINOPHEN 325 MG TABLET (FP) PO PRN ×2 (02:07→12:47)
[2021-12-01] MEDS: HEPARIN NA (PORCINE) 5,000 UNITS/ML 1ML VIAL SQ SCH ×3 (05:35→21:03)
[2021-12-01] MEDS ORDERED: DEXTROSE 5%-WATER - 50 ML IVPB ONE (09:20)
[2021-12-01] MEDS ORDERED: cefTRIAXone SODIUM 1 GM VIAL ONE (09:20)
[2021-12-01] MEDS: CEFTRIAXONE 1 GM in DEXTROSE 5%-WATER - 50 ML IVPB SCH (09:27)
[2021-12-01] MEDS: LACTOBACILLUS ACIDOPHILUS 1 TABLET PO SCH (09:27)
[2021-12-01] MEDS: levETIRAcetam 500 MG TABLET (FP) PO SCH ×2 (09:27→21:03)
[2021-12-01] MEDS ORDERED: VANCOMYCIN 1 GM in D5W (PRE-DOCKED) 1,000 MG/250 ML IVPB SCH (10:00)
[2021-12-01] MEDS: AZITHROMYCIN IVPB 500 MG/250 ML BAG IVPB SCH (10:34)
[2021-12-01 10:36] LABS: HEMATOCRIT 38.4 % (35.4-49); HEMOGLOBIN 12.3 GM/dL (11.7-16.9); MCH 34.8 pg (25.7-33.7); MEAN CELL VOLUME 108.9 fl (80-96); MEAN PLT VOLUME 7.8 fl (7.5-11.1); PLATELET COUNT 395 10^3/uL (134-434); RBC 3.52 M/mm3 (4.00-5.60); RDW 13.1 % (11.9-15.9); WHITE BLOOD COUNT 17.8 K/mm3 (4.0-10.0)
[2021-12-01 11:02] LABS: CALCIUM 8.7 mg/dL (8.5-10.1)
[2021-12-01 11:03] LABS: ALBUMIN 2.6 g/dl (3.4-5.0); BLOOD UREA NITROGEN 16.1 mg/dL (7-18); MAGNESIUM 2.1 mg/dL (1.8-2.4)
[2021-12-01 11:06] LABS: CREATININE 1.3 mg/dL (0.55-1.3); PHOSPHOROUS 2.6 mg/dL (2.5-4.9)
[2021-12-01 11:07] LABS: TOT PROT 7.7 g/dl (6.4-8.2)
[2021-12-01 11:19] LABS: BILIRUBIN,TOTAL 0.8 mg/dL (0.2-1)
[2021-12-01 11:39] LABS: ANISOCYTOSIS 1+; MACROCYTOSIS 1+; PLATELET ESTIMATE NORMAL
[2021-12-01] MEDS: DAPSONE 100 MG TABLET PO SCH (11:47)
[2021-12-01] MEDS: DOLUTEGRAVIR SODIUM 50 MG TABLET (NON-FORMULARY) PO SCH (11:48)
[2021-12-01] MEDS: DARUNAVIR 800 MG/COBICISTAT 150MG TABLET PO SCH (11:48)
[2021-12-01] MEDS: SODIUM CHLORIDE 0.45% 1,000 ML IV SCH (15:03)
[2021-12-01 16:21] LABS: PH,URINE 6.5 (5.0-8.0); URINE APPEARANCE CLEAR; URINE BILIRUBIN NEGATIVE (NEGATIVE); URINE COLOR YELLOW; URINE GLUCOSE (UA) NEGATIVE (NEGATIVE); URINE KETONE NEGATIVE (NEGATIVE); URINE LEUK ESTERASE NEGATIVE (NEGATIVE); URINE NITRITE NEGATIVE (NEGATIVE); URINE PROTEIN TRACE (NEGATIVE)
[2021-12-01] MEDS ORDERED: guaiFENesin 200 MG/10 ML 10 ML UNIT-DOSE CUPS PO ONE (20:23)
[2021-12-01] MEDS: MIRTAZAPINE 30 MG TABLET PO SCH (21:03)
[2021-12-02] MEDS: HEPARIN NA (PORCINE) 5,000 UNITS/ML 1ML VIAL SQ SCH ×3 (06:14→21:19)
[2021-12-02] MEDS: ACETAMINOPHEN 325 MG TABLET (FP) PO PRN (06:20)
[2021-12-02] MEDS: SODIUM CHLORIDE 0.45% 1,000 ML IV SCH ×3 (06:22→21:24)
[2021-12-02 08:26] LABS: HEMATOCRIT 34.2 % (35.4-49); HEMOGLOBIN 11.1 GM/dL (11.7-16.9); MCH 34.6 pg (25.7-33.7); MCHC 32.4 g/dl (32.0-35.9); MEAN CELL VOLUME 106.6 fl (80-96); MEAN PLT VOLUME 7.8 fl (7.5-11.1); PLATELET COUNT 376 10^3/uL (134-434); RBC 3.21 M/mm3 (4.00-5.60); RDW 12.9 % (11.9-15.9); WHITE BLOOD COUNT 13.4 K/mm3 (4.0-10.0)
[2021-12-02 08:41] LABS: CHLORIDE 105 mmol/L (98-107); SODIUM 137 mmol/L (136-145)
[2021-12-02 08:44] LABS: ALBUMIN 2.3 g/dl (3.4-5.0); BLOOD UREA NITROGEN 9.7 mg/dL (7-18); CALCIUM 8.4 mg/dL (8.5-10.1)
[2021-12-02 08:45] LABS: ANION GAP 7 MMOL/L (8-16); CO2 24 mmol/L (21-32); GLUCOSE,RANDOM 92 mg/dL (74-106); MAGNESIUM 1.6 mg/dL (1.8-2.4)
[2021-12-02] MEDS ORDERED: cefTRIAXone SODIUM 1 GM VIAL ONE (08:46)
[2021-12-02] MEDS ORDERED: DEXTROSE 5%-WATER - 50 ML IVPB ONE (08:47)
[2021-12-02 08:48] LABS: CREATININE 1.1 mg/dL (0.55-1.3); PHOSPHOROUS 2.7 mg/dL (2.5-4.9); SGOT/AST 10 U/L (15-37)
[2021-12-02 08:49] LABS: BILIRUBIN,TOTAL 0.9 mg/dL (0.2-1); TOT PROT 7.2 g/dl (6.4-8.2)
[2021-12-02 08:50] LABS: ALK PHOS 66 U/L (45-117)
[2021-12-02 08:51] LABS: SGPT/ALT < 6 U/L (13-61)
[2021-12-02 09:05] LABS: ANISOCYTOSIS 0; MACROCYTOSIS 0; PLATELET ESTIMATE NORMAL
[2021-12-02] MEDS ORDERED: guaiFENesin/D-M SUGAR-FREE/ACLHOL-FREE 5 ML UNIT DOSE PO PRN (09:48)
[2021-12-02] MEDS: CEFTRIAXONE 1 GM in DEXTROSE 5%-WATER - 50 ML IVPB SCH (10:08)
[2021-12-02] MEDS: levETIRAcetam 500 MG TABLET (FP) PO SCH ×2 (10:11→21:19)
[2021-12-02] MEDS: LACTOBACILLUS ACIDOPHILUS 1 TABLET PO SCH (10:11)
[2021-12-02] MEDS: AZITHROMYCIN IVPB 500 MG/250 ML BAG IVPB SCH (10:11)
[2021-12-02] MEDS: DOLUTEGRAVIR SODIUM 50 MG TABLET (NON-FORMULARY) PO SCH (10:13)
[2021-12-02] MEDS: DARUNAVIR 800 MG/COBICISTAT 150MG TABLET PO SCH (10:13)
[2021-12-02] MEDS: DAPSONE 100 MG TABLET PO SCH (10:53)
[2021-12-02] MEDS: FLUoxetine HCL 10 MG CAPSULE PO SCH (10:53)
[2021-12-02] MEDS ORDERED: MAGNESIUM OXIDE 400 MG TABLET (FP) PO ONE (13:30)
[2021-12-02] MEDS: MIRTAZAPINE 30 MG TABLET PO SCH (21:19)
[2021-12-03] MEDS: HEPARIN NA (PORCINE) 5,000 UNITS/ML 1ML VIAL SQ SCH ×3 (05:33→21:43)
[2021-12-03 08:53] LABS: HEMATOCRIT 31.4 % (35.4-49); HEMOGLOBIN 10.3 GM/dL (11.7-16.9); MCH 34.6 pg (25.7-33.7); MCHC 32.9 g/dl (32.0-35.9); MEAN CELL VOLUME 105.3 fl (80-96); MEAN PLT VOLUME 7.9 fl (7.5-11.1); PLATELET COUNT 397 10^3/uL (134-434); RBC 2.98 M/mm3 (4.00-5.60); RDW 12.9 % (11.9-15.9); WHITE BLOOD COUNT 10.2 K/mm3 (4.0-10.0)
[2021-12-03 09:17] LABS: BLOOD UREA NITROGEN 9.5 mg/dL (7-18); MAGNESIUM 1.6 mg/dL (1.8-2.4)
[2021-12-03 09:18] LABS: CALCIUM 8.5 mg/dL (8.5-10.1)
[2021-12-03 09:19] LABS: CREATININE 1.1 mg/dL (0.55-1.3)
[2021-12-03 09:20] LABS: PHOSPHOROUS 3.5 mg/dL (2.5-4.9)
[2021-12-03] MEDS ORDERED: cefTRIAXone SODIUM 1 GM VIAL ONE (09:35)
[2021-12-03] MEDS ORDERED: DEXTROSE 5%-WATER - 50 ML IVPB ONE (09:35)
[2021-12-03] MEDS: CEFTRIAXONE 1 GM in DEXTROSE 5%-WATER - 50 ML IVPB SCH (09:37)
[2021-12-03] MEDS: DAPSONE 100 MG TABLET PO SCH (09:38)
[2021-12-03] MEDS: levETIRAcetam 500 MG TABLET (FP) PO SCH ×2 (09:38→21:43)
[2021-12-03] MEDS: DARUNAVIR 800 MG/COBICISTAT 150MG TABLET PO SCH (09:38)
[2021-12-03] MEDS: LACTOBACILLUS ACIDOPHILUS 1 TABLET PO SCH (09:38)
[2021-12-03] MEDS: DOLUTEGRAVIR SODIUM 50 MG TABLET (NON-FORMULARY) PO SCH (09:39)
[2021-12-03] MEDS: FLUoxetine HCL 10 MG CAPSULE PO SCH (09:39)
[2021-12-03] MEDS: AZITHROMYCIN IVPB 500 MG/250 ML BAG IVPB SCH (10:33)
[2021-12-03 11:02] LABS: ANISOCYTOSIS 1+; MACROCYTOSIS 1+; PLATELET ESTIMATE NORMAL; ROULEAU 1+
[2021-12-03] MEDS: SODIUM CHLORIDE 0.45% 1,000 ML IV SCH (14:25)
[2021-12-03] MEDS: CYANOCOBALAMIN 1,000 MCG TABLET (FP) PO SCH (17:28)
[2021-12-03 21:10] LABS: MAGNESIUM 1.6 mg/dL (1.8-2.4)
[2021-12-03] MEDS: MIRTAZAPINE 30 MG TABLET PO SCH (21:43)
[2021-12-04] MEDS: HEPARIN NA (PORCINE) 5,000 UNITS/ML 1ML VIAL SQ SCH ×2 (05:41→14:31)
[2021-12-04] MEDS ORDERED: MAGNESIUM SULF 50% (8.12 MEQ/2 ML-1 GM VIAL) IVPB ONE (08:17)
[2021-12-04 08:19] LABS: HEMATOCRIT 31.3 % (35.4-49); HEMOGLOBIN 10.3 GM/dL (11.7-16.9); MCH 34.7 pg (25.7-33.7); MCHC 32.9 g/dl (32.0-35.9); MEAN CELL VOLUME 105.4 fl (80-96); MEAN PLT VOLUME 7.8 fl (7.5-11.1); PLATELET COUNT 438 10^3/uL (134-434); RBC 2.97 M/mm3 (4.00-5.60); RDW 13.2 % (11.9-15.9); WHITE BLOOD COUNT 8.4 K/mm3 (4.0-10.0)
[2021-12-04 08:47] LABS: BLOOD UREA NITROGEN 11.7 mg/dL (7-18); CALCIUM 8.6 mg/dL (8.5-10.1)
[2021-12-04 08:50] LABS: PHOSPHOROUS 3.8 mg/dL (2.5-4.9)
[2021-12-04] MEDS ORDERED: DEXTROSE 5%-WATER - 50 ML IVPB ONE (09:12)
[2021-12-04] MEDS ORDERED: cefTRIAXone SODIUM 1 GM VIAL ONE (09:12)
[2021-12-04] MEDS ORDERED: MAGNESIUM SULF 50% (8.12 MEQ/2 ML-1 GM VIAL) ONE (09:15)
[2021-12-04] MEDS: CEFTRIAXONE 1 GM in DEXTROSE 5%-WATER - 50 ML IVPB SCH (09:17)
[2021-12-04] MEDS: CYANOCOBALAMIN 1,000 MCG TABLET (FP) PO SCH (09:18)
[2021-12-04] MEDS: LACTOBACILLUS ACIDOPHILUS 1 TABLET PO SCH (09:18)
[2021-12-04] MEDS: levETIRAcetam 500 MG TABLET (FP) PO SCH (09:18)
[2021-12-04] MEDS: FLUoxetine HCL 10 MG CAPSULE PO SCH (09:20)
[2021-12-04] MEDS: DARUNAVIR 800 MG/COBICISTAT 150MG TABLET PO SCH (09:20)
[2021-12-04] MEDS: DOLUTEGRAVIR SODIUM 50 MG TABLET (NON-FORMULARY) PO SCH (09:20)
[2021-12-04] MEDS: DAPSONE 100 MG TABLET PO SCH (09:21)
[2021-12-04 09:23] LABS: ANISOCYTOSIS 2+; MACROCYTOSIS 2+; PLATELET ESTIMATE NORMAL
[2021-12-04 17:05] VITALS: BP 147/87; PULSE 84; TEMP 986
== END 2021-12-04 19:04 | disposition home or self-care (01) | DRG 890 ==
LOC: JER 09:28 → JERBED 14:06 → J8W 20:03
PROVIDERS: ADMIT Internal Medicine; ATTEND Internal Medicine
DX: A41.9 Sepsis, unspecified organism (principal); B20 Human immunodeficiency virus [HIV] disease; N17.9 Acute kidney failure, unspecified; J18.9 Pneumonia, unspecified organism; N18.30 Chronic kidney disease, stage 3 unspecified; D72.829 Elevated white blood cell count, unspecified; I10 Essential (primary) hypertension; E78.5 Hyperlipidemia, unspecified; F32.9 Major depressive disorder, single episode, unspecified
CPT/HCPCS: 36415; 71045-TC-FY; 71046-TC-FY; 76775-TC; 80048; 80053; 81003; 82550; 82570; 82607; 82746; 83735; 84100; 84156; 84439; 84443; 84484; 85025; 87040; 87070; 87086; 87186; 87205; 87804; 87899; 93005; 93010; 94010; 94761; 99285-25; C9803; J1644; U0003; U0005

== ENCOUNTER 2022-01-01 10:48 | Emergency (ER) | payer OTHER ==
[2022-01-01 11:06] VITALS: BMI 21.4
[2022-01-01 11:15] VITALS: TEMP 97.9
[2022-01-01 12:07] LABS: BASO % 1.3 % (0-2.0); HEMATOCRIT 36.5 % (35.4-49); HEMOGLOBIN 12.3 GM/dL (11.7-16.9); LYMPH % 44.7 % (8-40); MCH 36.9 pg (25.7-33.7); MCHC 33.6 g/dl (32.0-35.9); MEAN CELL VOLUME 109.7 fl (80-96); MEAN PLT VOLUME 7.2 fl (7.5-11.1); MONO % 8.8 % (3.8-10.2); NEUT % 35.2 % (42.8-82.8); PLATELET COUNT 199 10^3/uL (134-434); RBC 3.33 M/mm3 (4.00-5.60); RDW 15.1 % (11.9-15.9); WHITE BLOOD COUNT 4.1 K/mm3 (4.0-10.0)
[2022-01-01 12:12] LABS: CHLORIDE 105 mmol/L (98-107); SODIUM 134 mmol/L (136-145)
[2022-01-01 12:14] LABS: CALCIUM 9.3 mg/dL (8.5-10.1)
[2022-01-01 12:15] LABS: ALBUMIN 3.6 g/dl (3.4-5.0); BLOOD UREA NITROGEN 7.2 mg/dL (7-18); CO2 24 mmol/L (21-32); GLUCOSE,RANDOM 89 mg/dL (74-106)
[2022-01-01 12:18] LABS: CREATININE 1.1 mg/dL (0.55-1.3); SGOT/AST 54 U/L (15-37); SGPT/ALT 19 U/L (13-61)
[2022-01-01 12:19] LABS: BILIRUBIN,TOTAL 0.7 mg/dL (0.2-1); TOT PROT 8.2 g/dl (6.4-8.2)
[2022-01-01 12:21] LABS: ALK PHOS 58 U/L (45-117); ANION GAP 5 MMOL/L (8-16)
[2022-01-01 14:10] VITALS: BP 138/80; PULSE 99
[2022-01-01 14:29] LABS: ANISOCYTOSIS 2+; MACROCYTOSIS 2+; TEAR DROP CELLS 1+
== END 2022-01-01 14:10 | disposition home or self-care (01) ==
LOC: JER 10:48
DX: Z00.00 Encounter for general adult medical examination without abnormal findings (principal)
CPT/HCPCS: 36415; 80053; 84132; 85025; 93005; 93010; 99284-25

== ENCOUNTER 2022-09-23 09:23 | Observation (INO) | payer OTHER ==
[2022-09-23] MEDS ORDERED: SODIUM CHLORIDE 0.9% 500 ML INFUS.BAG IV ONE (10:04)
[2022-09-23 10:27] LABS: BASO % 0.5 % (0-2.0); EOS % 4.2 % (0-4.5); HEMATOCRIT 36.9 % (35.4-49); HEMOGLOBIN 12.6 GM/dL (11.7-16.9); LYMPH % 28.4 % (8-40); MCH 35.2 pg (25.7-33.7); MEAN CELL VOLUME 103.5 fl (80-96); MONO % 13.6 % (3.8-10.2); NEUT % 53.3 % (42.8-82.8); PLATELET COUNT 181 10^3/uL (134-434); RBC 3.56 M/mm3 (4.00-5.60); RDW 12.6 % (11.9-15.9); WHITE BLOOD COUNT 5.8 K/mm3 (4.0-10.0)
[2022-09-23 10:28] LABS: VENOUS BASE EXCESS 3.8 mmol/L (-2-2); VENOUS O2 SATURATION 29.3 % (70-80); VENOUS PCO2 59.9 mmHg (38-52); VENOUS PH 7.333 (7.310-7.410)
[2022-09-23 10:47] LABS: ALBUMIN 3.7 g/dl (3.4-5.0); CALCIUM 8.6 mg/dL (8.5-10.1)
[2022-09-23 10:50] LABS: CREATININE 1.5 mg/dL (0.55-1.3)
[2022-09-23 10:52] LABS: BILIRUBIN,TOTAL 1.4 mg/dL (0.2-1); TOT PROT 7.8 g/dl (6.4-8.2)
[2022-09-23] MEDS ORDERED: ACETAMINOPHEN 325 MG TABLET (FP) PO PRN (11:23)
[2022-09-23] MEDS ORDERED: SODIUM CHLORIDE 1,000 ML IV SCH (12:30)
[2022-09-23] MEDS ORDERED: CEFTRIAXONE 1 GM in DEXTROSE 5%-WATER - 50 ML IVPB SCH ×2 (12:30→13:13)
[2022-09-23] MEDS ORDERED: DOXYCYCLINE INJECTION 100 MG in DEXTROSE 5%-WATER 100 ML IVPB SCH ×2 (12:30→13:14)
[2022-09-23] MEDS ORDERED: CEFTRIAXONE 1 GM/50 ML BAG ONE (12:30)
[2022-09-23] MEDS ORDERED: AZITHROMYCIN IVPB 500 MG/250 ML BAG IVPB ONE ×2 (12:31→13:30)
[2022-09-23] MEDS: AZITHROMYCIN IVPB 500 MG in DEXTROSE 5%-WATER - 250 ML IVPB ONE ×2 (12:45→13:54)
[2022-09-23] MEDS ORDERED: ALBUTEROL SO4 2.5/IPRATROPIUM 0.5 INH SOL 3 ML VIAL.NEB. NEB PRN (14:40)
[2022-09-23] MEDS ORDERED: ALBUTEROL SO4 HFA INHALER IH PRN (14:41)
[2022-09-23] MEDS ORDERED: methylPREDNISolone NA SUCC 40 MG/1 ML VIAL ONE (15:24)
[2022-09-23] MEDS: methylPREDNISolone NA SUCC 40 MG/1 ML VIAL IVPUSH SCH ×2 (15:33→19:19)
[2022-09-24 01:15] VITALS: BMI 19.9
[2022-09-24] MEDS: methylPREDNISolone NA SUCC 40 MG/1 ML VIAL IVPUSH SCH ×3 (03:08→19:04)
[2022-09-24 07:14] VITALS: RESP 20
[2022-09-24] MEDS ORDERED: DOLUTEGRAVIR SODIUM 50 MG TABLET (NON-FORMULARY) PO SCH (10:00)
[2022-09-24] MEDS ORDERED: DARUNAVIR 800 MG/COBICISTAT 150MG TABLET PO SCH (10:00)
[2022-09-24] MEDS ORDERED: DAPSONE 100 MG TABLET PO SCH (10:00)
[2022-09-24] MEDS ORDERED: AZITHROMYCIN IVPB 250 MG in DEXTROSE 5%-WATER - 250 ML IVPB SCH (10:00)
[2022-09-24] MEDS ORDERED: NICOTINE 14 MG/24 HOURS TOPICAL PATCH TD SCH (10:00)
[2022-09-24] MEDS ORDERED: amLODIPine BESYLATE 5 MG TABLET (FP) PO SCH (12:00)
[2022-09-24 19:54] VITALS: BP 142/93; PULSE 98; TEMP 98.1
[2022-09-25 20:59] LABS: MAGNESIUM 1.5 mg/dL (1.8-2.4)
[2022-09-25 21:02] LABS: BILIRUBIN,DIRECT 0.4 mg/dL (0.0-0.2); PHOSPHOROUS 3.4 mg/dL (2.5-4.9)
== END 2022-09-24 20:32 | disposition home or self-care (01) ==
LOC: JER 09:23 → UNDOADMOB 10:05 → JERBED 10:05 → INTOOBSV 10:05 → JERBED 11:27 → J8W 23:19 → JERBED 23:19 → J8W 23:19
PROVIDERS: ADMIT Internal Medicine; ATTEND Internal Medicine
PROC: 3E03329 Introduction of Other Anti-infective into Peripheral Vein, Percutaneous Approach (ICD-10-PCS; principal; 2022-09-23)
PROC: 3E033GC Introduction of Other Therapeutic Substance into Peripheral Vein, Percutaneous Approach (ICD-10-PCS; 2022-09-23)
PROC: 3E0337Z Introduction of Electrolytic and Water Balance Substance into Peripheral Vein, Percutaneous Approach (ICD-10-PCS; 2022-09-23)
DX: R06.02 Shortness of breath (principal); B97.4 Respiratory syncytial virus as the cause of diseases classified elsewhere; B20 Human immunodeficiency virus [HIV] disease; I10 Essential (primary) hypertension; Z29.8 Encounter for other specified prophylactic measures; R09.02 Hypoxemia; R05.9 Cough, unspecified; K86.1 Other chronic pancreatitis; Z88.2 Allergy status to sulfonamides; Z88.8 Allergy status to other drugs, medicaments and biological substances
CPT/HCPCS: 0241U-QW; 36415; 71045-TC-FY; 80053; 80177; 82248; 82803; 83605; 83735; 84100; 84484; 85025; 87040; 87070; 87077; 87102; 87205; 87210; 87899; 93005; 93010; 99285-25; G0378

== ENCOUNTER 2022-10-23 19:24 | Emergency (ER) | payer OTHER ==
[2022-10-23 19:42] VITALS: BP 157/100; BMI 19.8
[2022-10-23] MEDS ORDERED: ACETAMINOPHEN 325 MG TABLET (FP) PO ONE (21:29)
[2022-10-23] MEDS ORDERED: ACETAMINOPHEN 325 MG TABLET (FP) ONE (22:06)
[2022-10-23 22:40] VITALS: PULSE 96; RESP 20; TEMP 99.5
== END 2022-10-23 23:10 | disposition home or self-care (01) ==
LOC: JER 19:24
DX: J09.X2 Influenza due to identified novel influenza A virus with other respiratory manifestations (principal)
CPT/HCPCS: 0241U-QW; 71046-TC-FY; 99284-25

== ENCOUNTER 2023-01-03 07:32 | Inpatient (IN) | payer OTHER ==
[2023-01-03] MEDS ORDERED: ACETAMINOPHEN 1000 MG/100 ML BAG IVPB ONE (08:31)
[2023-01-03] MEDS ORDERED: SODIUM CHLORIDE 0.9% 500 ML INFUS.BAG IV ONE (08:32)
[2023-01-03] MEDS ORDERED: ALBUTEROL SO4 2.5/IPRATROPIUM 0.5 INH SOL 3 ML VIAL.NEB. NEB ONE ×2 (08:48→08:50)
[2023-01-03] MEDS ORDERED: guaiFENesin/CODEINE 10 ML UNIT-DOSE CUPS PO ONE (08:48)
[2023-01-03] MEDS ORDERED: guaiFENesin/CODEINE 10 ML UNIT-DOSE CUPS ONE (08:50)
[2023-01-03] MEDS ORDERED: ACETAMINOPHEN INJECTION 100 ML IVPB ONE (08:51)
[2023-01-03] MEDS ORDERED: levETIRAcetam 500 MG/5 ML INJECTION VIAL IVPB ONE ×2 (09:11→09:20)
[2023-01-03 09:14] LABS: INR 1.04 (0.83-1.09); PROTHROMBIN TIME (PATIENT) 12.1 SEC (9.7-13.0)
[2023-01-03 09:15] LABS: BASO % 0.7 % (0-2.0); EOS % 1.6 % (0-4.5); HEMATOCRIT 37.7 % (35.4-49); HEMOGLOBIN 12.7 GM/dL (11.7-16.9); MCH 36.6 pg (25.7-33.7); MCHC 33.7 g/dl (32.0-35.9); MEAN CELL VOLUME 108.5 fl (80-96); MEAN PLT VOLUME 8.1 fl (7.5-11.1); MONO % 11.1 % (3.8-10.2); NEUT % 69.6 % (42.8-82.8); PLATELET COUNT 283 10^3/uL (134-434); RBC 3.48 M/mm3 (4.00-5.60); RDW 14.8 % (11.9-15.9); WHITE BLOOD COUNT 12.6 K/mm3 (4.0-10.0)
[2023-01-03 09:16] LABS: ACTIVATED PTT 29.5 SECONDS (25.2-36.5)
[2023-01-03 09:28] LABS: CALCIUM 8.9 mg/dL (8.5-10.1)
[2023-01-03 09:29] LABS: BLOOD UREA NITROGEN 19.4 mg/dL (7-18)
[2023-01-03] MEDS ORDERED: AZITHROMYCIN IVPB 500 MG in DEXTROSE 5%-WATER - 250 ML IVPB ONE (09:31)
[2023-01-03] MEDS ORDERED: CEFTRIAXONE 1,000 MG in DEXTROSE 5%-WATER - 50 ML IVPB ONE (09:31)
[2023-01-03 09:32] LABS: CREATININE 1.6 mg/dL (0.55-1.3)
[2023-01-03 09:33] LABS: TOT PROT 8.8 g/dl (6.4-8.2)
[2023-01-03 09:34] LABS: BILIRUBIN,TOTAL 2.1 mg/dL (0.2-1); LACTIC ACID 2.1 mmol/L (0.4-2.0)
[2023-01-03] MEDS ORDERED: CEFTRIAXONE 1 GM/50 ML BAG ONE (09:36)
[2023-01-03] MEDS ORDERED: AZITHROMYCIN IVPB 500 MG/250 ML BAG IVPB ONE (09:37)
[2023-01-03 11:17] LABS: ANISOCYTOSIS 2+; MACROCYTOSIS 2+
[2023-01-03 11:34] LABS: URINE APPEARANCE CLEAR; URINE BILIRUBIN NEGATIVE (NEGATIVE); URINE COLOR YELLOW; URINE GLUCOSE (UA) NEGATIVE (NEGATIVE); URINE KETONE NEGATIVE (NEGATIVE); URINE LEUK ESTERASE NEGATIVE (NEGATIVE); URINE NITRITE NEGATIVE (NEGATIVE); URINE PROTEIN NEGATIVE (NEGATIVE)
[2023-01-03] MEDS ORDERED: ALBUTEROL SO4 0.083% IH SOL 2.5 MG/3 ML VIAL.NEB. NEB PRN (13:06)
[2023-01-03] MEDS ORDERED: LACTATED RINGERS SOLUTION 1,000 ML/1,000 ML INFUS.BAG IV SCH (13:15)
[2023-01-03 13:17] LABS: LACTIC ACID 3.1 mmol/L (0.4-2.0)
[2023-01-03] MEDS ORDERED: LACTATED RINGERS SOLUTION 1,000 ML/1,000 ML INFUS.BAG IV STA (13:27)
[2023-01-03 13:44] VITALS: BMI 21.1
[2023-01-03] MEDS ORDERED: ALBUTEROL SO4 2.5/IPRATROPIUM 0.5 INH SOL 3 ML VIAL.NEB. NEB SCH (14:00)
[2023-01-03] MEDS ORDERED: guaiFENesin 200 MG/10 ML 10 ML UNIT-DOSE CUPS PO PRN (15:14)
[2023-01-03] MEDS: LACTATED RINGERS SOLUTION 1,000 ML/1,000 ML INFUS.BAG IV SCH (16:42)
[2023-01-03] MEDS: ALBUTEROL SO4 2.5/IPRATROPIUM 0.5 INH SOL 3 ML VIAL.NEB. NEB SCH ×2 (16:43→20:00)
[2023-01-03 17:17] LABS: LACTIC ACID 3.7 mmol/L (0.4-2.0)
[2023-01-03] MEDS: LIPASE/PROTEASE/AMYLASE 36,000 UNIT CAPSULE PO SCH (20:34)
[2023-01-03 20:37] LABS: LACTIC ACID 4.2 mmol/L (0.4-2.0)
[2023-01-03 21:30] LABS: ALLENS TEST POSITIVE; ARTERIAL BLD GAS O2 SATURATION 96.3 % (95-98); ARTERIAL BLOOD GAS BASE EXCESS 0.8 mmol/L (-2-2); ARTERIAL BLOOD GAS PO2 83.8 mmHg (80-100); ARTERIAL BLOOD GAS pH 7.405 (7.350-7.450)
[2023-01-03] MEDS ORDERED: OSELTAMIVIR PHOSPHATE 75 MG CAPSULE PO SCH (22:00)
[2023-01-03] MEDS ORDERED: SODIUM CHLORIDE 1,000 ML IV STA (23:13)
[2023-01-03] MEDS ORDERED: SODIUM CHLORIDE 500 ML IV STA (23:14)
[2023-01-04] MEDS: methylPREDNISolone NA SUCC 40 MG/1 ML VIAL IVPUSH SCH ×4 (00:51→17:27)
[2023-01-04] MEDS: LACTATED RINGERS SOLUTION 1,000 ML/1,000 ML INFUS.BAG IV SCH (07:43)
[2023-01-04] MEDS: LIPASE/PROTEASE/AMYLASE 36,000 UNIT CAPSULE PO SCH ×3 (07:44→17:36)
[2023-01-04] MEDS: ALBUTEROL SO4 2.5/IPRATROPIUM 0.5 INH SOL 3 ML VIAL.NEB. NEB SCH ×4 (08:18→20:32)
[2023-01-04 09:13] LABS: BASO % 0.2 % (0-2.0); EOS % 0.4 % (0-4.5); HEMATOCRIT 35.9 % (35.4-49); HEMOGLOBIN 11.9 GM/dL (11.7-16.9); LYMPH % 13.5 % (8-40); MCH 36.5 pg (25.7-33.7); MCHC 33.1 g/dl (32.0-35.9); MEAN CELL VOLUME 110.1 fl (80-96); MEAN PLT VOLUME 8.3 fl (7.5-11.1); MONO % 1.2 % (3.8-10.2); NEUT % 84.7 % (42.8-82.8); PLATELET COUNT 277 10^3/uL (134-434); RBC 3.26 M/mm3 (4.00-5.60); RDW 14.8 % (11.9-15.9); WHITE BLOOD COUNT 8.5 K/mm3 (4.0-10.0)
[2023-01-04 09:34] LABS: CALCIUM 8.6 mg/dL (8.5-10.1)
[2023-01-04 09:35] LABS: BLOOD UREA NITROGEN 13.2 mg/dL (7-18); MAGNESIUM 1.8 mg/dL (1.8-2.4)
[2023-01-04 09:37] LABS: CREATININE 1.4 mg/dL (0.55-1.3)
[2023-01-04 09:38] LABS: PHOSPHOROUS 2.8 mg/dL (2.5-4.9)
[2023-01-04 09:39] LABS: BILIRUBIN,TOTAL 0.9 mg/dL (0.2-1); TOT PROT 7.4 g/dl (6.4-8.2)
[2023-01-04 09:49] LABS: LACTIC ACID 5.5 mmol/L (0.4-2.0)
[2023-01-04] MEDS ORDERED: CEFTRIAXONE 1 GM in DEXTROSE 5%-WATER - 50 ML IVPB SCH ×2 (10:00→10:39)
[2023-01-04] MEDS ORDERED: ENOXAPARIN NA (PORCINE) 40 MG/0.4 ML DISP.SYRIN SQ SCH (10:00)
[2023-01-04] MEDS ORDERED: LACTATED RINGERS SOLUTION 1,000 ML/1,000 ML INFUS.BAG IV SCH (10:27)
[2023-01-04] MEDS: DOLUTEGRAVIR SODIUM 50 MG TABLET (NON-FORMULARY) PO SCH (10:43)
[2023-01-04] MEDS: DARUNAVIR 800 MG/COBICISTAT 150MG TABLET PO SCH (10:44)
[2023-01-04] MEDS: AZITHROMYCIN IVPB 500 MG/250 ML BAG IVPB SCH (10:45)
[2023-01-04] MEDS: DAPSONE 100 MG TABLET PO SCH (11:01)
[2023-01-04] MEDS: levETIRAcetam XR 750 MG TAB PO SCH (12:48)
[2023-01-04] MEDS: HEPARIN NA (PORCINE) 5,000 UNITS/ML 1ML VIAL SQ SCH (21:45)
[2023-01-05] MEDS: methylPREDNISolone NA SUCC 40 MG/1 ML VIAL IVPUSH SCH (01:33)
[2023-01-05] MEDS: HEPARIN NA (PORCINE) 5,000 UNITS/ML 1ML VIAL SQ SCH ×3 (05:44→21:26)
[2023-01-05 08:10] LABS: BASO % 0.1 % (0-2.0); EOS % 0.1 % (0-4.5); HEMATOCRIT 33.2 % (35.4-49); LYMPH % 7.6 % (8-40); MCH 36.4 pg (25.7-33.7); MCHC 33.1 g/dl (32.0-35.9); MEAN CELL VOLUME 109.8 fl (80-96); MEAN PLT VOLUME 8.9 fl (7.5-11.1); MONO % 3.8 % (3.8-10.2); NEUT % 88.4 % (42.8-82.8); PLATELET COUNT 256 10^3/uL (134-434); RBC 3.02 M/mm3 (4.00-5.60); RDW 15.2 % (11.9-15.9); WHITE BLOOD COUNT 16.1 K/mm3 (4.0-10.0)
[2023-01-05] MEDS: ALBUTEROL SO4 2.5/IPRATROPIUM 0.5 INH SOL 3 ML VIAL.NEB. NEB SCH ×4 (08:20→21:00)
[2023-01-05 08:26] LABS: BLOOD UREA NITROGEN 14.9 mg/dL (7-18); CALCIUM 8.6 mg/dL (8.5-10.1)
[2023-01-05 08:27] LABS: ALBUMIN 2.9 g/dl (3.4-5.0); MAGNESIUM 1.9 mg/dL (1.8-2.4)
[2023-01-05 08:29] LABS: PHOSPHOROUS 4.2 mg/dL (2.5-4.9)
[2023-01-05 08:30] LABS: CREATININE 1.4 mg/dL (0.55-1.3)
[2023-01-05 08:31] LABS: BILIRUBIN,TOTAL 0.7 mg/dL (0.2-1)
[2023-01-05 08:57] LABS: LACTIC ACID 3.5 mmol/L (0.4-2.0)
[2023-01-05] MEDS: DOLUTEGRAVIR SODIUM 50 MG TABLET (NON-FORMULARY) PO SCH (09:29)
[2023-01-05] MEDS: levETIRAcetam XR 750 MG TAB PO SCH (09:29)
[2023-01-05] MEDS: LIPASE/PROTEASE/AMYLASE 36,000 UNIT CAPSULE PO SCH ×3 (09:29→17:38)
[2023-01-05] MEDS: DARUNAVIR 800 MG/COBICISTAT 150MG TABLET PO SCH (09:29)
[2023-01-05] MEDS: DAPSONE 100 MG TABLET PO SCH (09:29)
[2023-01-05] MEDS: AZITHROMYCIN IVPB 500 MG/250 ML BAG IVPB SCH (09:30)
[2023-01-05] MEDS ORDERED: methylPREDNISolone NA SUCC 40 MG/1 ML VIAL IVPUSH SCH (10:00)
[2023-01-06] MEDS ORDERED: ALBUTEROL SO4 0.083% IH SOL 2.5 MG/3 ML VIAL.NEB. NEB PRN (01:18)
[2023-01-06] MEDS ORDERED: guaiFENesin 200 MG/10 ML 10 ML UNIT-DOSE CUPS PO PRN (01:18)
[2023-01-06 02:29] VITALS: RESP 20
[2023-01-06] MEDS ORDERED: HEPARIN NA (PORCINE) 5,000 UNITS/ML 1ML VIAL SQ SCH (06:00)
[2023-01-06] MEDS ORDERED: LIPASE/PROTEASE/AMYLASE 36,000 UNIT CAPSULE PO SCH (08:00)
[2023-01-06 08:24] LABS: ALBUMIN 3.1 g/dl (3.4-5.0); BLOOD UREA NITROGEN 18.3 mg/dL (7-18); CALCIUM 9.5 mg/dL (8.5-10.1)
[2023-01-06 08:27] LABS: CREATININE 1.5 mg/dL (0.55-1.3); PHOSPHOROUS 4.4 mg/dL (2.5-4.9)
[2023-01-06 08:29] LABS: BILIRUBIN,TOTAL 0.9 mg/dL (0.2-1); TOT PROT 7.4 g/dl (6.4-8.2)
[2023-01-06 08:45] LABS: BASO % 0.4 % (0-2.0); HEMOGLOBIN 11.2 GM/dL (11.7-16.9); LYMPH % 6.3 % (8-40); MCH 35.1 pg (25.7-33.7); MCHC 32.1 g/dl (32.0-35.9); MEAN CELL VOLUME 109.5 fl (80-96); MEAN PLT VOLUME 8.5 fl (7.5-11.1); MONO % 6.1 % (3.8-10.2); NEUT % 87.2 % (42.8-82.8); PLATELET COUNT 276 10^3/uL (134-434); RDW 15.3 % (11.9-15.9); WHITE BLOOD COUNT 18.2 K/mm3 (4.0-10.0)
[2023-01-06] MEDS: ALBUTEROL SO4 2.5/IPRATROPIUM 0.5 INH SOL 3 ML VIAL.NEB. NEB SCH ×2 (08:50→12:40)
[2023-01-06 09:50] VITALS: BP 133/89; TEMP 97.9
[2023-01-06 09:52] VITALS: PULSE 113
[2023-01-06] MEDS ORDERED: CEFTRIAXONE 1 GM in DEXTROSE 5%-WATER - 50 ML IVPB SCH (10:00)
[2023-01-06] MEDS ORDERED: DARUNAVIR 800 MG/COBICISTAT 150MG TABLET PO SCH (10:00)
[2023-01-06] MEDS ORDERED: AZITHROMYCIN IVPB 500 MG/250 ML BAG IVPB SCH (10:00)
[2023-01-06] MEDS ORDERED: DOLUTEGRAVIR SODIUM 50 MG TABLET (NON-FORMULARY) PO SCH (10:00)
[2023-01-06] MEDS ORDERED: levETIRAcetam XR 750 MG TAB PO SCH (10:00)
[2023-01-06] MEDS ORDERED: predniSONE 10 MG TABLET (UD) PO SCH (10:00)
[2023-01-06] MEDS ORDERED: DAPSONE 100 MG TABLET PO SCH (10:00)
== END 2023-01-06 14:00 | disposition home or self-care (01) | DRG 140 ==
LOC: JER 07:32 → UNDOADMOB 11:42 → JERBED 11:42 → INTOOBSV 11:42 → OBSVTOIN 11:42 → J4W 17:00 → J8W 18:58 → J4W 19:01 → J7W 01-05 21:36
PROVIDERS: ADMIT Internal Medicine; ATTEND Internal Medicine
DX: J44.1 Chronic obstructive pulmonary disease with (acute) exacerbation (principal); B20 Human immunodeficiency virus [HIV] disease; J96.21 Acute and chronic respiratory failure with hypoxia; E87.20 Acidosis, unspecified; J18.9 Pneumonia, unspecified organism; J45.901 Unspecified asthma with (acute) exacerbation; J20.9 Acute bronchitis, unspecified; J98.11 Atelectasis; N18.9 Chronic kidney disease, unspecified
CPT/HCPCS: 0241U-QW; 36415; 36600; 71045-TC-FY; 71250-TC; 80053; 81003; 82803; 83605; 83615; 83735; 84100; 84484; 85025; 85610; 85730; 87040; 87086; 87449; 87633; 87899; 93005; 93010; 94640; 94761; 97116-GP; 97161-GP; 99285-25; J1644

== ENCOUNTER 2023-11-05 06:34 | Emergency (ER) | payer OTHER ==
[2023-11-05 06:58] VITALS: BP 145/94; PULSE 106; RESP 20; TEMP 99.3; BMI 25.0
[2023-11-05] MEDS ORDERED: predniSONE 20 MG TABLET (UD) PO ONE (07:31)
[2023-11-05] MEDS ORDERED: guaiFENesin/D-METHORPHAN HB 10 ML UNIT-DOSE CUPS PO ONE (07:31)
[2023-11-05] MEDS ORDERED: ACETAMINOPHEN 500 MG TABLET (FP) PO ONE (07:31)
[2023-11-05] MEDS ORDERED: ACETAMINOPHEN 500 MG TABLET (FP) ONE (07:56)
[2023-11-05] MEDS ORDERED: guaiFENesin/D-METHORPHAN HB 10 ML UNIT-DOSE CUPS ONE (07:56)
[2023-11-05] MEDS ORDERED: predniSONE 20 MG TABLET (UD) ONE (07:57)
== END 2023-11-05 09:36 | disposition home or self-care (01) ==
LOC: JER 06:34 → JERFT 06:34
DX: R11.10 Vomiting, unspecified (principal); R50.9 Fever, unspecified; M79.10 Myalgia, unspecified site; R09.89 Other specified symptoms and signs involving the circulatory and respiratory systems; R53.83 Other fatigue; U07.1 COVID-19
CPT/HCPCS: 0241U-QW; 71046-TC-FY; 99284-25

== ENCOUNTER 2024-01-04 09:55 | Emergency (ER) | payer OTHER ==
[2024-01-04 11:14] VITALS: BMI 23.8
[2024-01-04] MEDS: SODIUM CHLORIDE 0.9% 500 ML INFUS.BAG IV ONE (11:32)
[2024-01-04 11:34] LABS: VENOUS BASE EXCESS -0.8 mmol/L (-2-2); VENOUS O2 SATURATION 33.7 % (70-80); VENOUS PCO2 57.1 mmHg (38-52); VENOUS PH 7.287 (7.310-7.410)
[2024-01-04 11:39] LABS: BASO % 0.7 % (0-2.0); EOS % 3.3 % (0-4.5); HEMATOCRIT 37.6 % (35.4-49); HEMOGLOBIN 12.2 GM/dL (11.7-16.9); LYMPH % 36.5 % (8-40); MCH 34.8 pg (25.7-33.7); MCHC 32.5 g/dl (32.0-35.9); MEAN CELL VOLUME 107.2 fl (80-96); NEUT % 48.5 % (42.8-82.8); PLATELET COUNT 226 10^3/uL (134-434); RDW 17.1 % (11.9-15.9); WHITE BLOOD COUNT 6.4 K/mm3 (4.0-10.0)
[2024-01-04 11:57] LABS: POTASSIUM 4.8 mmol/L (3.5-5.1)
[2024-01-04 11:59] LABS: ALBUMIN 3.8 g/dl (3.4-5.0); BLOOD UREA NITROGEN 15.5 mg/dL (7-18); CALCIUM 8.9 mg/dL (8.5-10.1)
[2024-01-04 12:03] LABS: CREATININE 1.5 mg/dL (0.55-1.3)
[2024-01-04 12:04] LABS: BILIRUBIN,TOTAL 0.8 mg/dL (0.2-1)
[2024-01-04 12:34] LABS: ANISOCYTOSIS 0; MACROCYTOSIS 2+
[2024-01-04 13:38] VITALS: BP 149/98; PULSE 70; RESP 20; TEMP 97.6
== END 2024-01-04 14:00 | disposition home or self-care (01) ==
LOC: JER 09:55
DX: R06.02 Shortness of breath (principal); R09.02 Hypoxemia; Z20.822 Contact with and (suspected) exposure to COVID-19
CPT/HCPCS: 0241U-QW; 36415; 71045-TC-FY; 80053; 82803; 83880; 84484; 85025; 93005; 93010; 99285-25

== ENCOUNTER 2024-05-03 04:35 | Day surgery (SDC) | payer OTHER ==
[2024-04-30 12:07] VITALS: BMI 23.6
[2024-05-03] MEDS ORDERED: ALBUTEROL SO4 HFA INHALER IH ONE (08:24)
[2024-05-03] MEDS ORDERED: TETRACAINE/BENZOCAINE/BUTAMBEN 20 GM SPR TP ONE (08:27)
[2024-05-03] MEDS: TETRACAINE/BENZOCAINE/BUTAMBEN 20 GM SPR TP ONE (08:30)
[2024-05-03] MEDS: BENZOCAINE 20% UNIT DOSE SPRAY MM ONE (08:30)
[2024-05-03 09:07] VITALS: TEMP 98.2
[2024-05-03 09:12] VITALS: RESP 18
[2024-05-03 09:31] VITALS: PULSE 101
[2024-05-03 09:37] VITALS: BP 145/99
== END 2024-05-03 09:37 | disposition home or self-care (01) ==
LOC: JASU-ENDO 04:35
PROVIDERS: ATTEND Internal Medicine Gastroenterology
PROC: 0DB68ZX Excision of Stomach, Via Natural or Artificial Opening Endoscopic, Diagnostic (ICD-10-PCS; 2024-05-03)
PROC: 0DB28ZX Excision of Middle Esophagus, Via Natural or Artificial Opening Endoscopic, Diagnostic (ICD-10-PCS; 2024-05-03)
PROC: 0DJ08ZZ Inspection of Upper Intestinal Tract, Via Natural or Artificial Opening Endoscopic (ICD-10-PCS; 2024-05-03)
PROC: 0DB38ZX Excision of Lower Esophagus, Via Natural or Artificial Opening Endoscopic, Diagnostic (ICD-10-PCS; principal; 2024-05-03 08:30)
DX: K22.2 Esophageal obstruction (principal); K21.00 Gastro-esophageal reflux disease with esophagitis, without bleeding; K44.9 Diaphragmatic hernia without obstruction or gangrene; K29.50 Unspecified chronic gastritis without bleeding
CPT/HCPCS: 88305-TC; 88342-TC

== ENCOUNTER 2024-05-25 09:04 | Emergency (ER) | payer OTHER ==
[2024-05-25 09:11] VITALS: BMI 24.5
[2024-05-25] MEDS ORDERED: ACETAMINOPHEN 500 MG TABLET (FP) ONE (10:31)
[2024-05-25] MEDS: ACETAMINOPHEN 500 MG TABLET (FP) PO ONE (10:32)
[2024-05-25 11:28] VITALS: RESP 16; TEMP 97.7
[2024-05-25] MEDS ORDERED: amLODIPine BESYLATE 5 MG TABLET (FP) ONE (11:28)
[2024-05-25] MEDS: amLODIPine BESYLATE 5 MG TABLET (FP) PO ONE (11:42)
[2024-05-25 12:40] VITALS: BP 142/101; PULSE 79
== END 2024-05-25 12:58 | disposition home or self-care (01) ==
LOC: JERFT 09:04
PROC: 0HQ0XZZ Repair Scalp Skin, External Approach (ICD-10-PCS; principal; 2024-05-25)
DX: S01.01XA Laceration without foreign body of scalp, initial encounter (principal); M54.2 Cervicalgia; M79.10 Myalgia, unspecified site; W08.XXXA Fall from other furniture, initial encounter
CPT/HCPCS: 70450-TC; 72125-TC; 99284-25

== ENCOUNTER 2024-06-06 06:49 | Emergency (ER) | payer OTHER ==
[2024-06-06 06:57] VITALS: RESP 20; BMI 23.8
[2024-06-06] MEDS ORDERED: ACETAMINOPHEN INJECTION 100 ML IVPB ONE (08:04)
[2024-06-06] MEDS ORDERED: ONDANSETRON 4 MG/2 ML VIAL ONE (08:04)
[2024-06-06 08:10] LABS: BASO % 0.9 % (0-2.0); EOS % 1.8 % (0-4.5); HEMATOCRIT 39.9 % (35.4-49); HEMOGLOBIN 13.4 GM/dL (11.7-16.9); LYMPH % 31.9 % (8-40); MCH 34.7 pg (25.7-33.7); MCHC 33.6 g/dl (32.0-35.9); MEAN CELL VOLUME 103.3 fl (80-96); MEAN PLT VOLUME 7.5 fl (7.5-11.1); MONO % 9.2 % (3.8-10.2); NEUT % 56.2 % (42.8-82.8); PLATELET COUNT 268 10^3/uL (134-434); RBC 3.86 M/mm3 (4.00-5.60); RDW 14.2 % (11.9-15.9); WHITE BLOOD COUNT 7.6 K/mm3 (4.0-10.0)
[2024-06-06] MEDS: ACETAMINOPHEN 1000 MG/100 ML BAG IVPB ONE (08:11)
[2024-06-06] MEDS: ONDANSETRON 4 MG/2 ML VIAL IVPUSH ONE (08:11)
[2024-06-06] MEDS: SODIUM CHLORIDE 1,000 ML IV STA (08:11)
[2024-06-06 08:24] LABS: POTASSIUM 5.4 mmol/L (3.5-5.1)
[2024-06-06 08:26] LABS: CALCIUM 9.6 mg/dL (8.5-10.1)
[2024-06-06 08:27] LABS: ALBUMIN 3.9 g/dl (3.4-5.0)
[2024-06-06 08:30] LABS: CREATININE 1.8 mg/dL (0.55-1.3)
[2024-06-06 08:32] LABS: TOT PROT 8.6 g/dl (6.4-8.2)
[2024-06-06 08:54] LABS: EPI CELLS 12 /uL (0-25.1); HYALINE CASTS 2 /uL (0-3.1); PH,URINE 6.5 (5.0-8.0); URINE APPEARANCE CLEAR; URINE BACTERIA 6 /uL (0-1359); URINE BILIRUBIN 2+ (NEGATIVE); URINE COLOR DK YELLOW; URINE GLUCOSE (UA) NEGATIVE (NEGATIVE); URINE KETONE 1+ (NEGATIVE); URINE LEUK ESTERASE TRACE (NEGATIVE); URINE NITRITE NEGATIVE (NEGATIVE); URINE PROTEIN 1+ (NEGATIVE); URINE RBC 18 /uL (0-23.9); URINE WBC 38 /uL (0-25.8)
[2024-06-06 11:31] VITALS: BP 143/90; PULSE 78
[2024-06-06 11:32] VITALS: TEMP 97.8
== END 2024-06-06 11:33 | disposition home or self-care (01) ==
LOC: JER 06:49
PROC: 3E033NZ Introduction of Analgesics, Hypnotics, Sedatives into Peripheral Vein, Percutaneous Approach (ICD-10-PCS; principal; 2024-06-06)
PROC: 3E033GC Introduction of Other Therapeutic Substance into Peripheral Vein, Percutaneous Approach (ICD-10-PCS; 2024-06-06)
PROC: 3E0337Z Introduction of Electrolytic and Water Balance Substance into Peripheral Vein, Percutaneous Approach (ICD-10-PCS; 2024-06-06)
DX: M54.9 Dorsalgia, unspecified (principal); R10.13 Epigastric pain; R11.2 Nausea with vomiting, unspecified; Z20.822 Contact with and (suspected) exposure to COVID-19
CPT/HCPCS: 0241U-QW; 36415; 72100-TC-FY; 76705-TC; 80053; 81003; 85025; 87086; 93005; 93010; 99285-25; J0131

== ENCOUNTER 2024-06-07 05:53 | Emergency (ER) | payer OTHER ==
[2024-06-07 06:10] VITALS: BP 158/99; PULSE 94; RESP 20; TEMP 98.6; BMI 22.8
[2024-06-07] MEDS ORDERED: ACETAMINOPHEN INJECTION 100 ML IVPB ONE (07:54)
[2024-06-07] MEDS: ACETAMINOPHEN 1000 MG/100 ML BAG IVPB ONE (08:15)
[2024-06-07] MEDS ORDERED: ONDANSETRON 4 MG/2 ML VIAL ONE (08:18)
[2024-06-07 08:19] LABS: BASO % 0.4 % (0-2.0); HEMATOCRIT 40.6 % (35.4-49); HEMOGLOBIN 13.7 GM/dL (11.7-16.9); LYMPH % 21.2 % (8-40); MCHC 33.7 g/dl (32.0-35.9); MEAN CELL VOLUME 103.8 fl (80-96); MEAN PLT VOLUME 6.8 fl (7.5-11.1); MONO % 7.7 % (3.8-10.2); NEUT % 69.7 % (42.8-82.8); PLATELET COUNT 220 10^3/uL (134-434); RBC 3.91 M/mm3 (4.00-5.60); RDW 14.3 % (11.9-15.9); WHITE BLOOD COUNT 7.7 K/mm3 (4.0-10.0)
[2024-06-07] MEDS: ONDANSETRON 4 MG/2 ML VIAL IVPB ONE (08:32)
[2024-06-07] MEDS ORDERED: METOCLOPRAMIDE HCL INJECTION 10 MG/2 ML VIAL ONE (08:43)
[2024-06-07 08:45] LABS: POTASSIUM 4.9 mmol/L (3.5-5.1)
[2024-06-07 08:47] LABS: BLOOD UREA NITROGEN 12.2 mg/dL (7-18); CALCIUM 9.2 mg/dL (8.5-10.1)
[2024-06-07] MEDS: METOCLOPRAMIDE HCL INJECTION 10 MG/2 ML VIAL IVPB ONE (08:49)
[2024-06-07] MEDS: SODIUM CHLORIDE 0.9% 500 ML INFUS.BAG IV ONE (08:49)
[2024-06-07 08:50] LABS: CREATININE 1.5 mg/dL (0.55-1.3)
[2024-06-07 08:52] LABS: BILIRUBIN,TOTAL 0.7 mg/dL (0.2-1); TOT PROT 8.7 g/dl (6.4-8.2)
== END 2024-06-07 12:00 | disposition home or self-care (01) ==
LOC: JER 05:53
PROC: 3E033NZ Introduction of Analgesics, Hypnotics, Sedatives into Peripheral Vein, Percutaneous Approach (ICD-10-PCS; principal; 2024-06-07)
PROC: 3E033GC Introduction of Other Therapeutic Substance into Peripheral Vein, Percutaneous Approach (ICD-10-PCS; 2024-06-07)
PROC: 3E033GC Introduction of Other Therapeutic Substance into Peripheral Vein, Percutaneous Approach (ICD-10-PCS; 2024-06-07)
DX: R11.2 Nausea with vomiting, unspecified (principal); R10.30 Lower abdominal pain, unspecified; K86.1 Other chronic pancreatitis; M54.6 Pain in thoracic spine; Z20.822 Contact with and (suspected) exposure to COVID-19
CPT/HCPCS: 0241U-QW; 36415; 72128-TC; 80053; 83690; 84484; 85025; 93005; 93010; 99285-25; J0131

== ENCOUNTER 2025-02-18 21:12 | Emergency (ER) | payer OTHER ==
[2025-02-18 21:25] VITALS: RESP 18; TEMP 97.2; BMI 23.8
[2025-02-18 22:28] LABS: ABSOLUTE IMMATURE GRANULOCYTES 0.03 x10^3/uL (0.0-0.031); BASOPHILS # 0.03 x10^3/uL (0.01-0.08); EOSINOPHIL % 2.2 % (0.8-7.0); EOSINOPHILS # 0.19 x10^3/uL (0.04-0.54); HEMATOCRIT 35.7 % (40.1-51.0); MCHC 33.6 g/dl (32.3-36.5); MEAN CELL VOLUME 104.4 fl (79.0-92.2); MEAN PLT VOLUME 9.7 fl (9.4-12.4); MONOCYTE # 1.02 x10^3/uL (0.30-0.82); MONOCYTE % 11.9 % (5.3-12.2); PLATELET COUNT 212 x10^3/uL (163-337); RDW 11.5 % (12.2-16.1)
[2025-02-18] MEDS ORDERED: ACETAMINOPHEN 325 MG TABLET (FP) ONE (22:30)
[2025-02-18] MEDS: ACETAMINOPHEN 325 MG TABLET (FP) PO ONE (22:33)
[2025-02-18 23:11] LABS: POTASSIUM 4.1 mmol/L (3.5-5.1)
[2025-02-18 23:13] LABS: ALBUMIN 3.7 g/dl (3.4-5.0); BLOOD UREA NITROGEN 13.3 mg/dL (7-18); CALCIUM 9.1 mg/dL (8.5-10.1)
[2025-02-18 23:16] LABS: CREATININE 1.7 mg/dL (0.55-1.3)
[2025-02-18 23:18] LABS: BILIRUBIN,TOTAL 0.6 mg/dL (0.2-1); TOT PROT 7.5 g/dl (6.4-8.2)
[2025-02-18 23:55] VITALS: BP 128/87; PULSE 84
[2025-02-19] MEDS ORDERED: levETIRAcetam 500 MG TABLET (FP) PO ONE (00:51)
[2025-02-19] MEDS: levETIRAcetam 250 MG TABLET PO ONE (00:57)
== END 2025-02-19 01:03 | disposition home or self-care (01) ==
LOC: JER 21:12
DX: G40.909 Epilepsy, unspecified, not intractable, without status epilepticus (principal); R51.9 Headache, unspecified; R06.02 Shortness of breath; R42 Dizziness and giddiness; R05.9 Cough, unspecified; R00.0 Tachycardia, unspecified; R07.9 Chest pain, unspecified
CPT/HCPCS: 0241U-QW; 36415; 71046-TC-FY; 80053; 80177; 84484; 85025; 93005; 93010; 99285-25